=== PATIENT | female | born 1980 | race Caucasian/White ===

== ENCOUNTER 2017-06-28 20:44 | Emergency (ER) | payer OTHER ==
[~2017-06-28] VITALS: Ht 170.2 cm; Wt 66.0 kg
[~2017-06-28 20:44] MED LIST: ADVIN25/60 INH; ALBU1NEB10 INH; ALBUAER2 INH; CLC100 PO; FLUO20CA35 PO; OMEP20CA9 PO
[2017-06-28 20:51] VITALS: PULSE 99; TEMP 37.2; O2SAT 97; Ht 170.2 cm; Wt 66.0 kg
[2017-06-28] MEDS ORDERED: ALBINS/ INH (21:39)
[2017-06-28] MEDS ORDERED: VNTHFA/IN INH (21:39)
[2017-06-28] MEDS ORDERED: OMEP40CA41 PO (21:41)
[2017-06-28] MEDS ORDERED: ACET-1256 PO (21:41)
[2017-06-28] MEDS ORDERED: RANITIDINE HCL 50 MG/100 ML D5W IV STA (21:45)
[2017-06-28] MEDS ORDERED: PROMETHAZINE HCL INJ 6.25 MG in SODIUM CHLORIDE 0.9% 50ML 50 ML IV STA (21:45)
[2017-06-28] MEDS ORDERED: ONDANSETRON INJ 2 MG/ML 2 ML VIAL IV STA (21:45)
[2017-06-28] MEDS ORDERED: PANTOprazole SOD 40 MG TAB PO STA (21:45)
[2017-06-28] MEDS ORDERED: SODIUM CHLORIDE 0.9% 1000ML 2,000 ML IV STA (21:45)
--- NOTE | 2017-06-28 21:51 | EMERGENCY ROOM VISIT NOTE ---
History Report prepared by Lori: Patricia Quijano Under the Supervision of: Dr. Israel Morales M.D. First contact with patient: 21:42 Chief Complaint: VOMITING Stated Complaint: POSSIBLE ALCOHOL POISONING History of Present Illness The patient is a 36 year old female who presents to the Emergency Room with complaints of persistent vomiting for the past day. She reports yesterday evening, she had 10 shots of alcohol and 1 beer, and today she cannot stop vomiting. Her esophagus feels "raw", and she rates her discomfort as a 7/10. She has had that much alcohol before without experiencing the same symptoms. She reports she is a social drinker and does not drink every day. The patient is a current smoker and admits to a history of asthma. She states she felt totally normal yesterday. She denies any recent fevers, cough or cold symptoms or urinary symptoms. 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 A total of 10 systems reviewed and were otherwise negative. Past Medical & Surgical Medical Problems: (1) Asthma with status asthmaticus (2) Cellulitis (3) Depression (4) History of - miscarriage (5) Migraine (6) Tobacco user Family History Diabetes mellitus Hypertension Kidney disease Lung disease Social History Smoking Status: Current Every Day Smoker Alcohol Use: occasionally Marital Status: Housing Status: lives with significant other Occupation Status: unemployed Current/Historical Medications Scheduled Acetaminophen (Tylenol), 1,000 MG PO PRN UD Omeprazole (Prilosec), 40 MG PO BID Pantoprazole (Protonix), 20 MG PO DAILY Scheduled PRN Albuterol Hfa (Ventolin Hfa), 2 PUFFS INH Q4 PRN for ASTHMA Albuterol Sulf (Proventil 0.083% 2.5MG/3ML), 2.5 MG INH QID PRN for SOB/Wheezing Allergies Coded Allergies: Spinach (Verified Allergy, Severe, SHORTNESS OF BREATH, 01/25/16) Ibuprofen (Verified Adverse Reaction, Severe, VOMITING,BLURRED VISION, RINGING OF EARS, 01/25/16) Physical Exam Vital Signs Date Time Temp Pulse Resp B/P (MAP) Pulse Ox O2 Delivery O2 Flow Rate FiO2 8/17/17 23:49 143/93 06/28/17 20:51 37.2 99 18 159/126 97 Room Air Physical Exam GENERAL: Patient is in no acute distress. HEENT: No acute trauma, normocephalic atraumatic, mucous membranes dry, no nasal congestion, no scleral icterus. No throat erythema or exudate. NECK: No stridor, no adenopathy, no meningismus, trachea is midline. LUNGS: Scattered wheezing bilaterally, no rhonchi, breath sounds equal. HEART: Without murmurs gallops or rubs, regular rate and rhythm. ABDOMEN: Soft, nontender, bowel sounds positive, no hernias, no peritonitis. EXTREMITIES: No cyanosis or edema, full range of motion of all the joints without pain or difficulty, no signs for acute trauma. NEUROLOGIC: Oriented x 3, no acute motor or sensory deficits, no focal weakness. SKIN: No rash, no jaundice, no diaphoresis. Medical Decision & Procedures ER Provider Diagnostic Interpretation: Radiology results as stated below per my review and radiologist interpretation: ABDOMEN 2VIEW W/PA CHEST RTN CLINICAL HISTORY: 36 years-old Female presenting with vomiting. TECHNIQUE: PA view of the chest and supine and upright views of the abdomen were obtained. COMPARISON: 10/28/2014. FINDINGS: Cardiomediastinal silhouette normal. Lungs and pleural spaces clear. Normal bowel gas pattern. No evidence of free intraperitoneal gas, pneumatosis, or portal venous gas. Osseous structures normal. IMPRESSION: 1. No acute cardiopulmonary disease. No radiographic evidence of acute intra-abdominal pathology. Electronically signed by: Anil Francois M.D. 06/28/2017 11:21 PM Laboratory Results 06/28/17 22:18 Red Blood Count 4.85, Mean Corpuscular Volume 88.0, Mean Corpuscular Hemoglobin 32.0, Mean Corpuscular Hemoglobin Concent 36.3, Mean Platelet Volume 10.8, Neutrophils (%) (Auto) 57.7, Lymphocytes (%) (Auto) 29.5, Monocytes (%) (Auto) 9.2, Eosinophils (%) (Auto) 2.1, Basophils (%) (Auto) 1.3, Neutrophils # (Auto) 3.01, Lymphocytes # (Auto) 1.54, Monocytes # (Auto) 0.48, Eosinophils # (Auto) 0.11, Basophils # (Auto) 0.07 06/28/17 22:18 Test 06/28/17 22:18 White Blood Count 5.22 K/uL (4.8-10.8) Red Blood Count 4.85 M/uL (4.2-5.4) Hemoglobin 15.5 g/dL (12.0-16.0) Hematocrit 42.7 % (37-47) Mean Corpuscular Volume 88.0 fL (80-100) Mean Corpuscular Hemoglobin 32.0 pg (25-34) Mean Corpuscular Hemoglobin Concent 36.3 g/dl (32-36) Platelet Count 218 K/uL (130-400) Mean Platelet Volume 10.8 fL (7.4-10.4) Neutrophils (%) (Auto) 57.7 % Lymphocytes (%) (Auto) 29.5 % Monocytes (%) (Auto) 9.2 % Eosinophils (%) (Auto) 2.1 % Basophils (%) (Auto) 1.3 % Neutrophils # (Auto) 3.01 K/uL (1.4-6.5) Lymphocytes # (Auto) 1.54 K/uL (1.2-3.4) Monocytes # (Auto) 0.48 K/uL (0.11-0.59) Eosinophils # (Auto) 0.11 K/uL (0-0.5) Basophils # (Auto) 0.07 K/uL (0-0.2) RDW Standard Deviation 41.6 fL (36.4-46.3) RDW Coefficient of Variation 13.0 % (11.5-14.5) Immature Granulocyte % (Auto) 0.2 % Immature Granulocyte # (Auto) 0.01 K/uL (0.00-0.02) Anion Gap 8.0 mmol/L (3-11) Est Creatinine Clear Calc Drug Dose 97.9 ml/min Estimated GFR () 114.2 Estimated GFR (Non- 98.5 BUN/Creatinine Ratio 13.7 (10-20) Calcium Level 9.0 mg/dl (8.5-10.1) Total Bilirubin 1.1 mg/dl (0.2-1) Aspartate Amino Transf (AST/SGOT) 28 U/L (15-37) Alanine Aminotransferase (ALT/SGPT) 25 U/L (12-78) Alkaline Phosphatase 109 U/L (45-117) Total Creatine Kinase 259 U/L (26-192) Total Protein 7.7 gm/dl (6.4-8.2) Albumin 4.0 gm/dl (3.4-5.0) Globulin 3.7 gm/dl (2.5-4.0) Albumin/Globulin Ratio 1.1 (0.9-2) Human Chorionic Gonadotropin, Qual NEG (NEG) Laboratory results reviewed by me. Medications Administered Medications (Trade) Dose Ordered Sig/Kristofer Route Start Time Stop Time Status Last Admin Dose Admin Sodium Chloride 2,000 ml @ 999 mls/hr Q2H1M STAT IV 06/28/17 21:45 06/28/17 23:45 DC 06/28/17 22:37 999 MLS/HR Ondansetron HCl (Zofran Inj) 4 mg NOW STAT IV 06/28/17 21:45 06/28/17 21:48 DC 06/28/17 22:38 4 MG Ranitidine HCl (zANTac IV) 50 mg NOW STAT IV 06/28/17 21:45 06/28/17 21:49 DC 06/28/17 22:50 50 MG Pantoprazole Sodium (Protonix Tab) 40 mg NOW STAT PO 06/28/17 21:45 06/28/17 21:49 DC 06/28/17 22:38 40 MG Promethazine HCl 6.25 mg/Sodium Chloride 50.25 ml @ 204 mls/hr NOW STAT IV 06/28/17 21:45 06/28/17 21:59 DC 06/28/17 22:37 204 MLS/HR Ondansetron HCl (ZOFRAN ODT 4MG Home Pack) 1 homepack UD ONCE PO 06/28/17 23:45 06/28/17 23:46 DC 06/29/17 00:09 1 HOMEPACK ED Course 2143: The patient was evaluated in room C6. A complete history and physical exam was performed. 5: Promethazine HCl 6.25 mg/NSS 50.25 ml @ 204 mls/hr IV, Protonix 40 mg PO, Zantac 50 mg IV, Zofran 4 mg IV, NSS 2000 ml @ 999 mls/hr IV. 2335: I reevaluated the patient. She is feeling well and ready to go home. I discussed her results and discharge instructions and she verbalized complete understanding and agreement. 2345: Zofran 4 mg 1 homepack PO. Medical Decision The differential diagnoses considered include dehydration, alcohol induced vomiting, electrolyte imbalance, , UTI, bowel obstruction, food poisoning and viral illness. There is no leukocytosis or concerning anemia. No significant electrolyte abnormalities, kidney failure or hepatitis. testing is negative. Obstruction series shows no pneumonia, free air or bowel obstruction. On exam, there was no peritonitis. The patient was not toxic or febrile. She had no urinary complaints. The patient had a significant amount of alcohol last evening, she has been vomiting since. She received IV Zofran, IV Phenergan, IV saline, IV Zantac. She was given oral Protonix. The patient is feeling improved, no further vomiting. She is being discharged home with a bland diet, antacids, Maalox to soothe the esophagus. If worsening, she can return. Medication Reconcilliation Current Medication List: was personally reviewed by me Blood Pressure Screening Patient's blood pressure: Elevated blood pressure Blood pressure disposition: Elevated BP felt to be situational Impression Primary Impression: Dehydration Additional Impressions: Vomiting Alcohol use Scribe Attestation The scribe's documentation has been prepared under my direction and personally reviewed by me in its entirety. I confirm that the note above accurately reflects all work, treatment, procedures, and medical decision making performed by me. Departure Information Dispostion Home / Self-Care Prescriptions Pantoprazole (Protonix) 20 Mg Tab 20 MG PO DAILY for 21 Days, #21 TAB Prov: Israel Morales M.D. 06/28/17 Referrals No Doctor, Assigned (PCP) Patient Instructions My [facility] Additional Instructions protonix daily for 3 weeks zofran 1 tab as needed for vomiting bland diet---nothing acidic maalox otc to soothe the throat before meals return if worsening lab testing and imaging was all ok Problem Qualifiers
[2017-06-28 22:45] LABS: BASO % 1.3 %; BASO ABS # 0.07 K/uL (0-0.2); COMPLETE YES; EOS % 2.1 %; HEMATOCRIT 42.7 % (37-47); IG% 0.2 %; LYMPH % 29.5 %; LYMPH ABS # 1.54 K/uL (1.2-3.4); MEAN CORPUSCULAR HGB CONC 36.3 g/dl (32-36); MEAN PLATELET VOLUME 10.8 fL (7.4-10.4); MONO % 9.2 %; NEUT % 57.7 %; PLATELET COUNT 218 K/uL (130-400); RED BLOOD COUNT 4.85 M/uL (4.2-5.4); WHITE BLOOD COUNT 5.22 K/uL (4.8-10.8)
[2017-06-28 23:03] LABS: BUN/CREATININE RATIO 13.7 (10-20); CREATININE 0.78 mg/dl (0.60-1.20); POTASSIUM 3.3 mmol/L (3.5-5.1)
[2017-06-28 23:06] LABS: ALB/GLOB RATIO 1.1 (0.9-2)
[2017-06-28 23:08] LABS: PREG INTERNAL NEGATIVE QC NEG CLEAR BACKGROUND; PREG INTERNAL POSITIVE QC POS CONTROL LINE
--- NOTE | 2017-06-28 23:22 | DIAGNOSTIC IMAGING REPORT ---
ABDOMEN 2VIEW W/PA CHEST RTN CLINICAL HISTORY: 36 years-old Female presenting with vomiting. TECHNIQUE: PA view of the chest and supine and upright views of the abdomen were obtained. COMPARISON: 10/28/2014. FINDINGS: Cardiomediastinal silhouette normal. Lungs and pleural spaces clear. Normal bowel gas pattern. No evidence of free intraperitoneal gas, pneumatosis, or portal venous gas. Osseous structures normal. IMPRESSION: 1. No acute cardiopulmonary disease. No radiographic evidence of acute intra-abdominal pathology. Electronically signed by: Anil Francois M.D. 06/28/2017 11:21 PM Dictated Date/Time: 06/28/2017 11:20 PM
[2017-06-28] MEDS ORDERED: PRT/20 PO (23:42)
[2017-06-28] MEDS ORDERED: ONDANSETRON HOME PACK 4MG OD TAB PO ONE (23:45)
[2017-06-28 23:49] VITALS: BP 143/93
== END 2017-06-29 00:09 | disposition home or self-care (01) ==
LOC: C.EDB 20:45 → C.EDC 06-29 00:09
DX: E86.0 Dehydration (principal); R11.10 Vomiting, unspecified; F10.129 Alcohol abuse with intoxication, unspecified; F32.9 Major depressive disorder, single episode, unspecified; J45.909 Unspecified asthma, uncomplicated; Z86.19 Personal history of other infectious and parasitic diseases; F17.200 Nicotine dependence, unspecified, uncomplicated; Z79.899 Other long term (current) drug therapy; Z88.8 Allergy status to other drugs, medicaments and biological substances; Z91.018 Allergy to other foods; Z83.3 Family history of diabetes mellitus; Z82.49 Family history of ischemic heart disease and other diseases of the circulatory system; Z84.1 Family history of disorders of kidney and ureter

== ENCOUNTER 2018-02-21 13:26 | Emergency (ER) | payer OTHER ==
[~2018-02-21] VITALS: Ht 170.2 cm; Wt 67.6 kg
[~2018-02-21 13:26] MED LIST changes: +ACET-1256 PO; -ADVIN25/60 INH; +ALBINS/ INH; -ALBU1NEB10 INH; -ALBUAER2 INH; -CLC100 PO; -FLUO20CA35 PO; -OMEP20CA9 PO; +OMEP40CA41 PO; +VNTHFA/IN INH
[2018-02-21 13:27] VITALS: TEMP 36.9; Ht 170.2 cm; Wt 67.6 kg
[2018-02-21] MEDS ORDERED: MoRPHine SULFATE 4 MG/ML 1 ML CARP\\VIAL IV STA (13:39)
[2018-02-21] MEDS ORDERED: SODIUM CHLORIDE 0.9% 1000ML 1,000 ML IV STA (13:39)
[2018-02-21] MEDS ORDERED: ONDANSETRON INJ 2 MG/ML 2 ML VIAL IV STA (13:39)
[2018-02-21] MEDS ORDERED: ONDA4TAB65 PO (13:53)
[2018-02-21 14:10] LABS: BASO % 0.4 %; BASO ABS # 0.03 K/uL (0-0.2); EOS % 1.4 %; EOS ABS # 0.12 K/uL (0-0.5); HEMATOCRIT 36.8 % (37-47); HEMOGLOBIN 13.1 g/dL (12.0-16.0); IG# 0.01 K/uL (0.00-0.02); LYMPH % 17.9 %; LYMPH ABS # 1.52 K/uL (1.2-3.4); MEAN CORPUSCULAR HEMOGLOBIN 31.3 pg (25-34); MEAN CORPUSCULAR HGB CONC 35.6 g/dl (32-36); MEAN PLATELET VOLUME 10.3 fL (7.4-10.4); MONO % 4.8 %; MONO ABS # 0.41 K/uL (0.11-0.59); NEUT % 75.4 %; NEUT ABS # 6.38 K/uL (1.4-6.5); PLATELET COUNT 233 K/uL (130-400); RED CELL DISTRIBUTION WIDTH CV 13.5 % (11.5-14.5); RED CELL DISTRIBUTION WIDTH SD 43.5 fL (36.4-46.3); WHITE BLOOD COUNT 8.47 K/uL (4.8-10.8)
[2018-02-21 14:27] LABS: ALBUMIN 3.7 gm/dl (3.4-5.0); ALT/SGPT 15 U/L (12-78); AST/SGOT 16 U/L (15-37); BLOOD UREA NITROGEN 6 mg/dl (7-18); CALCIUM 8.7 mg/dl (8.5-10.1); CARBON DIOXIDE 22 mmol/L (21-32); CREATININE 0.62 mg/dl (0.60-1.20); GLUCOSE 97 mg/dl (70-99); LIPASE 84 U/L (73-393); POTASSIUM 3.5 mmol/L (3.5-5.1); SODIUM 137 mmol/L (136-145)
[2018-02-21 14:30] LABS: ALKALINE PHOSPHATASE 58 U/L (45-117); TOTAL PROTEIN 7.1 gm/dl (6.4-8.2)
--- NOTE | 2018-02-21 15:53 | DIAGNOSTIC IMAGING REPORT ---
ULTRASOUND OF THE GRAVID UTERUS AND PELVIS CLINICAL HISTORY: Generalized abdominal pain. .. COMPARISON STUDY: No priors. TECHNIQUE: Real-time, grayscale, and color flow sonography of the pelvis is performed transabdominally. Images are reviewed in the transverse and longitudinal planes. FINDINGS: Uterus: The gravid uterus is heterogeneous and measures 11.3 cm in length. Gestation: There is a single live uterine gestation with an estimated heart rate of 152 bpm. The mean gestational sac diameter measures 3.72 cm, corresponding to an estimated age of 9 weeks 4 days. This is concordant with the crown-rump length of 3.21 cm which corresponds to an estimated age of 10 weeks 1 day. A yolk sac is identified. Trace subchronic hemorrhage is noted and is likely chronic. Ovaries: The ovaries are normal in size and morphology. The right ovary measures 2.9 x 2.7 x 2.5 cm and the left ovary measures 3.0 x 1.2 x 2.4 cm. Small follicles are seen bilaterally. Normal Doppler waveforms are shown within both ovaries. Pelvis: There is no free fluid in the cul-de-sac. No concerning adnexal lesion is seen. IMPRESSION: 1. There is a single live uterine gestation with an estimated age of 10 weeks 1 day by crown-rump length measurement. 2. Note that this does not constitute a dedicated anatomic scan. 3. There is evidence of trace resolving subchorionic hemorrhage. Electronically signed by: Israel Crandall M.D. 02/21/2018 3:52 PM Dictated Date/Time: 02/21/2018 3:44 PM
[2018-02-21] MEDS ORDERED: ONDA4TAB10 SL (16:34)
[2018-02-21 17:04] VITALS: BP 118/74; PULSE 74; O2SAT 100
--- NOTE | 2018-02-22 11:18 | EMERGENCY ROOM VISIT NOTE ---
ED Visit Note First contact with patient: 13:30 Chief Complaint: Abdominal pain. History of Present Illness: Ms. Adames is a 37 year-old white female who ambulates into the ED complaining of bilateral lower quadrant pain in the suprapubic area. Historically patient reports patient denies any gastrointestinal disorders or abdominal surgeries. She does report she is currently and has not seen her [facility] for this . She is 6 and para 3 with no complications from her previous pregnancies. Her last menstrual cycle was December 06. Patient reports a gradual onset of suprapubic abdominal pain that started 5 days ago. Since that time the pain has been constant but has waxed and waned in intensity. She has not taken any medications for her pain prior to arrival at the hospital. Currently she describes her pain as a cramping sensation. She rates her current discomfort 6/10. Her pain is nonradiating. She has not identified any aggravating or alleviating factors related to the pain. Associated with her pain when it becomes severe she becomes nauseated and reported a few episodes of bilious vomiting; she denies any associated nausea prior to her vomiting. She denies any associated including fevers, chills, sweats, skin eruptions, skin color changes, upper respiratory tract symptoms, shortness of breath, chest pain, diarrhea, constipation, rectal bleeding, black/tarry stools, urinary symptoms, hematuria, vaginal bleeding, vaginal discharge, back/flank pain. Review of Systems: As noted above in history of present illness. All body systems were reviewed and found to be negative as noted above. Past Medical History: As previously noted, asthma. Current Medications: Albuterol, Prilosec, Tylenol and Zofran. Allergies to Medications: Ibuprofen. Social History: Patient is not employed; she feels safe in her home environment ; she admits to tobacco use and alcohol use. Physical Examination: Vital Signs: Date Time Temp Pulse Resp B/P (MAP) Pulse Ox O2 Delivery O2 Flow Rate FiO2 02/21/18 17:04 74 18 118/74 100 02/21/18 16:10 75 02/21/18 15:42 77 18 113/80 99 Room Air 02/21/18 13:27 36.9 101 20 126/74 100 Room Air GENERAL: 37-year-old female in mild to moderate distress due to pain, nontoxic- appearing, afebrile and hemodynamically stable. NEUROLOGICAL: Awake, alert and oriented to person, place and time. Answering questions appropriately and following commands. Normal gait. Good hand eye coordination. SKIN: Warm, dry and pink. No soft tissue eruptions or trauma noted. HEENT: Atraumatic and normocephalic. PERRLA. Sclera white and conjunctiva pink. Oral cavity moist and pink. Pharynx is nonerythematous or edematous. Speech normal. No lymphadenopathy. Trachea midline. No jugular venous distention. BACK: No tenderness over the bony spine. No CVA tenderness. THORAX: Lungs sounds are clear to auscultation and equal bilaterally with symmetrical chest wall. No wheezing, rales or rhonchi. No crepitus, tenderness , subcutaneous air or deformities noted. HEART: Regular rate and rhythm. No gallops, rubs or murmurs are appreciated. ABDOMEN: Flat and soft with minimal tenderness in the suprapubic area over the bladder. Positive bowel sounds in all quadrants. No guarding, rigidity or organomegaly. EXTREMITIES: Moves all extremities well on command and with purpose. All distal neurovascular statuses are intact and equal bilaterally. ED Course: Patient is assessed as noted above. Laboratory Testing: Test 02/21/18 13:48 02/21/18 15:45 Range/Units White Blood Count 8.47 4.8-10.8 K/uL Red Blood Count 4.18 4.2-5.4 M/uL Hemoglobin 13.1 12.0-16.0 g/dL Hematocrit 36.8 37-47 % Mean Corpuscular Volume 88.0 80-100 fL Mean Corpuscular Hemoglobin 31.3 25-34 pg Mean Corpuscular Hemoglobin Concent 35.6 32-36 g/dl Platelet Count 233 130-400 K/uL Mean Platelet Volume 10.3 7.4-10.4 fL Neutrophils (%) (Auto) 75.4 % Lymphocytes (%) (Auto) 17.9 % Monocytes (%) (Auto) 4.8 % Eosinophils (%) (Auto) 1.4 % Basophils (%) (Auto) 0.4 % Neutrophils # (Auto) 6.38 1.4-6.5 K/uL Lymphocytes # (Auto) 1.52 1.2-3.4 K/uL Monocytes # (Auto) 0.41 0.11-0.59 K/uL Eosinophils # (Auto) 0.12 0-0.5 K/uL Basophils # (Auto) 0.03 0-0.2 K/uL RDW Standard Deviation 43.5 36.4-46.3 fL RDW Coefficient of Variation 13.5 11.5-14.5 % Immature Granulocyte % (Auto) 0.1 % Immature Granulocyte # (Auto) 0.01 0.00-0.02 K/uL Sodium Level 137 136-145 mmol/L Potassium Level 3.5 3.5-5.1 mmol/L Chloride Level 108 98-107 mmol/L Carbon Dioxide Level 22 21-32 mmol/L Anion Gap 7.0 3-11 mmol/L Blood Urea Nitrogen 6 7-18 mg/dl Creatinine 0.62 0.60-1.20 mg/dl Est Creatinine Clear Calc Drug Dose 122.0 ml/min Estimated GFR () 134.5 Estimated GFR (Non- 116.0 BUN/Creatinine Ratio 9.3 10-20 Random Glucose 97 70-99 mg/dl Calcium Level 8.7 8.5-10.1 mg/dl Total Bilirubin 0.4 0.2-1 mg/dl Direct Bilirubin < 0.1 0-0.2 mg/dl Aspartate Amino Transf (AST/SGOT) 16 15-37 U/L Alanine Aminotransferase (ALT/SGPT) 15 12-78 U/L Alkaline Phosphatase 58 45-117 U/L Total Protein 7.1 6.4-8.2 gm/dl Albumin 3.7 3.4-5.0 gm/dl Lipase 84 73-393 U/L Human Chorionic Gonadotropin, Quant 61925 mIU/mL Urine Color YELLOW Urine Appearance CLOUDY CLEAR Urine pH 7.0 4.5-7.5 Urine Specific [place] 1.010 1.000-1.030 Urine Protein NEG NEG Urine Glucose (UA) NEG NEG Urine Ketones NEG NEG Urine Occult Blood NEG NEG Urine Nitrite NEG NEG Urine Bilirubin NEG NEG Urine Urobilinogen NEG NEG Urine Leukocyte Esterase NEG NEG Urine WBC (Auto) 5-10 0-5 /hpf Urine RBC (Auto) 0-4 0-4 /hpf Urine Hyaline Casts (Auto) 1-5 0-5 /lpf Urine Epithelial Cells (Auto) >30 0-5 /lpf Urine Bacteria (Auto) 1+ NEG Urine Culture: Pending Ultrasound: Was reviewed by myself and read by the radiologist showing a single live intrauterine gestation with an estimated age of 10 weeks and 1 day with evidence of trace resolving subchorionic hemorrhage. No free fluid or adnexal lesions were noted. Patient was hydrated with normal saline and she received 4 mg of morphine IV for pain and 4 mg of Zofran IV. Patient was reassessed multiple times during her stay in the emergency department. Patient's case was reviewed with Dr. Luna; we agreed on diagnostic approach , treatment, disposition and plan. [facility]; he encouraged that the patient use acetaminophen for pain, a prescription for Zofran for nausea/vomiting, increased clear fluids and office follow-up tomorrow. Patient was educated about today's findings and instructed on her treatment plan ; she verbalized understanding and agreement with this plan. Clinical Impression: Suprapubic abdominal pain. . Nausea/vomiting. Decision-Making: Initially my differential diagnosis I considered urinary tract infection, pyelonephritis, ectopic , ovarian torsion, and other causes. Disposition: Patient discharged to home in stable condition; prior to departure she was reassessed and subjectively reported she was feeling much better and rated her discomfort 4/10 and reported resolution of nausea. Plan: Patient was encouraged you 650 mg of acetaminophen every 6 hours for pain. Patient was encouraged to use 4 mg of Zofran every 6 hours for nausea/vomiting. Patient was encouraged to stay well-hydrated with increased clear fluids. Patient was encouraged to call [facility] gynecology for a follow-up appointment tomorrow. Patient was encouraged return to the ED for worsening/uncontrolled pain, worsening vomiting, fevers, vaginal bleeding or any new/concerning symptoms.
== END 2018-02-21 17:04 | disposition home or self-care (01) ==
LOC: C.EDB 13:27 → C.EDC 17:04
DX: O21.9 Vomiting of pregnancy, unspecified (principal); O99.511 Diseases of the respiratory system complicating pregnancy, first trimester; Z3A.10 10 weeks gestation of pregnancy; R10.30 Lower abdominal pain, unspecified; J45.909 Unspecified asthma, uncomplicated; Z72.0 Tobacco use

== ENCOUNTER 2020-08-27 10:01 | Inpatient (IN) ==
[2020-08-27] MEDS ORDERED: OXYTOCIN 30 UNITS/500 ML BAG IV PRN ×4 (10:07→21:01)
[2020-08-27 10:29] LABS: Hemoglobin 8.4 g/dL (12.0-16.0); Mean Corpuscular Hemoglobin 32.9 pg (25-34); Mean Corpuscular Volume 94.1 fL (80-100); Mean Platelet Volume 10.6 fL (7.4-10.4); Platelet Count 202 K/uL (130-400); RDW Coefficient of Variation 14.5 % (11.5-14.5); RDW Standard Deviation 48.7 fL (36.4-46.3); Red Blood Count 2.55 M/uL (4.2-5.4); White Blood Count 7.49 K/uL (4.8-10.8)
[2020-08-27] MEDS: LACTATED RINGER'S 1,000 ML IV PRN ×3 (10:30→18:09)
--- NOTE | 2020-08-27 10:39 | Obstetrical Progress Note ---
Date of Service August 27, 2020 Assessment & Plan Admission and Anticipated Discharge Date Admission Date: August 27, 2020 Subjective Admit Note 39 F [id number] at 38 weeks presents to L&D with SROM at 2 AM this morning and early labor. She is a prior C/S with her last delivery for non-reassuring FHT. She is planning on a today. GBS is negative. Covid status unknown. Cervix 3/50/-3/vertex. EFW 7 lbs. Will start Oxytocin to augment her contractions. Results & Data ([facility]) Vital Signs (Past 12 Hours) Vital Signs Pulse BP 08/27/20 10:30 83 137/83 08/27/20 10:06 86 152/93 H
--- NOTE | 2020-08-27 14:51 | Obstetrical Progress Note ---
Date of Service August 27, 2020 Assessment & Plan Admission and Anticipated Discharge Date Admission Date: August 27, 2020 Physical Exam Genitourinary: Manual OB Exam: + cervical dilation 4 cm, + cervical effacement 70%, + station -2 and + amniotic fluid bloody OB Exam Monitor Tracing: + external FHT monitor used, + external uterine monitor used and + category I small amniotic forebag ruptured with Amni-hook thin bloody fluid Results & Data ([facility]) Vital Signs (Past 12 Hours) Vital Signs Temp Pulse Resp BP 08/27/20 14:45 75 173/105 H 08/27/20 14:13 70 20 144/89 H 08/27/20 14:12 74 142/87 H 08/27/20 13:45 77 163/100 H 08/27/20 13:13 75 161/84 H 08/27/20 12:43 75 169/86 H 08/27/20 12:30 36.5 C 20 08/27/20 12:08 84 135/92 08/27/20 10:41 36.9 C 83 20 137/83 08/27/20 10:30 83 137/83 08/27/20 10:06 86 152/93 H
[2020-08-27] MEDS ORDERED: BUPIVACAINE 0.25% 30 ML VIAL ONE ×2 (14:52→17:53)
[2020-08-27] MEDS ORDERED: fentaNYL citrate 100 MCG/2 ML VIAL ONE (14:52)
[2020-08-27] MEDS ORDERED: ePHEDrine sulfate 50 MG/ML AMP ONE (14:52)
[2020-08-27] MEDS ORDERED: fentaNYL 2MCG/ML ROPIVACAINE 1.25MG/ML 100 ML BAG EPI ONE (14:53)
[2020-08-27] MEDS ORDERED: ONDANSETRON INJ 2 MG/ML 2 ML VIAL IV PRN (15:50)
[2020-08-27] MEDS ORDERED: fentaNYL 2MCG/ML ROPIVACAINE 1.25MG/ML 100 ML BAG EPI PRN (15:50)
[2020-08-27] MEDS ORDERED: NALOXONE HCL 0.4 MG/1 ML VIAL/CARP IV PRN (15:50)
[2020-08-27] MEDS ORDERED: diphenhydrAMINE 50 MG/ML VIAL IV PRN (15:50)
[2020-08-27] MEDS ORDERED: ePHEDrine sulfate 50 MG/ML AMP IV PRN (15:50)
[2020-08-27] MEDS ORDERED: NALOXONE HCL 1 MG in SODIUM CHLORIDE 0.9% 1000ML 1,000 ML IV PRN (15:50)
--- NOTE | 2020-08-27 15:50 | Anesthesiology Consultation ---
Date of Service August 27, 2020 Assessment & Plan (1) Encounter for pre-operative examination: Chart Review Chart Review: Patient NOT seen in Pre Admission Testing and Acceptable Risk for Labor Epidural Consults Requested none ASA ASA2 Proposed Anesthesia Anesthesia Type: Labor Epidural Risk / Benefits Reviewed With: PT / POA / Parent / Guardian, Accepts Plan and Informed Consent Obtained History Height/Weight Height: 5 ft 7 in Weight: 78.018 kg Allergies Allergy/AdvReac Type Severity Reaction Status Date / Time egg Allergy Severe THROAT Verified 05/13/19 15:25 SWELLS /HARD TO BREATHE spinach Allergy Severe SHORTNESS Verified 01/08/19 22:56 OF BREATH apple Allergy Swelling Verified 01/08/19 22:56 of Lip/Tongue/Throat potato Allergy Swelling Verified 01/08/19 22:56 of Lip/Tongue/Throat ibuprofen AdvReac Severe VOMITING,BLURRED Verified 01/08/19 22:56 VISION, RINGING OF EARS Medications Home Medications Medication Instructions Recorded Confirmed Last Taken albuterol sulfate [Ventolin HFA] 2 puff INHALATION Q6H PRN #1 06/28/17 08/27/20 08/26/20 09:00 inhaler hydrocortisone [Anusol-HC] 2.5 % TOPICAL BID PRN 08/27/18 08/27/20 08/25/18 [id number]-zkdrcmmnchnah-hafnohym 2 tab PO Q6H PRN 01/08/19 08/27/20 Unknown [Excedrin Migraine] ferrous sulfate 325 mg PO DAILY 01/08/19 08/27/20 08/27/20 09:00 lidocaine 1 applic TOPICAL TID PRN 01/08/19 08/27/20 Unknown omeprazole 40 mg PO DAILY 01/08/19 08/27/20 08/27/20 09:00 metoprolol tartrate 50 mg PO BID 08/27/20 08/27/20 08/27/20 09:00 Active Medications Generic Name Dose Route Start Last Admin Trade Name Freq PRN Reason Stop Dose Admin Lactated Ringer's 1,000 mls @ 125 mls/hr 08/27/20 10:07 08/27/20 15:31 Lr IV 08/29/20 10:06 125 mls/hr .Q8H PRN Infusion L&D Protocol Protocol Oxytocin 30 units in 500 mls @ 4 mls/hr 08/27/20 10:39 08/27/20 14:33 Pitocin IV 08/29/20 10:38 0.24 units/hr .Q24H PRN 4 mls/hr Labor Induction/Augmentation Titration Protocol 0.24 UNITS/HR NPO Date Last Intake of Fluids: 08/26/20 Time Last Intake of Fluids: 21:00 Date Last Intake of Solids: 08/26/20 Time Last Intake of Solids: 21:00 Past Medical History Medical History (Updated 08/27/20 @ 15:50 by Russell Ivy MD) Asthma Eustachian tube dysfunction 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 GERD (gastroesophageal reflux disease) Hemorrhoids during Hiatal hernia History of depression no current meds History of heart disorder patient says " my heart beats fast" Currently on Metoprolol Migraine Exercise / Class Metabolic Activity II 4-5 Yardwork/Stairs/Walk up hill Past Family History Family History Other Hiatal hernia Past Surgical History Surgical History (Updated 08/27/20 @ 11:54 by Corinna Vargas RN) H/O umbilical hernia repair History of 2018- intolerance to labor History of hemorrhoidectomy Past Anesthesia History No Hx of Anesthesia Complications and No Family Hx of Anesthesia Complications History of PONV No Hx of PONV and No Hx of Motion Sickness Social History Smoking Status: Light tobacco smoker tobacco type: cigarettes Smoking cigarettes per day: 2 Do You Dip or Chew Tobacco: No Hx Alcohol Use: No Alcohol type: wine alcohol intake frequency: a few times a month Hx Substance Use: No substance use type: does not use Physical Exam Vital Signs Last Vital Signs Temp 36.5 C 08/27/20 12:30 Pulse 76 08/27/20 15:47 Resp 20 08/27/20 14:13 BP 140/79 08/27/20 15:47 Pulse Ox 100 08/27/20 15:44 ENMT Mouth: no dentition abnormality Thyromental Distance: > or= 3.5 Finger Breadths Mallampati Class: II Neck normal visual inspection Respiratory normal respiratory effort Auscultation: lungs clear to auscultation bilaterally Cardiovascular Rate/Rhythm: regular rate and regular rhythm Psychiatric Orientation: alert Testing Laboratory Results 08/27/20 10:17 Blood Type O Positive 08/27/20 10:17 Antibody Screen NEGATIVE 08/27/20 10:17
[2020-08-27] MEDS ORDERED: SODIUM CHLORIDE 0.9% INJ 10 ML VIAL ONE (17:57)
[2020-08-27] MEDS ORDERED: IBUPROFEN 600 MG TAB PO PRN (21:01)
[2020-08-27] MEDS ORDERED: NON-FORMULARY MEDICATION (Lidocaine 1 APPLN) TOP PRN (21:01)
[2020-08-27] MEDS ORDERED: DIPHTHERIA/TETANUS/PERTUSSIS 0.5 ML SYR/VIAL IM ONE (21:01)
[2020-08-27] MEDS ORDERED: BENZOCAINE 20% AER SPR 82.5 GM CAN EXT PRN (21:01)
[2020-08-27] MEDS ORDERED: ACETAMINOPHEN 325 MG TAB PO PRN (21:01)
[2020-08-27] MEDS ORDERED: NON-FORMULARY MEDICATION (Aspirin-Acetaminophen-Caffeine [Excedrin Migraine] 2 TAB) PO PRN (21:01)
[2020-08-27] MEDS ORDERED: bisacodyL 10 MG SUPP PR PRN (21:01)
[2020-08-27] MEDS ORDERED: ALBUTEROL HFA 8 GM INHALER INH PRN (21:01)
[2020-08-27] MEDS ORDERED: HYDROCORTISONE ACETATE 25 MG SUPP PR PRN (21:01)
[2020-08-27] MEDS ORDERED: SUPERCREAM 0.870% 15 GM JAR EXT PRN (21:01)
[2020-08-27] MEDS ORDERED: LACTATED RINGER'S 1,000 ML IV SCH (21:01)
--- NOTE | 2020-08-27 21:05 | Delivery Summary ---
Vaginal Delivery Summary Date of Service August 27, 2020 Vaginal Delivery Summary Delivery Note live female over intact perineum YAMIL with nuchal cord x1 reduced at delivery. Delayed cord clamping followed by delivery of intact placenta. Small area of placenta appears to look like small abruption. Placenta submitted to pathology. No tears. EBL 200 ml. Final sponge and instrument count are correct. Mom and baby stable.
[2020-08-27] MEDS: METOPROLOL TARTRATE 50 MG TAB PO SCH (22:34)
--- NOTE | 2020-08-27 22:45 | Anesthesia Procedure Note ---
Date of Service August 27, 2020 Anesthesia Post Epidural Note Vital Signs Vital Signs: Temp Pulse Resp BP Pulse Ox 36.5 C 93 H 18 157/88 H 99 08/27/20 18:59 08/27/20 22:42 08/27/20 22:27 08/27/20 22:42 08/27/20 20:45 Pain Intensity Bilateral Abdomen: Pain Intensity: 0 Notes Mental Status: alert / awake / arousable Nausea / Vomiting: adequately controlled Pain: adequately controlled Airway Patency, RR, SpO2: stable & adequate BP & HR: stable & adequate Hydration State: stable & adequate Neuraxial Anesthesia: was administered and sensory block is resolving Anesthetic Complications: no major complications apparent and Pt Satisfied with anesthetic care Epidural: Removed without complications and With tip intact
[2020-08-28] MEDS: DOCUSATE SODIUM 100 MG CAP PO SCH ×3 (03:59→20:33)
[2020-08-28 05:58] LABS: Hematocrit (blood only) 21.9 % (37-47); Hemoglobin 7.5 g/dL (12.0-16.0); Mean Corpuscular Hemoglobin 32.6 pg (25-34); Mean Corpuscular Hgb Conc 34.2 g/dL (32-36); Mean Corpuscular Volume 95.2 fL (80-100); Mean Platelet Volume 10.6 fL (7.4-10.4); Platelet Count 211 K/uL (130-400); RDW Coefficient of Variation 14.5 % (11.5-14.5); RDW Standard Deviation 49.5 fL (36.4-46.3); White Blood Count 8.99 K/uL (4.8-10.8)
[2020-08-28] MEDS: PRENATAL VITAMIN 1 TAB PO SCH (08:15)
[2020-08-28] MEDS: FERROUS SULFATE 325 MG TAB PO SCH (08:15)
[2020-08-28] MEDS: PANTOprazole 40 MG TAB PO SCH (08:15)
[2020-08-28] MEDS: METOPROLOL TARTRATE 50 MG TAB PO SCH ×2 (08:15→21:07)
[2020-08-28] MEDS ORDERED: NON-FORMULARY MEDICATION (Ferrous Sulfate 325 MG) PO SCH (09:00)
[2020-08-28] MEDS ORDERED: hydrALAZINE HCL 20 MG/ML VIAL IV STA (09:39)
--- NOTE | 2020-08-28 10:17 | Obstetrical Progress Note ---
Date of Service August 28, 2020 Assessment & Plan (1) (vaginal after ): PPD #1 pt has elev BP. No SOB, RUQ pain or visual changes received hydralazine PIH labs ordered Subjective Ambulation: ambulating normally Voiding: no voiding problems Passing Gas:: Yes Diet Tolerance:: regular diet Lochia:: Small Feeding Type:: breast feeding Review of Systems All systems reviewed & are unremarkable except as noted in HPI & below Physical Exam Constitutional WD/WN, vitals as above well developed and well nourished Eyes PERRL, conjunctivae normal, anicteric sclerae Neck trachea midline, no thyromegaly Respiratory normal respiratory effort, lungs clear to auscultation Auscultation: no crackles, no rales and no wheezes Cardiovascular RRR, no murmur, no edema Gastrointestinal (Abdomen) normal bowel sounds, soft, nontender, no hepatosplenomegaly Uterus is below umbilicus Musculoskeletal no cyanosis or clubbing, extremities motor strength 5/5 Skin no rashes, warm and dry Neurologic patellar DTR's 2+ bilat, sensation intact Psychiatric A+Ox3, euthymic affect Genitourinary normal external appearance Results & Data ([facility]) Vital Signs (Past 12 Hours) Vital Signs Temp Pulse Pulse Resp BP BP 08/28/20 03:45 36.7 C 76 18 138/88 08/27/20 23:25 36.5 C 74 18 145/85 H 08/27/20 22:55 91 H 18 149/86 H 08/27/20 22:42 93 H 157/88 H 08/27/20 22:27 99 H 18 155/98 H
[2020-08-28] MEDS: oxyCODONE/ACETAMINOPHEN 5mg/325mg TAB PO PRN ×3 (10:35→20:37)
[2020-08-28 10:40] LABS: Hematocrit (blood only) 21.5 % (37-47); Hemoglobin 7.6 g/dL (12.0-16.0); Mean Corpuscular Hemoglobin 33.2 pg (25-34); Mean Corpuscular Volume 93.9 fL (80-100); Mean Platelet Volume 10.5 fL (7.4-10.4); Platelet Count 205 K/uL (130-400); RDW Coefficient of Variation 14.6 % (11.5-14.5); Red Blood Count 2.29 M/uL (4.2-5.4); White Blood Count 8.94 K/uL (4.8-10.8)
[2020-08-28 10:42] LABS: Mean Corpuscular Hgb Conc 35.3 g/dL (32-36)
[2020-08-28 10:56] LABS: Albumin Level 2.3 gm/dl (3.4-5.0); BUN Creatinine Ratio 9.2 (10-20); Calcium 8.4 mg/dl (8.5-10.1); Creatinine Clr Calc Pharmacy 134.6 ml/min; Est GFR (African American) 133.3
[2020-08-28 10:59] LABS: Albumin Globulin Ratio 0.7 (0.9-2); Bilirubin,Total 0.2 mg/dl (0.2-1); Globulin 3.5 gm/dl (2.5-4.0); Total Protein 5.8 gm/dl (6.4-8.2)
[2020-08-28 11:04] LABS: Creatinine Urine Random 29.6 mg/dl; Protein Creatinine Ratio Urine 0.6 (0-0.2); Total Protein Urine Random 17.2 mg/dl (0-11.9)
--- NOTE | 2020-08-28 11:10 | Progress Note ---
Date of Service August 28, 2020 Assessment & Plan Admission and Anticipated Discharge Date Admission Date: August 27, 2020 Subjective PIH labs reviewed Will start labetelol Results & Data ([facility]) Vital Signs (Past 12 Hours) Vital Signs Temp Pulse Resp BP 08/28/20 03:45 36.7 C 76 18 138/88 08/27/20 23:25 36.5 C 74 18 145/85 H
[2020-08-28] MEDS: LABETALOL HCL 200 MG TAB PO SCH ×2 (11:55→21:07)
[2020-08-28] MEDS ORDERED: bisacodyL 5 MG TABEC PO SCH (20:00)
[2020-08-29 06:45] LABS: Hematocrit (blood only) 18.8 % (37-47); Hemoglobin 6.2 g/dL (12.0-16.0)
--- NOTE | 2020-08-29 08:59 | Obstetrical Progress Note ---
Date of Service August 29, 2020 Assessment & Plan (1) Normal course: PPD #2 pt doing well HTN - On labetalol Anemia on Iron tabs HCTZ for pedal edema Pt given Im DMPA for contraception disch home with instructions Subjective Ambulation: ambulating normally Voiding: no voiding problems Passing Gas:: Yes Diet Tolerance:: regular diet Lochia:: Small Feeding Type:: breast feeding Review of Systems All systems reviewed & are unremarkable except as noted in HPI & below Physical Exam Constitutional WD/WN, vitals as above well developed and well nourished Eyes PERRL, conjunctivae normal, anicteric sclerae Neck trachea midline, no thyromegaly Respiratory normal respiratory effort, lungs clear to auscultation Auscultation: no crackles, no rales and no wheezes Cardiovascular RRR, no murmur, no edema Gastrointestinal (Abdomen) normal bowel sounds, soft, nontender, no hepatosplenomegaly Uterus is below umbilicus Musculoskeletal no cyanosis or clubbing, extremities motor strength 5/5 Skin no rashes, warm and dry Neurologic patellar DTR's 2+ bilat, sensation intact Psychiatric A+Ox3, euthymic affect Genitourinary normal external appearance Results & Data ([facility]) Vital Signs (Past 12 Hours) Vital Signs Temp Pulse Resp BP 08/29/20 00:05 36.5 C 86 16 131/83
[2020-08-29 09:10] LABS: Hematocrit (blood only) 20.6 % (37-47); Hemoglobin 6.9 g/dL (12.0-16.0)
[2020-08-29] MEDS: PRENATAL VITAMIN 1 TAB PO SCH (10:06)
[2020-08-29] MEDS: DOCUSATE SODIUM 100 MG CAP PO SCH (10:06)
[2020-08-29] MEDS: LABETALOL HCL 200 MG TAB PO SCH (10:07)
[2020-08-29] MEDS: METOPROLOL TARTRATE 50 MG TAB PO SCH (10:07)
[2020-08-29] MEDS: FERROUS SULFATE 325 MG TAB PO SCH (10:07)
[2020-08-29] MEDS: PANTOprazole 40 MG TAB PO SCH (10:09)
== END 2020-08-29 12:15 | disposition home or self-care (01) | DRG 807 ==
LOC: OPB 10:01 → 4S1 10:02 → 4S2 23:17

== ENCOUNTER 2021-09-09 04:05 | Inpatient (IN) ==
[2021-09-09] MEDS ORDERED: OXYTOCIN 30 UNITS/500 ML BAG IV PRN (04:25)
[2021-09-09] MEDS ORDERED: LACTATED RINGER'S 1,000 ML IV PRN (04:25)
[2021-09-09] MEDS ORDERED: ceFAZolin 2000MG 2,000 MG/15 ML SYR IV STA (04:32)
[2021-09-09] MEDS ORDERED: fentaNYL citrate 100 MCG/2 ML VIAL ONE ×2 (04:33→04:56)
--- NOTE | 2021-09-09 04:37 | History & Physical Report ---
Date of Service September 09, 2021 History of Present Illness Chief Complaint: vaginal bleeding Primary Care Provider: NO PCP 40 F presents to L&D with vaginal bleeding and no care. Her water broke and was bloody. She is approximately 28 weeks by best estimate by size and her estimate. Allergies Allergy/AdvReac Type Severity Reaction Status Date / Time egg Allergy Severe THROAT Verified 05/13/19 15:25 SWELLS /HARD TO BREATHE spinach Allergy Severe SHORTNESS Verified 01/08/19 22:56 OF BREATH apple Allergy Swelling Verified 01/08/19 22:56 of Lip/Tongue/Throat potato Allergy Swelling Verified 01/08/19 22:56 of Lip/Tongue/Throat ibuprofen AdvReac Severe VOMITING,BLURRED Verified 01/08/19 22:56 VISION, RINGING OF EARS Home Medications Medication Instructions Recorded Confirmed Type albuterol sulfate 90 mcg/actuation 2 puff INHALATION Q6H PRN #1 06/28/17 08/27/20 History aerosol inhaler (Ventolin HFA) inhaler hydrocortisone 2.5 % topical cream 2.5 % TOPICAL BID PRN 08/27/18 08/27/20 History with perineal applicator (Anusol-HC) [id number]-hdhybebeuasqv-cgzgvipc 250 2 tab PO Q6H PRN 01/08/19 08/27/20 History mg-250 mg-65 mg tablet (Excedrin Migraine) ferrous sulfate 325 mg (65 mg 325 mg PO DAILY 01/08/19 08/27/20 History iron) tablet lidocaine 5 % topical cream 1 applic TOPICAL TID PRN 01/08/19 08/27/20 History omeprazole 40 mg capsule,delayed 40 mg PO DAILY 01/08/19 08/27/20 History release metoprolol tartrate 50 mg tablet 50 mg PO BID 08/27/20 08/27/20 History acetaminophen 325 mg tablet 650 mg PO Q6H #60 tab 08/29/20 Rx hydrochlorothiazide 12.5 mg capsule 12.5 mg PO DAILY #1 cap 08/29/20 Rx labetalol 200 mg tablet 200 mg PO BID #90 tab 08/29/20 Rx Patient History Medical History Asthma Eustachian tube dysfunction 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 GERD (gastroesophageal reflux disease) Hemorrhoids during Hiatal hernia History of depression no current meds History of heart disorder patient says " my heart beats fast" Currently on Metoprolol Migraine Surgical History H/O umbilical hernia repair History of 2018- intolerance to labor History of hemorrhoidectomy Family History Other Hiatal hernia Social History Smoking Status: Light tobacco smoker Cigarettes Per Day: 2; Second Hand Exposure: No; Hx Alcohol Use: No Hx Substance Use: No Preferred Language: Spanish Communication Ability: Effective Pedicurist Required: No Beliefs That Will Affect Care: None marital status: Legally Current Living Situation: Family Current Living Situation Comment: lives with 6 children Feels Safe at Home: Yes Assistive Devices: None OB History 8th per patient 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
--- NOTE | 2021-09-09 05:21 | Anesthesiology Consultation ---
Date of Service September 09, 2021 Assessment & Plan Chart Review Chart Review: Acceptable Risk for Surgery Consults Requested none ASA [id number] Proposed Anesthesia Anesthesia Type: General Risk / Benefits Reviewed With: PT / POA / Parent / Guardian, Accepts Plan and Informed Consent Obtained Additional Notes emergent C section d/t placental abruption, plan for STAT general, no care, no labs available at time of procedure, document added late due to emergent situation. History Allergies Allergy/AdvReac Type Severity Reaction Status Date / Time egg Allergy Severe THROAT Verified 05/13/19 15:25 SWELLS /HARD TO BREATHE spinach Allergy Severe SHORTNESS Verified 01/08/19 22:56 OF BREATH apple Allergy Swelling Verified 01/08/19 22:56 of Lip/Tongue/Throat potato Allergy Swelling Verified 01/08/19 22:56 of Lip/Tongue/Throat ibuprofen AdvReac Severe VOMITING,BLURRED Verified 01/08/19 22:56 VISION, RINGING OF EARS Medications Home Medications Medication Instructions Recorded Confirmed Last Taken albuterol sulfate 90 mcg/actuation 2 puff INHALATION Q6H PRN #1 06/28/1708/26/20 09:00 aerosol inhaler (Ventolin HFA) inhaler hydrocortisone 2.5 % topical cream 2.5 % TOPICAL BID PRN 08/27/18 08/27/20 08/25/18 with perineal applicator (Anusol-HC) aexkjio-cmpyhdyvdhavk-jxypliyd 250 2 tab PO Q6H PRN 01/08/19 08/27/20 Unknown mg-250 mg-65 mg tablet (Excedrin Migraine) ferrous sulfate 325 mg (65 mg 325 mg PO DAILY 01/08/19 08/27/20 08/27/20 09:00 iron) tablet lidocaine 5 % topical cream 1 applic TOPICAL TID PRN 01/08/19 08/27/20 Unknown omeprazole 40 mg capsule,delayed 40 mg PO DAILY 01/08/19 08/27/20 08/27/20 09:00 release metoprolol tartrate 50 mg tablet 50 mg PO BID 08/27/20 08/27/20 08/27/20 09:00 acetaminophen 325 mg tablet 650 mg PO Q6H #60 tab 08/29/20 Unknown hydrochlorothiazide 12.5 mg capsule 12.5 mg PO DAILY #1 cap 10/18/20 Unknown labetalol 200 mg tablet 200 mg PO BID #90 tab 08/29/20 Unknown Past Medical History Medical History Asthma Eustachian tube dysfunction 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 GERD (gastroesophageal reflux disease) Hemorrhoids during Hiatal hernia History of depression no current meds History of heart disorder patient says " my heart beats fast" Currently on Metoprolol Migraine Exercise / Class Metabolic Activity II 4-5 Yardwork/Stairs/Walk up hill Past Family History Family History Other Hiatal hernia Past Surgical History Surgical History H/O umbilical hernia repair History of 2018- intolerance to labor History of hemorrhoidectomy Past Anesthesia History No Hx of Anesthesia Complications and No Family Hx of Anesthesia Complications History of PONV No Hx of PONV and No Hx of Motion Sickness Social History Smoking Status: Light tobacco smoker tobacco type: cigarettes Smoking cigarettes per day: 2 Hx Alcohol Use: No Alcohol type: wine alcohol intake frequency: a few times a month Hx Substance Use: No substance use type: does not use Physical Exam Vital Signs Last Vital Signs Pulse 84 09/09/21 04:34 BP 121/87 09/09/21 04:21 Pulse Ox 100 09/09/21 04:34 ENMT Mouth: no dentition abnormality Thyromental Distance: > or= 3.5 Finger Breadths Mallampati Class: II Neck normal visual inspection Respiratory normal respiratory effort Auscultation: lungs clear to auscultation bilaterally Cardiovascular Rate/Rhythm: regular rate and regular rhythm Psychiatric Orientation: alert and oriented x 3
[2021-09-09 05:25] LABS: Amphetamines+Metham, Urine Neg (Neg); Barbiturates, Urine Neg (Neg); Benzodiazepine, Urine Neg (Neg); Cocaine, Urine Neg (Neg); MDMA (Ecstacy), Urine Neg (Neg); Methadone, Urine Neg (Neg); Opiate, Urine Pos (Neg); Phencyclidine, Urine Neg (Neg)
[2021-09-09 05:37] LABS: Hematocrit (blood only) 19.4 % (37-47); Hemoglobin 6.9 g/dL (12.0-16.0); Mean Corpuscular Hemoglobin 32.4 pg (25-34); Mean Corpuscular Hgb Conc 35.6 g/dL (32-36); Mean Corpuscular Volume 91.1 fL (80-100); Mean Platelet Volume 10.1 fL (7.4-10.4); Platelet Count 121 K/uL (130-400); RDW Coefficient of Variation 12.4 % (11.5-14.5); RDW Standard Deviation 41.8 fL (36.4-46.3); Red Blood Count 2.13 M/uL (4.2-5.4); White Blood Count 14.26 K/uL (4.8-10.8)
--- NOTE | 2021-09-09 05:51 | XRay Report ---
KUB CLINICAL HISTORY: Intraoperative radiograph. No instrument count performed during section. FINDINGS: An AP, portable, supine view of the lower abdomen and pelvis is compared to study dated 06/12. There is a nonobstructed abdominal bowel gas pattern. No radiodense foreign body is identifie d. Soft tissue density projecting over the pelvis likely represents the post gravid uterus. The bony pelvis appears intact. Mild sclerotic change is noted in the sacroiliac joints and pubic symphysis. IMPRESSION: No radiodense foreign body is identified. Electronically signed by: Israel Crandall M.D. 09/09/2021 5:49 AM
[2021-09-09] MEDS ORDERED: DIPHTHERIA/TETANUS/PERTUSSIS 0.5 ML SYR/VIAL IM ONE (05:54)
[2021-09-09] MEDS ORDERED: MEPERIDINE HCL 50 MG/ML CARP IV PRN (05:54)
[2021-09-09] MEDS ORDERED: PROMETHAZINE HCL 25 MG in SODIUM CHLORIDE 0.9% 50 ML IV PRN (05:54)
[2021-09-09] MEDS ORDERED: KETOROLAC 30 MG/ML VIAL IV PRN (05:54)
[2021-09-09] MEDS ORDERED: ONDANSETRON INJ 2 MG/ML 2 ML VIAL IV PRN (05:54)
[2021-09-09] MEDS ORDERED: HYDROCORTISONE HC 2.5% CRM 30GM TUBE EXT PRN (05:54)
[2021-09-09] MEDS ORDERED: MAGNESIUM HYDROXIDE SUSP 30 ML UDC PO PRN (05:54)
[2021-09-09] MEDS ORDERED: diphenhydrAMINE Capsule 25 MG CAP PO PRN (05:54)
[2021-09-09] MEDS ORDERED: SENNA 8.6 MG TAB PO PRN (05:54)
[2021-09-09] MEDS ORDERED: SUPERCREAM 0.870% 15 GM JAR EXT PRN (05:54)
[2021-09-09] MEDS ORDERED: LACTATED RINGER'S 1,000 ML IV SCH (05:54)
[2021-09-09] MEDS ORDERED: BENZOCAINE 20% AER SPR 82.5 GM CAN EXT PRN (05:54)
[2021-09-09] MEDS ORDERED: diphenhydrAMINE 50 MG/ML VIAL IV PRN (05:54)
[2021-09-09] MEDS ORDERED: HYDROCORTISONE ACETATE 25 MG SUPP PR PRN (05:54)
--- NOTE | 2021-09-09 05:54 | Post Operative Brief Note ---
Immediate Post Op Note v1 Date of Surgery September 09, 2021 Pre & Post Diagnosis severe gestation with vaginal bleeding consistent with abruption no care I identified the patient and participated in the time-out.: Yes Procedure Emergency repeat section Surgeon Ryan Brown MD Apprentice Instrument Technician Vero Metz RN Estimated Blood Loss 500 Findings Consistent with Post-Op Diagnosis live female Apgars 1/4/5 placental abruption Fluids LR Specimens placenta Drains Barrientos Catheter Anesthesia Type General Complications none Disposition Accompanied Patient To Recovery: Yes Overlapping Procedure I was immediately available: during the entire case. Back up surgeon: was not required during procedure.
[2021-09-09] MEDS ORDERED: GLYCOPYRROLATE 0.2 MG/ML VIAL ONE (05:55)
[2021-09-09] MEDS ORDERED: PROPOFOL IV EMULSION 10 MG/ML 20 ML VIAL IV ONE (05:55)
[2021-09-09] MEDS ORDERED: DEXAMETHASONE SOD INJ 4 MG/ML VIAL ONE (05:55)
[2021-09-09] MEDS ORDERED: NOREPINEPHRINE BITARTRATE 1 MG/ML 4 ML VIAL IV ONE (05:55)
[2021-09-09] MEDS ORDERED: SUCCINYLCHOLINE 100MG/5ML SYR IV ONE (05:55)
[2021-09-09] MEDS ORDERED: ONDANSETRON INJ 2 MG/ML 2 ML VIAL ONE (05:55)
[2021-09-09] MEDS ORDERED: NALOXONE HCL 0.4 MG/1 ML VIAL/CARP IV PRN (05:58)
[2021-09-09] MEDS ORDERED: MoRPHine Bolus from PCA IV STA (05:58)
[2021-09-09] MEDS ORDERED: ACETAMINOPHEN 325 MG TAB PO SCH (06:00)
[2021-09-09] MEDS ORDERED: SODIUM CHLORIDE 0.9% 1000ML 1,000 ML IV SCH (06:00)
[2021-09-09] MEDS: MoRPHine SULFATE PCA 30 MG/30 ML IV PRN ×3 (06:33→19:18)
--- NOTE | 2021-09-09 07:21 | Operative Report (OR) ---
DATE OF SURGERY: 09/09/2021. PREOPERATIVE DIAGNOSIS: Severe suspected abruption, no care. POSTOPERATIVE DIAGNOSIS: Severe suspected abruption, no care. PROCEDURE: Repeat section. SURGEON: Ryan Brown MD CONFLICT RESOLUTION PROFESSIONAL: Vero ____, RN ANESTHESIA: General. COMPLICATIONS: None. FINDINGS: Live female, Apgars 1, 3, 4; 1004 grams, vertex presentation with bloody amniotic fluid. CLINICAL HISTORY AND HOSPITAL COURSE: The patient is a 40-year-old female, 11, para 7-0-3-7 w ith no care, comes in without notifying any one of vaginal bleeding. The patient on admissi on was bleeding, her water broke. Ultrasound at bedside confirms vertex presentation, it was a viable fetus. Cervix was checked and di lated only 2 cm. Decision was made to proceed with a stat section due to suspected abruptio n. The records were not available at the time of decision to do section due to josé miguel ng unable to connect with the gaming surveillance observer. DESCRIPTION OF PROCEDURE: Under satisfactory general anesthesia, the patient was prepped and draped in the usual sterile fashion. A low Pfannenstiel incision through a prior scar was then made enterin g into the peritoneal cavity with blunt dissection. The lower uterine segment was well developed. B ladder flap was made and a low segment incision was made. The incision was widened in the AP diamete r with blunt dissection. Amniotic sac was nicked. It was found to be bloody. The was then d elivered from the vertex presentation, female, Apgars 1, 3, and 4; 1004 grams. After the cord was do ubly clamped and cut, baby was handed to sales operations consultant for immediate resuscitation and warming. There was no blood available in the cord due to clotting. Placenta was detached almost immediately from t he abruption, submitted to pathology as a separate specimen. The uterus was then exteriorized. Ring forceps was then placed on both angles in the inferior margin. The uterus was cleaned of all clots and debris. The uterus was closed in a double layer closure with 0 Vicryl suture in a continuous int erlocking fashion followed by a second imbricating suture. Tubes, ovaries bilaterally were noted to be normal. There was a posterior fibroid approximately 2 cm that was noted. The contents of the pel lurdes and abdominal cavity were then cleared. The initial sponge, needle, and instrument counts were f ound to be correct. The fascia was then reapproximated from both ends using 0 Vicryl suture and subc uticular space was then irrigated. The subcuticular space was then closed with 3-0 plain suture, fol lowed by maryse for skin. The x-ray department was here for confirmation of sponge and needle count s. The sponge and needle count on my direct inspection was negative from the box office clerk film. Maryse wer e placed. Telfa and sponge dressing were placed. The patient was then placed supine on a stretcher and taken to recovery room in stable condition. Urine output was noted to be good, but low. The pat ient's blood loss was 500 mL. She was extubated and taken to the recovery room in stable condition. Job ID: [id number]
[2021-09-09 07:51] LABS: Basophils # (auto) 0.03 K/uL (0-0.2); Basophils % (auto) 0.2 %; Eosinophils # (auto) 0.04 K/uL (0-0.5); Eosinophils % (auto) 0.3 %; Hematocrit (blood only) 17.4 % (37-47); Hemoglobin 6.3 g/dL (12.0-16.0); Immature Granulocytes # (auto) 0.03 K/uL (0.00-0.02); Immature Granulocytes % (auto) 0.2 %; Lymphocytes # (auto) 0.98 K/uL (1.2-3.4); Lymphocytes % (auto) 6.8 %; Mean Corpuscular Hemoglobin 32.8 pg (25-34); Mean Corpuscular Hgb Conc 36.2 g/dL (32-36); Mean Corpuscular Volume 90.6 fL (80-100); Mean Platelet Volume 10.1 fL (7.4-10.4); Monocytes # (auto) 0.23 K/uL (0.11-0.59); Monocytes % (auto) 1.6 %; Neutrophils % (auto) 90.9 %; Platelet Count 94 K/uL (130-400); Platelet Estimate Decreased (Normal); RBC Morphology Unremarkable; RDW Coefficient of Variation 12.6 % (11.5-14.5); RDW Standard Deviation 41.7 fL (36.4-46.3); Red Blood Count 1.92 M/uL (4.2-5.4); White Blood Count 14.31 K/uL (4.8-10.8)
[2021-09-09] MEDS ORDERED: SODIUM CHLORIDE 0.9% 250 ML IV PRN (07:53)
--- NOTE | 2021-09-09 07:59 | Obstetrical Progress Note ---
Date of Service September 09, 2021 Assessment & Plan Admission and Anticipated Discharge Date Admission Date: September 09, 2021 Subjective Postop check Patient is seen and examined Feels sore and tired Has [employer] No CP/ SOB/ Dizziness/ N&V/ VB/ Leg pain She had PRROM at 3 am and bled through diapers. Her ears were ringing before she came to hospital Stat Csection for placental abruption Not OOB yet Tolerating clears Vital Signs Temp Pulse Pulse Resp BP Pulse Ox 09/09/21 07:53 65 100 09/09/21 07:52 82 119/76 91 09/09/21 07:48 72 100 09/09/21 07:47 64 114/57 L 09/09/21 07:43 60 131/58 L 100 09/09/21 07:38 62 100 09/09/21 07:37 73 130/67 94 09/09/21 07:35 65 124/65 09/09/21 07:33 78 100 09/09/21 07:28 66 100 09/09/21 07:23 83 100 09/09/21 07:18 78 100 09/09/21 07:17 65 131/64 09/09/21 07:13 80 123/60 100 09/09/21 07:08 75 100 09/09/21 07:07 86 127/60 09/09/21 07:03 81 100 09/09/21 07:02 75 128/63 09/09/21 07:00 80 92 09/09/21 06:58 81 100 09/09/21 06:57 86 114/82 09/09/21 06:53 65 100 09/09/21 06:52 65 130/66 09/09/21 06:50 75 18 94 09/09/21 06:48 77 100 09/09/21 06:47 73 125/72 09/09/21 06:43 69 99 09/09/21 06:42 60 118/66 09/09/21 06:40 18 09/09/21 06:38 69 100 09/09/21 06:37 66 118/67 09/09/21 06:33 66 100 09/09/21 06:32 70 129/69 09/09/21 06:30 16 09/09/21 06:28 70 100 09/09/21 06:27 65 132/66 09/09/21 06:23 68 99 09/09/21 06:22 78 126/72 09/09/21 06:20 16 09/09/21 06:18 68 100 09/09/21 06:17 69 127/67 09/09/21 06:13 82 100 09/09/21 06:12 71 135/72 91 09/09/21 06:10 16 09/09/21 06:08 64 99 09/09/21 06:07 67 143/69 H 09/09/21 06:04 36.5 C 18 09/09/21 06:03 71 140/66 99 09/09/21 06:00 36.5 C 93 H 65 18 100 09/09/21 05:57 83 124/62 100 09/09/21 05:52 75 124/67 100 09/09/21 05:47 73 139/78 100 09/09/21 05:42 72 100 09/09/21 05:41 68 141/76 H 09/09/21 04:34 84 100 09/09/21 04:29 88 100 09/09/21 04:24 93 H 100 09/09/21 04:21 36.5 C 96 H 18 121/87 09/09/21 04:19 95 H 100 09/09/21 04:14 87 100 Lab Results 09/09/21 09/09/21 09/09/21 Range/Units 04:28 04:28 04:43 WBC 14.26 H (4.8-10.8) K/uL RBC 2.13 L (4.2-5.4) M/uL Hgb 6.9 L* (12.0-16.0) g/dL Hct 19.4 L* (37-47) % MCV 91.1 (80-100) fL MCH 32.4 (25-34) pg MCHC 35.6 (32-36) g/dL RDW Std Deviation 41.8 (36.4-46.3) fL RDW Coeff of Jelena 12.4 (11.5-14.5) % Plt Count 121 L (130-400) K/uL MPV 10.1 (7.4-10.4) fL Immature Gran % (Auto) % Neut % (Auto) % Lymph % (Auto) % [place] % (Auto) % Eos % (Auto) % Baso % (Auto) % Neut # (Auto) (1.4-6.5) K/uL Lymph # (Auto) (1.2-3.4) K/uL [place] # (Auto) (0.11-0.59) K/uL Eos # (Auto) (0-0.5) K/uL Baso # (Auto) (0-0.2) K/uL Immature Gran # (Auto) (0.00-0.02) K/uL Platelet Estimate (Normal) RBC Morphology Urine Opiates Screen Pos H (Neg) Ur Methadone, Qual Neg (Neg) Urine Barbiturates Neg (Neg) Ur Phencyclidine (PCP) Neg (Neg) U Amphetamin/Meth Scrn Neg (Neg) MDMA (Ecstasy) Screen Neg (Neg) U Benzodiazepines Scrn Neg (Neg) Ur Cocaine Metabolite Neg (Neg) U Marijuana (THC) Screen Neg (Neg) COVID-19 Eval Order SARS-CoV-2, RNA, NAAT (NEGATIVE) Blood Type O Positive Antibody Screen NEGATIVE Crossmatch See Detail 09/09/21 09/09/21 09/09/21 Range/Units 05:14 05:14 07:21 WBC 14.31 H (4.8-10.8) K/uL RBC 1.92 L (4.2-5.4) M/uL Hgb 6.3 L* (12.0-16.0) g/dL Hct 17.4 L* (37-47) % MCV 90.6 (80-100) fL MCH 32.8 (25-34) pg MCHC 36.2 H (32-36) g/dL RDW Std Deviation 41.7 (36.4-46.3) fL RDW Coeff of Jelena 12.6 (11.5-14.5) % Plt Count 94 L (130-400) K/uL MPV 10.1 (7.4-10.4) fL Immature Gran % (Auto) 0.2 % Neut % (Auto) 90.9 % Lymph % (Auto) 6.8 % [place] % (Auto) 1.6 % Eos % (Auto) 0.3 % Baso % (Auto) 0.2 % Neut # (Auto) 13.00 H (1.4-6.5) K/uL Lymph # (Auto) 0.98 L (1.2-3.4) K/uL [place] # (Auto) 0.23 (0.11-0.59) K/uL Eos # (Auto) 0.04 (0-0.5) K/uL Baso # (Auto) 0.03 (0-0.2) K/uL Immature Gran # (Auto) 0.03 H (0.00-0.02) K/uL Platelet Estimate Decreased L (Normal) RBC Morphology Unremarkable Urine Opiates Screen (Neg) Ur Methadone, Qual (Neg) Urine Barbiturates (Neg) Ur Phencyclidine (PCP) (Neg) U Amphetamin/Meth Scrn (Neg) MDMA (Ecstasy) Screen (Neg) U Benzodiazepines Scrn (Neg) Ur Cocaine Metabolite (Neg) U Marijuana (THC) Screen (Neg) COVID-19 [facility] SARS-CoV-2, RNA, NAAT NEGATIVE (NEGATIVE) Blood Type Antibody Screen Crossmatch PE: General: Alert, orientedx3, PALE CVS: S1S2 RRR Lungs: CTAB Abd: soft, NT, ND, BS+, Incision/ Dressing C/D/I No VB Ext: NT, no edema, SCD's on AP: 39 yo female s/p Emergency Csection for placental abruption at 25 wks , pod#0 VSS Afebrile doing well Anemic: will transfuse 2 units of PRBCC Understands the risks and benefits and signed an informed consent Continue to monitor closely D/C birdie in am Results & Data ([facility]) Vital Signs (Past 12 Hours) Vital Signs Temp Pulse Pulse Resp BP Pulse Ox 09/09/21 07:53 65 100 09/09/21 07:52 82 119/76 91 09/09/21 07:48 72 100 09/09/21 07:47 64 114/57 L 09/09/21 07:43 60 131/58 L 100 09/09/21 07:38 62 100 09/09/21 07:37 73 130/67 94 09/09/21 07:35 65 124/65 09/09/21 07:33 78 100 09/09/21 07:28 66 100 09/09/21 07:23 83 100 09/09/21 07:18 78 100 09/09/21 07:17 65 131/64 09/09/21 07:13 80 123/60 100 09/09/21 07:08 75 100 09/09/21 07:07 86 127/60 09/09/21 07:03 81 100 09/09/21 07:02 75 128/63 09/09/21 07:00 80 92 09/09/21 06:58 81 100 09/09/21 06:57 86 114/82 09/09/21 06:53 65 100 09/09/21 06:52 65 130/66 09/09/21 06:50 75 18 94 09/09/21 06:48 77 100 09/09/21 06:47 73 125/72 09/09/21 06:43 69 99 09/09/21 06:42 60 118/66 09/09/21 06:40 18 09/09/21 06:38 69 100 09/09/21 06:37 66 118/67 09/09/21 06:33 66 100 09/09/21 06:32 70 129/69 09/09/21 06:30 16 09/09/21 06:28 70 100 09/09/21 06:27 65 132/66 09/09/21 06:23 68 99 09/09/21 06:22 78 126/72 09/09/21 06:20 16 09/09/21 06:18 68 100 09/09/21 06:17 69 127/67 09/09/21 06:13 82 100 09/09/21 06:12 71 135/72 91 09/09/21 06:10 16 09/09/21 06:08 64 99 09/09/21 06:07 67 143/69 H 09/09/21 06:04 36.5 C 18 09/09/21 06:03 71 140/66 99 09/09/21 06:00 36.5 C 93 H 65 18 100 09/09/21 05:57 83 124/62 100 09/09/21 05:52 75 124/67 100 09/09/21 05:47 73 139/78 100 09/09/21 05:42 72 100 09/09/21 05:41 68 141/76 H 09/09/21 04:34 84 100 09/09/21 04:29 88 100 10/29/21 04:24 93 H 100 09/09/21 04:21 36.5 C 96 H 18 121/87 09/09/21 04:19 95 H 100 09/09/21 04:14 87 100
[2021-09-09] MEDS ORDERED: FERROUS SULFATE 325 MG TAB PO SCH ×2 (08:00→09:00)
[2021-09-09 08:13] LABS: INR 1.2 (0.9-1.1); Partial Thromboplastin Ratio 0.9; Partial Thromboplastin Time 23.4 Seconds (21.0-31.0); Prothrombin Time 12.4 Seconds (9.0-12.0)
[2021-09-09 08:16] LABS: Fibrinogen 98 mg/dl (184-400)
[2021-09-09] MEDS: DOCUSATE SODIUM 100 MG CAP PO SCH ×2 (09:05→20:38)
[2021-09-09] MEDS: SIMETHICONE 80 MG CHEW PO SCH ×3 (09:06→17:13)
[2021-09-09] MEDS: PRENATAL VITAMIN 1 TAB PO SCH (09:06)
[2021-09-09] MEDS: hydroCHLOROthiazide 25 MG TAB PO SCH (09:07)
[2021-09-09] MEDS ORDERED: LABETALOL HCL 100 MG TAB PO SCH (10:00)
[2021-09-09] MEDS: METOPROLOL TARTRATE 50 MG TAB PO SCH ×2 (11:18→20:39)
--- NOTE | 2021-09-09 13:24 | Anesthesiology Progress Note ---
Date of Service September 09, 2021 Anesthesia Post Procedure Vital Signs Vital Signs: Temp Pulse Pulse Resp BP Pulse Ox 09/09/21 12:55 99.0 F 76 16 122/75 97 09/09/21 12:27 63 126/81 09/09/21 12:25 97.9 F 71 16 128/67 100 09/09/21 12:24 75 139/81 09/09/21 12:22 73 130/78 09/09/21 12:20 66 100 09/09/21 12:17 76 127/72 09/09/21 12:15 73 100 09/09/21 12:12 82 121/69 09/09/21 12:10 77 100 09/09/21 12:09 67 128/67 09/09/21 12:07 64 132/70 09/09/21 12:05 75 100 09/09/21 12:02 77 120/69 09/09/21 12:00 79 100 09/09/21 11:57 64 125/68 09/09/21 11:55 97.9 F 71 17 128/67 100 09/09/21 11:52 67 132/73 09/09/21 11:50 74 100 09/09/21 11:49 98.1 F 72 16 132/78 100 09/09/21 11:48 98.1 F 72 16 132/78 100 09/09/21 11:47 66 136/73 09/09/21 11:45 73 100 09/09/21 11:42 78 127/77 09/09/21 11:40 73 100 09/09/21 11:37 73 140/83 09/09/21 11:35 77 100 09/09/21 11:32 73 140/82 09/09/21 11:30 98.1 F 71 20 132/78 100 09/09/21 11:27 85 128/78 09/09/21 11:25 81 100 09/09/21 11:22 70 129/73 09/09/21 11:20 97.9 F 70 26 H 126/79 100 09/09/21 11:17 68 129/78 09/09/21 11:15 63 100 09/09/21 11:12 77 133/78 09/09/21 11:10 66 100 09/09/21 11:07 62 140/73 09/09/21 11:05 64 100 10/29/21 11:04 60 126/66 09/09/21 11:02 64 126/73 09/09/21 11:00 98.1 F 66 16 126/66 100 09/09/21 10:57 59 L 130/71 09/09/21 10:55 98.2 F 75 16 134/77 100 09/09/21 10:52 67 131/80 09/09/21 10:50 97.7 F 64 22 139/88 100 09/09/21 10:49 98.2 F 75 16 134/77 100 09/09/21 10:47 71 134/77 09/09/21 10:45 83 100 09/09/21 10:42 63 133/89 09/09/21 10:40 70 127/80 100 09/09/21 10:35 62 100 09/09/21 10:32 84 132/85 09/09/21 10:30 72 100 09/09/21 10:27 83 130/77 09/09/21 10:25 82 100 09/09/21 10:22 62 124/66 09/09/21 10:21 63 129/72 09/09/21 10:20 65 100 09/09/21 10:17 72 129/74 09/09/21 10:15 78 100 09/09/21 10:12 73 153/90 H 09/09/21 10:10 72 100 09/09/21 10:07 74 127/78 09/09/21 10:05 76 100 09/09/21 10:02 80 135/83 09/09/21 10:00 84 100 09/09/21 09:57 76 135/75 09/09/21 09:55 73 100 09/09/21 09:52 75 142/84 H 09/09/21 09:50 97.9 F 81 20 151/82 H 100 09/09/21 09:47 71 121/72 09/09/21 09:45 70 100 09/09/21 09:42 68 145/82 H 09/09/21 09:40 71 100 09/09/21 09:37 75 117/69 09/09/21 09:36 67 126/73 09/09/21 09:35 67 100 09/09/21 09:32 78 136/84 09/09/21 09:30 98.1 F 71 18 126/73 100 09/09/21 09:27 88 135/75 09/09/21 09:25 83 100 09/09/21 09:22 74 141/77 H 09/09/21 09:20 87 99 09/09/21 09:19 98.2 F 79 18 136/78 100 09/09/21 09:17 70 134/74 93 09/09/21 09:15 60 18 135/75 100 09/09/21 09:08 76 100 09/09/21 09:07 80 123/68 09/09/21 09:03 89 100 09/09/21 08:58 91 H 100 09/09/21 08:57 96 H 157/83 H 91 09/09/21 08:54 98.1 F 76 18 110/63 100 09/09/21 08:53 69 100 09/09/21 08:52 85 110/63 09/09/21 08:50 86 110/63 09/09/21 08:48 75 100 09/09/21 08:47 80 109/66 09/09/21 08:43 72 100 09/09/21 08:42 72 110/65 09/09/21 08:38 67 100 09/09/21 08:37 84 116/71 91 09/09/21 08:33 65 100 09/09/21 08:32 80 117/69 09/09/21 08:28 70 100 09/09/21 08:27 78 110/62 09/09/21 08:26 75 88 L 09/09/21 08:23 90 99 09/09/21 08:22 82 120/69 09/09/21 08:18 66 100 09/09/21 08:17 76 116/67 09/09/21 08:13 66 100 09/09/21 08:12 61 124/67 09/09/21 08:08 73 100 09/09/21 08:07 89 129/71 09/09/21 08:03 71 100 09/09/21 08:02 79 135/66 09/09/21 08:00 79 20 135/66 99 09/09/21 07:59 72 93 09/09/21 07:58 77 100 09/09/21 07:57 61 116/59 L 09/09/21 07:53 65 100 09/09/21 07:52 82 119/76 91 09/09/21 07:48 72 100 09/09/21 07:47 64 114/57 L 09/09/21 07:43 60 131/58 L 100 09/09/21 07:38 62 100 09/09/21 07:37 73 130/67 94 09/09/21 07:35 65 124/65 09/09/21 07:33 78 100 09/09/21 07:30 73 30 H 124/65 100 09/09/21 07:28 66 100 09/09/21 07:23 83 100 09/09/21 07:18 78 100 09/09/21 07:17 65 131/64 09/09/21 07:13 80 123/60 100 09/09/21 07:08 75 100 09/09/21 07:07 86 127/60 09/09/21 07:03 81 100 09/09/21 07:02 75 128/63 09/09/21 07:00 97.7 F 75 22 128/63 100 09/09/21 06:58 81 100 09/09/21 06:57 86 114/82 09/09/21 06:53 65 100 09/09/21 06:52 65 130/66 09/09/21 06:50 75 18 94 09/09/21 06:48 77 100 09/09/21 06:47 73 125/72 09/09/21 06:43 69 99 09/09/21 06:42 60 118/66 09/09/21 06:40 18 09/09/21 06:38 69 100 09/09/21 06:37 66 118/67 09/09/21 06:33 66 100 09/09/21 06:32 70 129/69 09/09/21 06:30 16 09/09/21 06:28 70 100 09/09/21 06:27 65 132/66 09/09/21 06:23 68 99 09/09/21 06:22 78 126/72 09/09/21 06:20 16 09/09/21 06:18 68 100 09/09/21 06:17 69 127/67 09/09/21 06:13 82 100 09/09/21 06:12 71 135/72 91 09/09/21 06:10 16 09/09/21 06:08 64 99 09/09/21 06:07 67 143/69 H 09/09/21 06:04 97.7 F 18 09/09/21 06:03 71 140/66 99 09/09/21 06:00 97.7 F 93 H 65 18 100 09/09/21 05:57 83 124/62 100 09/09/21 05:52 75 124/67 100 09/09/21 05:47 73 139/78 100 09/09/21 05:42 72 100 09/09/21 05:41 68 141/76 H 09/09/21 04:34 84 100 09/09/21 04:29 88 100 09/09/21 04:24 93 H 100 09/09/21 04:21 97.7 F 96 H 18 121/87 09/09/21 04:19 95 H 100 09/09/21 04:14 87 100 Pain Intensity Lower Abdomen: Pain Intensity: 6 Transfer of Care Handoff Completed per policy Notes Mental Status: alert / awake / arousable and participated in evaluation Patient Amnestic to Procedure: Yes Nausea / Vomiting: adequately controlled Pain: adequately controlled Airway Patency, RR, SpO2: stable & adequate BP & HR: stable & adequate Hydration State: stable & adequate Anesthetic Complications: no major complications apparent and Pt Satisfied with anesthetic care
[2021-09-09] MEDS: ALBUTEROL HFA 8 GM INHALER INH PRN ×2 (13:32→22:04)
[2021-09-09] MEDS: METHYLERGONOVINE MALEATE 0.2 MG TAB PO SCH ×3 (13:44→20:38)
[2021-09-09 16:01] LABS: Hemoglobin 9.2 g/dL (12.0-16.0); Mean Corpuscular Hemoglobin 32.2 pg (25-34); Mean Corpuscular Hgb Conc 35.4 g/dL (32-36); Mean Corpuscular Volume 90.9 fL (80-100); Mean Platelet Volume 10.5 fL (7.4-10.4); Platelet Count 88 K/uL (130-400); RDW Coefficient of Variation 13.1 % (11.5-14.5); RDW Standard Deviation 43.4 fL (36.4-46.3); Red Blood Count 2.86 M/uL (4.2-5.4); White Blood Count 14.82 K/uL (4.8-10.8)
[2021-09-09 16:12] LABS: Fibrinogen 250 mg/dl (184-400)
[2021-09-09 16:13] LABS: Basophils # (auto) 0.01 K/uL (0-0.2); Basophils % (auto) 0.1 %; Immature Granulocytes # (auto) 0.04 K/uL (0.00-0.02); Immature Granulocytes % (auto) 0.3 %; Lymphocytes # (auto) 0.82 K/uL (1.2-3.4); Lymphocytes % (auto) 5.5 %; Monocytes # (auto) 0.41 K/uL (0.11-0.59); Monocytes % (auto) 2.8 %; Neutrophils # (auto) 13.54 K/uL (1.4-6.5); Neutrophils % (auto) 91.3 %; Platelet Estimate Decreased (Normal)
[2021-09-09 16:30] LABS: Prothrombin Time 10.6 Seconds (9.0-12.0)
[2021-09-09 16:35] LABS: Partial Thromboplastin Ratio 0.9; Partial Thromboplastin Time 23.7 Seconds (21.0-31.0)
[2021-09-10] MEDS: ALBUTEROL HFA 8 GM INHALER INH PRN ×2 (05:31→07:54)
[2021-09-10 06:45] LABS: Hematocrit (blood only) 22.1 % (37-47); Hemoglobin 7.8 g/dL (12.0-16.0); Mean Corpuscular Hemoglobin 31.8 pg (25-34); Mean Corpuscular Hgb Conc 35.3 g/dL (32-36); Mean Corpuscular Volume 90.2 fL (80-100); RDW Coefficient of Variation 13.7 % (11.5-14.5); RDW Standard Deviation 45.3 fL (36.4-46.3); Red Blood Count 2.45 M/uL (4.2-5.4); White Blood Count 9.62 K/uL (4.8-10.8)
[2021-09-10 06:49] LABS: Platelet Count 79 K/uL (130-400)
[2021-09-10 07:01] LABS: Anisocytosis Present; Basophils # (auto) 0.01 K/uL (0-0.2); Basophils % (auto) 0.1 %; Eosinophils # (auto) 0.11 K/uL (0-0.5); Eosinophils % (auto) 1.1 %; Immature Granulocytes # (auto) 0.03 K/uL (0.00-0.02); Immature Granulocytes % (auto) 0.3 %; Lymphocytes # (auto) 1.61 K/uL (1.2-3.4); Lymphocytes % (auto) 16.7 %; Monocytes # (auto) 0.58 K/uL (0.11-0.59); Neutrophils # (auto) 7.28 K/uL (1.4-6.5); Neutrophils % (auto) 75.8 %; Polychromasia 1+
--- NOTE | 2021-09-10 07:59 | Obstetrical Progress Note ---
Date of Service September 10, 2021 Assessment & Plan Admission and Anticipated Discharge Date Admission Date: September 09, 2021 Subjective Patient is seen and examined. She feels better, no complaints. Pain is under control with [employer], desires IV, packer d/c'd so that she can shower. Tolerating regular diet with out N&V Flatus neg BM neg Bleeding is minimal No fever/ chills/ CP/ SOB/ N&V/ Leg pain Baby is in [place] [facility] Vital Signs Temp Pulse Resp BP Pulse Ox 09/10/21 05:34 69 16 97 09/10/21 04:40 36.8 C 72 18 131/78 98 09/10/21 00:30 36.8 C 74 18 126/72 97 09/09/21 22:04 72 16 97 09/09/21 20:25 36.8 C 80 18 132/79 98 Lab Results 09/09/21 09/09/21 09/09/21 Range/Units 04:28 04:28 04:28 WBC 14.26 H (4.8-10.8) K/uL RBC 2.13 L (4.2-5.4) M/uL Hgb 6.9 L* (12.0-16.0) g/dL Hct 19.4 L* (37-47) % MCV 91.1 (80-100) fL MCH 32.4 (25-34) pg MCHC 35.6 (32-36) g/dL RDW Std Deviation 41.8 (36.4-46.3) fL RDW Coeff of Jelena 12.4 (11.5-14.5) % Plt Count 121 L (130-400) K/uL MPV 10.1 (7.4-10.4) fL Immature Gran % (Auto) % Neut % (Auto) % Lymph % (Auto) % [place] % (Auto) % Eos % (Auto) % Baso % (Auto) % Neut # (Auto) (1.4-6.5) K/uL Lymph # (Auto) (1.2-3.4) K/uL [place] # (Auto) (0.11-0.59) K/uL Eos # (Auto) (0-0.5) K/uL Baso # (Auto) (0-0.2) K/uL Immature Gran # (Auto) (0.00-0.02) K/uL Platelet Estimate (Normal) RBC Morphology Polychromasia Anisocytosis PT (9.0-12.0) Seconds INR (0.9-1.1) APTT (21.0-31.0) Seconds PTT Ratio Fibrinogen (184-400) mg/dl Urine Opiates Screen (Neg) Ur Methadone, Qual (Neg) Urine Barbiturates (Neg) Ur Phencyclidine (PCP) (Neg) U Amphetamin/Meth Scrn (Neg) MDMA (Ecstasy) Screen (Neg) U Benzodiazepines Scrn (Neg) Ur Cocaine Metabolite (Neg) U Marijuana (THC) Screen (Neg) Ethyl Alcohol mg/dL < 3.0 (0-3) mg/dl RPR (Nonreactive) COVID-19 Eval Order Hep Bs Antigen (Neg) HIV 1&2 Ab/P24 Ag 4thGn (Neg) SARS-CoV-2, RNA, NAAT (NEGATIVE) Blood Type O Positive Antibody Screen NEGATIVE Crossmatch See Detail 09/09/21 09/09/21 09/09/21 Range/Units 04:43 05:14 05:14 WBC (4.8-10.8) K/uL RBC (4.2-5.4) M/uL Hgb (12.0-16.0) g/dL Hct (37-47) % MCV (80-100) fL MCH (25-34) pg MCHC (32-36) g/dL RDW Std Deviation (36.4-46.3) fL RDW Coeff of Jelena (11.5-14.5) % Plt Count (130-400) K/uL MPV (7.4-10.4) fL Immature Gran % (Auto) % Neut % (Auto) % Lymph % (Auto) % [place] % (Auto) % Eos % (Auto) % Baso % (Auto) % Neut # (Auto) (1.4-6.5) K/uL Lymph # (Auto) (1.2-3.4) K/uL [place] # (Auto) (0.11-0.59) K/uL Eos # (Auto) (0-0.5) K/uL Baso # (Auto) (0-0.2) K/uL Immature Gran # (Auto) (0.00-0.02) K/uL Platelet Estimate (Normal) RBC Morphology Polychromasia Anisocytosis PT (9.0-12.0) Seconds INR (0.9-1.1) APTT (21.0-31.0) Seconds PTT Ratio Fibrinogen (184-400) mg/dl Urine Opiates Screen Pos H (Neg) Ur Methadone, Qual Neg (Neg) Urine Barbiturates Neg (Neg) Ur Phencyclidine (PCP) Neg (Neg) U Amphetamin/Meth Scrn Neg (Neg) MDMA (Ecstasy) Screen Neg (Neg) U Benzodiazepines Scrn Neg (Neg) Ur Cocaine Metabolite Neg (Neg) U Marijuana (THC) Screen Neg (Neg) Ethyl Alcohol mg/dL (0-3) mg/dl RPR (Nonreactive) COVID-19 Eval [facility] Hep Bs Antigen (Neg) HIV 1&2 Ab/P24 Ag 4thGn (Neg) SARS-CoV-2, RNA, NAAT NEGATIVE (NEGATIVE) Blood Type Antibody Screen Crossmatch 09/09/21 09/09/21 09/09/21 Range/Units 07:21 07:21 10:25 WBC 14.31 H (4.8-10.8) K/uL RBC 1.92 L (4.2-5.4) M/uL Hgb 6.3 L* (12.0-16.0) g/dL Hct 17.4 L* (37-47) % MCV 90.6 (80-100) fL MCH 32.8 (25-34) pg MCHC 36.2 H (32-36) g/dL RDW Std Deviation 41.7 (36.4-46.3) fL RDW Coeff of Jelena 12.6 (11.5-14.5) % Plt Count 94 L (130-400) K/uL MPV 10.1 (7.4-10.4) fL Immature Gran % (Auto) 0.2 % Neut % (Auto) 90.9 % Lymph % (Auto) 6.8 % [place] % (Auto) 1.6 % Eos % (Auto) 0.3 % Baso % (Auto) 0.2 % Neut # (Auto) 13.00 H (1.4-6.5) K/uL Lymph # (Auto) 0.98 L (1.2-3.4) K/uL [place] # (Auto) 0.23 (0.11-0.59) K/uL Eos # (Auto) 0.04 (0-0.5) K/uL Baso # (Auto) 0.03 (0-0.2) K/uL Immature Gran # (Auto) 0.03 H (0.00-0.02) K/uL Platelet Estimate Decreased L (Normal) RBC Morphology Unremarkable Polychromasia Anisocytosis PT 12.4 H (9.0-12.0) Seconds INR 1.2 H (0.9-1.1) APTT 23.4 (21.0-31.0) Seconds PTT Ratio 0.9 Fibrinogen 98 L* (184-400) mg/dl Urine Opiates Screen (Neg) Ur Methadone, Qual (Neg) Urine Barbiturates (Neg) Ur Phencyclidine (PCP) (Neg) U Amphetamin/Meth Scrn (Neg) MDMA (Ecstasy) Screen (Neg) U Benzodiazepines Scrn (Neg) Ur Cocaine Metabolite (Neg) U Marijuana (THC) Screen (Neg) Ethyl Alcohol mg/dL (0-3) mg/dl RPR (Nonreactive) COVID-19 Eval Order Hep Bs Antigen Neg (Neg) HIV 1&2 Ab/P24 Ag 4thGn (Neg) SARS-CoV-2, RNA, NAAT (NEGATIVE) Blood Type Antibody Screen Crossmatch 09/09/21 09/09/21 09/09/21 Range/Units 10:25 10:25 15:43 WBC (4.8-10.8) K/uL RBC (4.2-5.4) M/uL Hgb (12.0-16.0) g/dL Hct (37-47) % MCV (80-100) fL MCH (25-34) pg MCHC (32-36) g/dL RDW Std Deviation (36.4-46.3) fL RDW Coeff of Jelena (11.5-14.5) % Plt Count (130-400) K/uL MPV (7.4-10.4) fL Immature Gran % (Auto) % Neut % (Auto) % Lymph % (Auto) % [place] % (Auto) % Eos % (Auto) % Baso % (Auto) % Neut # (Auto) (1.4-6.5) K/uL Lymph # (Auto) (1.2-3.4) K/uL [place] # (Auto) (0.11-0.59) K/uL Eos # (Auto) (0-0.5) K/uL Baso # (Auto) (0-0.2) K/uL Immature Gran # (Auto) (0.00-0.02) K/uL Platelet Estimate (Normal) RBC Morphology Polychromasia Anisocytosis PT (9.0-12.0) Seconds INR (0.9-1.1) APTT (21.0-31.0) Seconds PTT Ratio Fibrinogen 250 D (184-400) mg/dl Urine Opiates Screen (Neg) Ur Methadone, Qual (Neg) Urine Barbiturates (Neg) Ur Phencyclidine (PCP) (Neg) U Amphetamin/Meth Scrn (Neg) MDMA (Ecstasy) Screen (Neg) U Benzodiazepines Scrn (Neg) Ur Cocaine Metabolite (Neg) U Marijuana (THC) Screen (Neg) Ethyl Alcohol mg/dL (0-3) mg/dl RPR Nonreactive (Nonreactive) COVID-19 Eval Order Hep Bs Antigen (Neg) HIV 1&2 Ab/P24 Ag 4thGn Neg (Neg) SARS-CoV-2, RNA, NAAT (NEGATIVE) Blood Type Antibody Screen Crossmatch 09/09/21 09/09/21 09/09/21 Range/Units 15:43 15:43 15:43 WBC 14.82 H (4.8-10.8) K/uL RBC 2.86 L (4.2-5.4) M/uL Hgb 9.2 L (12.0-16.0) g/dL Hct 26.0 L (37-47) % MCV 90.9 (80-100) fL MCH 32.2 (25-34) pg MCHC 35.4 (32-36) g/dL RDW Std Deviation 43.4 (36.4-46.3) fL RDW Coeff of Jelena 13.1 (11.5-14.5) % Plt Count 88 L (130-400) K/uL MPV 10.5 H (7.4-10.4) fL Immature Gran % (Auto) 0.3 % Neut % (Auto) 91.3 % Lymph % (Auto) 5.5 % [place] % (Auto) 2.8 % Eos % (Auto) 0.0 % Baso % (Auto) 0.1 % Neut # (Auto) 13.54 H (1.4-6.5) K/uL Lymph # (Auto) 0.82 L (1.2-3.4) K/uL [place] # (Auto) 0.41 (0.11-0.59) K/uL Eos # (Auto) 0.00 (0-0.5) K/uL Baso # (Auto) 0.01 (0-0.2) K/uL Immature Gran # (Auto) 0.04 H (0.00-0.02) K/uL Platelet Estimate Decreased L (Normal) RBC Morphology Polychromasia Anisocytosis PT 10.6 (9.0-12.0) Seconds INR 1.0 (0.9-1.1) APTT 23.7 (21.0-31.0) Seconds PTT Ratio 0.9 Fibrinogen (184-400) mg/dl Urine Opiates Screen (Neg) Ur Methadone, Qual (Neg) Urine Barbiturates (Neg) Ur Phencyclidine (PCP) (Neg) U Amphetamin/Meth Scrn (Neg) MDMA (Ecstasy) Screen (Neg) U Benzodiazepines Scrn (Neg) Ur Cocaine Metabolite (Neg) U Marijuana (THC) Screen (Neg) Ethyl Alcohol mg/dL (0-3) mg/dl RPR (Nonreactive) COVID-19 Eval Order Hep Bs Antigen (Neg) HIV 1&2 Ab/P24 Ag 4thGn (Neg) SARS-CoV-2, RNA, NAAT (NEGATIVE) Blood Type Antibody Screen Crossmatch 09/10/21 Range/Units 06:07 WBC 9.62 (4.8-10.8) K/uL RBC 2.45 L (4.2-5.4) M/uL Hgb 7.8 L (12.0-16.0) g/dL Hct 22.1 L (37-47) % MCV 90.2 (80-100) fL MCH 31.8 (25-34) pg MCHC 35.3 (32-36) g/dL RDW Std Deviation 45.3 (36.4-46.3) fL RDW Coeff of Jelena 13.7 (11.5-14.5) % Plt Count 79 L (130-400) K/uL MPV 11.0 H (7.4-10.4) fL Immature Gran % (Auto) 0.3 % Neut % (Auto) 75.8 % Lymph % (Auto) 16.7 % [place] % (Auto) 6.0 % Eos % (Auto) 1.1 % Baso % (Auto) 0.1 % Neut # (Auto) 7.28 H (1.4-6.5) K/uL Lymph # (Auto) 1.61 (1.2-3.4) K/uL [place] # (Auto) 0.58 (0.11-0.59) K/uL Eos # (Auto) 0.11 (0-0.5) K/uL Baso # (Auto) 0.01 (0-0.2) K/uL Immature Gran # (Auto) 0.03 H (0.00-0.02) K/uL Platelet Estimate (Normal) RBC Morphology Polychromasia 1+ Anisocytosis Present PT (9.0-12.0) Seconds INR (0.9-1.1) APTT (21.0-31.0) Seconds PTT Ratio Fibrinogen (184-400) mg/dl Urine Opiates Screen (Neg) Ur Methadone, Qual (Neg) Urine Barbiturates (Neg) Ur Phencyclidine (PCP) (Neg) U Amphetamin/Meth Scrn (Neg) MDMA (Ecstasy) Screen (Neg) U Benzodiazepines Scrn (Neg) Ur Cocaine Metabolite (Neg) U Marijuana (THC) Screen (Neg) Ethyl Alcohol mg/dL (0-3) mg/dl RPR (Nonreactive) COVID-19 Eval Order Hep Bs Antigen (Neg) HIV 1&2 Ab/P24 Ag 4thGn (Neg) SARS-CoV-2, RNA, NAAT (NEGATIVE) Blood Type Antibody Screen Crossmatch PE: General: Alert, orientedx3, NAD CVS: S1S2 RRR Lungs; CTAB Abd: soft, NT, ND, BS+, fundus firm, below Umbilicus Incision/ Maryse: Clean, dry, intact Perineum intact, Lochia rubra minimal Ext; NT, no edema AP: 40 yo s/p emergency Repeat C Section for abruption, pod# 1, s/p 2 units of PRBCC and Cryoprecipitate VSS Afebrile doing well Coags normalized, except thrombocytopenia Continue routine postop care Encourage ambulation, PO intake All questions were answered D/C home tomorrow Results & Data ([facility]) Vital Signs (Past 12 Hours) Vital Signs Temp Pulse Resp BP Pulse Ox 09/10/21 05:34 69 16 97 09/10/21 04:40 36.8 C 72 18 131/78 98 09/10/21 00:30 36.8 C 74 18 126/72 97 09/09/21 22:04 72 16 97 09/09/21 20:25 36.8 C 80 18 132/79 98
[2021-09-10] MEDS ORDERED: FERROUS SULFATE 325 MG TAB PO SCH (08:00)
[2021-09-10] MEDS: SIMETHICONE 80 MG CHEW PO SCH (08:34)
[2021-09-10] MEDS: DOCUSATE SODIUM 100 MG CAP PO SCH (08:34)
[2021-09-10] MEDS: PRENATAL VITAMIN 1 TAB PO SCH (08:35)
[2021-09-10] MEDS: METOPROLOL TARTRATE 50 MG TAB PO SCH (08:35)
[2021-09-10] MEDS: oxyCODONE/ACETAMINOPHEN 5mg/325mg TAB PO PRN ×2 (08:35→12:30)
[2021-09-10] MEDS: hydroCHLOROthiazide 25 MG TAB PO SCH (08:35)
[2021-09-10] MEDS: METHYLERGONOVINE MALEATE 0.2 MG TAB PO SCH (08:35)
[2021-09-10] MEDS ORDERED: Nursing to Pharmacy Communication SCH (11:45)
--- NOTE | 2021-09-10 12:42 | Progress Note ---
Date of Service September 10, 2021 Assessment & Plan (1) Placenta abruption, delivered, current hospitalization: Plan: Pt received message from [facility] that her infant was not doing well and was receiving " comfort measures" Pt therefore wishes to be discharged so she can go se her Admission and Anticipated Discharge Date Admission Date: September 09, 2021 Results & Data ([facility]) Vital Signs (Past 12 Hours) Vital Signs Temp Pulse Resp BP Pulse Ox 09/10/21 08:10 36.8 C 72 20 123/80 99 09/10/21 05:34 69 16 97 09/10/21 04:40 36.8 C 72 18 131/78 98
[2021-09-10] MEDS ORDERED: bisacodyL 5 MG TABEC PO SCH (20:00)
[2021-09-11] MEDS ORDERED: bisacodyL 10 MG SUPP PR PRN (05:33)
[2021-09-11 08:30] LABS: Codeine Urine 9040 ng/mL (<50); Hydrocodone Urine NEGATIVE ng/mL (<50); Hydromor Urine NEGATIVE ng/mL (<50); Morphine Urine 6040 ng/mL (<50); Norhydrocodone Conf Ur NEGATIVE ng/mL (<50); Noroxycodone Urine NEGATIVE ng/mL (<50); Oxycodone Urine NEGATIVE ng/mL (<50); Oxymorph Urine NEGATIVE ng/mL (<50)
--- NOTE | 2021-09-17 13:15 | Discharge Summary (DS) ---
DATE OF ADMISSION: 09/09/2021 DATE OF DISCHARGE: 09/10/2021 HOSPITAL COURSE: A 40-year-old female, 11, para 7-0-3-7, no care, comes in without notifying anybody of severe vaginal bleeding. Abdomen was tender with spontaneous rupture of membran es. Cervix was checked, she was only 2 cm dilated. A suspected abruption was diagnosed and the shabana ent was taken to the OR for repeat section. She delivered a female, Apgars 1, 3 and 4 at on e, five and ten minutes, 1004 grams. Hospital course was unremarkable. The patient was discharged o n 09/10/2021, postoperative day #1, in stable condition despite only being postop day #1. Homegoing instructions were given. CONDITION ON DISCHARGE: Stable. MEDICATIONS: Include Percocet and Motrin. Follow up will be in the office for an incision check. Job ID: [id number]
== END 2021-09-10 13:25 | disposition home or self-care (01) | DRG 788 ==
LOC: OPB 04:05 → 4S1 04:08 → 4S2 13:13

== ENCOUNTER 2022-04-19 16:42 | Inpatient (IN) ==
[2022-04-19] MEDS ORDERED: MoRPHine SULFATE 4 MG/ML 1 ML CARP\\VIAL IV STA (16:59)
[2022-04-19] MEDS ORDERED: SODIUM CHLORIDE 0.9% 1000ML 1,000 ML IV STA (16:59)
[2022-04-19] MEDS ORDERED: ONDANSETRON INJ 2 MG/ML 2 ML VIAL IV STA (16:59)
--- NOTE | 2022-04-19 17:03 | Emergency Department Note ---
History of Present Illness General Chief complaint: Flank Pain Stated complaint: KIDNEY PAIN, BACK PAIN Time Seen by Provider: 04/19/22 16:54 Source: patient History of Present Illness Provider complaint: Flank pain Onset (ago): day(s) 4 Location: back Radiation: abdomen Pain Consistency: + intermittent Maximum Pain Intensity: 7 Quality: + sharp and + other (Pressure) Relieved By: + none Associated symptoms: no chest pain, no cough, no fever/chills, no nausea/vomiting or no shortness of breath This is a 41-year-old female who presents with right-sided flank pain starting 3 to 4 days ago. The patient states it started in her right mid back. It then radiated over to the left back and then into her abdomen bilaterally. She describes the pain is intermittent. No modifying factors. It feels like a pressure on her abdomen and sometimes sharp. No associated fever or vomiting. She denies any black or bloody stools or diarrhea. She has had some burning on urination intermittently without frequency or hematuria. She denies any abnormal vaginal discharge or bleeding. She is currently having her menses for the past 3 days. It is normal in timing and flow. She is not on hormonal contraceptives. She denies any leg swelling or pain. She has had no fever, cough or cold symptoms, chest pain, or shortness of breath. She states her mother has a history of kidney stones. Home Medications Medication Instructions Recorded Confirmed Type albuterol sulfate 90 mcg/actuation 2 puff INHALATION Q6H PRN #1 06/28/17 04/19/22 History aerosol inhaler (Ventolin HFA) inhaler oyazauo-tzhnliirqjmpz-sbwpecuo 250 2 tab PO Q6H PRN 01/08/19 04/19/22 History mg-250 mg-65 mg tablet (Excedrin Migraine) omeprazole 40 mg capsule,delayed 40 mg PO DAILY 01/08/19 04/19/22 History release metoprolol tartrate 50 mg tablet 50 mg PO BID 08/27/20 04/19/22 History acetaminophen 325 mg tablet 650 mg PO Q6H PRN 04/19/22 04/19/22 History ibuprofen 200 mg tablet 400 mg PO Q6H PRN 04/19/22 04/19/22 History Allergies Allergy/AdvReac Type Severity Reaction Status Date / Time apple Allergy Severe Swelling Verified 04/19/22 17:39 of Lip/Tongue/Throat egg Allergy Severe THROAT Verified 04/19/22 17:39 SWELLS /HARD TO BREATHE potato Allergy Severe Swelling Verified 04/19/22 17:39 of Lip/Tongue/Throat spinach Allergy Severe SHORTNESS Verified 04/19/22 17:39 OF BREATH ibuprofen AdvReac Severe VOMITING,BLURRED Verified 04/19/22 17:39 VISION, RINGING OF EARS 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 GERD (gastroesophageal reflux disease) Hemorrhoids during Hiatal hernia History of depression no current meds History of heart disorder patient says " my heart beats fast" Currently on Metoprolol Migraine Surgical History H/O umbilical hernia repair History of 2018- intolerance to labor History of hemorrhoidectomy Family History Other Hiatal hernia Social History Smoking Status: Current every day smoker Tobacco Type: Cigarettes Cigarettes Per Day: 10; Second Hand Exposure: Yes; Hx Alcohol Use: Yes Alcohol type: wine Hx Substance Use: Yes Last Used Substance: Hours (ago) Preferred Language: [place] Communication Ability: Effective Rn Med Surg Required: No Beliefs That Will Affect Care: None marital status: Legally Current Living Situation: Family Current Living Situation Comment: lives with 6 children Feels Safe at Home: Yes Assistive Devices: None Review of Systems See HPI for pertinent positives & negatives. and A total of 10 systems reviewed and were otherwise negative Physical Exam Vital Signs Vital Signs - 24 hr 04/19/22 16:45 04/19/22 17:00 Temperature 37.3 C Temperature Source Temporal Artery Scan Pulse Rate 97 H Respiratory Rate 18 Respiratory Effort / Characteristics Non-Labored Respiratory Depth Normal Respiratory Pattern Regular Blood Pressure 170/97 H Blood Pressure Mean 121 Pulse Oximetry 100 Oxygen Delivery Method Room Air Room Air Sepsis Recent Fever Within 48 Hours No Sepsis New/Unexplained Change in Mental Status No Sepsis Action Taken by Nursing No Action Required Constitutional: Vital signs reviewed. Eyes: Pupils are equal round reactive to light. Conjunctiva are noninjected. ENT: Pharynx is clear without erythema or exudate. Mucous membranes are moist. Neck supple without meningeal signs. Respiratory: Clear to auscultation bilaterally. Breath sounds are equal b ilaterally. Cardiovascular: Regular rate and rhythm. No rubs or gallops. GI: Soft, nondistended with bilateral upper abdominal tenderness. No guarding. Bowel sounds are present. Rectal: Guaiac negative brown stool. Musculoskeletal: No peripheral edema. No lower extremity tenderness. No CVA tenderness. Integumentary: No cyanosis. or jaundice. Neurological: The patient is awake and alert. No focal deficits. Psychiatric: Normal affect. Not anxious appearing. Course Administered Medications Discontinued Medications Sodium Chloride (Nss 1000ml) 1,000 mls @ 999 mls/hr IV .Q1H1M STA Stop: 04/19/22 17:59 Last Infusion: 04/19/22 18:57 Dose: 0 mls/hr Documented by: [id number] Admin: 04/19/22 17:44 Dose: 999 mls/hr Documented by: [id number] Ceftriaxone Sodium (Rocephin) 2,000 mg in 70 mls @ 140 mls/hr IV NOW STA Stop: 04/19/22 18:41 Last Infusion: 04/19/22 18:53 Dose: 0 mls/hr Documented by: [id number] Admin: 04/19/22 18:25 Dose: 140 mls/hr Documented by: [id number] Morphine Sulfate (Morphine Sulfate 4 Mg/Ml 1 Ml Carp\\Vial) 4 mg IV NOW STA Stop: 04/19/22 17:00 Last Admin: 04/19/22 17:44 Dose: 4 mg Documented by: [id number] Ondansetron HCl (Ondansetron Inj 2 Mg/Ml 2 Ml Vial) 4 mg IV NOW STA Stop: 04/19/22 17:00 Last Admin: 04/19/22 17:45 Dose: 4 mg Documented by: [id number] Potassium Chloride (Potassium Chloride 10 Meq Tabcr) 40 meq PO NOW STA Stop: 04/19/22 18:52 Last Admin: 04/19/22 18:55 Dose: 40 meq Documented by: [id number] Medical Decision Making Differential Diagnosis Obstructive uropathy, ureterolithiasis, gallstones, pyelonephritis, UTI, cardiac Medical Records Attestation: I reviewed the patient's medical records. I did perform a limited focused review of portions of the patient's old chart on the electronic medical record. The patient has had no recent pertinent visits to this hospital. Home Medications Current Medication List: was personally reviewed by me Laboratory Data Attestation: I reviewed the patient's lab results. Result diagrams: 04/19/22 17:17 04/19/22 17:17 Lab Results 04/19/22 04/19/22 04/19/22 Range/Units 17:17 17:17 17:17 WBC 7.33 (4.8-10.8) K/uL RBC 3.51 L (4.2-5.4) M/uL Hgb 7.9 L (12.0-16.0) g/dL Hct 26.0 L (37-47) % MCV 74.1 L (80-100) fL MCH 22.5 L (25-34) pg MCHC 30.4 L (32-36) g/dL RDW Std Deviation 46.8 H (36.4-46.3) fL RDW Coeff of Jelena 17.2 H (11.5-14.5) % Plt Count 436 H (130-400) K/uL MPV 9.6 (7.4-10.4) fL Immature Gran % (Auto) 0.1 % Neut % (Auto) 76.6 % Lymph % (Auto) 13.4 % Carroll % (Auto) 8.2 % Eos % (Auto) 1.2 % Baso % (Auto) 0.5 % Neut # (Auto) 5.61 (1.4-6.5) K/uL Lymph # (Auto) 0.98 L (1.2-3.4) K/uL Carroll # (Auto) 0.60 H (0.11-0.59) K/uL Eos # (Auto) 0.09 (0-0.5) K/uL Baso # (Auto) 0.04 (0-0.2) K/uL Immature Gran # (Auto) 0.01 (0.00-0.02) K/uL Polychromasia 1+ Ovalocytes 1+ Sodium 138 (136-145) mmol/L Potassium 3.1 L (3.5-5.1) mmol/L Chloride 106 (98-107) mmol/L Carbon Dioxide 24 (21-32) mmol/L Anion Gap 8 (3-11) BUN 9 (6-23) mg/dl Creatinine 0.75 (0.6-1.2) mg/dl Est Cr Clr Drug Dosing 97.0 ml/min Est GFR ( Amer) 115.6 ml/min Est GFR (Non-Af Amer) 99.7 ml/min BUN/Creatinine Ratio 12.0 (10-20) Glucose 99 (70-99(Fasting)) mg/dl Calcium 9.1 (8.5-10.1) mg/dl Total Bilirubin 0.3 (0.2-1.0) mg/dl AST 11 L (13-39) U/L ALT 6 L (7-52) U/L Alkaline Phosphatase 99 (34-104) U/L Troponin I High Sens 2.7 (0-14) pg/ml Total Protein 7.4 (6.0-8.3) gm/dl Albumin 4.0 (3.4-5.0) gm/dl Globulin 3.4 (2.5-4.0) gm/dl Albumin/Globulin Ratio 1.2 (0.9-2) Lipase 16 (11-82) U/L Urine Color Yellow Urine Appearance Cloudy A (Clear) Urine pH 6.0 (4.5-7.5) Ur Specific [employer] 1.023 (1.000-1.030) Urine Protein 1+ H (Negative) Urine Glucose (UA) Negative (Negative) Urine Ketones Negative (Negative) Urine Blood 2+ H (Negative) Urine Nitrite Positive A (Negative) Urine Bilirubin Negative (Negative) Urine Urobilinogen Negative (Negative) Ur Leukocyte Esterase 2+ H (Negative) Urine WBC (Auto) >30 H (0-5) /hpf Urine RBC (Auto) 0-4 (0-4) /hpf U Hyaline Cast (Auto) >30 H (0-5) /lpf U Epithel Cells (Auto) >30 H (0-5) /lpf Urine Bacteria (Auto) 4+ H (Negative) POC Ur Test (NEG) 04/19/22 Range/Units 17:17 WBC (4.8-10.8) K/uL RBC (4.2-5.4) M/uL Hgb (12.0-16.0) g/dL Hct (37-47) % MCV (80-100) fL MCH (25-34) pg MCHC (32-36) g/dL RDW Std Deviation (36.4-46.3) fL RDW Coeff of Jelena (11.5-14.5) % Plt Count (130-400) K/uL MPV (7.4-10.4) fL Immature Gran % (Auto) % Neut % (Auto) % Lymph % (Auto) % Carroll % (Auto) % Eos % (Auto) % Baso % (Auto) % Neut # (Auto) (1.4-6.5) K/uL Lymph # (Auto) (1.2-3.4) K/uL Carroll # (Auto) (0.11-0.59) K/uL Eos # (Auto) (0-0.5) K/uL Baso # (Auto) (0-0.2) K/uL Immature Gran # (Auto) (0.00-0.02) K/uL Polychromasia Ovalocytes Sodium (136-145) mmol/L Potassium (3.5-5.1) mmol/L Chloride (98-107) mmol/L Carbon Dioxide (21-32) mmol/L Anion Gap (3-11) BUN (6-23) mg/dl Creatinine (0.6-1.2) mg/dl Est Cr Clr Drug Dosing ml/min Est GFR ( Amer) ml/min Est GFR (Non-Af Amer) ml/min BUN/Creatinine Ratio (10-20) Glucose (70-99(Fasting)) mg/dl Calcium (8.5-10.1) mg/dl Total Bilirubin (0.2-1.0) mg/dl AST (13-39) U/L ALT (7-52) U/L Alkaline Phosphatase (34-104) U/L Troponin I High Sens (0-14) pg/ml Total Protein (6.0-8.3) gm/dl Albumin (3.4-5.0) gm/dl Globulin (2.5-4.0) gm/dl Albumin/Globulin Ratio (0.9-2) Lipase (11-82) U/L Urine Color Urine Appearance (Clear) Urine pH (4.5-7.5) Ur Specific [employer] (1.000-1.030) Urine Protein (Negative) Urine Glucose (UA) (Negative) Urine Ketones (Negative) Urine Blood (Negative) Urine Nitrite (Negative) Urine Bilirubin (Negative) Urine Urobilinogen (Negative) Ur Leukocyte Esterase (Negative) Urine WBC (Auto) (0-5) /hpf Urine RBC (Auto) (0-4) /hpf U Hyaline Cast (Auto) (0-5) /lpf U Epithel Cells (Auto) (0-5) /lpf Urine Bacteria (Auto) (Negative) POC Ur Test NEG (NEG) Imaging Data Radiologist's Impression: Abdomen/Pelvis CT 04/19/22 16:59 CT SCAN OF THE ABDOMEN AND PELVIS WITHOUT IV CONTRAST CLINICAL HISTORY: Right flank pain. COMPARISON STUDY: Abdominal radiograph dated 12/17/2021. TECHNIQUE: CT scan of the abdomen and pelvis is performed from the lung bases to the proximal femora. Images are reviewed in the axial, sagittal, and coronal planes. IV contrast was not administered for this examination. A dose lowering technique was utilized adhering to the principles of ALARA. CT DOSE: 276.99 mGy.cm FINDINGS: Lung bases: The heart is normal in size and without pericardial effusion. The lung bases are clear noting dependent atelectasis. Liver: The unenhanced liver is normal in size, contour, and attenuation. The liver is elongated suggesting Lewis's lobe variant anatomy. There is no intrahepatic biliary ductal dilatation. Gallbladder: Unremarkable. Spleen: Normal in size and attenuation. Pancreas: Unremarkable. Adrenal glands: Unremarkable. Kidneys: The unenhanced kidneys are normal in size and without hydronephrosis. There are no renal calculi identified. There is no evidence of contour deforming renal mass lesion. Abdominal vasculature: The abdominal aorta is normal in course and caliber. Bowel: There are scattered colonic diverticula without CT evidence of acute diverticulitis. No bowel obstruction is seen. The appendix is well-visualized and normal. Peritoneum: There is no intraperitoneal free air or abdominal ascites. There is a small fat-containing umbilical hernia. Lymphadenopathy: None. Pelvic viscera: The bladder, uterus, and adnexa are normal as visualized noting bilateral ovarian follicles. A tampon is in place. Skeletal structures: No lytic or blastic lesions are seen. There is a minimal chronic superior endplate compression deformity of L3. IMPRESSION: No acute infectious or inflammatory findings are identified in the abdomen or pelvis. ACT 112: Negative or not required by law. Electronically signed by: Israel Crandall M.D. 04/19/2022 6:28 PM ECG Data Attestation: I personally reviewed and interpreted this ECG as follows: Indication: + abdominal pain Rate (beats per minute): 89 Rhythm: + normal sinus ECG [place]: + Normal ECG ST segments: no ST elevation ECG Findings: no PVCs Comparison ECG Date: from (May 13, 2019) Change: no significant change (Other than resolution of tachycardia) MDM Narrative I did evaluate the patient as noted above. She is presenting with bilateral flank pain. She does have tenderness in the upper abdomen bilaterally. IV access was established. I did treat the patient with IV morphine and Zofran. She was given normal saline IV. I did place an order for continuous cardiac monitoring. The monitor showed normal sinus rhythm with a rate of 95 bpm. I did order and personally review the patient's 12-lead EKG as described above. There is no evidence of acute ischemia. I did order a urine analysis. She does have evidence of a UTI. A urine culture was sent. I did treat the patient with 2 g of ceftriaxone IV. I did order and review the patient's blood work as noted in the electronic medical record. CBC demonstrates and anemia with a hemoglobin of 7.9. Platelet count is 436. White count is 7.3. She did have a prior history of anemia in 2019 when she had a placental abruption. She states she has never had anemia outside of the setting of . She denies any rectal bleeding or black stools. She states her period is normal in flow and timing. I did perform a rectal examination with a aircraft instrument repairer. This showed guaiac negative brown stool. No gross blood is noted. I did order a type and screen. CMP is remarkable for a potassium of 3.1. She was given oral potassium supplementation. Lipase is normal. I did order a CT of the abdomen and pelvis. I did review the images myself as well as the radiology report as described above. There is no evidence of acute abnormality. I did discuss the test results with the patient. She will be hospitalized for further care and evaluation. I did discuss case with the hospitalist and case packer and sealer. Impression & Plan Pyelonephritis, Anemia, Hypokalemia Discharge Plan Visit Data Chief Complaint: Flank Pain Stated Complaint: KIDNEY PAIN, BACK PAIN ED Provider: Vimal Cross Discharge Problem: Pyelonephritis, Anemia, Hypokalemia Forms Stand Alone Forms: My [facility] Prescriptions Prescriptions: No Action albuterol sulfate [Ventolin HFA] 90 mcg/actuation Hfa Aerosol Inhaler 2 puff INHALATION Q6H PRN (Reason: Shortness Of Breath Or Wheezing) Qty: 1 RF: 0 metoprolol tartrate 50 mg Tablet 50 mg PO BID RF: 0 omeprazole 40 mg Capsule,Delayed Release(Dr/Ec) 40 mg PO DAILY RF: 0 Excedrin Migraine 250-250-65 mg Tablet 2 tab PO Q6H PRN (Reason: Migraine Headache) RF: 0 ibuprofen 200 mg Tablet 400 mg PO Q6H PRN (Reason: Pain) RF: 0 acetaminophen 325 mg tablet 650 mg PO Q6H PRN (Reason: Pain) RF: 0 Referrals Referrals: Matti Gamboa MD [Primary Care Provider] - Discharge Problem: Anemia Qualifiers: Anemia type: unspecified type Qualified Code(s): D64.9 - Anemia, unspecified
[2022-04-19 17:44] LABS: Basophils # (auto) 0.04 K/uL (0-0.2); Basophils % (auto) 0.5 %; Eosinophils # (auto) 0.09 K/uL (0-0.5); Eosinophils % (auto) 1.2 %; Hemoglobin 7.9 g/dL (12.0-16.0); Immature Granulocytes # (auto) 0.01 K/uL (0.00-0.02); Immature Granulocytes % (auto) 0.1 %; Lymphocytes # (auto) 0.98 K/uL (1.2-3.4); Lymphocytes % (auto) 13.4 %; Mean Corpuscular Hemoglobin 22.5 pg (25-34); Mean Corpuscular Hgb Conc 30.4 g/dL (32-36); Mean Corpuscular Volume 74.1 fL (80-100); Mean Platelet Volume 9.6 fL (7.4-10.4); Monocytes % (auto) 8.2 %; Neutrophils # (auto) 5.61 K/uL (1.4-6.5); Neutrophils % (auto) 76.6 %; Platelet Count 436 K/uL (130-400); RDW Coefficient of Variation 17.2 % (11.5-14.5); RDW Standard Deviation 46.8 fL (36.4-46.3); Red Blood Count 3.51 M/uL (4.2-5.4); White Blood Count 7.33 K/uL (4.8-10.8)
[2022-04-19 17:46] LABS: Appearance Urine Cloudy (Clear); Bacteria Urine Automated 4+ (Negative); Bilirubin Urine Negative (Negative); Blood Urine 2+ (Negative); Color Urine Yellow; Epithelial Cell Urine Auto >30 /lpf (0-5); Glucose Urine UA Negative (Negative); Ketones Urine Negative (Negative); Leukocyte Esterase Urine 2+ (Negative); Nitrite Urine Positive (Negative); Protein Urine 1+ (Negative); RBC Urine Automated 0-4 /hpf (0-4); Specific Gravity Urine 1.023 (1.000-1.030); Urobilinogen Urine Negative (Negative); WBC Urine Automated >30 /hpf (0-5)
[2022-04-19 17:49] LABS: Cast Urine Automated >30 /lpf (0-5)
[2022-04-19 18:04] LABS: Albumin Globulin Ratio 1.2 (0.9-2); Bilirubin,Total 0.3 mg/dl (0.2-1.0); Calcium 9.1 mg/dl (8.5-10.1); Est GFR (African American) 115.6 ml/min; Est GFR (Non-African American) 99.7 ml/min; Globulin 3.4 gm/dl (2.5-4.0); Potassium 3.1 mmol/L (3.5-5.1); Total Protein 7.4 gm/dl (6.0-8.3)
[2022-04-19] MEDS ORDERED: cefTRIAXone SODIUM 2,000 MG/70 ML BAG IV STA (18:12)
[2022-04-19 18:16] LABS: Troponin I High Sensitivity 2.7 pg/ml (0-14)
[2022-04-19 18:21] LABS: Ovalocytes 1+; Polychromasia 1+
--- NOTE | 2022-04-19 18:31 | CT Scan Report ---
CT SCAN OF THE ABDOMEN AND PELVIS WITHOUT IV CONTRAST CLINICAL HISTORY: Right flank pain. COMPARISON STUDY: Abdominal radiograph dated 12/17/2021. TECHNIQUE: CT scan of the abdomen and pelvis is performed from the lung bases to the proximal femora. Images are reviewed in the axial, sagittal, and coronal planes. IV contrast was not administered for this examination. A dose lowering technique was utilized adhering to the principles of ALARA. CT DOSE: 276.99 mGy.cm FINDINGS: Lung bases: The heart is normal in size and without pericardial effusion. The lung bases are clear no ting dependent atelectasis. Liver: The unenhanced liver is normal in size, contour, and attenuation. The liver is elongated sugge sting Lewis's lobe variant anatomy. There is no intrahepatic biliary ductal dilatation. Gallbladder: Unremarkable. Spleen: Normal in size and attenuation. Pancreas: Unremarkable. Adrenal glands: Unremarkable. Kidneys: The unenhanced kidneys are normal in size and without hydronephrosis. There are no renal anuj culi identified. There is no evidence of contour deforming renal mass lesion. Abdominal vasculature: The abdominal aorta is normal in course and caliber. Bowel: There are scattered colonic diverticula without CT evidence of acute diverticulitis. No bowel obstruction is seen. The appendix is well-visualized and normal. Peritoneum: There is no intraperitoneal free air or abdominal ascites. There is a small fat-containin g umbilical hernia. Lymphadenopathy: None. Pelvic viscera: The bladder, uterus, and adnexa are normal as visualized noting bilateral ovarian fol licles. A tampon is in place. Skeletal structures: No lytic or blastic lesions are seen. There is a minimal chronic superior endpla te compression deformity of L3. IMPRESSION: No acute infectious or inflammatory findings are identified in the abdomen or pelvis. ACT 112: Negative or not required by law. Electronically signed by: Israel Crandall M.D. 04/19/2022 6:28 PM
[2022-04-19] MEDS ORDERED: POTASSIUM CHLORIDE 10 MEQ TABCR PO STA (18:51)
[2022-04-19] MEDS ORDERED: ALBUTEROL HFA 8 GM INHALER INH PRN (22:52)
[2022-04-19] MEDS ORDERED: ACETAMINOPHEN 325 MG TAB PO PRN (22:52)
[2022-04-19] MEDS ORDERED: ONDANSETRON INJ 2 MG/ML 2 ML VIAL IV PRN (22:52)
[2022-04-19] MEDS ORDERED: METOPROLOL TARTRATE 50 MG TAB PO STA (22:52)
--- NOTE | 2022-04-19 23:22 | History and Physical Report ---
DATE OF ADMISSION: 04/19/2022. CHIEF COMPLAINT: Flank pain. HISTORY OF PRESENT ILLNESS: This is a 41-year-old female with past medical history significant for mild persistent asthma, mixed rhinitis, history of prolapsed internal hemorrhoids, GERD, antepartum anemia complicating , SVT with aberrancy, smoking complicating presents with flank pain and found to have possible pyelonephritis and also hemoglobin of 7.9. The patient is saying initial pain started in the right flank and radiated to the left flank and upper abdomen region, severe pain going for last 2-3 days, which prompted her to come to the ER. Denies any burning micturition. No hematuria. No nausea or vomiting. No dizziness. Appetite is okay. No difficulty swallowing. No diarrhea or constipation, no blood in stools or black stools. No chest pain . She could not take deep breaths because of pain in the flanks and upper abdomen. No cough, no headache, no dizziness, no blurred vision, no ear ache, no runny nose, no sore throat. Currently, resting comfortably and hemodynamically stable. Hemoccult was negative in the ER. ALLERGIES: APPLE, EGG, POTATO, SPINACH, IBUPROFEN AND CARDIZEM. PAST MEDICAL HISTORY: As mentioned above. Also significant for SVT with aberrancy. PAST SURGICAL HISTORY: , colonoscopy, EGDs, hemorrhoidectomy in December 2021, right knee arthroscopy, umbilical hernia repair. MEDICATIONS: The patient is on Tylenol 650 mg p.o. q. 6 hours p.r.n., albuterol 2 puffs inhalation q. 6 hours p.r.n., Excedrin Migraine 2 tablets p.o. q. 6 hours p.r.n., metoprolol tartrate 50 mg p.o. b.i.d., omeprazole 40 mg p.o. daily. FAMILY HISTORY: Significant for mother has chronic rhinitis, asthma, diabetes, hypertension, bipolar disorder; sister has bipolar; son has asthma. SOCIAL HISTORY: Smoked 0.2 packs a day for 21 years, quit smoking a few weeks back. Currently vaping. Denies alcohol use. No drug use. REVIEW OF SYSTEMS: As per HPI. Rest of the review of systems is negative. PHYSICAL EXAMINATION: GENERAL: The patient is of moderate build, not in acute distress. VITAL SIGNS: Temperature 37.3, pulse 97, respiratory rate 18, blood pressure 170/97, oxygen 100% on room air. HEENT: Pupils equal, round and reactive to light. Oral mucosa moist. LUNGS: No JVD, no neck masses. CARDIOVASCULAR: S1 and S2 heard. Regular rate and rhythm. No murmur, no gallop. RESPIRATORY SYSTEM: Normal AP diameter. No accessory muscle use. No wheezing, no crackles. ABDOMEN: Soft. Bowel sounds are present. mild upper abdominal discomfort. No guarding, no rigidity, no distention. CENTRAL NERVOUS SYSTEM: Cranial nerves II-XII grossly intact, nonfocal. EXTREMITIES: No edema, no erythema. LABORATORY DATA: WBC 7.3, hemoglobin 7.9, hematocrit 26, platelets 436. Sodium 138, potassium 3.1, chloride 106, CO2 of 24, BUN 9, creatinine 0.7, serum glucose 99, calcium 9.1, total bilirubin 0.3, AST 11, ALT 6, alkaline phosphatase 99. Troponin I high sensitivity 2.7, lipase 16. Urinalysis +2 blood , positive for nitrite, +2 leukocyte esterase , +4 bacteria. IMAGING DATA: CT of the abdomen and pelvis without IV contrast, no acute infectious or inflammatory findings are identified in the abdomen or pelvis. EKG: Normal sinus rhythm at a rate of 89, no significant change was found. ASSESSMENT AND PLAN: This is a 41-year-old female who presents with abdominal flank pain and found to have pyelonephritis and also anemia. 1. Flank pain and pyelonephritis: IV Rocephin. Follow the cultures. Gentle IV fluids. Closely monitor in the hospital. 2. Anemia: Hemoglobin 7.9. The patient seems to have had a prior history of anemia in 2019. She had a placental abruption, seems her menses are okay now. Hemoccult was negative in the ER. She recently in December and January had EGD and colonoscopy and EGD showed eosinophilic esophagitis, which was dilated. Supposed to see allergy/immunology, but she did not make the appointment. Currently, she is able to swallow okay. Will follow the repeat Hemoccult studies, will do iron studies and vitamin B12 and folate studies. Consult GI in the a.m. Will keep n.p.o. after midnight. Follow the labs. ordered iv Protonix 40 b.i.d. for now. 3. History of supraventricular tachycardia with aberrancy: Continue her home metoprolol tartrate. 4. History of asthma: Mild, persistent. On albuterol p.r.n. Currently stable. 5. Deep venous thrombosis prophylaxis: Sequential compression devices for now. DISPOSITION: Closely monitor in the medical floor. Expect to discharge home and follow with family doctor. Level 1 full code. Job ID: [id number] [id number]
[2022-04-19] MEDS ORDERED: PANTOprazole 40 MG in SYRINGE 0 ML IV ONE (23:30)
[2022-04-20] MEDS: MoRPHine SULFATE 2 MG/ML CARP IV PRN ×4 (00:21→19:46)
[2022-04-20] MEDS: D5W AND NSS 1,000 ML IV SCH ×3 (00:23→20:57)
[2022-04-20 05:57] LABS: Hematocrit (blood only) 22.6 % (37-47); Hemoglobin 6.8 g/dL (12.0-16.0); Mean Corpuscular Hemoglobin 22.8 pg (25-34); Mean Corpuscular Hgb Conc 30.1 g/dL (32-36); Mean Corpuscular Volume 75.8 fL (80-100); Mean Platelet Volume 8.9 fL (7.4-10.4); Platelet Count 343 K/uL (130-400); RDW Coefficient of Variation 17.2 % (11.5-14.5); RDW Standard Deviation 47.4 fL (36.4-46.3); Red Blood Count 2.98 M/uL (4.2-5.4); White Blood Count 6.28 K/uL (4.8-10.8)
[2022-04-20 06:06] LABS: BUN Creatinine Ratio 8.6 (10-20); Calcium 8.1 mg/dl (8.5-10.1); Creatinine Clr Calc Pharmacy 112.8 ml/min; Est GFR (African American) 125.6 ml/min; Est GFR (Non-African American) 108.4 ml/min; Iron 17 mcg/dl (35-150); Magnesium 1.7 mg/dl (1.7-2.4); Potassium 3.6 mmol/L (3.5-5.1); Total Iron Binding Cap Calc 366 mcg/dl (250-450); Transferrin (FE) Percent Satur 5 % (15-50); Unsaturated Iron Binding Cap 349 mcg/dl (155-355)
[2022-04-20 06:32] LABS: Folate (Folic Acid) 4.65 ng/ml (>5.38)
[2022-04-20 06:42] LABS: Anisocytosis Present; Basophils # (auto) 0.03 K/uL (0-0.2); Basophils % (auto) 0.5 %; Eosinophils # (auto) 0.16 K/uL (0-0.5); Eosinophils % (auto) 2.5 %; Hypochromasia Present; Immature Granulocytes # (auto) 0.01 K/uL (0.00-0.02); Immature Granulocytes % (auto) 0.2 %; Lymphocytes # (auto) 1.56 K/uL (1.2-3.4); Lymphocytes % (auto) 24.8 %; Monocytes # (auto) 0.65 K/uL (0.11-0.59); Monocytes % (auto) 10.4 %; Neutrophils # (auto) 3.87 K/uL (1.4-6.5); Neutrophils % (auto) 61.6 %; Ovalocytes 1+
[2022-04-20] MEDS: METOPROLOL TARTRATE 50 MG TAB PO SCH ×2 (07:56→19:56)
[2022-04-20] MEDS: PANTOprazole 40 MG in SYRINGE 0 ML IV SCH ×2 (07:57→19:49)
[2022-04-20 08:00] LABS: Hematocrit (blood only) 22.4 % (37-47); Hemoglobin 6.7 g/dL (12.0-16.0)
[2022-04-20] MEDS ORDERED: SODIUM CHLORIDE 0.9% 250 ML IV PRN (08:22)
[2022-04-20 08:32] LABS: Ferritin 6.5 ng/ml (8-388)
[2022-04-20] MEDS: oxyCODONE HCL IR 5 MG TAB (IMMEDIATE RELEASE) PO PRN ×3 (09:23→22:30)
[2022-04-20] MEDS: FOLIC ACID 1 MG TAB PO SCH (09:23)
--- NOTE | 2022-04-20 09:31 | Gastrointestinal Consultation ---
Date of Consultation April 20, 2022 Assessment & Plan (1) Anemia: 41 year old female admitted with pyelonephritis, GI asked to evaluate given her microcytic anemia w/ low iron. She had EGD/Colonoscopy in 2021 for evaluation of rectal bleeding and was found to have hemorrhoids, otherwise unremarkable examination. She denies any further episodes of rectal bleeding and denies melena. No GI contraindication to diet No acute indication for endoscopic evaluation given recent examination and no report of blood loss PO PPI BID Trend HGB Monitor output Transfuse RBC per primary team Start PO Iron OP EGD/Colonoscopy, if examinations are negative, VCE Thank you for allowing us to participate in the care of this patient. Please call with any acute changes, questions or concerns. Please see addendum below with additional recommendation from my supervising physician. Supervising Physician Co-Signing Physician Notes Attg add: I interviewed and examined pt, reviewed chart and labs. Pt with KELSEY. Sp recent EGD and cscopy. + heavy periods. + prior Anemia. ++ heavy NSAID use. NO GI symptoms. Given heavy NSAID use, will perform EGD r/o PUD. If negative, would not pursue further GI w/u, consider MEDICAL RECORDS CODER consult. History of Present Illness Reason for Consultation: anemia Requesting Physician: Quang Attending Physician: Axel Del Rio MD History of Present Illness 41 year old female with history of GERD, asthma, EOE, chronic anemia presented to the ED for evaluation of flank pain, admitted with anemia. GI asked to evaluate. She is known from OP clinic. She recently had EGD x 2 in Dec/January and colonoscopy in Dec. These examination were consistent with EOE and she was started on PPI BID. Colonoscopy w/ hemorrhoids, otherwise unremarkable. She notes about 4/5 days ago she developed right sided flank pain. This progressed to bilateral flank pain and eventual began to radiate through to her abdomen. She now reports generalized abdominal and flank pain. Denies any nausea /vomiting. Some GERD. Denies change in bowel habits, specifically denies any black or bloody stools. This AM her HGB in 6.7 w/ MCV of 75, iron 18, saturation 5 and ferritin of 6.5. Normal BUN. UA 2021: 2+ blood CTAP 2021: No acute infectious or inflammatory findings are identified in the abdomen or pelvis. EGD 2021: Esophageal mucosal changes consistent with eosinophilic esophagitis. Dilated. - Normal stomach. - Normal examined duodenum. - No specimens collected. Bx 202: Duodenal mucosa with no significant pathologic findings. B. Stomach, biopsy: Antral and oxyntic mucosa with no significant pathologic findings. C. GE junction, biopsy: Squamocolumnar junctional mucosa with focal intraepithelial eosinophils (up to 21 per HPF), chronic inflammation and reactive change. Negative for intestinal metaplasia and dysplasia. D. Esophagus, biopsy: Esophagitis with intraepithelial eosinophils (up to 43 per HPF) and reactive change EGD 2021: The esophagus was diffusely narrow and was mildly snug to intubation. There were furrows throughout the body of the esophagus. Appearance suggestive of eosinophilic esophagitis. Biopsies taken from the body of the esophagus. The esophagus and gastroesophageal junction were examined with white light from a forward view and retroflexed position. 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 These changes involved the mucosa at the upper extent of the gastric folds (37 cm from the incisors) extending to the Z-line (35 cm from the incisors). Monarch-colored mucosa was present. The maximum longitudinal extent of these esophageal mucosal changes was 2 cm in length. Mucosa was biopsied with a cold forceps for histology. One specimen bottle was sent to pathology. The entire examined stomach was normal. Biopsies were taken with a cold forceps for histology. The examined duodenum was normal. Biopsies were taken with a cold forceps for histology. Colonoscopy 2021:The perianal and digital rectal examinations were normal. Small hemorrhoids on retroflexion, otherwise the colon (entire examined portion) appeared normal. The terminal ileum appeared normal. Family history of GI malignancy:aunt with colon CA Family history of IBD: none Allergies Allergy/AdvReac Type Severity Reaction Status Date / Time apple Allergy Severe Swelling Verified 04/19/22 17:39 of Lip/Tongue/Throat egg Allergy Severe THROAT Verified 04/19/22 17:39 SWELLS /HARD TO BREATHE potato Allergy Severe Swelling Verified 04/19/22 17:39 of Lip/Tongue/Throat spinach Allergy Severe SHORTNESS Verified 04/19/22 17:39 OF BREATH ibuprofen AdvReac Severe VOMITING,BLURRED Verified 04/19/22 17:39 VISION, RINGING OF EARS Home Medications Medication Instructions Recorded Confirmed Type albuterol sulfate 90 mcg/actuation 2 puff INHALATION Q6H PRN #1 06/28/17 04/19/22 History aerosol inhaler (Ventolin HFA) inhaler zlnuhva-bxqwbesugvfee-fmsrgunl 250 2 tab PO Q6H PRN 01/08/19 04/19/22 History mg-250 mg-65 mg tablet (Excedrin Migraine) omeprazole 40 mg capsule,delayed 40 mg PO DAILY 01/08/19 04/19/22 History release metoprolol tartrate 50 mg tablet 50 mg PO BID 08/27/20 04/19/22 History acetaminophen 325 mg tablet 650 mg PO Q6H PRN 04/19/22 04/19/22 History ibuprofen 200 mg tablet 400 mg PO Q6H PRN 04/19/22 04/19/22 History Patient History Medical History Asthma Eustachian tube dysfunction 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 GERD (gastroesophageal reflux disease) Hemorrhoids during Hiatal hernia History of depression no current meds History of heart disorder patient says " my heart beats fast" Currently on Metoprolol Migraine Surgical History H/O umbilical hernia repair History of 2018- intolerance to labor History of hemorrhoidectomy Family History Other Hiatal hernia Social History Smoking Status: Current every day smoker Tobacco Type: Cigarettes Cigarettes Per Day: 5; Second Hand Exposure: Yes; Do You Dip or Chew Tobacco: No; Hx Alcohol Use: No Hx Substance Use: No Preferred Language: Slovak Communication Ability: Effective 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 Beliefs That Will Affect Care: None marital status: Legally Current Living Situation: Alone Current Living Situation Comment: lives with 6 children Other Information That Helps Us Care for You: No Feels Safe at Home: Yes Safety Concerns: Feels Safe At This Time Assistive Devices: Nebulizer Review of Systems Review of Systems: All systems reviewed & are unremarkable except as noted in HPI & below Results & Data ([facility]) Vital Signs (Past 12 Hours) Vital Signs Temp Pulse Pulse Resp BP BP Pulse Ox 04/20/22 07:53 37 C 77 16 149/94 H 100 04/20/22 03:22 37.2 C 92 H 18 154/92 H 98 04/19/22 22:00 95 H 19 159/106 H 100 Laboratory Results 04/20/22 04/20/22 04/20/22 Range/Units 07:34 07:34 05:32 WBC (4.8-10.8) K/uL RBC (4.2-5.4) M/uL Hgb 6.7 L* (12.0-16.0) g/dL Hct 22.4 L (37-47) % MCV (80-100) fL MCH (25-34) pg MCHC (32-36) g/dL RDW Std Deviation (36.4-46.3) fL RDW Coeff of Jelena (11.5-14.5) % Plt Count (130-400) K/uL MPV (7.4-10.4) fL Immature Gran % (Auto) % Neut % (Auto) % Lymph % (Auto) % [place] % (Auto) % Eos % (Auto) % Baso % (Auto) % Neut # (Auto) (1.4-6.5) K/uL Lymph # (Auto) (1.2-3.4) K/uL [place] # (Auto) (0.11-0.59) K/uL Eos # (Auto) (0-0.5) K/uL Baso # (Auto) (0-0.2) K/uL Immature Gran # (Auto) (0.00-0.02) K/uL Polychromasia Hypochromasia Anisocytosis Ovalocytes Sodium 136 (136-145) mmol/L Potassium 3.6 (3.5-5.1) mmol/L Chloride 107 (98-107) mmol/L Carbon Dioxide 23 (21-32) mmol/L Anion Gap 6 (3-11) BUN 6 (6-23) mg/dl Creatinine 0.70 (0.6-1.2) mg/dl Est Cr Clr Drug Dosing 112.8 ml/min Est GFR ( Amer) 125.6 ml/min Est GFR (Non-Af Amer) 108.4 ml/min BUN/Creatinine Ratio 8.6 L (10-20) Glucose 98 (70-99(Fasting)) mg/dl Calcium 8.1 L (8.5-10.1) mg/dl Magnesium 1.7 (1.7-2.4) mg/dl Iron 18 L (35-150) mcg/dl TIBC (250-450) mcg/dl Unsaturated IBC 346 (155-355) mcg/dl Transferrin % Sat (15-50) % Ferritin 6.5 L (8-388) ng/ml Total Bilirubin (0.2-1.0) mg/dl AST (13-39) U/L ALT (7-52) U/L Alkaline Phosphatase (34-104) U/L Troponin I High Sens (0-14) pg/ml Total Protein (6.0-8.3) gm/dl Albumin (3.4-5.0) gm/dl Globulin (2.5-4.0) gm/dl Albumin/Globulin Ratio (0.9-2) Lipase (11-82) U/L Vitamin B12 (180-914) pg/ml Folate (>5.38) ng/ml Urine Color Urine Appearance (Clear) Urine pH (4.5-7.5) Ur Specific [place] (1.000-1.030) Urine Protein (Negative) Urine Glucose (UA) (Negative) Urine Ketones (Negative) Urine Blood (Negative) Urine Nitrite (Negative) Urine Bilirubin (Negative) Urine Urobilinogen (Negative) Ur Leukocyte Esterase (Negative) Urine WBC (Auto) (0-5) /hpf Urine RBC (Auto) (0-4) /hpf U Hyaline Cast (Auto) (0-5) /lpf U Epithel Cells (Auto) (0-5) /lpf Urine Bacteria (Auto) (Negative) POC Ur Test (NEG) SARS-CoV-2, RNA, NAAT (NEGATIVE) Blood Type Antibody Screen Crossmatch 04/20/22 04/20/22 04/20/22 Range/Units 05:32 05:32 05:32 WBC 6.28 (4.8-10.8) K/uL RBC 2.98 L (4.2-5.4) M/uL Hgb 6.8 L* (12.0-16.0) g/dL Hct 22.6 L (37-47) % MCV 75.8 L (80-100) fL MCH 22.8 L (25-34) pg MCHC 30.1 L (32-36) g/dL RDW Std Deviation 47.4 H (36.4-46.3) fL RDW Coeff of Jelena 17.2 H (11.5-14.5) % Plt Count 343 (130-400) K/uL MPV 8.9 (7.4-10.4) fL Immature Gran % (Auto) 0.2 % Neut % (Auto) 61.6 % Lymph % (Auto) 24.8 % [place] % (Auto) 10.4 % Eos % (Auto) 2.5 % Baso % (Auto) 0.5 % Neut # (Auto) 3.87 (1.4-6.5) K/uL Lymph # (Auto) 1.56 (1.2-3.4) K/uL [place] # (Auto) 0.65 H (0.11-0.59) K/uL Eos # (Auto) 0.16 (0-0.5) K/uL Baso # (Auto) 0.03 (0-0.2) K/uL Immature Gran # (Auto) 0.01 (0.00-0.02) K/uL Polychromasia Hypochromasia Present Anisocytosis Present Ovalocytes 1+ Sodium (136-145) mmol/L Potassium (3.5-5.1) mmol/L Chloride (98-107) mmol/L Carbon Dioxide (21-32) mmol/L Anion Gap (3-11) BUN (6-23) mg/dl Creatinine (0.6-1.2) mg/dl Est Cr Clr Drug Dosing ml/min Est GFR ( Amer) ml/min Est GFR (Non-Af Amer) ml/min BUN/Creatinine Ratio (10-20) Glucose (70-99(Fasting)) mg/dl Calcium (8.5-10.1) mg/dl Magnesium (1.7-2.4) mg/dl Iron 17 L (35-150) mcg/dl TIBC 366 (250-450) mcg/dl Unsaturated IBC 349 (155-355) mcg/dl Transferrin % Sat 5 L (15-50) % Ferritin (8-388) ng/ml Total Bilirubin (0.2-1.0) mg/dl AST (13-39) U/L ALT (7-52) U/L Alkaline Phosphatase (34-104) U/L Troponin I High Sens (0-14) pg/ml Total Protein (6.0-8.3) gm/dl Albumin (3.4-5.0) gm/dl Globulin (2.5-4.0) gm/dl Albumin/Globulin Ratio (0.9-2) Lipase (11-82) U/L Vitamin B12 244 (180-914) pg/ml Folate 4.65 L (>5.38) ng/ml Urine Color Urine Appearance (Clear) Urine pH (4.5-7.5) Ur Specific [place] (1.000-1.030) Urine Protein (Negative) Urine Glucose (UA) (Negative) Urine Ketones (Negative) Urine Blood (Negative) Urine Nitrite (Negative) Urine Bilirubin (Negative) Urine Urobilinogen (Negative) Ur Leukocyte Esterase (Negative) Urine WBC (Auto) (0-5) /hpf Urine RBC (Auto) (0-4) /hpf U Hyaline Cast (Auto) (0-5) /lpf U Epithel Cells (Auto) (0-5) /lpf Urine Bacteria (Auto) (Negative) POC Ur Test (NEG) SARS-CoV-2, RNA, NAAT (NEGATIVE) Blood Type Antibody Screen Crossmatch 04/19/22 04/19/22 04/19/22 Range/Units 19:11 18:56 17:17 WBC (4.8-10.8) K/uL RBC (4.2-5.4) M/uL Hgb (12.0-16.0) g/dL Hct (37-47) % MCV (80-100) fL MCH (25-34) pg MCHC (32-36) g/dL RDW Std Deviation (36.4-46.3) fL RDW Coeff of Jelena (11.5-14.5) % Plt Count (130-400) K/uL MPV (7.4-10.4) fL Immature Gran % (Auto) % Neut % (Auto) % Lymph % (Auto) % [place] % (Auto) % Eos % (Auto) % Baso % (Auto) % Neut # (Auto) (1.4-6.5) K/uL Lymph # (Auto) (1.2-3.4) K/uL [place] # (Auto) (0.11-0.59) K/uL Eos # (Auto) (0-0.5) K/uL Baso # (Auto) (0-0.2) K/uL Immature Gran # (Auto) (0.00-0.02) K/uL Polychromasia Hypochromasia Anisocytosis Ovalocytes Sodium (136-145) mmol/L Potassium (3.5-5.1) mmol/L Chloride (98-107) mmol/L Carbon Dioxide (21-32) mmol/L Anion Gap (3-11) BUN (6-23) mg/dl Creatinine (0.6-1.2) mg/dl Est Cr Clr Drug Dosing ml/min Est GFR ( Amer) ml/min Est GFR (Non-Af Amer) ml/min BUN/Creatinine Ratio (10-20) Glucose (70-99(Fasting)) mg/dl Calcium (8.5-10.1) mg/dl Magnesium (1.7-2.4) mg/dl Iron (35-150) mcg/dl TIBC (250-450) mcg/dl Unsaturated IBC (155-355) mcg/dl Transferrin % Sat (15-50) % Ferritin (8-388) ng/ml Total Bilirubin (0.2-1.0) mg/dl AST (13-39) U/L ALT (7-52) U/L Alkaline Phosphatase (34-104) U/L Troponin I High Sens (0-14) pg/ml Total Protein (6.0-8.3) gm/dl Albumin (3.4-5.0) gm/dl Globulin (2.5-4.0) gm/dl Albumin/Globulin Ratio (0.9-2) Lipase (11-82) U/L Vitamin B12 (180-914) pg/ml Folate (>5.38) ng/ml Urine Color Urine Appearance (Clear) Urine pH (4.5-7.5) Ur Specific [place] (1.000-1.030) Urine Protein (Negative) Urine Glucose (UA) (Negative) Urine Ketones (Negative) Urine Blood (Negative) Urine Nitrite (Negative) Urine Bilirubin (Negative) Urine Urobilinogen (Negative) Ur Leukocyte Esterase (Negative) Urine WBC (Auto) (0-5) /hpf Urine RBC (Auto) (0-4) /hpf U Hyaline Cast (Auto) (0-5) /lpf U Epithel Cells (Auto) (0-5) /lpf Urine Bacteria (Auto) (Negative) POC Ur Test NEG (NEG) SARS-CoV-2, RNA, NAAT NEGATIVE (NEGATIVE) Blood Type O Positive Antibody Screen NEGATIVE Crossmatch See Detail 04/19/22 04/19/22 04/19/22 Range/Units 17:17 17:17 17:17 WBC 7.33 (4.8-10.8) K/uL RBC 3.51 L (4.2-5.4) M/uL Hgb 7.9 L (12.0-16.0) g/dL Hct 26.0 L (37-47) % MCV 74.1 L (80-100) fL MCH 22.5 L (25-34) pg MCHC 30.4 L (32-36) g/dL RDW Std Deviation 46.8 H (36.4-46.3) fL RDW Coeff of Jelena 17.2 H (11.5-14.5) % Plt Count 436 H (130-400) K/uL MPV 9.6 (7.4-10.4) fL Immature Gran % (Auto) 0.1 % Neut % (Auto) 76.6 % Lymph % (Auto) 13.4 % [place] % (Auto) 8.2 % Eos % (Auto) 1.2 % Baso % (Auto) 0.5 % Neut # (Auto) 5.61 (1.4-6.5) K/uL Lymph # (Auto) 0.98 L (1.2-3.4) K/uL [place] # (Auto) 0.60 H (0.11-0.59) K/uL Eos # (Auto) 0.09 (0-0.5) K/uL Baso # (Auto) 0.04 (0-0.2) K/uL Immature Gran # (Auto) 0.01 (0.00-0.02) K/uL Polychromasia 1+ Hypochromasia Anisocytosis Ovalocytes 1+ Sodium 138 (136-145) mmol/L Potassium 3.1 L (3.5-5.1) mmol/L Chloride 106 (98-107) mmol/L Carbon Dioxide 24 (21-32) mmol/L Anion Gap 8 (3-11) BUN 9 (6-23) mg/dl Creatinine 0.75 (0.6-1.2) mg/dl Est Cr Clr Drug Dosing 97.0 ml/min Est GFR ( Amer) 115.6 ml/min Est GFR (Non-Af Amer) 99.7 ml/min BUN/Creatinine Ratio 12.0 (10-20) Glucose 99 (70-99(Fasting)) mg/dl Calcium 9.1 (8.5-10.1) mg/dl Magnesium (1.7-2.4) mg/dl Iron (35-150) mcg/dl TIBC (250-450) mcg/dl Unsaturated IBC (155-355) mcg/dl Transferrin % Sat (15-50) % Ferritin (8-388) ng/ml Total Bilirubin 0.3 (0.2-1.0) mg/dl AST 11 L (13-39) U/L ALT 6 L (7-52) U/L Alkaline Phosphatase 99 (34-104) U/L Troponin I High Sens 2.7 (0-14) pg/ml Total Protein 7.4 (6.0-8.3) gm/dl Albumin 4.0 (3.4-5.0) gm/dl Globulin 3.4 (2.5-4.0) gm/dl Albumin/Globulin Ratio 1.2 (0.9-2) Lipase 16 (11-82) U/L Vitamin B12 (180-914) pg/ml Folate (>5.38) ng/ml Urine Color Yellow Urine Appearance Cloudy A (Clear) Urine pH 6.0 (4.5-7.5) Ur Specific [place] 1.023 (1.000-1.030) Urine Protein 1+ H (Negative) Urine Glucose (UA) Negative (Negative) Urine Ketones Negative (Negative) Urine Blood 2+ H (Negative) Urine Nitrite Positive A (Negative) Urine Bilirubin Negative (Negative) Urine Urobilinogen Negative (Negative) Ur Leukocyte Esterase 2+ H (Negative) Urine WBC (Auto) >30 H (0-5) /hpf Urine RBC (Auto) 0-4 (0-4) /hpf U Hyaline Cast (Auto) >30 H (0-5) /lpf U Epithel Cells (Auto) >30 H (0-5) /lpf Urine Bacteria (Auto) 4+ H (Negative) POC Ur Test (NEG) SARS-CoV-2, RNA, NAAT (NEGATIVE) Blood Type Antibody Screen Crossmatch (1) Anemia Anemia type: unspecified type Qualified Code(s): D64.9 - Anemia, unspecified
[2022-04-20] MEDS: CYANOCOBALAMIN (B-12) 500 MCG TABLET PO SCH (10:58)
--- NOTE | 2022-04-20 12:12 | Hospitalist Progress Note ---
Date of Service April 20, 2022 Assessment & Plan (1) Acute pyelonephritis: (2) Iron deficiency anemia: Plan: Acute pyelonephritis- Lt>Rt CVA tenderness, UA showing GNB, CT A/P unremarkable but suboptimal for pyelo as no contrast. - Continue rocephin D1 pending blood and urine clx results - Oxy prn for pain Acute on chronic anemia/Iron def anemia- hemoccult negative in ER. likely from deficiencies of iron, folate and B12 deficiency and menstrual blood loss althoug h she denies menorrhagia- States bleeds for about 5-7 days, sometimes with clots, currently menstruating D5. Recommended follow up with her Per Di[facility] Nurse onc. States she was also taking upto 6 pills of OTC motrin for the past few days for the pain. - Hb 6.7 today- will give 1 U of PRBC - Iron studies show iron deficiency- will start iron supplementation - Recheck Hb- transfuse as indicated - Continue PPI for now - Seen by GI- no plan for IP endoscopic eval- Plan for OP EGD/colonoscopy- if negative VCE Folate deficiency- will start on folate supplementation B12 deficiency- B12 on lower side. 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 Albuterol prn H/o eosinophilic esophagitis- She recently in December and January had EGD and colonoscopy and EGD showed eosinophilic esophagitis, which was dilated. Supposed to see allergy/immunology, but she did not make the appointment. Currently, she is able to swallow okay DVT ppx- SCD. Holding chemoprophylaxis due to anemia requiring transfusion Dispo- Pending final clx results and improvement in Hb Admission and Anticipated Discharge Date Admission Date: April 19, 2022 Subjective Still has significant flank and abdominal pain and asking for more pain medication. Hungry and asking for food. No fever, chills. Physical Exam Physical Exam: General: Lying in bed, not in acute distress but somewhat uncomfortable due to pain, on room air HEENT: EOMI, IWONA, MMM Chest: Clear breath sounds bilaterally, no wheezes or crackles CVS: Regular rate and rhythm, normal heart sounds, no murmur Abdomen: Soft, mildly tender in lower abdomen/suprapubic region, not distended, normal bowel sounds Lt>Rt CVA tenderness Neuro: Awake, alert, oriented, conversing well, non focal Extremities: No cyanosis, clubbing or edema Results & Data Results & Data ([facility]) Vital Signs (Past 12 Hours) Vital Signs Temp Pulse Pulse Resp BP BP Pulse Ox 04/20/22 11:20 36.7 C 69 16 155/95 H 93 04/20/22 10:50 37 C 75 16 161/93 H 100 04/20/22 10:20 37.2 C 68 16 158/93 H 100 04/20/22 10:03 37 C 75 16 143/89 H 99 04/20/22 09:44 37.1 C 73 16 142/90 H 100 04/20/22 07:53 37 C 77 16 149/94 H 100 04/20/22 03:22 37.2 C 92 H 18 154/92 H 98 Laboratory Results Short CBC 04/19/22 04/20/22 04/20/22 Range/Units 17:17 05:32 07:34 WBC 7.33 6.28 (4.8-10.8) K/uL Hgb 7.9 L 6.8 L* 6.7 L* (12.0-16.0) g/dL Hct 26.0 L 22.6 L 22.4 L (37-47) % Plt Count 436 H 343 (130-400) K/uL BMP 04/19/22 04/20/22 17:17 05:32 Sodium 138 136 Potassium 3.1 L 3.6 Chloride 106 107 Carbon Dioxide 24 23 BUN 9 6 Creatinine 0.75 0.70 Glucose 99 98 Calcium 9.1 8.1 L Liver Function 04/19/22 Range/Units 17:17 Total Bilirubin 0.3 (0.2-1.0) mg/dl AST 11 L (13-39) U/L ALT 6 L (7-52) U/L Alkaline Phosphatase 99 (34-104) U/L Albumin 4.0 (3.4-5.0) gm/dl Urine 04/19/22 Range/Units 17:17 Urine Color Yellow Urine Appearance Cloudy A (Clear) Urine pH 6.0 (4.5-7.5) Ur Specific [place] 1.023 (1.000-1.030) Urine Protein 1+ H (Negative) Urine Glucose (UA) Negative (Negative) Medications Administered Current Inpatient Medications Acetaminophen (Acetaminophen 325 Mg Tab) 650 mg PO Q4H PRN PRN Reason: pain/fever Stop: 05/19/22 22:51 Albuterol (Albuterol Hfa 8 Gm Inhaler) 2 puffs INH Q6H PRN PRN Reason: Shortness Of Breath Or Wheezin Stop: 05/19/22 22:51 Cyanocobalamin (Cyanocobalamin (B-12) 500 Mcg Tablet) 500 mcg PO QAM SOURAV Stop: 05/20/22 08:59 Last Admin: 04/20/22 10:58 Dose: 500 mcg Documented by: Folic Acid (Folic Acid 1 Mg Tab) 1 mg PO QAM SOURAV Stop: 05/20/22 08:59 Last Admin: 04/20/22 09:23 Dose: 1 mg Documented by: Dextrose/Sodium Chloride (D5w And Nss) 1,000 mls @ 75 mls/hr IV .[id number] SOURAV Stop: 05/19/22 22:51 Last Infusion: 04/20/22 10:00 Dose: 0 mls/hr Documented by: Pantoprazole Sodium 40 mg/ (Syringe) 10 mls @ 5 mls/min IV BID SOURAV Stop: 05/20/22 08:59 Last Admin: 04/20/22 07:57 Dose: 5 mls/min Documented by: Ceftriaxone Sodium 1,000 mg/ (Dextrose) 60 mls @ 100 mls/hr IV Q24H [facility]; Protocol Stop: 04/30/22 19:59 Sodium Chloride (Nss) 250 mls @ 15 mls/hr IV .[id number] PRN PRN Reason: For Transfusion Stop: 04/20/22 18:22 Metoprolol Tartrate (Metoprolol Tartrate 50 Mg Tab) 50 mg PO BID [facility] Stop: 05/20/22 08:59 Last Admin: 04/20/22 07:56 Dose: 50 mg Documented by: Morphine Sulfate (Morphine Sulfate 2 Mg/Ml Carp) 2 mg IV Q4H PRN PRN Reason: Pain Stop: 05/03/22 22:51 Last Admin: 04/20/22 11:30 Dose: 2 mg Documented by: Ondansetron HCl (Ondansetron Inj 2 Mg/Ml 2 Ml Vial) 4 mg IV Q6H PRN PRN Reason: Nausea Stop: 05/19/22 22:51 Oxycodone HCl (Oxycodone Hcl Ir 5 Mg Tab (Immediate Release)) 5 mg PO Q4 PRN PRN Reason: Pain Stop: 05/04/22 09:08 Last Admin: 04/20/22 09:23 Dose: 5 mg Documented by:
[2022-04-20] MEDS: FERROUS SULFATE 325 MG TAB PO SCH (13:48)
[2022-04-20 14:57] LABS: Hematocrit (blood only) 31.8 % (37-47); Hemoglobin 9.6 g/dL (12.0-16.0)
[2022-04-20] MEDS ORDERED: cefTRIAXone SODIUM 1,000 MG in DEXTROSE 5% 50 ML IV SCH (20:00)
[2022-04-21] MEDS: oxyCODONE HCL IR 5 MG TAB (IMMEDIATE RELEASE) PO PRN ×4 (04:13→22:38)
--- NOTE | 2022-04-21 05:48 | Electrocardiogram Report ---
Test Reason : Blood Pressure : / mmHG Vent. Rate : 089 BPM Atrial Rate : 089 BPM P-R Int : 130 ms QRS Dur : 092 ms QT Int : 374 ms P-R-T Axes : 033 011 031 degrees QTc Int : 455 ms Normal sinus rhythm When compared with ECG of 13-MAY-2019 15:13, No significant change was found Confirmed by Carlos Landrum ([id number]) on 04/21/2022 5:48:34 AM Referred By: REFERRED SELF Confirmed By:Carlos Landrum
[2022-04-21] MEDS: D5W AND NSS 1,000 ML IV SCH (06:23)
[2022-04-21] MEDS: MoRPHine SULFATE 2 MG/ML CARP IV PRN ×3 (06:23→19:12)
[2022-04-21 06:31] LABS: Hemoglobin 7.6 g/dL (12.0-16.0); Mean Corpuscular Hemoglobin 23.2 pg (25-34); Mean Corpuscular Hgb Conc 30.4 g/dL (32-36); Mean Corpuscular Volume 76.2 fL (80-100); Mean Platelet Volume 9.4 fL (7.4-10.4); Platelet Count 322 K/uL (130-400); RDW Coefficient of Variation 16.8 % (11.5-14.5); RDW Standard Deviation 46.4 fL (36.4-46.3); Red Blood Count 3.28 M/uL (4.2-5.4); White Blood Count 4.76 K/uL (4.8-10.8)
[2022-04-21 06:42] LABS: Calcium 8.4 mg/dl (8.5-10.1); Creatinine Clr Calc Pharmacy 111.2 ml/min; Est GFR (African American) 123.5 ml/min; Est GFR (Non-African American) 106.5 ml/min; Potassium 3.8 mmol/L (3.5-5.1)
--- NOTE | 2022-04-21 08:11 | Anesthesiology Consultation ---
Date of Service April 21, 2022 History Surgery Operation Date: 04/21/22 16:30 Proposed Procedures p Esophagogastroduodenoscopy Dr Barrera - Armond Barrera MD Height/Weight Height: 5 ft 7 in Weight: 74.8 kg Allergies Allergy/AdvReac Type Severity Reaction Status Date / Time apple Allergy Severe Swelling Verified 04/19/22 17:39 of Lip/Tongue/Throat egg Allergy Severe THROAT Verified 04/19/22 17:39 SWELLS /HARD TO BREATHE potato Allergy Severe Swelling Verified 04/19/22 17:39 of Lip/Tongue/Throat spinach Allergy Severe SHORTNESS Verified 04/19/22 17:39 OF BREATH ibuprofen AdvReac Severe VOMITING,BLURRED Verified 04/19/22 17:39 VISION, RINGING OF EARS Medications Home Medications Medication Instructions Recorded Confirmed Last Taken albuterol sulfate 90 mcg/actuation 2 puff INHALATION Q6H PRN #1 06/28/17 04/19/22 08/26/20 09:00 aerosol inhaler (Ventolin HFA) inhaler fykxtzg-gvfsivtfgvtsw-nbxvnpgj 250 2 tab PO Q6H PRN 01/08/19 04/19/22 Unknown mg-250 mg-65 mg tablet (Excedrin Migraine) omeprazole 40 mg capsule,delayed 40 mg PO DAILY 01/08/19 04/19/22 08/27/20 09:00 release metoprolol tartrate 50 mg tablet 50 mg PO BID 08/27/20 04/19/22 08/27/20 09:00 acetaminophen 325 mg tablet 650 mg PO Q6H PRN 04/19/22 04/19/22 Unknown ibuprofen 200 mg tablet 400 mg PO Q6H PRN 04/19/22 04/19/22 04/19/22 08:00 Active Medications Generic Name Dose Route Start Last Admin Trade Name Freq PRN Reason Stop Dose Admin Cyanocobalamin 500 mcg 04/20/22 09:00 04/20/22 10:58 Cyanocobalamin (B-12) 500 Mcg Tablet PO 05/20/22 08:59 500 mcg QAM SOURAV Administration Ferrous Sulfate 325 mg 04/20/22 12:15 04/20/22 13:48 Ferrous Sulfate 325 Mg Tab PO 05/20/22 12:14 325 mg DAILY SOURAV Administration Folic Acid 1 mg 04/20/22 09:00 04/20/22 09:23 Folic Acid 1 Mg Tab PO 05/20/22 08:59 1 mg QAM SOURAV Administration Pantoprazole Sodium 40 mg/ 10 mls @ 5 mls/min 04/20/22 09:00 04/20/22 19:49 Syringe IV 05/20/22 08:59 5 mls/min BID SOURAV Administration Metoprolol Tartrate 50 mg 04/20/22 09:00 04/20/22 19:56 Metoprolol Tartrate 50 Mg Tab PO 05/20/22 08:59 50 mg BID SOURAV Administration Morphine Sulfate 2 mg 04/19/22 22:52 04/21/22 06:23 Morphine Sulfate 2 Mg/Ml Carp IV 05/03/22 22:51 2 mg Q4H PRN Administration Pain Oxycodone HCl 5 mg 04/20/22 09:09 04/21/22 04:13 Oxycodone Hcl Ir 5 Mg Tab (Immediate Release) PO 05/04/22 09:08 5 mg Q4 PRN Administration Pain Past Medical History Medical History Asthma Eustachian tube dysfunction 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 GERD (gastroesophageal reflux disease) Hemorrhoids during Hiatal hernia History of depression no current meds History of heart disorder patient says " my heart beats fast" Currently on Metoprolol Migraine Past Family History Family History Other Hiatal hernia Past Surgical History Surgical History H/O umbilical hernia repair History of 2018- intolerance to labor History of hemorrhoidectomy Social History Smoking Status: Current every day smoker tobacco type: cigarettes Smoking cigarettes per day: 5 Do You Dip or Chew Tobacco: No Hx Alcohol Use: No Alcohol type: wine alcohol intake frequency: 0-2 drinks per day Hx Substance Use: No substance use type: opiates Last Used Substance: Hours (ago) Physical Exam Vital Signs Last Vital Signs Temp 37 C 04/21/22 07:59 Pulse 67 04/21/22 07:59 Resp 16 04/21/22 07:59 BP 154/98 H 04/21/22 07:59 Pulse Ox 95 04/21/22 07:59 Testing Laboratory Results 04/21/22 06:00 04/21/22 06:00 Urine Color Yellow 04/19/22 17:17 Urine Appearance Cloudy (Clear) A 04/19/22 17:17 Urine pH 6.0 (4.5-7.5) 04/19/22 17:17 Ur Specific [place] 1.023 (1.000-1.030) 04/19/22 17:17 Urine Protein 1+ (Negative) H 04/19/22 17:17 Urine Glucose (UA) Negative (Negative) 04/19/22 17:17 Urine Ketones Negative (Negative) 04/19/22 17:17 Urine Nitrite Positive (Negative) A 04/19/22 17:17 Ur Leukocyte Esterase 2+ (Negative) H 04/19/22 17:17 Urine WBC (Auto) >30 /hpf (0-5) H 04/19/22 17:17 Urine RBC (Auto) 0-4 /hpf (0-4) 04/19/22 17:17 U Hyaline Cast (Auto) >30 /lpf (0-5) H 04/19/22 17:17 U Epithel Cells (Auto) >30 /lpf (0-5) H 04/19/22 17:17 Urine Bacteria (Auto) 4+ (Negative) H 04/19/22 17:17 Blood Type O Positive 04/19/22 19:11 Antibody Screen NEGATIVE 04/19/22 19:11 04/19/22 17:17 Urine Culture - Preliminary Urine,Clean Catch Escherichia coli 04/19/22 17:17 POC Ur Test NEG Electrocardiogram Date: 04/19/22
[2022-04-21] MEDS: PANTOprazole 40 MG in SYRINGE 0 ML IV SCH (08:14)
[2022-04-21] MEDS: METOPROLOL TARTRATE 50 MG TAB PO SCH ×2 (08:14→20:04)
--- NOTE | 2022-04-21 08:26 | Anesthesiology Consultation ---
Date of Service April 21, 2022 Assessment & Plan Chart Review Chart Review: Acceptable Risk for Surgery, Patient NOT seen in Pre Admission Testing and entry level lab technician initiated Consults Requested none Proposed Anesthesia Anesthesia Type: MAC History Surgery Operation Date: 04/21/22 16:30 Proposed Procedures p Esophagogastroduodenoscopy Dr Bruce Barrera MD Height/Weight Height: 5 ft 7 in Weight: 74.8 kg Allergies Allergy/AdvReac Type Severity Reaction Status Date / Time apple Allergy Severe Swelling Verified 04/19/22 17:39 of Lip/Tongue/Throat egg Allergy Severe THROAT Verified 04/19/22 17:39 SWELLS /HARD TO BREATHE potato Allergy Severe Swelling Verified 04/19/22 17:39 of Lip/Tongue/Throat spinach Allergy Severe SHORTNESS Verified 04/19/22 17:39 OF BREATH ibuprofen AdvReac Severe VOMITING,BLURRED Verified 04/19/22 17:39 VISION, RINGING OF EARS Medications Home Medications Medication Instructions Recorded Confirmed Last Taken albuterol sulfate 90 mcg/actuation 2 puff INHALATION Q6H PRN #1 06/28/17 04/19/22 08/26/20 09:00 aerosol inhaler (Ventolin HFA) inhaler aaqsyzj-opzklwbbuoqig-tlxjsepg 250 2 tab PO Q6H PRN 01/08/19 04/19/22 Unknown mg-250 mg-65 mg tablet (Excedrin Migraine) omeprazole 40 mg capsule,delayed 40 mg PO DAILY 01/08/19 04/19/22 08/27/20 09:00 release metoprolol tartrate 50 mg tablet 50 mg PO BID 08/27/20 04/19/22 08/27/20 09:00 acetaminophen 325 mg tablet 650 mg PO Q6H PRN 04/19/22 04/19/22 Unknown ibuprofen 200 mg tablet 400 mg PO Q6H PRN 04/19/22 04/19/22 04/19/22 08:00 Active Medications Generic Name Dose Route Start Last Admin Trade Name Freq PRN Reason Stop Dose Admin Cyanocobalamin 500 mcg 04/20/22 09:00 04/20/22 10:58 Cyanocobalamin (B-12) 500 Mcg Tablet PO 05/20/22 08:59 500 mcg QAM SOURAV Administration Ferrous Sulfate 325 mg 04/20/22 12:15 04/20/22 13:48 Ferrous Sulfate 325 Mg Tab PO 05/20/22 12:14 325 mg DAILY SOURAV Administration Folic Acid 1 mg 04/20/22 09:00 04/20/22 09:23 Folic Acid 1 Mg Tab PO 05/20/22 08:59 1 mg QAM SOURAV Administration Pantoprazole Sodium 40 mg/ 10 mls @ 5 mls/min 04/20/22 09:00 04/21/22 08:14 Syringe IV 05/20/22 08:59 5 mls/min BID SOURAV Administration Metoprolol Tartrate 50 mg 04/20/22 09:00 04/21/22 08:14 Metoprolol Tartrate 50 Mg Tab PO 05/20/22 08:59 50 mg BID SOURAV Administration Morphine Sulfate 2 mg 04/19/22 22:52 04/21/22 06:23 Morphine Sulfate 2 Mg/Ml Carp IV 05/03/22 22:51 2 mg Q4H PRN Administration Pain Oxycodone HCl 5 mg 04/20/22 09:09 04/21/22 04:13 Oxycodone Hcl Ir 5 Mg Tab (Immediate Release) PO 05/04/22 09:08 5 mg Q4 PRN Administration Pain Past Medical History Medical History Asthma Eustachian tube dysfunction 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 GERD (gastroesophageal reflux disease) Hemorrhoids during Hiatal hernia History of depression no current meds History of heart disorder patient says " my heart beats fast" Currently on Metoprolol Migraine Past Family History Family History Other Hiatal hernia Past Surgical History Surgical History H/O umbilical hernia repair History of 2018- intolerance to labor History of hemorrhoidectomy Social History Smoking Status: Current every day smoker tobacco type: cigarettes Smoking cigarettes per day: 5 Do You Dip or Chew Tobacco: No Hx Alcohol Use: No Alcohol type: wine alcohol intake frequency: 0-2 drinks per day Hx Substance Use: No substance use type: opiates Last Used Substance: Hours (ago) Physical Exam Vital Signs Last Vital Signs Temp 37 C 04/21/22 07:59 Pulse 67 04/21/22 07:59 Resp 16 04/21/22 07:59 BP 154/98 H 04/21/22 07:59 Pulse Ox 95 04/21/22 07:59 Testing Laboratory Results 04/21/22 06:00 04/21/22 06:00 Urine Color Yellow 04/19/22 17:17 Urine Appearance Cloudy (Clear) A 04/19/22 17:17 Urine pH 6.0 (4.5-7.5) 04/19/22 17:17 Ur Specific [place] 1.023 (1.000-1.030) 04/19/22 17:17 Urine Protein 1+ (Negative) H 04/19/22 17:17 Urine Glucose (UA) Negative (Negative) 04/19/22 17:17 Urine Ketones Negative (Negative) 04/19/22 17:17 Urine Nitrite Positive (Negative) A 04/19/22 17:17 Ur Leukocyte Esterase 2+ (Negative) H 04/19/22 17:17 Urine WBC (Auto) >30 /hpf (0-5) H 04/19/22 17:17 Urine RBC (Auto) 0-4 /hpf (0-4) 04/19/22 17:17 U Hyaline Cast (Auto) >30 /lpf (0-5) H 04/19/22 17:17 U Epithel Cells (Auto) >30 /lpf (0-5) H 04/19/22 17:17 Urine Bacteria (Auto) 4+ (Negative) H 04/19/22 17:17 Blood Type O Positive 04/19/22 19:11 Antibody Screen NEGATIVE 04/19/22 19:11 04/19/22 17:17 Urine Culture - Preliminary Urine,Clean Catch Escherichia coli 04/19/22 17:17 POC Ur Test NEG Electrocardiogram Date: 04/19/22 Test Reason : Blood Pressure : / mmHG Vent. Rate : 089 BPM Atrial Rate : 089 BPM P-R Int : 130 ms QRS Dur : 092 ms QT Int : 374 ms P-R-T Axes : 033 011 031 degrees QTc Int : 455 ms Normal sinus rhythm When compared with ECG of 13-MAY-2019 15:13, No significant change was found Confirmed by Carlos Landrum ([id number]) on 04/21/2022 5:48:34 AM
--- NOTE | 2022-04-21 08:36 | History & Physical Report ---
Date of Service April 21, 2022 Assessment & Plan (1) Anemia: Plan: stable for anemia Plan: stable for EGD Admission and Anticipated Discharge Date Admission Date: April 19, 2022 History of Present Illness Chief Complaint: anemia Primary Care Provider: Matti Gamboa MD pt with anemia for EGD Allergies Allergy/AdvReac Type Severity Reaction Status Date / Time apple Allergy Severe Swelling Verified 04/21/22 08:33 of Lip/Tongue/Throat egg Allergy Severe THROAT Verified 04/21/22 08:33 SWELLS /HARD TO BREATHE potato Allergy Severe Swelling Verified 04/21/22 08:33 of Lip/Tongue/Throat spinach Allergy Severe SHORTNESS Verified 04/21/22 08:33 OF BREATH ibuprofen AdvReac Severe VOMITING,BLURRED Verified 04/21/22 08:33 VISION, RINGING OF EARS Home Medications Medication Instructions Recorded Confirmed Type albuterol sulfate 90 mcg/actuation 2 puff INHALATION Q6H PRN #1 06/28/17 04/19/22 History aerosol inhaler (Ventolin HFA) inhaler gteouru-kwhbwgxxoafkc-ynbxyqkv 250 2 tab PO Q6H PRN 01/08/19 04/19/22 History mg-250 mg-65 mg tablet (Excedrin Migraine) omeprazole 40 mg capsule,delayed 40 mg PO DAILY 01/08/19 04/19/22 History release metoprolol tartrate 50 mg tablet 50 mg PO BID 08/27/20 04/19/22 History acetaminophen 325 mg tablet 650 mg PO Q6H PRN 04/19/22 04/19/22 History ibuprofen 200 mg tablet 400 mg PO Q6H PRN 04/19/22 04/19/22 History Past Med/Surg History Medical History (Updated 04/21/22 @ 08:35 by Armond Barrera MD) Asthma Eustachian tube dysfunction 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 GERD (gastroesophageal reflux disease) Hemorrhoids during Hiatal hernia History of depression no current meds History of heart disorder patient says " my heart beats fast" Currently on Metoprolol Iron deficiency anemia Migraine Surgical History H/O umbilical hernia repair History of 2018- intolerance to labor History of hemorrhoidectomy Family History Other Hiatal hernia Social History Smoking Status: Current every day smoker Tobacco Type: Cigarettes Cigarettes Per Day: 5; Second Hand Exposure: Yes; Do You Dip or Chew Tobacco: No; Hx Alcohol Use: No Hx Substance Use: No Preferred Language: Slovenian Communication Ability: Effective Roll Picker Required: No Beliefs That Will Affect Care: None marital status: Legally Current Living Situation: Alone Current Living Situation Comment: lives with 6 children Other Information That Helps Us Care for You: No Feels Safe at Home: Yes Safety Concerns: Feels Safe At This Time Assistive Devices: Nebulizer Physical Exam Constitutional: WD/WN, vitals as above Respiratory: normal respiratory effort, lungs clear to auscultation Cardiovascular: RRR, no murmur, no edema Gastrointestinal (Abdomen): normal bowel sounds, soft, nontender, no hepatosp lenomegaly Results & Data ([facility]) Vital Signs (Past 12 Hours) Vital Signs Temp Pulse Resp BP Pulse Ox 04/21/22 07:59 37 C 67 16 154/98 H 95 04/20/22 22:23 37.0 C 70 18 152/104 H 100 Code Status & VTE Plan VTE Prophylaxis Plan VTE Prophylaxis will be ordered: Yes
[2022-04-21] MEDS ORDERED: fentaNYL citrate 100 MCG/2 ML VIAL ONE (08:58)
[2022-04-21] MEDS ORDERED: cefTRIAXone SODIUM 2,000 MG in DEXTROSE 5% 50 ML IV SCH (09:00)
[2022-04-21] MEDS ORDERED: PROPOFOL IV EMULSION 10 MG/ML 20 ML VIAL IV ONE (09:12)
[2022-04-21] MEDS ORDERED: LIDOCAINE 2% 2 ML VIAL/AMP(20MG/ML) INFIL ONE (09:12)
--- NOTE | 2022-04-21 09:15 | GI REPORT ---
Patient Name: Genie Adames Procedure Date: 04/21/2022 8:57 AM Date of : 1980 Admit Type: Inpatient Age: 41 Gender: Female Attending MD: Armond Barrera MD Procedure: Upper GI endoscopy Providers: Armond Barrera MD Referring MD: Axel Del Rio Md, iKanna Carroll MD Indications: Iron deficiency anemia Medicines: See the Anesthesia note for documentation of the administered medications Complications: No immediate complications. Estimated Blood Loss: Estimated blood loss: none. Procedure: Pre-Anesthesia Assessment: - Prior to the procedure, a History and Physical was performed, and patient medications, allergies and sensitivities were reviewed. The patient's tolerance of previous anesthesia was reviewed. - The risks and benefits of the procedure and the sedation options and risks were discussed with the patient. All questions were answered and informed consent was obtained. - Patient identification and proposed procedure were verified prior to the procedure by the physician and the nurse. The procedure was verified in the pre-procedure area. - Pre-procedure physical examination revealed no contraindications to sedation. - After reviewing the risks and benefits, the patient was deemed in satisfactory condition to undergo the procedure. After obtaining informed consent, the endoscope was passed under direct vision. Throughout the procedure, the patient's blood pressure, pulse, and oxygen saturations were monitored continuously. The Endoscope was introduced through the mouth, and advanced to the third part of duodenum. The upper GI endoscopy was accomplished without difficulty. The patient tolerated the procedure well. Findings: The esophagus was normal. A small amount of food (residue) was found in the gastric body. The examined duodenum was normal. The cardia and gastric fundus were normal on retroflexion. Impression: - Normal esophagus. - A small amount of food (residue) in the stomach. - Normal examined duodenum. - No specimens collected. Recommendation: - [facility]. Armond Barrera M.D. Armond Barrera MD 04/21/2022 9:15:26 AM This report has been signed electronically. Note Initiated On: 04/21/2022 8:57 AM Number of Addenda: 0 I attest to the content of the Intraoperative Record and orders documented therein, exceptions below {[id number]}
[2022-04-21] MEDS: FOLIC ACID 1 MG TAB PO SCH (10:24)
[2022-04-21] MEDS: CYANOCOBALAMIN (B-12) 500 MCG TABLET PO SCH (10:25)
[2022-04-21] MEDS: FERROUS SULFATE 325 MG TAB PO SCH (10:25)
[2022-04-21] MEDS: IRON SUCROSE 400 MG in SODIUM CHLORIDE 0.9% 250 ML IV SCH (10:54)
--- NOTE | 2022-04-21 13:03 | Anesthesiology Progress Note ---
Date of Service April 21, 2022 Anesthesia Post Procedure Vital Signs Vital Signs: Temp Pulse Pulse Resp BP BP Pulse Ox 04/21/22 11:17 36.4 C L 59 L 18 153/102 H 100 04/21/22 10:52 36.3 C L 63 18 152/100 H 100 04/21/22 10:09 36.4 C L 68 16 156/98 H 100 04/21/22 09:44 63 16 137/94 94 04/21/22 09:29 67 16 136/89 100 04/21/22 09:15 65 12 108/75 98 04/21/22 08:35 36.3 C L 74 16 160/96 H 98 04/21/22 07:59 37 C 67 16 154/98 H 95 04/20/22 22:23 37.0 C 70 18 152/104 H 100 04/20/22 19:54 85 145/92 H 04/20/22 15:47 37 C 86 16 151/93 H 99 04/20/22 13:17 36.8 C 82 18 151/90 H 100 Pain Intensity Right Flank: Pain Intensity: 4 Transfer of Care Handoff Completed per policy Notes Mental Status: alert / awake / arousable and participated in evaluation Patient Amnestic to Procedure: Yes Nausea / Vomiting: adequately controlled Pain: adequately controlled Airway Patency, RR, SpO2: stable & adequate BP & HR: stable & adequate Hydration State: stable & adequate Anesthetic Complications: no major complications apparent and Pt Satisfied with anesthetic care
--- NOTE | 2022-04-21 13:47 | Hospitalist Progress Note ---
Date of Service April 21, 2022 Assessment & Plan (1) Acute pyelonephritis: (2) Iron deficiency anemia: Plan: Acute pyelonephritis, E coli UTI- Lt>Rt CVA tenderness, UA showing E coli pansensitive, CT A/P unremarkable but suboptimal for pyelo as no contrast. - Continue rocephin D2 pending final blood culture results - Oxy prn for pain Acute on chronic anemia/Iron def anemia- hemoccult negative in ER. likely from deficiencies of iron, folate and B12 deficiency and menstrual blood loss although she denies menorrhagia- States bleeds for about 5-7 days, sometimes with clots, currently menstruating D5. Recommended follow up with her [employer] onc. States she was also taking upto 6 pills of OTC motrin for the past few days for the pain. - Iron studies show iron deficiency - S/p 1 U PRBC, Hb 6.7->7.6 - S/p IV venofer D1/3 - S/p EGD today 04/21 which was normal- will change iv ppi to oral - Recheck Hb in am - GI following Folate deficiency- continue folate supplementation B12 deficiency- B12 on lower side. 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 Albuterol prn H/o eosinophilic esophagitis- She recently in December and January had EGD and colonoscopy and EGD showed eosinophilic esophagitis, which was dilated. Supposed to see allergy/immunology, but she did not make the appointment. Currently, she is able to swallow okay DVT ppx- SCD. Holding chemoprophylaxis due to anemia requiring transfusion Dispo- Anticipate discharge in 1-2 days if continues to improve clinically and if no GI plans for colonoscopy inhouse Admission and Anticipated Discharge Date Admission Date: April 19, 2022 Subjective Continues with bilateral flank pain, only slightly better. No other issues. Had EGD today which was unremarkable. No N/V. Tolerating oral intake well. No fever or chills. Menstruation slowing down. Physical Exam Physical Exam: General: Sitting in bed, not in acute distress, on room air HEENT: EOMI, IWONA, MMM Chest: Clear breath sounds bilaterally, no wheezes or crackles CVS: Regular rate and rhythm, normal heart sounds, no murmur Abdomen: Soft, non tender, not distended, normal bowel sounds Lt>Rt CVA tenderness Neuro: Awake, alert, oriented, conversing well, non focal Extremities: No cyanosis, clubbing or edema Results & Data Results & Data ([facility]) Vital Signs (Past 12 Hours) Vital Signs Temp Pulse Resp BP Pulse Ox 04/21/22 13:32 36.4 C L 72 18 137/93 100 04/21/22 11:17 36.4 C L 59 L 18 153/102 H 100 04/21/22 10:52 36.3 C L 63 18 152/100 H 100 04/21/22 10:09 36.4 C L 68 16 156/98 H 100 04/21/22 09:44 63 16 137/94 94 04/21/22 09:29 67 16 136/89 100 04/21/22 09:15 65 12 108/75 98 04/21/22 08:35 36.3 C L 74 16 160/96 H 98 04/21/22 07:59 37 C 67 16 154/98 H 95 Laboratory Results Short CBC 04/20/22 04/21/22 Range/Units 14:39 06:00 WBC 4.76 L (4.8-10.8) K/uL Hgb 9.6 L 7.6 L (12.0-16.0) g/dL Hct 31.8 L 25.0 L (37-47) % Plt Count 322 (130-400) K/uL [facility] 04/21/22 06:00 Sodium 137 Potassium 3.8 Chloride 107 Carbon Dioxide 26 BUN 5 L Creatinine 0.71 Glucose 102 H Calcium 8.4 L Medications Administered Current Inpatient Medications Acetaminophen (Acetaminophen 325 Mg Tab) 650 mg PO Q4H PRN PRN Reason: pain/fever Stop: 05/19/22 22:51 Albuterol (Albuterol Hfa 8 Gm Inhaler) 2 puffs INH Q6H PRN PRN Reason: Shortness Of Breath Or Wheezin Stop: 05/19/22 22:51 Cyanocobalamin (Cyanocobalamin (B-12) 500 Mcg Tablet) 500 mcg PO QAM [facility] Stop: 05/20/22 08:59 Last Admin: 04/21/22 10:25 Dose: 500 mcg Documented by: Ferrous Sulfate (Ferrous Sulfate 325 Mg Tab) 325 mg PO DAILY [facility] Stop: 05/20/22 12:14 Last Admin: 04/21/22 10:25 Dose: 325 mg Documented by: Folic Acid (Folic Acid 1 Mg Tab) 1 mg PO QAM SOURAV Stop: 05/20/22 08:59 Last Admin: 04/21/22 10:24 Dose: 1 mg Documented by: Pantoprazole Sodium 40 mg/ (Syringe) 10 mls @ 5 mls/min IV BID SOURAV Stop: 05/20/22 08:59 Last Admin: 04/21/22 08:14 Dose: 5 mls/min Documented by: Iron Sucrose 400 mg/ Sodium (Chloride) 270 mls @ 108 mls/hr IV DAILY SOURAV Stop: 04/23/22 08:59 Last Infusion: 04/21/22 13:35 Dose: Infused Documented by: Ceftriaxone Sodium 2,000 mg/ (Dextrose) 70 mls @ 100 mls/hr IV Q24H SOURAV Stop: 04/30/22 08:59 Last Infusion: 04/21/22 10:52 Dose: Infused Documented by: Metoprolol Tartrate (Metoprolol Tartrate 50 Mg Tab) 50 mg PO BID SOURAV Stop: 05/20/22 08:59 Last Admin: 04/21/22 08:14 Dose: 50 mg Documented by: Morphine Sulfate (Morphine Sulfate 2 Mg/Ml Carp) 2 mg IV Q4H PRN PRN Reason: Pain Stop: 05/03/22 22:51 Last Admin: 04/21/22 13:39 Dose: 2 mg Documented by: Ondansetron HCl (Ondansetron Inj 2 Mg/Ml 2 Ml Vial) 4 mg IV Q6H PRN PRN Reason: Nausea Stop: 05/19/22 22:51 Oxycodone HCl (Oxycodone Hcl Ir 5 Mg Tab (Immediate Release)) 5 mg PO Q4 PRN PRN Reason: Pain Stop: 05/04/22 09:08 Last Admin: 04/21/22 10:24 Dose: 5 mg Documented by:
[2022-04-21] MEDS: PANTOprazole 40 MG TAB PO SCH (20:04)
[2022-04-22] MEDS: oxyCODONE HCL IR 5 MG TAB (IMMEDIATE RELEASE) PO PRN ×2 (06:08→11:16)
[2022-04-22 06:32] LABS: Hematocrit (blood only) 26.6 % (37-47); Hemoglobin 8.1 g/dL (12.0-16.0); Mean Corpuscular Hemoglobin 23.1 pg (25-34); Mean Corpuscular Hgb Conc 30.5 g/dL (32-36); Mean Platelet Volume 9.6 fL (7.4-10.4); Platelet Count 381 K/uL (130-400); RDW Coefficient of Variation 17.1 % (11.5-14.5); RDW Standard Deviation 47.3 fL (36.4-46.3); White Blood Count 4.26 K/uL (4.8-10.8)
[2022-04-22 06:48] LABS: BUN Creatinine Ratio 8.5 (10-20); Calcium 8.5 mg/dl (8.5-10.1); Creatinine Clr Calc Pharmacy 111.2 ml/min; Est GFR (African American) 123.5 ml/min; Est GFR (Non-African American) 106.5 ml/min; Potassium 4.2 mmol/L (3.5-5.1)
[2022-04-22] MEDS: PANTOprazole 40 MG TAB PO SCH (07:19)
[2022-04-22] MEDS ORDERED: CIPROFLOXACIN 500 MG TAB PO SCH (09:00)
[2022-04-22] MEDS ORDERED: PANTOprazole 40 MG TAB PO SCH (09:00)
[2022-04-22] MEDS: FERROUS SULFATE 325 MG TAB PO SCH (09:30)
[2022-04-22] MEDS: METOPROLOL TARTRATE 50 MG TAB PO SCH (09:30)
[2022-04-22] MEDS: FOLIC ACID 1 MG TAB PO SCH (09:30)
[2022-04-22] MEDS: CYANOCOBALAMIN (B-12) 500 MCG TABLET PO SCH (09:31)
[2022-04-22] MEDS: IRON SUCROSE 400 MG in SODIUM CHLORIDE 0.9% 250 ML IV SCH (09:32)
--- NOTE | 2022-04-22 10:40 | Discharge Summary ---
Date of Service April 22, 2022 Admission HPI Per Admitting Provider This is a 41-year-old female with past medical history significant for mild persistent asthma, mixed rhinitis, history of prolapsed internal hemorrhoids, GERD, antepartum anemia complicating , SVT with aberrancy, smoking complicating presents with flank pain and found to have possible pyelonephritis and also hemoglobin of 7.9. The patient is saying initial pain started in the right flank and radiated to the left flank and upper abdomen region, severe pain going for last 2-3 days, which prompted her to come to the ER. Denies any burning micturition. No hematuria. No nausea or vomiting. No dizziness. Appetite is okay. No difficulty swallowing. No diarrhea or constipation, no blood in stools or black stools. No chest pain . She could not take deep breaths because of pain in the flanks and upper abdomen. No cough, no headache, no dizziness, no blurred vision, no ear ache, no runny nose, no sore throat. Currently, resting comfortably and hemodynamically stable. Hemoccult was negative in the ER. Admission Exam Per Admitting Provider GENERAL: The patient is of moderate build, not in acute distress. VITAL SIGNS: Temperature 37.3, pulse 97, respiratory rate 18, blood pressure 170/97, oxygen 100% on room air. HEENT: Pupils equal, round and reactive to light. Oral mucosa moist. LUNGS: No JVD, no neck masses. CARDIOVASCULAR: S1 and S2 heard. Regular rate and rhythm. No murmur, no gallop. RESPIRATORY SYSTEM: Normal AP diameter. No accessory muscle use. No wheezing, no crackles. ABDOMEN: Soft. Bowel sounds are present. mild upper abdominal discomfort. No guarding, no rigidity, no distention. CENTRAL NERVOUS SYSTEM: Cranial nerves II-XII grossly intact, nonfocal. EXTREMITIES: No edema, no erythema. Principal Diagnosis Acute pyelonephritis, Iron deficiency anemia Discharge Exam General: Sitting in bed, not in acute distress, on room air HEENT: EOMI, IWONA, MMM Chest: Clear breath sounds bilaterally, no wheezes or crackles CVS: Regular rate and rhythm, normal heart sounds, no murmur Abdomen: Soft, non tender, not distended, normal bowel sounds Bilateral CVA tenderness improved- Rt>lt at this point Neuro: Awake, alert, oriented, conversing well, non focal Extremities: No cyanosis, clubbing or edema Discharge Data Allergies Allergy/AdvReac Type Severity Reaction Status Date / Time apple Allergy Severe Swelling Verified 04/21/22 08:33 of Lip/Tongue/Throat egg Allergy Severe THROAT Verified 04/21/22 08:33 SWELLS /HARD TO BREATHE potato Allergy Severe Swelling Verified 04/21/22 08:33 of Lip/Tongue/Throat spinach Allergy Severe SHORTNESS Verified 04/21/22 08:33 OF BREATH ibuprofen AdvReac Severe VOMITING,BLURRED Verified 04/21/22 08:33 VISION, RINGING OF EARS Consultations 04/19/22 18:51 ED Decision to Admit Stat 04/20/22 08:00 Consult Gastroenterology Routine Procedures Performed Operation Date: 04/21/22 16:30 Actual Procedures p Esophagogastroduodenoscopy - Armond Barrera MD Ordered Studies 04/19/22 16:59 CT abd pelvis wo con Stat Laboratory Results WBC 4.26 K/uL (4.8-10.8) L 04/22/22 05:48 RBC 3.50 M/uL (4.2-5.4) L 04/22/22 05:48 Hgb 8.1 g/dL (12.0-16.0) L 04/22/22 05:48 Hct 26.6 % (37-47) L 04/22/22 05:48 MCV 76.0 fL (80-100) L 04/22/22 05:48 MCH 23.1 pg (25-34) L 04/22/22 05:48 MCHC 30.5 g/dL (32-36) L 04/22/22 05:48 RDW Std Deviation 47.3 fL (36.4-46.3) H 04/22/22 05:48 RDW Coeff of Jelena 17.1 % (11.5-14.5) H 04/22/22 05:48 Plt Count 381 K/uL (130-400) 04/22/22 05:48 MPV 9.6 fL (7.4-10.4) 04/22/22 05:48 Immature Gran % (Auto) 0.2 % 04/20/22 05:32 Neut % (Auto) 61.6 % 04/20/22 05:32 Lymph % (Auto) 24.8 % 04/20/22 05:32 Karnes % (Auto) 10.4 % 04/20/22 05:32 Eos % (Auto) 2.5 % 04/20/22 05:32 Baso % (Auto) 0.5 % 04/20/22 05:32 Neut # (Auto) 3.87 K/uL (1.4-6.5) 04/20/22 05:32 Lymph # (Auto) 1.56 K/uL (1.2-3.4) 04/20/22 05:32 Karnes # (Auto) 0.65 K/uL (0.11-0.59) H 04/20/22 05:32 Eos # (Auto) 0.16 K/uL (0-0.5) 04/20/22 05:32 Baso # (Auto) 0.03 K/uL (0-0.2) 04/20/22 05:32 Immature Gran # (Auto) 0.01 K/uL (0.00-0.02) 04/20/22 05:32 Polychromasia 1+ 04/19/22 17:17 Hypochromasia Present 04/20/22 05:32 Anisocytosis Present 04/20/22 05:32 Ovalocytes 1+ 04/20/22 05:32 Sodium 137 mmol/L (136-145) 04/22/22 05:48 Potassium 4.2 mmol/L (3.5-5.1) 04/22/22 05:48 Chloride 107 mmol/L (98-107) 04/22/22 05:48 Carbon Dioxide 26 mmol/L (21-32) 04/22/22 05:48 Anion Gap 4 (3-11) 04/22/22 05:48 BUN 6 mg/dl (6-23) 04/22/22 05:48 Creatinine 0.71 mg/dl (0.6-1.2) 04/22/22 05:48 Est Cr Clr Drug Dosing 111.2 ml/min 04/22/22 05:48 Est GFR ( Amer) 123.5 ml/min 04/22/22 05:48 Est GFR (Non-Af Amer) 106.5 ml/min 04/22/22 05:48 BUN/Creatinine Ratio 8.5 (10-20) L 04/22/22 05:48 Glucose 84 mg/dl (70-99(Fasting)) 04/22/22 05:48 Calcium 8.5 mg/dl (8.5-10.1) 04/22/22 05:48 Magnesium 1.7 mg/dl (1.7-2.4) 04/20/22 05:32 Iron 18 mcg/dl (35-150) L 04/20/22 07:34 TIBC 366 mcg/dl (250-450) 04/20/22 05:32 Unsaturated IBC 346 mcg/dl (155-355) 04/20/22 07:34 Transferrin % Sat 5 % (15-50) L 04/20/22 05:32 Ferritin 6.5 ng/ml (8-388) L 04/20/22 07:34 Total Bilirubin 0.3 mg/dl (0.2-1.0) 04/19/22 17:17 AST 11 U/L (13-39) L 04/19/22 17:17 ALT 6 U/L (7-52) L 04/19/22 17:17 Alkaline Phosphatase 99 U/L (34-104) 04/19/22 17:17 Troponin I High Sens 2.7 pg/ml (0-14) 04/19/22 17:17 Total Protein 7.4 gm/dl (6.0-8.3) 04/19/22 17:17 Albumin 4.0 gm/dl (3.4-5.0) 04/19/22 17:17 Globulin 3.4 gm/dl (2.5-4.0) 04/19/22 17:17 Albumin/Globulin Ratio 1.2 (0.9-2) 04/19/22 17:17 Lipase 16 U/L (11-82) 04/19/22 17:17 Vitamin B12 244 pg/ml (180-914) 04/20/22 05:32 Folate 4.65 ng/ml (>5.38) L 04/20/22 05:32 Urine Color Yellow 04/19/22 17:17 Urine Appearance Cloudy (Clear) A 04/19/22 17:17 Urine pH 6.0 (4.5-7.5) 04/19/22 17:17 Ur Specific [place] 1.023 (1.000-1.030) 04/19/22 17:17 Urine Protein 1+ (Negative) H 04/19/22 17:17 Urine Glucose (UA) Negative (Negative) 04/19/22 17:17 Urine Ketones Negative (Negative) 04/19/22 17:17 Urine Blood 2+ (Negative) H 04/19/22 17:17 Urine Nitrite Positive (Negative) A 04/19/22 17:17 Urine Bilirubin Negative (Negative) 04/19/22 17:17 Urine Urobilinogen Negative (Negative) 04/19/22 17:17 Ur Leukocyte Esterase 2+ (Negative) H 04/19/22 17:17 Urine WBC (Auto) >30 /hpf (0-5) H 04/19/22 17:17 Urine RBC (Auto) 0-4 /hpf (0-4) 04/19/22 17:17 U Hyaline Cast (Auto) >30 /lpf (0-5) H 04/19/22 17:17 U Epithel Cells (Auto) >30 /lpf (0-5) H 04/19/22 17:17 Urine Bacteria (Auto) 4+ (Negative) H 04/19/22 17:17 POC Ur Test NEG (NEG) 04/19/22 17:17 SARS-CoV-2, RNA, NAAT NEGATIVE (NEGATIVE) 04/19/22 18:56 Blood Type O Positive 04/19/22 19:11 Antibody Screen NEGATIVE 04/19/22 19:11 Crossmatch See Detail 04/19/22 19:11 Impressions Abdomen/Pelvis CT 04/19/22 16:59 CT SCAN OF THE ABDOMEN AND PELVIS WITHOUT IV CONTRAST CLINICAL HISTORY: Right flank pain. COMPARISON STUDY: Abdominal radiograph dated 12/17/2021. TECHNIQUE: CT scan of the abdomen and pelvis is performed from the lung bases to the proximal femora. Images are reviewed in the axial, sagittal, and coronal planes. IV contrast was not administered for this examination. A dose lowering technique was utilized adhering to the principles of ALARA. CT DOSE: 276.99 mGy.cm FINDINGS: Lung bases: The heart is normal in size and without pericardial effusion. The ad ng bases are clear noting dependent atelectasis. Liver: The unenhanced liver is normal in size, contour, and attenuation. The liver is elongated suggesting Lewis's lobe variant anatomy. There is no intrahepatic biliary ductal dilatation. Gallbladder: Unremarkable. Spleen: Normal in size and attenuation. Pancreas: Unremarkable. Adrenal glands: Unremarkable. Kidneys: The unenhanced kidneys are normal in size and without hydronephrosis. There are no renal calculi identified. There is no evidence of contour deforming renal mass lesion. Abdominal vasculature: The abdominal aorta is normal in course and caliber. Bowel: There are scattered colonic diverticula without CT evidence of acute diverticulitis. No bowel obstruction is seen. The appendix is well-visualized and normal. Peritoneum: There is no intraperitoneal free air or abdominal ascites. There is a small fat-containing umbilical hernia. Lymphadenopathy: None. Pelvic viscera: The bladder, uterus, and adnexa are normal as visualized noting bilateral ovarian follicles. A tampon is in place. Skeletal structures: No lytic or blastic lesions are seen. There is a minimal chronic superior endplate compression deformity of L3. IMPRESSION: No acute infectious or inflammatory findings are identified in the abdomen or pelvis. ACT 112: Negative or not required by law. Electronically signed by: Israel Crandall M.D. 04/19/2022 6:28 PM Hospital Course (1) Acute pyelonephritis: (2) Iron deficiency anemia: Acute bilateral pyelonephritis, E coli UTI- Lt>Rt CVA tenderness, UA showing E coli pansensitive, CT A/P unremarkable but suboptimal for pyelo as no contrast. Blood culture negative. - S/p rocephin D3 and being discharged on cipro for 1 more week. QTc normal, renal function normal - No N/V, tolerating oral intake well without issues; No fever and no indication for additional imaging at this point. - Pain controlled with oxy and is being discharged on 20 pills for the same as per her requirement here and given her acute infection and pain. PDMP reviewed- no red flag signs identified Acute on chronic anemia/Iron def anemia- hemoccult negative in ER. likely from deficiencies of iron, folate and B12 deficiency and menstrual blood loss although she denies menorrhagia- States bleeds for about 5-7 days, sometimes with clots, currently menstruating D5. Recommended follow up with her [facility]. States she was also taking upto 6 pills of OTC motrin for the past few days for the pain. - Iron studies show iron deficiency - S/p 1 U PRBC, Hb 6.7->7.6->8.1 - S/p IV venofer D2/2. - S/p EGD 04/21 which was normal- will change iv ppi to oral - GI signed off- recommend OP follow up to see if she would need colonoscopy, e sp if Hb does not improve - Recommend against NSAIDs at this point. Continue protonix daily. Folate deficiency- continue folate supplementation B12 deficiency- B12 on lower side. 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 Albuterol prn H/o eosinophilic esophagitis- She recently in December and January had EGD and colonoscopy and EGD showed eosinophilic esophagitis, which was dilated. Supposed to see allergy/immunology, but she did not make the appointment. Currently, she is able to swallow okay She is comfortable and stable for discharge. Reviewed discharge instructions at bedside. Total Time Total Time Spent Total Time Spent (In Minutes): 40 Discharge Plan Discharge Items Patient Disposition: Home - Self-Care Reason For Visit: FLANK PAIN Discharge Diagnosis: Acute pyelonephritis Activity: Resume your previous activity Non-emergency contact: Primary Care Provider Call non-emergency contact if: you have any medication questions, your symptoms worsen, your pain is not controlled and you have a fever Follow-up/Referrals: Matti Gamboa MD [Primary Care Provider] - Diet: Regular Addtl Attending Provider Instructions: Continue cipro twice daily for 7 days for infection of the kidneys Continue iron tablet once daily take protonix once daily recommend weekly blood work (CBC) with family doctor to make sure hemoglobin is improving Follow up with the GI doctors for consideration of outpatient colonoscopy if hemoglobin does not improve Pending Studies at Discharge: No Stand-Alone Forms: My [facility] [employer], Smoking Cessation Medications and DC Order Prescriptions: New ciprofloxacin HCl 500 mg Tablet 500 mg PO BID Qty: 13 RF: 0 ferrous sulfate 325 mg (65 mg iron) Tablet,Delayed Release (Dr/Ec) 325 mg PO DAILY Qty: 30 RF: 0 pantoprazole 40 mg Tablet,Delayed Release (Dr/Ec) 40 mg PO QAM Qty: 30 RF: 0 cyanocobalamin (vitamin B-12) 500 mcg Tablet 500 mcg PO QAM Qty: 30 RF: 0 folic acid 1 mg Tablet 1 mg PO QAM Qty: 30 RF: 0 oxycodone 5 mg tablet 5 mg PO Q6H PRN (Reason: pain) 5 Days Qty: 20 RF: 0 Continued albuterol sulfate [Ventolin HFA] 90 mcg/actuation Hfa Aerosol Inhaler 2 puff INHALATION Q6H PRN (Reason: Shortness Of Breath Or Wheezing) Qty: 1 RF: 0 metoprolol tartrate 50 mg Tablet 50 mg PO BID RF: 0 omeprazole 40 mg Capsule,Delayed Release(Dr/Ec) 40 mg PO DAILY RF: 0 Excedrin Migraine 250-250-65 mg Tablet 2 tab PO Q6H PRN (Reason: Migraine Headache) RF: 0 acetaminophen 325 mg tablet 650 mg PO Q6H PRN (Reason: Pain) RF: 0 Discontinued ibuprofen 200 mg Tablet 400 mg PO Q6H PRN (Reason: Pain) RF: 0 Discharge Orders: Discharge Order (Routine); Ordered 04/22/22 Ordered By: Axel Manzanares/Other Patient Handouts: ED Anemia, Iron-Deficiency (Adult), ED Pyelonephritis, Female (Adult) Admission Data Admit Date/Time: 04/19/22 20:30 Attending Provider: Axel Del Rio Admit Provider: Jaden Valdez Primary Care Provider: Matti Gamboa Other Providers: Jaden Valdez ; Augustus Mcduffie Other Interventions: Discharge Summary Assessment (RN) Last Done: 04/21/22 09:26
== END 2022-04-22 13:35 | disposition home or self-care (01) | DRG 690 ==
LOC: ED 16:42 → 3E 20:30

== ENCOUNTER 2023-09-12 17:17 | Observation (INO) ==
[2023-09-12 18:07] LABS: Hematocrit (blood only) 36.2 % (37.0-47.0); Hemoglobin 12.5 g/dl (12.0-16.0); Mean Corpuscular Hemoglobin 30.3 pg (25.0-34.0); Mean Corpuscular Hgb Conc 34.5 g/dL (32.0-36.0); Mean Corpuscular Volume 87.7 fL (80.0-100.0); Mean Platelet Volume 11.1 fL (9.4-12.4); Platelet Count 201 K/uL (130-400); RDW Coefficient of Variation 12.4 % (11.5-14.5); RDW Standard Deviation 39.6 fL (36.4-46.3); Red Blood Count 4.13 M/uL (4.20-5.40)
[2023-09-12 18:15] LABS: Albumin Globulin Ratio 1.4 (0.9-2); Albumin Level 4.3 gm/dl (3.4-5.0); BUN Creatinine Ratio 17.6 (10-20); Bilirubin,Total 0.5 mg/dl (0.2-1.0); Calcium 9.5 mg/dl (8.6-10.3); Creatinine Clr Calc Pharmacy 81.2 ml/min; Est GFR (African American) 90.8 ml/min; Est GFR (Non-African American) 78.4 ml/min; Globulin 3.1 gm/dl (2.5-4.0); Potassium 3.8 mmol/L (3.5-5.1); Total Protein 7.4 gm/dl (6.0-8.3)
[2023-09-12 18:22] LABS: Troponin I High Sensitivity 12.3 pg/ml (0-14)
[2023-09-12] MEDS ORDERED: ONDANSETRON INJ 2 MG/ML 2 ML VIAL IV STA (18:26)
[2023-09-12] MEDS ORDERED: PANTOprazole 40 MG in SYRINGE 0 ML IV ONE (18:26)
[2023-09-12] MEDS ORDERED: FAMOTIDINE 20MG IV PUSH 20 MG/5 ML SYR IV STA (18:26)
--- NOTE | 2023-09-12 18:30 | Emergency Department Note ---
Impression & Plan Acute upper gastrointestinal bleeding, Postoperative hemorrhage involving digestive system ED Provider Note NAME: KAYLEE DONOVAN AGE: 42 SEX: F : 1980 ARRIVES VIA: Walk-In INFORMANT: Patient, ED PROVIDER(S): Jarret Fisher DO CHIEF COMPLAINT: Hematemesis HPI: The patient is a 42-year-old female who presented to the emergency department for hematemesis. The patient had a procedure yesterday with gastroenterology. She had a stretching of her esophagus. She states she was started on new medications. She is unsure if she was allergic to these medications because she had multiple episodes of emesis with blood clots noted. She also notices dark stool. She denies having any chest pain or difficulty breathing. She does complain of mild upper abdominal pain. The patient called her GI doctor and was referred to the emergency department for further evaluation. ROS: See above HPI for pertinent positives & negatives. A total of 10 systems reviewed and were otherwise negative. PAST MEDICAL HISTORY: See Below PAST SURGICAL HISTORY: See Below FAMILY HISTORY: See Below SOCIAL HISTORY: See Below HOME MEDICATIONS: See Below ALLERGIES: See Below VITALS: See Below PHYSICAL EXAMINATION: GENERAL: Patient is awake alert in no acute distress patient is resting comfortably and showing no signs of anxiety EYES: The conjunctivae are clear. The pupils are round and reactive. EARS, NOSE, MOUTH AND THROAT: The nose is without any evidence of any deformity. NECK: The neck is nontender and supple. RESPIRATORY: Normal respiratory effort is noted there is no evidence of wheezing rhonchi or rales CARDIOVASCULAR: Regular rate and rhythm noted there no murmurs rubs or gallops normal S1 normal S2. GASTROINTESTINAL: The abdomen is soft. Abdomen is nontender. Rectal exam revealed black stool which was strongly positive. MUSCULOSKELETAL/EXTREMITIES: There is no evidence of gross deformity full range of motion is noted in the hips and shoulders. SKIN: There is no obvious evidence of any rash. There are no petechiae, pallor or cyanosis noted. NEUROLOGIC: Patient is awake alert and oriented x3 MEDICAL DECISION MAKING: The patient is a 42-year-old female who presented to the emergency department for an evaluation of GI bleeding. The patient had a recent procedure on her upper esophagus. The patient started having bleeding earlier today. She also noticed black stool. I discussed the patient's laboratory and radiographic studies with her. Hemoglobin was stable. Vital signs are stable. She did have signs of upper GI bleeding on physical exam. I discussed her condition with the on-call lvn. I also discussed her condition with the on-call [facility] hospitalist group. They have agreed to evaluate the patient for further management and disposition. The patient was treated with proton pump inhibitor as well as H2 andres. Triage Nursing notes reviewed. Prior medical records reviewed Vital Signs: reviewed and remarkable for no significant abnormalities Differential diagnosis: Diverticulosis, AVM, coagulopathy, colitis, inflammatory bowel disease, malignancy, Tara-Lynch tear, esophagitis, peptic ulcer disease, variceal bleed, gastritis, epistaxis, fissure, hemorrhoids, as well as other pathologies. ER treatment provided: See below Diagnostics interpreted by me: ECG: EKG was obtained in the emergency department. My interpretation is normal sinus rhythm at 84 bpm. There is no ectopy. There is no acute ST segment abnormalities noted. This was compared to a tracing from April 19, 2022. No changes were noted Cardiac Monitoring: An order was placed for continuous cardiac monitoring. The monitor shows a rate of 72 bpm with sinus rhythm. Laboratory studies: As stated above and show below. Imaging studies: See below. Radiographic imaging was reviewed by myself Consultation(s): I discussed this case with Dr. Aragon who is on-call for gastroenterology. I discussed this case with Davina who was on-call for the [facility] hospitalist group. 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 GERD (gastroesophageal reflux disease) Hemorrhoids during Hiatal hernia History of depression no current meds History of heart disorder patient says " my heart beats fast" Currently on Metoprolol Iron deficiency anemia Migraine Surgical History H/O umbilical hernia repair History of 2018- intolerance to labor History of hemorrhoidectomy Family History Other Hiatal hernia Social History Smoking Status: Current every day smoker Tobacco Type: Cigarettes Cigarettes Per Day: 5; Second Hand Exposure: Yes; Do You Dip or Chew Tobacco: No; Hx Alcohol Use: No Hx Substance Use: No Preferred Language: Latvian Communication Ability: Effective Soils Analyst Required: No Beliefs That Will Affect Care: None marital status: Legally Current Living Situation: Alone Current Living Situation Comment: lives with 6 children Feels Safe at Home: Yes Assistive Devices: Nebulizer Allergies Allergies Allergy/AdvReac Type Severity Reaction Status Date / Time apple Allergy Severe Swelling Verified 09/12/23 19:32 of Lip/Tongue/Throat egg Allergy Severe THROAT Verified 09/12/23 19:32 SWELLS /HARD TO BREATHE potato Allergy Severe Swelling Verified 09/12/23 19:32 of Lip/Tongue/Throat spinach Allergy Severe SHORTNESS Verified 09/12/23 19:32 OF BREATH ibuprofen AdvReac Severe VOMITING,BLURRED Verified 09/12/23 19:32 VISION, RINGING OF EARS Home Meds Home Medications Medication Instructions Recorded Confirmed albuterol sulfate 90 mcg/actuation 2 puff inhalation Q6H PRN 06/28/17 09/12/23 aerosol inhaler (Ventolin HFA) Shortness Of Breath Or Wheezing #1 inhaler [id number]-[id number]-[id number] 250 2 tab PO Q6H PRN Migraine Headache 01/08/19 09/12/23 mg-250 mg-65 mg tablet (Excedrin Migraine) omeprazole 40 mg capsule,delayed 40 mg PO DAILY 01/08/19 09/12/23 release acetaminophen 325 mg tablet 650 mg PO Q6H PRN Pain 04/19/22 09/12/23 Maalox/Benadryl/Lidocaine See Rx Instructions .Route .COMPLEX 09/12/23 09/12/23 ferrous sulfate 325 mg (65 mg 325 mg PO .EVERY OTHER DAY 09/12/23 09/12/23 iron) tablet,delayed release metoprolol tartrate 100 mg tablet 100 mg PO BID 09/12/23 09/12/23 montelukast 10 mg tablet 10 mg PO QAM 09/12/23 09/12/23 sucralfate 100 mg/mL oral 10,000 mg PO TID 09/12/23 09/12/23 suspension Previous Rx's Medication Instructions Recorded cyanocobalamin (vitamin B-12) 500 500 mcg PO QAM #30 tabs 04/22/22 mcg tablet Results & Data (ED) Vital Signs Vital Signs - 24 hr 09/12/23 17:28 09/12/23 18:30 09/12/23 18:39 Temperature 36.9 C Temperature Source Temporal Artery Scan Pulse Rate 92 H 93 H 77 Respiratory Rate 16 21 Respiratory Effort / Characteristics Non-Labored Spontaneous Respiratory Depth Normal Blood Pressure 124/99 Blood Pressure Mean 107 Pulse Oximetry 99 99 Oxygen Delivery Method Room Air Room Air Sepsis Recent Fever Within 48 Hours No Sepsis New/Unexplained Change in Mental Status N/A Sepsis Action Taken by Nursing No Action Required 09/12/23 19:00 09/12/23 20:37 09/12/23 20:00 Temperature Temperature Source Pulse Rate 81 79 73 Respiratory Rate 15 16 Respiratory Effort / Characteristics Respiratory Depth Blood Pressure 138/95 140/96 140/96 Blood Pressure Mean 109 110 Pulse Oximetry 96 99 Oxygen Delivery Method Room Air Sepsis Recent Fever Within 48 Hours Sepsis New/Unexplained Change in Mental Status Sepsis Action Taken by Nursing 09/12/23 21:00 Temperature Temperature Source Pulse Rate 72 Respiratory Rate 13 Respiratory Effort / Characteristics Respiratory Depth Blood Pressure 136/91 Blood Pressure Mean 106 Pulse Oximetry 99 Oxygen Delivery Method Room Air Sepsis Recent Fever Within 48 Hours Sepsis New/Unexplained Change in Mental Status Sepsis Action Taken by [facility] Medications Current Medication List: was personally reviewed by me Laboratory Data Attestation: I reviewed the patient's lab results. 09/12/23 17:39 09/12/23 17:39 Lab Results 09/12/23 09/12/23 09/12/23 Range/Units 17:39 17:39 17:39 WBC 7.60 (4.8-10.8) K/ul RBC 4.13 L (4.20-5.40) M/uL Hgb 12.5 (12.0-16.0) g/dl Hct 36.2 L (37.0-47.0) % MCV 87.7 (80.0-100.0) fL MCH 30.3 (25.0-34.0) pg MCHC 34.5 (32.0-36.0) g/dL RDW Std Deviation 39.6 (36.4-46.3) fL RDW Coeff of Jelena 12.4 (11.5-14.5) % Plt Count 201 (130-400) K/uL MPV 11.1 (9.4-12.4) fL PT 10.8 (9.0-12.0) Seconds INR 1.0 (0.9-1.1) APTT 26.4 (21.0-31.0) Seconds PTT Ratio 0.9 Sodium (136-145) mmol/L Potassium (3.5-5.1) mmol/L Chloride (98-107) mmol/L Carbon Dioxide (21-32) mmol/L Anion Gap (3-11) BUN (6-23) mg/dl Creatinine (0.6-1.2) mg/dl Est Cr Clr Drug Dosing ml/min Est GFR ( Amer) ml/min Est GFR (Non-Af Amer) ml/min BUN/Creatinine Ratio (10-20) Glucose (70-99(Fasting)) mg/dl Calcium (8.6-10.3) mg/dl Total Bilirubin (0.2-1.0) mg/dl AST (13-39) U/L ALT (7-52) U/L Alkaline Phosphatase (34-104) U/L Troponin I High Sens (0-14) pg/ml Total Protein (6.0-8.3) gm/dl Albumin (3.4-5.0) gm/dl Globulin (2.5-4.0) gm/dl Albumin/Globulin Ratio (0.9-2) Blood Type O Positive Antibody Screen NEGATIVE 09/12/23 09/12/23 Range/Units 17:39 21:12 WBC (4.8-10.8) K/ul RBC (4.20-5.40) M/uL Hgb 12.0 (12.0-16.0) g/dl Hct 34.5 L (37.0-47.0) % MCV (80.0-100.0) fL MCH (25.0-34.0) pg MCHC (32.0-36.0) g/dL RDW Std Deviation (36.4-46.3) fL RDW Coeff of Jelena (11.5-14.5) % Plt Count (130-400) K/uL MPV (9.4-12.4) fL PT (9.0-12.0) Seconds INR (0.9-1.1) APTT (21.0-31.0) Seconds PTT Ratio Sodium 136 (136-145) mmol/L Potassium 3.8 (3.5-5.1) mmol/L Chloride 104 (98-107) mmol/L Carbon Dioxide 28 (21-32) mmol/L Anion Gap 4 (3-11) BUN 16 (6-23) mg/dl Creatinine 0.91 (0.6-1.2) mg/dl Est Cr Clr Drug Dosing 81.2 ml/min Est GFR ( Amer) 90.8 ml/min Est GFR (Non-Af Amer) 78.4 ml/min BUN/Creatinine Ratio 17.6 (10-20) Glucose 108 H (70-99(Fasting)) mg/dl Calcium 9.5 (8.6-10.3) mg/dl Total Bilirubin 0.5 (0.2-1.0) mg/dl AST 11 L (13-39) U/L ALT 6 L (7-52) U/L Alkaline Phosphatase 63 (34-104) U/L Troponin I High Sens 12.3 (0-14) pg/ml Total Protein 7.4 (6.0-8.3) gm/dl Albumin 4.3 (3.4-5.0) gm/dl Globulin 3.1 (2.5-4.0) gm/dl Albumin/Globulin Ratio 1.4 (0.9-2) Blood Type Antibody Screen Administered Medications Discontinued Medications Pantoprazole Sodium 40 mg/ (Syringe) 10 mls @ 5 mls/min IV NOW ONE Stop: 09/12/23 18:27 Last Admin: 09/12/23 19:51 Dose: 5 mls/min Documented By: ALFRED Famotidine (Pepcid 20mg Iv Push) 20 mg in 5 mls @ 2.5 mls/min IV NOW STA Stop: 09/12/23 18:27 Last Admin: 09/12/23 18:34 Dose: 2.5 mls/min Documented By: ALFRED Acetaminophen (Ofirmev) 1,000 mg in 100 mls @ 400 mls/hr IV NOW STA Stop: 09/12/23 20:35 Last Infusion: 09/12/23 21:21 Dose: 0 mls/hr Documented By: Admin: 09/12/23 20:37 Dose: 400 mls/hr Documented By: ALFRED Metoprolol Tartrate (Metoprolol Tartrate 1 Mg/Ml Vial) 2.5 mg IV NOW STA Stop: 09/12/23 20:21 Last Admin: 09/12/23 20:37 Dose: 2.5 mg Documented By: ALFRED Ondansetron HCl (Ondansetron Inj 2 Mg/Ml 2 Ml Vial) 4 mg IV NOW STA Stop: 09/12/23 18:27 Last Admin: 09/12/23 18:34 Dose: 4 mg Documented By: ALFRED Phenol (Chloraseptic 1.4% Soln 180 Ml Btl) 1 sprays MT NOW STA Stop: 09/12/23 20:21 Last Admin: 09/12/23 21:38 Dose: 1 sprays Documented By: JS Imaging Data Attestation: I personally reviewed and interpreted this imaging study as follows: My Impression: 1 view chest x-ray was obtained in the emergency department. My interpretation is no free air or definite infiltrate, final report pending. Discharge Plan Visit Data Chief Complaint: Illness Stated Complaint: VOMITING BLOOD, BLOODY STOOL ED Provider: Jarret Fisher Discharge Problem: Acute upper gastrointestinal bleeding, Postoperative hemorrhage involving digestive system Patient Disposition: Being Evaluated by Hospitalist Forms Stand Alone Forms: My [facility] Prescriptions Prescriptions: No Action albuterol sulfate [Ventolin HFA] 90 mcg/actuation Hfa Aerosol Inhaler 2 puff INHALATION Q6H PRN (Reason: Shortness Of Breath Or Wheezing) Qty: 1 omeprazole 40 mg Capsule,Delayed Release(Dr/Ec) 40 mg PO DAILY Excedrin Migraine 250-250-65 mg Tablet 2 tab PO Q6H PRN (Reason: Migraine Headache) acetaminophen 325 mg tablet 650 mg PO Q6H PRN (Reason: Pain) cyanocobalamin (vitamin B-12) 500 mcg Tablet 500 mcg PO QAM Qty: 30 0RF metoprolol tartrate 100 mg tablet 100 mg PO BID sucralfate 100 mg/mL suspension 10,000 mg PO TID montelukast 10 mg tablet 10 mg PO QAM Maalox/Benadryl/Lidocaine See Rx Instructions .ROUTE .COMPLEX Rx Instructions: SWISH AND SPIT 15ML 4 TIMES A DAY NEEDED FOR PAIN ferrous sulfate 325 mg (65 mg iron) tablet,delayed release (DR/EC) 325 mg PO .EVERY OTHER DAY Referrals Referrals: Matti Gamboa MD [Primary Care Provider] -
[2023-09-12 18:37] LABS: Partial Thromboplastin Ratio 0.9; Partial Thromboplastin Time 26.4 Seconds (21.0-31.0); Prothrombin Time 10.8 Seconds (9.0-12.0)
[2023-09-12] MEDS ORDERED: CHLORASEPTIC 1.4% SOLN 180 ML BTL MT STA (20:20)
[2023-09-12] MEDS ORDERED: METOPROLOL TARTRATE 1 MG/ML VIAL IV STA (20:20)
--- NOTE | 2023-09-12 20:20 | History & Physical Report ---
Date of Service September 12, 2023 Assessment & Plan (1) Acute upper gastrointestinal bleeding: Plan: Recent EGD, esophageal dilatation hx GERD, eosinophilic esophagitis as per records, Patient currently hemodynamically stable hx PSVT anxiety/mood disorder, patient admits to some stress with recent in the family ongoing tobacco abuse. OBS Medical telemetry IV PPI CT abdomen pelvis. Re: Abdominal pain post EGD GI consult re: UGIB N.p.o. until patient seen by GI in anticipation of repeat endoscopy Nicotine replacement therapy as needed DVT prophylaxis. SCDs RE UGIB Full code Text document was generated using [employer] voice recognition software. It may contain grammatical or spelling errors. Kindly contact undersigned for clarification of any documentation item in question. History of Present Illness Chief Complaint: Hematemesis Primary Care Provider: Matti aGmboa MD History obtained from patient and records. Medical history significant for PSVT, GERD, eosinophilic esophagitis as per records, anxiety/mood disorder, migraine, ongoing tobacco abuse. Last confinement April 2022 for acute pyelonephritis. Patient underwent outpatient EGD at [facility] yesterday for dysphagia. No endoscopic esophageal abnormality to explain patient's dysphagia as per report. Subsequent esophageal dilatation. Normal stomach and duodenum as per report. Sucralfate suspension course recommended for 10 days. Last night, patient noted hematemesis described as blood clots with achy epigastric pain symptoms with some lightheadedness. Patient also complaining of sore throat symptoms. Denies NSAID intake. This morning, patient took 1 Excedrin tablet for migraine headache. She later noted melanotic stool stools. Patient denies chest pain, SOB. Patient directed to ER by outpatient provider. IV Protonix administered at the ER. 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 Allergy/AdvReac Type Severity Reaction Status Date / Time apple Allergy Severe Swelling Verified 09/12/23 19:32 of Lip/Tongue/Throat egg Allergy Severe THROAT Verified 09/12/23 19:32 SWELLS /HARD TO BREATHE potato Allergy Severe Swelling Verified 09/12/23 19:32 of Lip/Tongue/Throat spinach Allergy Severe SHORTNESS Verified 09/12/23 19:32 OF BREATH ibuprofen AdvReac Severe VOMITING,BLURRED Verified 09/12/23 19:32 VISION, RINGING OF EARS Home Medications Medication Instructions Recorded Confirmed Type albuterol sulfate 90 mcg/actuation 2 puff inhalation Q6H PRN 06/28/17 09/12/23 History aerosol inhaler (Ventolin HFA) Shortness Of Breath Or Wheezing #1 inhaler vquluck-axibpziyytklk-trghawlk 250 2 tab PO Q6H PRN Migraine Headache 01/08/19 09/12/23 History mg-250 mg-65 mg tablet (Excedrin Migraine) omeprazole 40 mg capsule,delayed 40 mg PO DAILY 01/08/19 09/12/23 History release acetaminophen 325 mg tablet 650 mg PO Q6H PRN Pain 04/19/22 09/12/23 History cyanocobalamin (vitamin B-12) 500 500 mcg PO QAM #30 tabs 04/22/22 09/12/23 Rx mcg tablet Maalox/Benadryl/Lidocaine See Rx Instructions .Route .COMPLEX 09/12/23 09/12/23 History ferrous sulfate 325 mg (65 mg 325 mg PO .EVERY OTHER DAY 09/12/23 09/12/23 History iron) tablet,delayed release metoprolol tartrate 100 mg tablet 100 mg PO BID 09/12/23 09/12/23 History montelukast 10 mg tablet 10 mg PO QAM 09/12/23 09/12/23 History sucralfate 100 mg/mL oral 10,000 mg PO TID 09/12/23 09/12/23 History suspension 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 GERD (gastroesophageal reflux disease) Hemorrhoids during Hiatal hernia History of depression no current meds History of heart disorder patient says " my heart beats fast" Currently on Metoprolol Iron deficiency anemia Migraine Surgical History H/O umbilical hernia repair History of 2018- intolerance to labor History of hemorrhoidectomy Family History Other Hiatal hernia Social History Smoking Status: Current every day smoker Tobacco Type: Cigarettes Cigarettes Per Day: 2+; Second Hand Exposure: Yes; Do You Dip or Chew Tobacco: No; Hx Alcohol Use: Yes Alcohol type: wine Hx Substance Use: No Preferred Language: Romansh Communication Ability: Effective Director Of It Operations Required: No Beliefs That Will Affect Care: None marital status: Legally Current Living Situation: Alone Current Living Situation Comment: lives with 6 children Feels Safe at Home: Yes Safety Concerns: Feels Safe At This Time Assistive Devices: None Review of Systems Review of Systems: As per HPI, all other systems reviewed and negative Physical Exam Physical Exam: GENERAL: Comfortable, pleasant, looks older than stated age, no respiratory distress SKIN: Normal color, warm HEENT: [place] palpebral conjunctivae, no ptosis, dry buccal mucosa NECK : Supple, no tenderness CHEST : CTA, no tenderness HEART : RRR, no obvious murmurs ABDOMEN: Some distention, minimal epigastric tenderness EXTREMITIES : No LE swelling/tenderness, no other conspicuous deformities noted NEUROLOGIC : Coherent, no facial asymmetry, no other gross focality Results & Data Results & Data Vital Signs (Past 12 Hours) Vital Signs Temp Pulse Resp BP Pulse Ox O2 Del Method 09/12/23 19:00 81 15 138/95 96 09/12/23 18:39 77 21 124/99 99 Room Air 09/12/23 18:30 93 H 09/12/23 17:28 36.9 C 92 H 16 99 Room Air Laboratory Results Laboratory Results WBC 7.60 K/ul (4.8-10.8) 09/12/23 17:39 RBC 4.13 M/uL (4.20-5.40) L 09/12/23 17:39 Hgb 12.5 g/dl (12.0-16.0) 09/12/23 17:39 Hct 36.2 % (37.0-47.0) L 09/12/23 17:39 MCV 87.7 fL (80.0-100.0) 09/12/23 17:39 MCH 30.3 pg (25.0-34.0) 09/12/23 17:39 MCHC 34.5 g/dL (32.0-36.0) 09/12/23 17:39 RDW Std Deviation 39.6 fL (36.4-46.3) 09/12/23 17:39 RDW Coeff of Jelena 12.4 % (11.5-14.5) 09/12/23 17:39 Plt Count 201 K/uL (130-400) 09/12/23 17:39 MPV 11.1 fL (9.4-12.4) 09/12/23 17:39 PT 10.8 Seconds (9.0-12.0) 09/12/23 17:39 INR 1.0 (0.9-1.1) 09/12/23 17:39 APTT 26.4 Seconds (21.0-31.0) 09/12/23 17:39 PTT Ratio 0.9 09/12/23 17:39 Sodium 136 mmol/L (136-145) 09/12/23 17:39 Potassium 3.8 mmol/L (3.5-5.1) 09/12/23 17:39 Chloride 104 mmol/L (98-107) 09/12/23 17:39 Carbon Dioxide 28 mmol/L (21-32) 09/12/23 17:39 Anion Gap 4 (3-11) 09/12/23 17:39 BUN 16 mg/dl (6-23) 09/12/23 17:39 Creatinine 0.91 mg/dl (0.6-1.2) 09/12/23 17:39 Est Cr Clr Drug Dosing 81.2 ml/min 09/12/23 17:39 Est GFR ( Amer) 90.8 ml/min 09/12/23 17:39 Est GFR (Non-Af Amer) 78.4 ml/min 09/12/23 17:39 BUN/Creatinine Ratio 17.6 (10-20) 09/12/23 17:39 Glucose 108 mg/dl (70-99(Fasting)) H 09/12/23 17:39 Calcium 9.5 mg/dl (8.6-10.3) 09/12/23 17:39 Total Bilirubin 0.5 mg/dl (0.2-1.0) 09/12/23 17:39 AST 11 U/L (13-39) L 09/12/23 17:39 ALT 6 U/L (7-52) L 09/12/23 17:39 Alkaline Phosphatase 63 U/L (34-104) 09/12/23 17:39 Troponin I High Sens 12.3 pg/ml (0-14) 09/12/23 17:39 Total Protein 7.4 gm/dl (6.0-8.3) 09/12/23 17:39 Albumin 4.3 gm/dl (3.4-5.0) 09/12/23 17:39 Globulin 3.1 gm/dl (2.5-4.0) 09/12/23 17:39 Albumin/Globulin Ratio 1.4 (0.9-2) 09/12/23 17:39 Blood Type O Positive 09/12/23 17:39 Antibody Screen NEGATIVE 09/12/23 17:39 Diagnostic Findings EKG as per my interpretation : Rate 85, NSR, normal axis, LVH, no ischemia
[2023-09-12] MEDS ORDERED: ACETAMINOPHEN 1,000 MG/100 ML VIAL IV STA (20:21)
[2023-09-12] MEDS ORDERED: LORazepam 0.5 MG TAB PO PRN (20:26)
[2023-09-12] MEDS ORDERED: PROMETHAZINE HCL 6.25 MG in SODIUM CHLORIDE 0.9% 50 ML IV PRN (20:26)
[2023-09-12] MEDS ORDERED: ACETAMINOPHEN 325 MG TAB PO PRN ×2 (20:26→23:52)
[2023-09-12] MEDS ORDERED: traMADol HCL 50 MG TABLET PO PRN (20:26)
[2023-09-12] MEDS ORDERED: CHLORASEPTIC 1.4% SOLN 180 ML BTL MT PRN (20:28)
[2023-09-12 21:42] LABS: Hematocrit (blood only) 34.5 % (37.0-47.0)
[2023-09-12] MEDS ORDERED: OPTIRAY 320 100ml IV ONE (22:16)
--- NOTE | 2023-09-12 23:31 | CT Scan Report ---
Exam(s): CT ABDOMEN + PELVIS With Contrast IV Amt: 93 ml opti 320 EXAM: CT Abdomen and Pelvis With Intravenous Contrast CLINICAL HISTORY: Reason for exam: abd pain, gi bleed. TECHNIQUE: Axial computed tomography images of the abdomen and pelvis with intravenous contrast. CTDI is 16.56 mGy and DLP is 0 mGy-cm. Automated exposure control was utilized for the study. A dose lowering technique was utilized adhering to the principles of ALARA. CONTRAST: Patient received 93 ml opti 320 of IV contrast COMPARISON: 04/19/2022 FINDINGS: Lung bases: Unremarkable. No mass. No consolidation. ABDOMEN: Liver: Fatty infiltration of liver. Gallbladder and bile ducts: Unremarkable. No calcified stones. No ductal dilation. Pancreas: Unremarkable. No mass. No ductal dilation. Spleen: Unremarkable. No splenomegaly. Adrenals: Unremarkable. No mass. Kidneys and ureters: Unremarkable. No solid mass. No hydronephrosis. Stomach and bowel: Unremarkable. No obstruction. No mucosal thickening. PELVIS: Appendix: No findings to suggest acute appendicitis. Bladder: Unremarkable. No mass. Reproductive: 2.6 cm right ovarian cyst versus follicle. ABDOMEN and PELVIS: Intraperitoneal space: Unremarkable. No free air. No significant fluid collection. Bones/joints: Stable Schmorl's node superior endplate L3. No acute fracture. No dislocation. Soft tissues: Unremarkable. Vasculature: Unremarkable. No abdominal aortic aneurysm. Lymph nodes: Unremarkable. No enlarged lymph nodes. IMPRESSION: No acute findings in the abdomen or pelvis. 2.6 cm right ovarian cyst versus follicle. This may be further evaluated with nonemergent pelvic ultrasound Electronically signed by: Chris Rosenberg MD 09/12/23 23:30 PM
[2023-09-12] MEDS: MoRPHine SULFATE 2 MG/ML CARP IV PRN (23:57)
[2023-09-13] MEDS: SUCRALFATE 1 GM/10 ML UDC PO SCH ×3 (00:22→13:44)
[2023-09-13] MEDS ORDERED: NICOTINE 7 MG/24 HR TDSY TD SCH (00:40)
[2023-09-13 00:58] LABS: Appearance Urine Clear (Clear); Bacteria Urine Automated Negative (Negative); Bilirubin Urine Negative (Negative); Blood Urine Negative (Negative); Color Urine Yellow; Epithelial Cell Urine Auto >30 /lpf (0-5); Glucose Urine UA Negative (Negative); Ketones Urine Trace (Negative); Leukocyte Esterase Urine Negative (Negative); Nitrite Urine Negative (Negative); Protein Urine 1+ (Negative); Specific Gravity Urine > 1.045 (1.000-1.030); Urobilinogen Urine Negative (Negative)
[2023-09-13 01:00] LABS: Pregnancy Test, Urine Negative (Negative)
[2023-09-13 01:19] LABS: RBC Urine Automated 0-4 /hpf (0-4)
[2023-09-13] MEDS ORDERED: NSS + 20MEQ KCL 20 MEQ/1,000 ML BAG IV ONE (01:47)
--- NOTE | 2023-09-13 07:05 | XRay Report ---
KUB CLINICAL HISTORY: Vomiting. FINDINGS: 2 AP, portable, supine abdominal radiographs are compared to study dated 10/16/2022 and simin elated with abdominal CT dated 04/19/2022. There is a nonobstructed abdominal bowel gas pattern. No tiffani dence of intraperitoneal free air is seen on these supine images. There are no abnormal abdominal anuj cifications. The bony structures appear intact. The lung bases are clear as imaged. IMPRESSION: No acute abnormality is identified. Electronically signed by: Israel Crandall M.D. 09/13/2023 7:03 AM
--- NOTE | 2023-09-13 07:23 | XRay Report ---
SINGLE VIEW CHEST CLINICAL HISTORY: Vomiting. FINDINGS: An AP, portable, upright chest radiograph is compared to study dated 05/13/2019. The cardiome diastinal silhouette is unremarkable. The lungs and pleural spaces are clear. No pneumothorax is seen . The bony thorax is grossly intact. IMPRESSION: No active disease in the chest. ACT 112: Negative or not required by law. Electronically signed by: Israel Crandall M.D. 09/13/2023 7:22 AM
[2023-09-13 07:35] LABS: Basophils # (auto) 0.05 K/uL (0.00-0.20); Basophils % (auto) 1.2 %; Eosinophils # (auto) 0.25 K/uL (0.00-0.50); Eosinophils % (auto) 5.9 %; Hematocrit (blood only) 31.1 % (37.0-47.0); Hemoglobin 10.9 g/dl (12.0-16.0); Immature Granulocytes # (auto) 0.01 K/uL (0.01-0.20); Immature Granulocytes % (auto) 0.2 %; Lymphocytes # (auto) 1.89 K/uL (1.20-3.40); Lymphocytes % (auto) 44.9 %; Mean Corpuscular Hemoglobin 30.8 pg (25.0-34.0); Mean Corpuscular Volume 87.9 fL (80.0-100.0); Mean Platelet Volume 10.9 fL (9.4-12.4); Monocytes # (auto) 0.41 K/uL (0.11-0.59); Monocytes % (auto) 9.7 %; Neutrophils % (auto) 38.1 %; Platelet Count 171 K/uL (130-400); RDW Coefficient of Variation 12.4 % (11.5-14.5); RDW Standard Deviation 40.2 fL (36.4-46.3); Red Blood Count 3.54 M/uL (4.20-5.40); White Blood Count 4.21 K/ul (4.8-10.8)
[2023-09-13] MEDS: MoRPHine SULFATE 2 MG/ML CARP IV PRN ×2 (07:53→14:09)
[2023-09-13 07:58] LABS: Calcium 8.5 mg/dl (8.6-10.3); Creatinine Clr Calc Pharmacy 91.2 ml/min; Est GFR (African American) 104.6 ml/min; Est GFR (Non-African American) 90.2 ml/min; Potassium 4.1 mmol/L (3.5-5.1)
--- NOTE | 2023-09-13 08:37 | Gastrointestinal Consultation ---
Date of Consultation September 13, 2023 Assessment & Plan (1) Acute upper gastrointestinal bleeding: Plan 42 year old female s/p egd w/ dilation for treatment of EOE two days ago, presenting with hematemesis (resolved) and melena (resolved). Low suspicion for active bleeding given resoltuion of symptoms, stable H&H and normal BUN. We can further evaluation with upper endoscopy today. Please keep NPO. Agree w/ IV PPI as dosed. No NSAIDs. Monitor and document GI output. Transfusion if needed per primary team. We appreciate assistance in the management of any serological abnormality and corrections to include: hemoglobin >7, INR <2, platelets >50,000, potassium levels >3.5 but <5.3, and sodium levels within 5 points of the reference range prior to endoscopic evaluation. Thank you for allowing us to participate in the care of this patient. Please call with any acute changes, questions or concerns. Please see addendum below with additional recommendation from my supervising physician. Supervising Physician Co-Signing Physician Notes I personally saw and evaluated the patient on 09/13/2023 with HAYLEE Hanson and agree with her findings and plan of care. Abdomen soft and non-tender. 42 y/o F with history of EOE dilated 2 days ago (55 Citizen Of [place]) admitted with reports of hematemesis and melena. She states she vomited bright red clots two times, around 1 cup each, and the last time she had any hematemesis was yesterday morning. She also reports 1 episode of melena yesterday. No further bleeding in the past 24 hours or nausea/vomiting. Denies abdominal pain or hematochezia. She is otherwise feeling well resting in the bed. She states she picked up magic mouthwash and "another med i'm not sure what it was" but didn't take it very long as she was vomiting. Hgb is 10.9 and stable around her baseline. BUN normal. Suspect she likely had initial bleeding from a tear due to dilation. This has likely stopped as patient has not had any form of bleeding in over 24 hours. Will plan for EGD today to take a look and ensure no active bleeding. Remain NPO. Continue to trend H/H and transfuse for hgb <7. Continue IV PPI 40 mg BID. Evelyn Montero, DO Gastroenterology and Hepatology History of Present Illness Reason for Consultation: hematemesis, melena Requesting Physician: Freddy Attending Physician: Melina Hayes, History of Present Illness 42 year old female with history of GERD, asthma, EOE, chronic anemia admitted through the ED with hematemesis and melena - GI asked to evaluate. Pt was seen and evaluated, chart reviewed. She underwent EGD w/ dilation for treatment of EOE and dysphagia two days ago. Following the EGD was prescribed liquid Carafate. AFter taking this, developed nausea w/ vomiting. she notes this was bright red w/ clot. She had a few episodes. This was followed by episodes of dark, tarry stools. She notes today, she is feeling somewhat improved. Has a sore throat. No further black stool. No further emesis. Denies NSAIDs use No ETOH No AC H&H 10. BUN 13 CTAP 2022: No acute findings in the abdomen or pelvis. Allergies Allergy/AdvReac Type Severity Reaction Status Date / Time apple Allergy Severe Swelling Verified 09/12/23 19:32 of Lip/Tongue/Throat egg Allergy Severe THROAT Verified 09/12/23 19:32 SWELLS /HARD TO BREATHE potato Allergy Severe Swelling Verified 09/12/23 19:32 of Lip/Tongue/Throat spinach Allergy Severe SHORTNESS Verified 09/12/23 19:32 OF BREATH ibuprofen AdvReac Severe VOMITING,BLURRED Verified 09/12/23 19:32 VISION, RINGING OF EARS Home Medications Medication Instructions Recorded Confirmed Type albuterol sulfate 90 mcg/actuation 2 puff inhalation Q6H PRN 06/28/17 09/12/23 History aerosol inhaler (Ventolin HFA) Shortness Of Breath Or Wheezing #1 inhaler mabdgxd-[id number]-wuiberxl 250 2 tab PO Q6H PRN Migraine Headache 01/08/19 09/12/23 History mg-250 mg-65 mg tablet (Excedrin Migraine) omeprazole 40 mg capsule,delayed 40 mg PO DAILY 01/08/19 09/12/23 History release acetaminophen 325 mg tablet 650 mg PO Q6H PRN Pain 04/19/22 09/12/23 History cyanocobalamin (vitamin B-12) 500 500 mcg PO QAM #30 tabs 04/22/22 09/12/23 Rx mcg tablet Maalox/Benadryl/Lidocaine See Rx Instructions .Route .COMPLEX 09/12/23 09/12/23 History ferrous sulfate 325 mg (65 mg 325 mg PO .EVERY OTHER DAY 09/12/23 09/12/23 Histo ry iron) tablet,delayed release metoprolol tartrate 100 mg tablet 100 mg PO BID 09/12/23 09/12/23 History montelukast 10 mg tablet 10 mg PO QAM 09/12/23 09/12/23 History sucralfate 100 mg/mL oral 10,000 mg PO TID 09/12/23 09/12/23 History suspension Patient History Medical History Asthma Eustachian tube dysfunction 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 GERD (gastroesophageal reflux disease) Hemorrhoids during Hiatal hernia History of depression no current meds History of heart disorder patient says " my heart beats fast" Currently on Metoprolol Iron deficiency anemia Migraine Surgical History H/O umbilical hernia repair History of 2018- intolerance to labor History of hemorrhoidectomy Family History Other Hiatal hernia Social History Smoking Status: Current every day smoker Tobacco Type: Cigarettes Cigarettes Per Day: 2+; Second Hand Exposure: Yes; Do You Dip or Chew Tobacco: No; Hx Alcohol Use: Yes Alcohol type: wine Hx Substance Use: No Preferred Language: Qatari Communication Ability: Effective Senior Telecommunications Specialist Required: No Beliefs That Will Affect Care: None marital status: Legally Current Living Situation: Alone Current Living Situation Comment: lives with 6 children Feels Safe at Home: Yes Safety Concerns: Feels Safe At This Time Assistive Devices: None Review of Systems Review of Systems: All systems reviewed & are unremarkable except as noted in HPI & below Physical Exam Constitutional: WD/WN, vitals as above Respiratory: normal respiratory effort, lungs clear to auscultation Cardiovascular: RRR, no murmur, no edema Gastrointestinal (Abdomen): normal bowel sounds, soft, nontender, no hepatosplenomegaly Skin: no rashes, warm and dry Results & Data Vital Signs (Past 12 Hours) Vital Signs Temp Pulse Pulse Resp BP BP BP 09/13/23 07:44 36.5 C 81 16 128/85 09/13/23 07:23 76 09/13/23 04:32 36.7 C 80 18 136/87 09/13/23 01:12 79 09/12/23 23:52 36.8 C 85 18 139/90 09/12/23 23:38 85 139/90 09/12/23 23:01 09/12/23 23:00 76 12 130/96 09/12/23 22:00 78 13 121/86 09/12/23 21:00 72 13 136/91 09/12/23 20:37 79 140/96 Pulse Ox O2 Del Method 09/13/23 07:44 99 Room Air 09/13/23 07:23 09/13/23 04:32 97 Room Air 09/13/23 01:12 09/12/23 23:52 98 Room Air 09/12/23 23:38 09/12/23 23:01 Room Air 09/12/23 23:00 96 Room Air 09/12/23 22:00 99 Room Air 09/12/23 21:00 99 Room Air 09/12/23 20:37 Laboratory Results 09/13/23 09/13/23 09/12/23 Range/Units 07:12 00:20 21:12 WBC 4.21 L (4.8-10.8) K/ul RBC 3.54 L (4.20-5.40) M/uL Hgb 10.9 L 12.0 (12.0-16.0) g/dl Hct 31.1 L 34.5 L (37.0-47.0) % MCV 87.9 (80.0-100.0) fL MCH 30.8 (25.0-34.0) pg MCHC 35.0 (32.0-36.0) g/dL RDW Std Deviation 40.2 (36.4-46.3) fL RDW Coeff of Jelena 12.4 (11.5-14.5) % Plt Count 171 (130-400) K/uL MPV 10.9 (9.4-12.4) fL Immature Gran % (Auto) 0.2 % Neut % (Auto) 38.1 % Lymph % (Auto) 44.9 % [place] % (Auto) 9.7 % Eos % (Auto) 5.9 % Baso % (Auto) 1.2 % Neut # (Auto) 1.60 (1.40-6.50) K/uL Lymph # (Auto) 1.89 (1.20-3.40) K/uL [place] # (Auto) 0.41 (0.11-0.59) K/uL Eos # (Auto) 0.25 (0.00-0.50) K/uL Baso # (Auto) 0.05 (0.00-0.20) K/uL Immature Gran # (Auto) 0.01 (0.01-0.20) K/uL PT (9.0-12.0) Seconds INR (0.9-1.1) APTT (21.0-31.0) Seconds PTT Ratio Sodium 138 (136-145) mmol/L Potassium 4.1 (3.5-5.1) mmol/L Chloride 106 (98-107) mmol/L Carbon Dioxide 28 (21-32) mmol/L Anion Gap 4 (3-11) BUN 13 (6-23) mg/dl Creatinine 0.81 (0.6-1.2) mg/dl Est Cr Clr Drug Dosing 91.2 ml/min Est GFR ( Amer) 104.6 ml/min Est GFR (Non-Af Amer) 90.2 ml/min BUN/Creatinine Ratio 16.0 (10-20) Glucose 82 (70-99(Fasting)) mg/dl Calcium 8.5 L (8.6-10.3) mg/dl Total Bilirubin (0.2-1.0) mg/dl AST (13-39) U/L ALT (7-52) U/L Alkaline Phosphatase (34-104) U/L Troponin I High Sens (0-14) pg/ml Total Protein (6.0-8.3) gm/dl Albumin (3.4-5.0) gm/dl Globulin (2.5-4.0) gm/dl Albumin/Globulin Ratio (0.9-2) Lipase 10 L (11-82) U/L Urine Color Yellow Urine Appearance Clear (Clear) Urine pH 6.0 (4.5-7.5) Ur Specific [place] > 1.045 H (1.000-1.030) Urine Protein 1+ H (Negative) Urine Glucose (UA) Negative (Negative) Urine Ketones Trace H (Negative) Urine Blood Negative (Negative) Urine Nitrite Negative (Negative) Urine Bilirubin Negative (Negative) Urine Urobilinogen Negative (Negative) Ur Leukocyte Esterase Negative (Negative) Urine WBC (Auto) 5-10 H (0-5) /hpf Urine RBC (Auto) 0-4 (0-4) /hpf U Hyaline Cast (Auto) 1-5 (0-5) /lpf U Epithel Cells (Auto) >30 H (0-5) /lpf Urine Bacteria (Auto) Negative (Negative) Urine Test Negative (Negative) Blood Type Antibody Screen 09/12/23 Range/Units 17:39 WBC 7.60 (4.8-10.8) K/ul RBC 4.13 L (4.20-5.40) M/uL Hgb 12.5 (12.0-16.0) g/dl Hct 36.2 L (37.0-47.0) % MCV 87.7 (80.0-100.0) fL MCH 30.3 (25.0-34.0) pg MCHC 34.5 (32.0-36.0) g/dL RDW Std Deviation 39.6 (36.4-46.3) fL RDW Coeff of Jelena 12.4 (11.5-14.5) % Plt Count 201 (130-400) K/uL MPV 11.1 (9.4-12.4) fL Immature Gran % (Auto) % Neut % (Auto) % Lymph % (Auto) % [place] % (Auto) % Eos % (Auto) % Baso % (Auto) % Neut # (Auto) (1.40-6.50) K/uL Lymph # (Auto) (1.20-3.40) K/uL [place] # (Auto) (0.11-0.59) K/uL Eos # (Auto) (0.00-0.50) K/uL Baso # (Auto) (0.00-0.20) K/uL Immature Gran # (Auto) (0.01-0.20) K/uL PT 10.8 (9.0-12.0) Seconds INR 1.0 (0.9-1.1) APTT 26.4 (21.0-31.0) Seconds PTT Ratio 0.9 Sodium 136 (136-145) mmol/L Potassium 3.8 (3.5-5.1) mmol/L Chloride 104 (98-107) mmol/L Carbon Dioxide 28 (21-32) mmol/L Anion Gap 4 (3-11) BUN 16 (6-23) mg/dl Creatinine 0.91 (0.6-1.2) mg/dl Est Cr Clr Drug Dosing 81.2 ml/min Est GFR ( Amer) 90.8 ml/min Est GFR (Non-Af Amer) 78.4 ml/min BUN/Creatinine Ratio 17.6 (10-20) Glucose 108 H (70-99(Fasting)) mg/dl Calcium 9.5 (8.6-10.3) mg/dl Total Bilirubin 0.5 (0.2-1.0) mg/dl AST 11 L (13-39) U/L ALT 6 L (7-52) U/L Alkaline Phosphatase 63 (34-104) U/L Troponin I High Sens 12.3 (0-14) pg/ml Total Protein 7.4 (6.0-8.3) gm/dl Albumin 4.3 (3.4-5.0) gm/dl Globulin 3.1 (2.5-4.0) gm/dl Albumin/Globulin Ratio 1.4 (0.9-2) Lipase (11-82) U/L Urine Color Urine Appearance (Clear) Urine pH (4.5-7.5) Ur Specific [place] (1.000-1.030) Urine Protein (Negative) Urine Glucose (UA) (Negative) Urine Ketones (Negative) Urine Blood (Negative) Urine Nitrite (Negative) Urine Bilirubin (Negative) Urine Urobilinogen (Negative) Ur Leukocyte Esterase (Negative) Urine WBC (Auto) (0-5) /hpf Urine RBC (Auto) (0-4) /hpf U Hyaline Cast (Auto) (0-5) /lpf U Epithel Cells (Auto) (0-5) /lpf Urine Bacteria (Auto) (Negative) Urine Test (Negative) Blood Type O Positive Antibody Screen NEGATIVE
[2023-09-13] MEDS ORDERED: CYANOCOBALAMIN (B-12) 500 MCG TABLET PO SCH (09:00)
[2023-09-13] MEDS ORDERED: MONTELUKAST SODIUM 10 MG TABLET PO SCH (09:00)
[2023-09-13] MEDS ORDERED: METOPROLOL TARTRATE 100 MG TAB PO SCH (09:00)
[2023-09-13] MEDS ORDERED: PANTOprazole 40 MG in SYRINGE 0 ML IV SCH (09:00)
--- NOTE | 2023-09-13 09:45 | Hospitalist Progress Note ---
Date of Service September 13, 2023 Assessment & Plan (1) Acute upper gastrointestinal bleeding: Plan: Recent EGD, esophageal dilatation hx GERD, eosinophilic esophagitis as per records, Patient currently hemodynamically stable hx PSVT anxiety/mood disorder, patient admits to some stress with recent in the family ongoing tobacco abuse. OBS Medical telemetry IV PPI CT abdomen pelvis. Re: Abdominal pain post EGD GI consult re: UGIB N.p.o. until patient seen by GI in anticipation of repeat endoscopy Nicotine replacement therapy as needed DVT prophylaxis. SCDs RE UGIB Full code Text document was generated using [employer] recognition software. It may contain grammatical or spelling errors. Kindly contact undersigned for clarification of any documentation item in question. Admission and Anticipated Discharge Date Admission Date: September 12, 2023 Results & Data Results & Data Vital Signs (Past 12 Hours) Vital Signs Temp Pulse Pulse Resp BP BP BP 09/13/23 07:44 36.5 C 81 16 128/85 09/13/23 07:23 76 09/13/23 04:32 36.7 C 80 18 136/87 09/13/23 01:12 79 09/12/23 23:52 36.8 C 85 18 139/90 09/12/23 23:38 85 139/90 09/12/23 23:01 09/12/23 23:00 76 12 130/96 09/12/23 22:00 78 13 121/86 Pulse Ox O2 Del Method 09/13/23 07:44 99 Room Air 09/13/23 07:23 09/13/23 04:32 97 Room Air 09/13/23 01:12 09/12/23 23:52 98 Room Air 09/12/23 23:38 09/12/23 23:01 Room Air 09/12/23 23:00 96 Room Air 09/12/23 22:00 99 Room Air Laboratory Results Short CBC 09/12/23 09/12/23 09/13/23 Range/Units 17:39 21:12 07:12 WBC 7.60 4.21 L (4.8-10.8) K/ul Hgb 12.5 12.0 10.9 L (12.0-16.0) g/dl Hct 36.2 L 34.5 L 31.1 L (37.0-47.0) % Plt Count 201 171 (130-400) K/uL BMP 09/12/23 09/13/23 17:39 07:12 Sodium 136 138 Potassium 3.8 4.1 Chloride 104 106 Carbon Dioxide 28 28 BUN 16 13 Creatinine 0.91 0.81 Glucose 108 H 82 Calcium 9.5 8.5 L Liver Function 09/12/23 Range/Units 17:39 Total Bilirubin 0.5 (0.2-1.0) mg/dl AST 11 L (13-39) U/L ALT 6 L (7-52) U/L Alkaline Phosphatase 63 (34-104) U/L Albumin 4.3 (3.4-5.0) gm/dl Urine 09/13/23 Range/Units 00:20 Urine Color Yellow Urine Appearance Clear (Clear) Urine pH 6.0 (4.5-7.5) Ur Specific [place] > 1.045 H (1.000-1.030) Urine Protein 1+ H (Negative) Urine Glucose (UA) Negative (Negative) Diagnostic Findings Chest X-Ray 09/12/23 18:20 SINGLE VIEW CHEST CLINICAL HISTORY: Vomiting. FINDINGS: An AP, portable, upright chest radiograph is compared to study dated 05/13/2019. The cardiomediastinal silhouette is unremarkable. The lungs and pleural spaces are clear. No pneumothorax is seen. The bony thorax is grossly intact. IMPRESSION: No active disease in the chest. ACT 112: Negative or not required by law. Electronically signed by: Israel Crandall M.D. 09/13/2023 7:22 AM KUB X-Ray 09/12/23 18:20 KUB CLINICAL HISTORY: Vomiting. FINDINGS: 2 AP, portable, supine abdominal radiographs are compared to study dated 10/16/2022 and correlated with abdominal CT dated 04/19/2022. There is a nonobstructed abdominal bowel gas pattern. No evidence of intraperitoneal free air is seen on these supine images. There are no abnormal abdominal calcifications. The bony structures appear intact. The lung bases are clear as imaged. IMPRESSION: No acute abnormality is identified. Electronically signed by: Israel Crandall M.D. 09/13/2023 7:03 AM Abdomen/Pelvis CT 09/12/23 20:22 Exam(s): CT ABDOMEN + PELVIS With Contrast IV Amt: 93 ml opti 320 EXAM: CT Abdomen and Pelvis With Intravenous Contrast CLINICAL HISTORY: Reason for exam: abd pain, gi bleed. TECHNIQUE: Axial computed tomography images of the abdomen and pelvis with intravenous contrast. CTDI is 16.56 mGy and DLP is 0 mGy-cm. Automated exposure control was utilized for the study. A dose lowering technique was utilized adhering to the principles of ALARA. CONTRAST: Patient received 93 ml opti 320 of IV contrast COMPARISON: 04/19/2022 FINDINGS: Lung bases: Unremarkable. No mass. No consolidation. ABDOMEN: Liver: Fatty infiltration of liver. Gallbladder and bile ducts: Unremarkable. No calcified stones. No ductal dilation. Pancreas: Unremarkable. No mass. No ductal dilation. Spleen: Unremarkable. No splenomegaly. Adrenals: Unremarkable. No mass. Kidneys and ureters: Unremarkable. No solid mass. No hydronephrosis. Stomach and bowel: Unremarkable. No obstruction. No mucosal thickening. PELVIS: Appendix: No findings to suggest acute appendicitis. Bladder: Unremarkable. No mass. Reproductive: 2.6 cm right ovarian cyst versus follicle. ABDOMEN and PELVIS: Intraperitoneal space: Unremarkable. No free air. No significant fluid collection. Bones/joints: Stable Schmorl's node superior endplate L3. No acute fracture. No dislocation. Soft tissues: Unremarkable. Vasculature: Unremarkable. No abdominal aortic aneurysm. Lymph nodes: Unremarkable. No enlarged lymph nodes. IMPRESSION: No acute findings in the abdomen or pelvis. 2.6 cm right ovarian cyst versus follicle. This may be further evaluated with nonemergent pelvic ultrasound Electronically signed by: Chris Rosenberg MD 09/12/23 23:30 PM Medications Administered Current Inpatient Medications Acetaminophen (Acetaminophen 325 Mg Tab) 650 mg PO Q4H PRN PRN Reason: Pain or Fever Stop: 10/12/23 23:51 Cyanocobalamin (Cyanocobalamin (B-12) 500 Mcg Tablet) 500 mcg PO QAM [facility] Stop: 10/13/23 08:59 Last Admin: 09/13/23 07:55 Dose: 500 mcg Promethazine HCl 6.25 mg/ (Sodium Chloride) 50.25 mls @ 201 mls/hr IV Q6H PRN PRN Reason: Nausea And Vomiting Stop: 10/12/23 20:25 Pantoprazole Sodium 40 mg/ (Syringe) 10 mls @ 5 mls/min IV BID SOURAV Stop: 10/13/23 08:59 Last Admin: 09/13/23 07:54 Dose: 5 mls/min Potassium Chloride/Sodium Chloride (Normal Saline W/20 Meq Kcl) 20 meq in 1,000 mls @ 60 mls/hr IV .[id number] ONE; Protocol Stop: 09/13/23 18:26 Last Admin: 09/13/23 02:00 Dose: 60 mls/hr Lorazepam (Lorazepam 0.5 Mg Tab) 0.5 mg PO TID PRN PRN Reason: Anxiety Stop: 10/12/23 20:25 Metoprolol Tartrate (Metoprolol Tartrate 100 Mg Tab) 100 mg PO BID [facility] Stop: 10/13/23 08:59 Last Admin: 09/13/23 07:54 Dose: 100 mg Miscellaneous (Remove Nicoderm Patch) 1 each N/A DAILY@0859 [facility] Stop: 10/14/23 00:39 Montelukast Sodium (Montelukast Sodium 10 Mg Tablet) 10 mg PO QAM [facility] Stop: 10/13/23 08:59 Last Admin: 09/13/23 07:55 Dose: 10 mg Morphine Sulfate (Morphine Sulfate 2 Mg/Ml Carp) 2 mg IV Q3H PRN PRN Reason: Pain Stop: 09/26/23 20:25 Last Admin: 09/13/23 07:53 Dose: 2 mg Nicotine (Nicotine 7 Mg/24 Hr Tdsy) 7 mg TD QAM [facility] Stop: 10/13/23 00:39 Last Admin: 09/13/23 01:16 Dose: 7 mg Phenol (Chloraseptic 1.4% Soln 180 Ml Btl) 1 sprays MT Q2H PRN PRN Reason: Sore Throat Stop: 10/12/23 20:27 Sucralfate (Sucralfate 1 Gm/10 Ml Udc) 1 gm PO TID [facility] Stop: 10/12/23 23:51 Last Admin: 09/13/23 07:54 Dose: 1 gm Tramadol HCl (Tramadol Hcl 50 Mg Tablet) 25 - 50 mg PO Q4H PRN PRN Reason: Pain Stop: 10/12/23 20:25 Last Admin: 09/13/23 01:20 Dose: 50 mg
--- NOTE | 2023-09-13 10:31 | Anesthesiology Consultation ---
Date of Service September 13, 2023 Assessment & Plan Chart Review Chart Review: Acceptable Risk for Surgery Consults Requested none History Surgery Operation Date: 09/13/23 16:30 Proposed Procedures p Esophagogastroduodenoscopy Kylah Montero, Height/Weight Height: 5 ft 4 in Weight: 76 kg Allergies Allergy/AdvReac Type Severity Reaction Status Date / Time apple Allergy Severe Swelling Verified 09/13/23 10:25 of Lip/Tongue/Throat egg Allergy Severe THROAT Verified 09/13/23 10:25 SWELLS /HARD TO BREATHE potato Allergy Severe Swelling Verified 09/13/23 10:25 of Lip/Tongue/Throat spinach Allergy Severe SHORTNESS Verified 09/13/23 10:25 OF BREATH ibuprofen AdvReac Severe VOMITING,BLURRED Verified 09/13/23 10:25 VISION, RINGING OF EARS Medications Home Medications Medication Instructions Recorded Confirmed Last Taken albuterol sulfate 90 mcg/actuation 2 puff inhalation Q6H PRN 06/28/17 09/12/23 09/11/23 aerosol inhaler (Ventolin HFA) Shortness Of Breath Or Wheezing #1 inhaler hemtszs-ekbrflxenkqbt-uxdlovhx 250 2 tab PO Q6H PRN Migraine Headache 01/08/19 09/12/23 09/11/23 mg-250 mg-65 mg tablet (Excedrin Migraine) omeprazole 40 mg capsule,delayed 40 mg PO DAILY 01/08/19 09/12/23 09/12/23 release acetaminophen 325 mg tablet 650 mg PO Q6H PRN Pain 04/19/22 09/12/23 09/11/23 cyanocobalamin (vitamin B-12) 500 500 mcg PO QAM #30 tabs 04/22/22 09/12/23 09/11/23 mcg tablet Maalox/Benadryl/Lidocaine See Rx Instructions .Route .COMPLEX 09/12/23 09/12/23 09/11/23 ferrous sulfate 325 mg (65 mg 325 mg PO .EVERY OTHER DAY 09/12/23 09/12/23 09/11/23 iron) tablet,delayed release metoprolol tartrate 100 mg tablet 100 mg PO BID 09/12/23 09/12/23 09/12/23 montelukast 10 mg tablet 10 mg PO QAM 09/12/23 09/12/23 09/11/23 sucralfate 100 mg/mL oral 10,000 mg PO TID 09/12/23 09/12/23 09/11/23 suspension Active Medications Generic Name Dose Route Start Last Admin Trade Name Tyrese PRN Reason Stop Dose Admin Cyanocobalamin 500 mcg 09/13/23 09:00 09/13/23 07:55 Cyanocobalamin (B-12) 500 Mcg Tablet PO 10/13/23 08:59 500 mcg QAM SOURAV Administration Pantoprazole Sodium 40 mg/ 10 mls @ 5 mls/min 09/13/23 09:00 09/13/23 07:54 Syringe IV 10/13/23 08:59 5 mls/min BID SOURAV Administration Potassium Chloride/Sodium Chloride 20 meq in 1,000 mls @ 60 mls/hr 09/13/23 01:47 09/13/23 02:00 Normal Saline W/20 Meq Kcl IV 09/13/23 18:26 60 mls/hr .[id number] ONE Administration Protocol Metoprolol Tartrate 100 mg 09/13/23 09:00 09/13/23 07:54 Metoprolol Tartrate 100 Mg Tab PO 10/13/23 08:59 100 mg BID SOURAV Administration Montelukast Sodium 10 mg 09/13/23 09:00 09/13/23 07:55 Montelukast Sodium 10 Mg Tablet PO 10/13/23 08:59 10 mg QAM SOURAV Administration Morphine Sulfate 2 mg 09/12/23 20:26 09/13/23 07:53 Morphine Sulfate 2 Mg/Ml Carp IV 09/26/23 20:25 2 mg Q3H PRN Administration Pain Nicotine 7 mg 09/13/23 00:40 09/13/23 01:16 Nicotine 7 Mg/24 Hr Tdsy TD 10/13/23 00:39 7 mg QAM SOURAV Administration Sucralfate 1 gm 09/12/23 23:52 09/13/23 07:54 Sucralfate 1 Gm/10 Ml Udc PO 10/12/23 23:51 1 gm TID SOURAV Administration Tramadol HCl 25 - 50 mg 09/12/23 20:26 09/13/23 01:20 Tramadol Hcl 50 Mg Tablet PO 10/12/23 20:25 50 mg Q4H PRN Administration Pain Past Medical History Medical History Asthma Eustachian tube dysfunction 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 GERD (gastroesophageal reflux disease) Hemorrhoids during Hiatal hernia History of depression no current meds History of heart disorder patient says " my heart beats fast" Currently on Metoprolol Iron deficiency anemia Migraine Past Family History Family History Other Hiatal hernia Past Surgical History Surgical History H/O umbilical hernia repair History of 2018- intolerance to labor History of hemorrhoidectomy Social History Smoking Status: Current every day smoker tobacco type: cigarettes Smoking cigarettes per day: 2+ Do You Dip or Chew Tobacco: No Hx Alcohol Use: Yes Alcohol type: wine alcohol intake frequency: holidays/special occasions only Hx Substance Use: No substance use type: opiates Last Used Substance: Hours (ago) Physical Exam Vital Signs Last Vital Signs Temp 36.5 C 09/13/23 07:44 Pulse 81 09/13/23 07:44 Resp 16 09/13/23 07:44 BP 128/85 09/13/23 07:44 Pulse Ox 99 09/13/23 07:44 O2 Del Method Room Air 09/13/23 07:44 Testing Laboratory Results 09/13/23 07:12 09/13/23 07:12 PT 10.8 Seconds (9.0-12.0) 09/12/23 17:39 INR 1.0 (0.9-1.1) 09/12/23 17:39 APTT 26.4 Seconds (21.0-31.0) 09/12/23 17:39 Urine Color Yellow 09/13/23 00:20 Urine Appearance Clear (Clear) 09/13/23 00:20 Urine pH 6.0 (4.5-7.5) 09/13/23 00:20 Ur Specific [place] > 1.045 (1.000-1.030) H 09/13/23 00:20 Urine Protein 1+ (Negative) H 09/13/23 00:20 Urine Glucose (UA) Negative (Negative) 09/13/23 00:20 Urine Ketones Trace (Negative) H 09/13/23 00:20 Urine Nitrite Negative (Negative) 09/13/23 00:20 Ur Leukocyte Esterase Negative (Negative) 09/13/23 00:20 Urine WBC (Auto) 5-10 /hpf (0-5) H 09/13/23 00:20 Urine RBC (Auto) 0-4 /hpf (0-4) 09/13/23 00:20 U Hyaline Cast (Auto) 1-5 /lpf (0-5) 09/13/23 00:20 U Epithel Cells (Auto) >30 /lpf (0-5) H 09/13/23 00:20 Urine Bacteria (Auto) Negative (Negative) 09/13/23 00:20 Urine Test Negative (Negative) 09/13/23 00:20 Blood Type O Positive 09/12/23 17:39 Antibody Screen NEGATIVE 09/12/23 17:39 09/13/23 00:20 Urine Test Negative
[2023-09-13] MEDS ORDERED: PROPOFOL IV EMULSION 10 MG/ML 20 ML VIAL IV ONE (11:17)
[2023-09-13] MEDS ORDERED: LIDOCAINE 2% 2 ML VIAL/AMP(20MG/ML) INFIL ONE (11:17)
--- NOTE | 2023-09-13 11:19 | GI REPORT ---
Patient Name: Genie Adames Procedure Date: 09/13/2023 10:52 AM Date of : 1980 Admit Type: Inpatient Age: 42 Gender: Female Attending MD: Evelyn Montero DO, Procedure: Upper GI endoscopy Providers: Evelyn Montero DO Referring MD: Melina Hayes Do, Doc De La Cruz DO Indications: Hematemesis Patient Profile: This is a 42 year old female. Refer to note in patient chart for documentation of history and physical. Medicines: Monitored Anesthesia Care Complications: No immediate complications. Estimated Blood Loss: Estimated blood loss: none. Procedure: Pre-Anesthesia Assessment: - Prior to the procedure, a History and Physical was performed, and patient medications and allergies were reviewed. The risks and benefits of the procedure and the sedation options and risks were discussed with the patient. All questions were answered and informed consent was obtained. Patient identification and proposed procedure were verified by the physician, the nurse and the trailer steerer in the procedure room. Mental Status Examination: alert and oriented. Airway Examination: Mallampati Class II (the uvula but not tonsillar pillars visualized). Respiratory Examination: clear to auscultation. CV Examination: RRR, no murmurs, no S3 or S4. Prophylactic Antibiotics: The patient does not require prophylactic antibiotics. Prior Anticoagulants: The patient has taken no anticoagulant or antiplatelet agents. ASA Grade Assessment: II - A patient with mild systemic disease. After reviewing the risks and benefits, the patient was deemed in satisfactory condition to undergo the procedure. The anesthesia plan was to use monitored anesthesia care (MAC). Immediately prior to administration of medications, the patient was re-assessed for adequacy to receive sedatives. The physical status of the patient was re-assessed after the procedure. After obtaining informed consent, the endoscope was passed under direct vision. Throughout the procedure, the patient's blood pressure, pulse, and oxygen saturations were monitored continuously. The Scope was introduced through the mouth, and advanced to the second part of duodenum. The upper GI endoscopy was accomplished without difficulty. The patient tolerated the procedure well. Findings: The Z-line was regular and was found 35 cm from the incisors. A non-bleeding tear was found in the lower third of the esophagus. This measured 10 mm in length. The entire examined stomach was normal. The duodenal bulb and second portion of the duodenum were normal. Impression: - Z-line regular, 35 cm from the incisors. - Tear in the lower third of the esophagus from recent dilation. There was no evidence of fresh blood or fresh clot on the tear but this is the likely source of patient's recent hematemesis as the tear did have a few pigmented spots indicating recent bleeding. It appears to already be healing. - Normal stomach. - Normal duodenal bulb and second portion of the duodenum. - No specimens collected. Recommendation: - Patient has a contact number available for emergencies. The signs and symptoms of potential delayed complications were discussed with the patient. Return to normal activities tomorrow. Written discharge instructions were provided to the patient. - The patient will be observed post-procedure, until all discharge criteria are met. - Discharge patient to home (with escort). - Resume previous diet. - Continue present medications. - Use a PPI 40 mg BID for the next month and Carafate 1 gram QID for 14 days Evelyn Montero, 09/13/2023 11:19:07 AM Note Initiated On: 09/13/2023 10:52 AM Number of Addenda: 0 I attest to the content of the Intraoperative Record and orders documented therein, exceptions below {[id number]}
--- NOTE | 2023-09-13 12:01 | Electrocardiogram Report ---
Test Reason : Blood Pressure : / mmHG Vent. Rate : 084 BPM Atrial Rate : 084 BPM P-R Int : 132 ms QRS Dur : 086 ms QT Int : 360 ms P-R-T Axes : 034 003 011 degrees QTc Int : 425 ms Normal sinus rhythm Minimal voltage criteria for LVH, may be normal variant Borderline ECG When compared with ECG of 19-APR-2022 17:17, No significant change was found Confirmed by Mahendra Hsu ([id number]) on 09/13/2023 12:01:11 PM Referred By: REFERRED SELF Confirmed By:Ashutosh Hsu
--- NOTE | 2023-09-13 12:03 | Anesthesiology Progress Note ---
Date of Service September 13, 2023 Anesthesia Post Procedure Vital Signs Vital Signs: Temp Pulse Pulse Resp BP BP BP 09/13/23 11:49 69 16 125/85 09/13/23 11:34 68 16 112/73 09/13/23 11:19 69 16 98/54 L 09/13/23 10:26 35.9 C L 70 16 134/94 09/13/23 07:44 36.5 C 81 16 128/85 09/13/23 07:23 76 09/13/23 04:32 36.7 C 80 18 136/87 09/13/23 01:12 79 09/12/23 23:52 36.8 C 85 18 139/90 09/12/23 23:38 85 139/90 09/12/23 23:01 09/12/23 23:00 76 12 130/96 09/12/23 22:00 78 13 121/86 09/12/23 21:00 72 13 136/91 09/12/23 20:37 79 140/96 09/12/23 20:00 73 16 140/96 09/12/23 19:00 81 15 138/95 09/12/23 18:39 77 21 124/99 09/12/23 18:30 93 H 09/12/23 17:28 36.9 C 92 H 16 Pulse Ox O2 Del Method 09/13/23 11:49 99 Room Air 09/13/23 11:34 96 Room Air 09/13/23 11:19 96 Room Air 09/13/23 10:26 99 Room Air 09/13/23 07:44 99 Room Air 09/13/23 07:23 09/13/23 04:32 97 Room Air 09/13/23 01:12 09/12/23 23:52 98 Room Air 09/12/23 23:38 09/12/23 23:01 Room Air 09/12/23 23:00 96 Room Air 09/12/23 22:00 99 Room Air 09/12/23 21:00 99 Room Air 09/12/23 20:37 09/12/23 20:00 99 Room Air 09/12/23 19:00 96 09/12/23 18:39 99 Room Air 09/12/23 18:30 09/12/23 17:28 99 Room Air Pain Intensity Throat: Pain Intensity: 6 Transfer of Care Handoff Completed per policy Notes Mental Status: alert / awake / arousable and participated in evaluation Patient Amnestic to Procedure: Yes Nausea / Vomiting: adequately controlled Pain: adequately controlled Airway Patency, RR, SpO2: stable & adequate BP & HR: stable & adequate Hydration State: stable & adequate Anesthetic Complications: no major complications apparent
--- NOTE | 2023-09-13 14:06 | Discharge Summary ---
Discharge Summary Date of Service September 13, 2023 Admission HPI Per Admitting Provider History obtained from patient and records. Medical history significant for PSVT, GERD, eosinophilic esophagitis as per records, anxiety/mood disorder, migraine, ongoing tobacco abuse. Last confinement April 2022 for acute pyelonephritis. Patient underwent outpatient EGD at [facility] yesterday for dysphagia. No endoscopic esophageal abnormality to explain patient's dysphagia as per report. Subsequent esophageal dilatation. Normal stomach and duodenum as per report. Sucralfate suspension course recommended for 10 days. Last night, patient noted hematemesis described as blood clots with achy epigastric pain symptoms with some lightheadedness. Patient also complaining of sore throat symptoms. Denies NSAID intake. This morning, patient took 1 Excedrin tablet for migraine headache. She later noted melanotic stool stools. Patient denies chest pain, SOB. Patient directed to ER by outpatient provider. IV Protonix administered at the ER. 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 Dx & Hospital Course #1 = Principal Diagnosis Updated Medication List Medication Instructions Recorded Confirmed Type albuterol sulfate 90 mcg/actuation 2 puff inhalation Q6H PRN 06/28/17 09/12/23 History aerosol inhaler (Ventolin HFA) Shortness Of Breath Or Wheezing #1 inhaler [id number]-[id number]-rrryrqfb 250 2 tab PO Q6H PRN Migraine Headache 01/08/19 09/12/23 History mg-250 mg-65 mg tablet (Excedrin Migraine) omeprazole 40 mg capsule,delayed 40 mg PO DAILY 01/08/19 09/12/23 History release acetaminophen 325 mg tablet 650 mg PO Q6H PRN Pain 04/19/22 09/12/23 History cyanocobalamin (vitamin B-12) 500 500 mcg PO QAM #30 tabs 04/22/22 09/12/23 Rx mcg tablet Maalox/Benadryl/Lidocaine See Rx Instructions .Route .COMPLEX 09/12/23 09/12/23 History ferrous sulfate 325 mg (65 mg 325 mg PO .EVERY OTHER DAY 09/12/23 09/12/23 History iron) tablet,delayed release metoprolol tartrate 100 mg tablet 100 mg PO BID 09/12/23 09/12/23 History montelukast 10 mg tablet 10 mg PO QAM 09/12/23 09/12/23 History sucralfate 100 mg/mL oral 10,000 mg PO TID 09/12/23 09/12/23 History suspension pantoprazole 40 mg tablet,delayed 40 mg PO BID #60 tabs 09/13/23 Rx release (Protonix) Hospital Stay Data Consultations 09/12/23 18:42 ED Decision to Admit Stat 09/12/23 23:52 Consult Gastroenterology Routine Procedures Performed Operation Date: 09/13/23 16:30 Actual Procedures p Esophagogastroduodenoscopy - Evelyn Montero, Diagnostic Imagining Performed 09/12/23 20:22 CT Abd and Pelvis [CT abd pelvis IV con only] Stat Pending Results Patient Have Any Pending Studies at Discharge: No Discharge Instructions Given to Patient (Per Discharging Provider) Please take all medications as instructed on discharge as below. You were found to have an esophageal tear likely secondary to your recent esophageal dilation as a treatment for eosinophilic esophagitis. Please continue using Protonix 40 mg p.o. twice daily for the next month and Carafate 1 g 4 times daily for 14 days. This will help with any discomfort. It is recommended that you follow-up with your primary care doctor within a week of discharge to ensure you are still doing well after returning home. At this visit you may want to consider repeat CBC (complete blood count) as your hemoglobin was slightly low likely related to your upper GI bleeding. Defer to your primary care provider to order this. It was a pleasure taking care of you! Please call if you have any questions or problems. You can reach a [facility] hospitalist on duty at [facility] 24 hours a day by calling [phone]. Take care of yourself. Melina Hayes, [facility] Hospitalist
== END 2023-09-13 15:00 | disposition home or self-care (01) ==
LOC: ED 17:17 → 2N 17:17

== ENCOUNTER 2024-03-14 17:29 | Inpatient (IN) ==
--- NOTE | 2024-03-14 17:54 | ED Triage Note ---
Date of Service March 14, 2024 Provider in Triage Author: Gaby Gustafson History of Present Illness This patient was briefly evaluated while in triage. An abbreviated physical exam was performed. This patient is a 43-year-old Female who presents to the ED for evaluation of flu-like symptoms. She states that yesterday afternoon she developed a fever and upper abdominal pain. She is now having pain in the right side of the back which radiates into her pelvis. She has had vomiting. States her temperature was 103.2 at home. Physical Exam GENERAL: Non-toxic and in no acute distress. HEENT: Pupils equal. No obvious scleral icterus. HEART: Regular rate and rhythm. LUNGS: Clear to auscultation. No accessory muscle use. ABDOMEN: Tenderness in the right lower quadrant and right mid abdomen. NEURO: Alert and oriented. No obvious neurological deficits on quick neuro exam. Initial orders for labs and / or imaging were placed and patient was placed in the waiting area until a bed is available. Please see further documentation for the full ED course.
[2024-03-14] MEDS: SODIUM CHLORIDE 0.9% 1,000 ML IV ONE (19:20)
[2024-03-14 19:40] LABS: Basophils # (auto) 0.04 K/uL (0.00-0.20); Basophils % (auto) 0.3 %; Eosinophils # (auto) 0.04 K/uL (0.00-0.50); Eosinophils % (auto) 0.3 %; Hematocrit (blood only) 37.8 % (37.0-47.0); Hemoglobin 12.9 g/dl (12.0-16.0); Immature Granulocytes # (auto) 0.05 K/uL (0.01-0.20); Immature Granulocytes % (auto) 0.4 %; Lymphocytes # (auto) 1.07 K/uL (1.20-3.40); Mean Corpuscular Hemoglobin 29.5 pg (25.0-34.0); Mean Corpuscular Hgb Conc 34.1 g/dL (32.0-36.0); Mean Corpuscular Volume 86.3 fL (80.0-100.0); Mean Platelet Volume 10.7 fL (9.4-12.4); Monocytes # (auto) 1.05 K/uL (0.11-0.59); Monocytes % (auto) 7.9 %; Neutrophils # (auto) 11.06 K/uL (1.40-6.50); Neutrophils % (auto) 83.1 %; Platelet Count 209 K/uL (130-400); RDW Coefficient of Variation 13.3 % (11.5-14.5); RDW Standard Deviation 42.4 fL (36.4-46.3); Red Blood Count 4.38 M/uL (4.20-5.40); White Blood Count 13.31 K/ul (4.8-10.8)
[2024-03-14 19:40] LABS: Appearance Urine Cloudy (Clear); Bacteria Urine Automated 4+ (None Seen); Bilirubin Urine Negative (Negative); Blood Urine Negative (Negative); Color Urine Dark Yellow; Glucose Urine UA Negative (Negative); Ketones Urine Trace (Negative); Leukocyte Esterase Urine 2+ (Negative); Nitrite Urine Positive (Negative); Protein Urine 1+ (Negative); RBC Urine Automated 0-2 /hpf (0-2); Specific Gravity Urine 1.023 (1.000-1.030); Urobilinogen Urine Negative (Negative); WBC Urine Automated >50 /hpf (0-5)
[2024-03-14 19:53] LABS: Pregnancy Test, Serum Negative (Negative)
[2024-03-14 20:01] LABS: Albumin Globulin Ratio 1.1 (0.9-2); Albumin Level 4.1 gm/dl (3.4-5.0); BUN Creatinine Ratio 12.9 (10-20); Bilirubin,Total 0.6 mg/dl (0.2-1.0); Calcium 9.3 mg/dl (8.6-10.3); Creatinine Clr Calc Pharmacy 90.6 ml/min; Est GFR (Non-African American) 84.5 ml/min; Globulin 3.7 gm/dl (2.5-4.0); Potassium 3.7 mmol/L (3.5-5.1); Total Protein 7.8 gm/dl (6.0-8.3)
[2024-03-14] MEDS: cefTRIAXone SODIUM 2,000 MG/50 ML BAG IV STA (20:53)
--- NOTE | 2024-03-14 21:18 | Emergency Department Note ---
Impression & Plan Pyelonephritis ED Provider Note NAME: KAYLEE DONOVAN AGE: 43 SEX: F : 1980 ARRIVES VIA: Walk-In INFORMANT: Patient, ED PROVIDER(S): Js Mckenna MD CHIEF COMPLAINT: Fever, epigastric, right flank pain HPI: This is a 43-year-old female presenting for fever, epigastric/right flank pain. Patient notes that for the past 1 day she has noticed new pain in her epigastrium. She also notes a fever that started 1 day ago as well. Today she has right flank pain that goes into her groin. She notes nausea with vomiting once this morning. She notes dizziness upon standing. She otherwise states she feels generally unwell with fevers up to 103 at home. No diarrhea. ROS: See above HPI for pertinent positives & negatives. A total of 10 systems reviewed and were otherwise negative. PHYSICAL EXAMINATION: General: resting comfortably in no acute distress Head: Normocephalic and atraumatic Eyes: Normal inspection, extraocular muscles intact Ear, nose, throat: Normal external exam Neck: Normal range of motion Respiratory: lungs clear to auscultation bilaterally Cardiovascular: Regular rate/rhythm, no murmur GI: soft, nontender, no guarding or rebound Extremities: nontender, moves all extremities Neuro: The patient awake and alert, appropriately conversive, no focal deficits, symmetric faces Skin: Warm, dry, and intact MEDICAL DECISION MAKING: This is a 41-year-old female sent for fever, epigastric and right flank pain. Patient is tachycardic, febrile here. Given empiric Ceftriaxone at this time. Patient already given 1 L of normal saline, will continue with another liter. At this time with flank pain, center kidney stone. She is not septic shock as of yet. Will do viral panel as well to help elucidate etiology of fever and tachycardia. -Clinically reveals a leukocytosis to 13.31. Otherwise normal electrolytes, no transaminitis, negative lipase, non. Urinalysis is concerning for infection. -Negative viral panel -Will give Toradol for patient's current pain in her right flank as well as headache -The patient's CT imaging raise concern for pyelonephritis. Will admit her at this time for her current symptoms, slight concern for sepsis. Patient with fluids as well as ceftriaxone. Blood pressure is mildly downtrending as well 100/76. Differential diagnosis: Pyelonephritis, infected kidney stone, renal colic, SBO, cystitis, diverticulitis, mesenteric ischemia ER treatment provided: See below Diagnostics interpreted by me: ECG: None Cardiac Monitoring: An order was placed for continuous cardiac monitoring. The monitor shows a rate of 105 with sinus rhythm. Laboratory studies: As stated above and show below. Imaging studies: See below. 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 GERD (gastroesophageal reflux disease) Hemorrhoids during Hiatal hernia History of depression no current meds History of heart disorder patient says " my heart beats fast" Currently on Metoprolol Iron deficiency anemia Migraine Surgical History H/O umbilical hernia repair History of 2018- intolerance to labor History of hemorrhoidectomy Family History Other Hiatal hernia Social History Smoking Status: Current every day smoker Tobacco Type: Cigarettes Cigarettes Per Day: 2+; Second Hand Exposure: Yes; Do You Dip or Chew Tobacco: No; Hx Alcohol Use: Yes Alcohol type: wine Hx Substance Use: No Preferred Language: Italian Communication Ability: Effective 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 Beliefs That Will Affect Care: None marital status: Legally Current Living Situation: Alone Current Living Situation Comment: lives with 6 children Feels Safe at Home: Yes Assistive Devices: Nebulizer Allergies Allergies Allergy/AdvReac Type Severity Reaction Status Date / Time apple Allergy Severe Swelling Verified 03/15/24 00:36 of Lip/Tongue/Throat egg Allergy Severe THROAT Verified 03/15/24 00:36 SWELLS /HARD TO BREATHE potato Allergy Severe Swelling Verified 03/15/24 00:36 of Lip/Tongue/Throat spinach Allergy Severe SHORTNESS Verified 03/15/24 00:36 OF BREATH ibuprofen AdvReac Severe VOMITING,BLURRED Verified 03/15/24 00:36 VISION, RINGING OF EARS Home Meds Home Medications Medication Instructions Recorded Confirmed albuterol sulfate 90 mcg/actuation 2 puff inhalation Q6H PRN 06/28/17 03/15/24 aerosol inhaler (Ventolin HFA) Shortness Of Breath Or Wheezing #1 inhaler otvmadk-ghlfrbhcrwjjf-uommjdzq 250 2 tab PO Q6H PRN Migraine Headache 01/08/19 03/15/24 mg-250 mg-65 mg tablet (Excedrin Migraine) ferrous sulfate 325 mg (65 mg 325 mg PO Q OTHER DAY 09/12/23 03/15/24 iron) tablet,delayed release metoprolol tartrate 100 mg tablet 100 mg PO BID 09/12/23 03/15/24 montelukast 10 mg tablet 10 mg PO QAM 09/12/23 03/15/24 acetaminophen 80 mg chewable 320 mg PO Q6 PRN Fever Or Pain 03/15/24 03/15/24 tablet (Children's Acetaminophen) baclofen 10 mg tablet 10 mg PO AMHS 03/15/24 03/15/24 epinephrine 0.3 mg/0.3 mL 0.3 mg IM DIRECTED PRN Allergic 03/15/24 03/15/24 injection, auto-injector (EpiPen) Reaction lidocaine 5 % topical ointment 1 applic topical TID PRN Pain 03/15/24 03/15/24 loratadine 10 mg tablet 10 mg PO QPM 03/15/24 03/15/24 sucralfate 100 mg/mL oral 10 ml PO ACHS 03/15/24 03/15/24 suspension Previous Rx's Medication Instructions Recorded pantoprazole 40 mg tablet,delayed 40 mg PO BID #60 tabs 09/13/23 release (Protonix) Results & Data (ED) Vital Signs Vital Signs - 24 hr 03/14/24 17:51 03/14/24 20:48 03/14/24 21:00 Temperature 38.5 C H 37.5 C 38.3 C H Temperature Source Oral Oral Oral Pulse Rate 118 H Pulse Rate [Finger] 102 H Pulse Rhythm [Finger] Regular Pulse Strength [Finger] Normal Respiratory Rate 18 18 20 Respiratory Effort / Characteristics Non-Labored Non-Labored Non-Labored Respiratory Depth Normal Normal Normal Respiratory Pattern Regular Regular Regular Blood Pressure 124/83 Blood Pressure [Right Arm] 116/97 130/94 Blood Pressure Mean 96 Blood Pressure Mean [Right Arm] 103 106 Blood Pressure Position [Right Arm] Sitting Lying Pulse Oximetry 97 99 Oxygen Delivery Method Room Air Room Air Room Air Sepsis Recent Fever Within 48 Hours Yes Sepsis New/Unexplained Change in Mental Status No Sepsis Action Taken by Nursing Physician Notified 03/14/24 21:27 03/14/24 23:05 Temperature Temperature Source Pulse Rate 110 H Pulse Rate [Finger] 105 H Pulse Rhythm [Finger] Pulse Strength [Finger] Respiratory Rate 18 Respiratory Effort / Characteristics Respiratory Depth Respiratory Pattern Blood Pressure Blood Pressure [Right Arm] 100/76 Blood Pressure Mean Blood Pressure Mean [Right Arm] 84 Blood Pressure Position [Right Arm] Lying Pulse Oximetry 99 Oxygen Delivery Method Room Air Sepsis Recent Fever Within 48 Hours Sepsis New/Unexplained Change in Mental Status Sepsis Action Taken by Nursing Laboratory Data 03/14/24 19:20 03/14/24 19:20 Lab Results 03/14/24 03/14/24 Range/Units 19:20 19:22 WBC 13.31 H (4.8-10.8) K/ul RBC 4.38 (4.20-5.40) M/uL Hgb 12.9 (12.0-16.0) g/dl Hct 37.8 (37.0-47.0) % MCV 86.3 (80.0-100.0) fL MCH 29.5 (25.0-34.0) pg MCHC 34.1 (32.0-36.0) g/dL RDW Std Deviation 42.4 (36.4-46.3) fL RDW Coeff of Jelena 13.3 (11.5-14.5) % Plt Count 209 (130-400) K/uL MPV 10.7 (9.4-12.4) fL Immature Gran % (Auto) 0.4 % Neut % (Auto) 83.1 % Lymph % (Auto) 8.0 % [place] % (Auto) 7.9 % Eos % (Auto) 0.3 % Baso % (Auto) 0.3 % Neut # (Auto) 11.06 H (1.40-6.50) K/uL Lymph # (Auto) 1.07 L (1.20-3.40) K/uL [place] # (Auto) 1.05 H (0.11-0.59) K/uL Eos # (Auto) 0.04 (0.00-0.50) K/uL Baso # (Auto) 0.04 (0.00-0.20) K/uL Immature Gran # (Auto) 0.05 (0.01-0.20) K/uL Sodium 135 L (136-145) mmol/L Potassium 3.7 (3.5-5.1) mmol/L Chloride 102 (98-107) mmol/L Carbon Dioxide 23 (21-32) mmol/L Anion Gap 10 (3-11) BUN 11 (6-23) mg/dl Creatinine 0.85 (0.6-1.2) mg/dl Est Cr Clr Drug Dosing 90.6 ml/min Est GFR ( Amer) 98.0 ml/min Est GFR (Non-Af Amer) 84.5 ml/min BUN/Creatinine Ratio 12.9 (10-20) Glucose 114 H (70-99(Fasting)) mg/dl Lactate 1.3 (0.4-2.0) mmol/L Calcium 9.3 (8.6-10.3) mg/dl Magnesium 2.0 (1.7-2.4) mg/dl Total Bilirubin 0.6 (0.2-1.0) mg/dl AST 10 L (13-39) U/L ALT 6 L (7-52) U/L Alkaline Phosphatase 77 (34-104) U/L Total Protein 7.8 (6.0-8.3) gm/dl Albumin 4.1 (3.4-5.0) gm/dl Globulin 3.7 (2.5-4.0) gm/dl Albumin/Globulin Ratio 1.1 (0.9-2) Lipase 9 L (11-82) U/L HCG, Qual Negative (Negative) Urine Color Dark Yellow Urine Appearance Cloudy A (Clear) Urine pH 6.0 (4.5-7.5) Ur Specific [place] 1.023 (1.000-1.030) Urine Protein 1+ H (Negative) Urine Glucose (UA) Negative (Negative) Urine Ketones Trace H (Negative) Urine Blood Negative (Negative) Urine Nitrite Positive A (Negative) Urine Bilirubin Negative (Negative) Urine Urobilinogen Negative (Negative) Ur Leukocyte Esterase 2+ H (Negative) Urine WBC (Auto) >50 H (0-5) /hpf Urine RBC (Auto) 0-2 (0-2) /hpf U Hyaline Cast (Auto) 3-5 H (0-2) /lpf U Epithel Cells (Auto) 3-5 H (0-2) /hpf Urine Bacteria (Auto) 4+ H (None Seen) Administered Medications Discontinued Medications Sodium Chloride (Nss) 1,000 mls @ 999 mls/hr IV .Q1H1M ONE Stop: 03/14/24 18:55 Last Infusion: 03/14/24 22:36 Dose: Infused Documented By: Admin: 03/14/24 19:20 Dose: 999 mls/hr Documented By: JAYY Ceftriaxone Sodium (Rocephin) 2,000 mg in 50 mls @ 100 mls/hr IV NOW STA Stop: 03/14/24 21:10 Last Infusion: 03/14/24 21:44 Dose: Infused Documented By: Admin: 03/14/24 20:53 Dose: 100 mls/hr Documented By: JONN Sodium Chloride (Nss) 1,000 mls @ 999 mls/hr IV .Q1H1M SOURAV Stop: 03/14/24 23:15 Last Admin: 03/14/24 23:02 Dose: 999 mls/hr Documented By: Infusion: 03/14/24 23:02 Dose: Infused Documented By: Infusion: 03/14/24 22:35 Dose: 999 mls/hr Documented By: Admin: 03/14/24 21:41 Dose: 999 mls/hr Documented By: JONN Acetaminophen (Ofirmev) 1,000 mg in 100 mls @ 400 mls/hr IV NOW STA Stop: 03/14/24 23:13 Last Infusion: 03/14/24 23:23 Dose: Infused Documented By: Admin: 03/14/24 23:02 Dose: 400 mls/hr Documented By: Cefepime HCl (Maxipime) 2,000 mg in 20 mls @ 5 mls/min IV NOW STA; Protocol Stop: 03/14/24 23:34 Last Admin: 03/15/24 00:36 Dose: 5 mls/min Documented By: DARREN Ioversol (Optiray 320 100ml) 94 ml IV ONCE ONE Stop: 03/14/24 21:20 Last Admin: 03/14/24 21:19 Dose: 94 ml Documented By: SORAIDA Oxycodone HCl (Oxycodone Hcl Ir 5 Mg Tab (Immediate Release)) 5 mg PO NOW STA Stop: 03/15/24 00:05 Last Admin: 03/15/24 00:36 Dose: 5 mg Documented By: [facility] Imaging Data Radiologist's Impression: Abdomen/Pelvis CT 03/14/24 17:55 CT SCAN OF THE ABDOMEN AND PELVIS WITH IV CONTRAST CLINICAL HISTORY: Right flank pain. Vomiting. COMPARISON STUDY: Abdominal CT dated 09/12/2023. TECHNIQUE: Following the IV administration of 94 cc of Optiray 320, CT scan of the abdomen and pelvis is performed from the lung bases to the proximal femora. Images are reviewed in the axial, sagittal, and coronal planes. IV contrast was administered without complication. A dose lowering technique was utilized adhering to the principles of ALARA. CT DOSE: 870.88 mGy.cm FINDINGS: Lung bases: The heart is normal in size and without pericardial effusion. The lung bases are clear. Liver: The contrast-enhanced liver is enlarged measuring 21.5 cm in length. The liver is otherwise normal in contour and attenuation. There is no intrahepatic biliary ductal dilatation. The hepatic veins and portal veins are patent. A 1.8 cm left lobe liver lesion is unchanged in appearance. This may represent a hemangioma but is incompletely characterized. Gallbladder: Unremarkable. Spleen: The spleen is mildly enlarged measuring 13.7 cm in length. Pancreas: Unremarkable. Adrenal glands: Unremarkable. Kidneys: The contrast enhanced kidneys are normal in size and without hydronephrosis. Urothelial thickening is seen within the right renal pelvis and the right ureter with perinephric and periureteric infiltration an trace fluid. There is heterogeneous enhancement of the right kidney. The left kidney enhances homogeneously. Abdominal vasculature: The abdominal aorta is normal in course and caliber. Bowel: There is mild colonic fecal retention. No bowel obstruction is seen. The appendix is well-visualized and normal. Peritoneum: There is no intraperitoneal free air or abdominal ascites. A naval piercing is noted. Lymphadenopathy: None. Pelvic viscera: The bladder, uterus, and adnexa are normal as visualized noting bilateral ovarian follicles. There is trace free fluid in the cul-de-sac. Skeletal structures: No lytic or blastic lesions are seen. IMPRESSION: 1. Findings suggest right-sided pyelonephritis. Correlate with clinical findings and urinalysis. 2. Mild hepatosplenomegaly. 3. Normal appendix. 4. Trace free fluid in the cul-de-sac is nonspecific and likely physiologic. 5. Additional findings as above. ACT 112: Negative or not required by law. Electronically signed by: Israel Crandall M.D. 03/14/2024 10:13 PM Discharge Plan Visit Data Chief Complaint: Flu Like Symptoms Stated Complaint: FEVER, ABD PAIN, RT FLANK PAIN, NAUSEA/VOMITING ED Provider: Js Mckenna Discharge Problem: Pyelonephritis Discharge Instructions Interventions: ED Discharge Assessment Last Done: 03/15/24 01:38
[2024-03-14] MEDS: OPTIRAY 320 100ml IV ONE (21:19)
[2024-03-14] MEDS: SODIUM CHLORIDE 0.9% 1,000 ML IV SCH (21:41)
--- NOTE | 2024-03-14 22:16 | CT Scan Report ---
CT SCAN OF THE ABDOMEN AND PELVIS WITH IV CONTRAST CLINICAL HISTORY: Right flank pain. Vomiting. COMPARISON STUDY: Abdominal CT dated 09/12/2023. TECHNIQUE: Following the IV administration of 94 cc of Optiray 320, CT scan of the abdomen and pelvi s is performed from the lung bases to the proximal femora. Images are reviewed in the axial, sagittal , and coronal planes. IV contrast was administered without complication. A dose lowering technique wa s utilized adhering to the principles of ALARA. CT DOSE: 870.88 mGy.cm FINDINGS: Lung bases: The heart is normal in size and without pericardial effusion. The lung bases are clear. Liver: The contrast-enhanced liver is enlarged measuring 21.5 cm in length. The liver is otherwise no rmal in contour and attenuation. There is no intrahepatic biliary ductal dilatation. The hepatic vein s and portal veins are patent. A 1.8 cm left lobe liver lesion is unchanged in appearance. This may r epresent a hemangioma but is incompletely characterized. Gallbladder: Unremarkable. Spleen: The spleen is mildly enlarged measuring 13.7 cm in length. Pancreas: Unremarkable. Adrenal glands: Unremarkable. Kidneys: The contrast enhanced kidneys are normal in size and without hydronephrosis. Urothelial thic kening is seen within the right renal pelvis and the right ureter with perinephric and periureteric i nfiltration an trace fluid. There is heterogeneous enhancement of the right kidney. The left kidney e nhances homogeneously. Abdominal vasculature: The abdominal aorta is normal in course and caliber. Bowel: There is mild colonic fecal retention. No bowel obstruction is seen. The appendix is well-vis ualized and normal. Peritoneum: There is no intraperitoneal free air or abdominal ascites. A naval piercing is noted. Lymphadenopathy: None. Pelvic viscera: The bladder, uterus, and adnexa are normal as visualized noting bilateral ovarian fol licles. There is trace free fluid in the cul-de-sac. Skeletal structures: No lytic or blastic lesions are seen. IMPRESSION: 1. Findings suggest right-sided pyelonephritis. Correlate with clinical findings and urinalysis. 2. Mild hepatosplenomegaly. 3. Normal appendix. 4. Trace free fluid in the cul-de-sac is nonspecific and likely physiologic. 5. Additional findings as above. ACT 112: Negative or not required by law. Electronically signed by: Israel Crandall M.D. 03/14/2024 10:13 PM
[2024-03-14 22:32] LABS: Adenovirus PCR Not Detected (NotDetected); Bordetella parapertussis PCR Not Detected (NotDetected); Bordetella pertussis PCR Not Detected (NotDetected); Chlamydia pneumoniae PCR Not Detected (NotDetected); Coronavirus 229E PCR Not Detected (NotDetected); Coronavirus CoV-2 (COVID19)PCR Not Detected (NotDetected); Coronavirus HKU1 PCR Not Detected (NotDetected); Coronavirus NL63 PCR Not Detected (NotDetected); Coronavirus OC43PCR Not Detected (NotDetected); Human Metapneumovirus PCR Not Detected (NotDetected); Influenza A PCR Not Detected (NotDetected); Influenza B PCR Not Detected (NotDetected); Mycoplasma pneumoniae PCR Not Detected (NotDetected); Parainfluenza Virus 1 PCR Not Detected (NotDetected); Parainfluenza Virus 2 PCR Not Detected (NotDetected); Parainfluenza Virus 3 PCR Not Detected (NotDetected); Parainfluenza Virus 4 PCR Not Detected (NotDetected); Respiratory Syncytial VirusPCR Not Detected (NotDetected); Rhinovirus/Enterovirus PCR Not Detected (NotDetected)
[2024-03-14] MEDS: ACETAMINOPHEN 1,000 MG/100 ML VIAL IV STA (23:02)
--- NOTE | 2024-03-14 23:37 | History & Physical Report ---
Date of Service March 14, 2024 Assessment & Plan (1) Sepsis: Plan: Secondary to complicated UTI hx PSVT GERD, eosinophilic esophagitis, patient with daily heartburn symptoms, outpatient follow-up EGD to be scheduled as per GI note bronchial asthma, not in acute exacerbation anxiety/mood disorder, stable ongoing tobacco abuse. Medical telemetry CS, Cefepime IVF Nicotine replacement therapy as needed DVT prophylaxis. Lovenox subcu Full code Text document was generated using [employer] voice recognition software. It may contain grammatical or spelling errors. Kindly contact undersigned for clarification of any documentation item in question. History of Present Illness Chief Complaint: Abdominal, right flank pain Primary Care Provider: Anil Sandhu MD History obtained from patient and records. Medical history significant for PSVT, GERD, eosinophilic esophagitis as per records, bronchial asthma, anxiety/mood disorder, migraine, ongoing tobacco abuse. Last confinement September 2023 for post procedure UGIB following outpatient EGD dilatation. EGD during confinement showed nonbleeding tear lower third of esophagus. Patient discharged on PPI and Carafate course. Yesterday, patient noted achy right flank pain going to her abdomen. Some nausea with bilious emesis. Denies black/bloody stools. Chronic epigastric burning discomfort attributed to possible eosinophilic esophagitis as per GI specialist as per patient. Denies hematuria symptoms. No chest pain, no SOB. IV ceftriaxone administered at the ER. 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 Allergies Allergy/AdvReac Type Severity Reaction Status Date / Time apple Allergy Severe Swelling Verified 03/15/24 00:36 of Lip/Tongue/Throat egg Allergy Severe THROAT Verified 03/15/24 00:36 SWELLS /HARD TO BREATHE potato Allergy Severe Swelling Verified 03/15/24 00:36 of Lip/Tongue/Throat spinach Allergy Severe SHORTNESS Verified 03/15/24 00:36 OF BREATH ibuprofen AdvReac Severe VOMITING,BLURRED Verified 03/15/24 00:36 VISION, RINGING OF EARS Home Medications Medication Instructions Recorded Confirmed Type albuterol sulfate 90 mcg/actuation 2 puff inhalation Q6H PRN 06/28/17 03/15/24 History aerosol inhaler (Ventolin HFA) Shortness Of Breath Or Wheezing #1 inhaler pbbvukp-vzkhkzjxzuxwf-vcnrgmgy 250 2 tab PO Q6H PRN Migraine Headache 01/08/19 03/15/24 History mg-250 mg-65 mg tablet (Excedrin Migraine) ferrous sulfate 325 mg (65 mg 325 mg PO Q OTHER DAY 09/12/23 03/15/24 History iron) tablet,delayed release metoprolol tartrate 100 mg tablet 100 mg PO BID 09/12/23 03/15/24 History montelukast 10 mg tablet 10 mg PO QAM 09/12/23 03/15/24 History pantoprazole 40 mg tablet,delayed 40 mg PO BID #60 tabs 09/13/23 03/15/24 Rx release (Protonix) acetaminophen 80 mg chewable 320 mg PO Q6 PRN Fever Or Pain 03/15/24 03/15/24 History tablet (Children's Acetaminophen) baclofen 10 mg tablet 10 mg PO AMHS 03/15/24 03/15/24 History epinephrine 0.3 mg/0.3 mL 0.3 mg IM DIRECTED PRN Allergic 03/15/24 03/15/24 History injection, auto-injector (EpiPen) Reaction lidocaine 5 % topical ointment 1 applic topical TID PRN Pain 03/15/24 03/15/24 History loratadine 10 mg tablet 10 mg PO QPM 03/15/24 03/15/24 History sucralfate 100 mg/mL oral 10 ml PO ACHS 03/15/24 03/15/24 History suspension 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 GERD (gastroesophageal reflux disease) Hemorrhoids during Hiatal hernia History of depression no current meds History of heart disorder patient says " my heart beats fast" Currently on Metoprolol Iron deficiency anemia Migraine Surgical History H/O umbilical hernia repair History of 2018- intolerance to labor History of hemorrhoidectomy Family History Other Hiatal hernia Social History Smoking Status: Current every day smoker Tobacco Type: Cigarettes and E-cigarettes / Vaping Cigarettes Per Day: 2+; Second Hand Exposure: Yes; Do You Dip or Chew Tobacco: No; Hx Alcohol Use: Yes Alcohol type: wine Hx Substance Use: No Preferred Language: Peruvian Communication Ability: Effective Cellular Biologist Required: No Beliefs That Will Affect Care: None marital status: Legally Current Living Situation: Alone Current Living Situation Comment: lives with 6 children Other Information That Helps Us Care for You: No Feels Safe at Home: Yes Safety Concerns: Feels Safe At This Time Assistive Devices: None Review of Systems Review of Systems: As per HPI, all other systems reviewed and negative Physical Exam Physical Exam: GENERAL: uncomfortable, looks older than stated age, no respiratory distress SKIN: Normal color, warm HEENT: [place] palpebral conjunctivae, no ptosis, dry buccal mucosa NECK : Supple, no tenderness CHEST : CTA, no tenderness HEART : Tachycardic, no obvious murmurs ABDOMEN: Some distention, minimal epigastric tenderness, right flank tenderness EXTREMITIES : No LE swelling/tenderness, no other conspicuous deformities noted NEUROLOGIC : Coherent, no facial asymmetry, no other gross focality Results & Data Results & Data Vital Signs (Past 12 Hours) Vital Signs Temp Pulse Pulse Resp BP BP Pulse Ox 03/14/24 23:05 105 H 99 H 100/76 18 L 03/14/24 21:27 110 H 03/14/24 21:00 38.3 C H 102 H 20 130/94 99 03/14/24 20:48 37.5 C 18 116/97 03/14/24 17:51 38.5 C H 118 H 18 124/83 97 O2 Del Method 03/14/24 23:05 03/14/24 21:27 03/14/24 21:00 Room Air 03/14/24 20:48 Room Air 03/14/24 17:51 Room Air Laboratory Results Laboratory Results WBC 13.31 K/ul (4.8-10.8) H 03/14/24 19:20 RBC 4.38 M/uL (4.20-5.40) 03/14/24 19:20 Hgb 12.9 g/dl (12.0-16.0) 03/14/24 19:20 Hct 37.8 % (37.0-47.0) 03/14/24 19:20 MCV 86.3 fL (80.0-100.0) 03/14/24 19:20 MCH 29.5 pg (25.0-34.0) 03/14/24 19:20 MCHC 34.1 g/dL (32.0-36.0) 03/14/24 19:20 RDW Std Deviation 42.4 fL (36.4-46.3) 03/14/24 19:20 RDW Coeff of Jelena 13.3 % (11.5-14.5) 03/14/24 19:20 Plt Count 209 K/uL (130-400) 03/14/24 19:20 MPV 10.7 fL (9.4-12.4) 03/14/24 19:20 Immature Gran % (Auto) 0.4 % 03/14/24 19:20 Neut % (Auto) 83.1 % 03/14/24 19:20 Lymph % (Auto) 8.0 % 03/14/24 19:20 [place] % (Auto) 7.9 % 03/14/24 19:20 Eos % (Auto) 0.3 % 03/14/24 19:20 Baso % (Auto) 0.3 % 03/14/24 19:20 Neut # (Auto) 11.06 K/uL (1.40-6.50) H 03/14/24 19:20 Lymph # (Auto) 1.07 K/uL (1.20-3.40) L 03/14/24 19:20 [place] # (Auto) 1.05 K/uL (0.11-0.59) H 03/14/24 19:20 Eos # (Auto) 0.04 K/uL (0.00-0.50) 03/14/24 19:20 Baso # (Auto) 0.04 K/uL (0.00-0.20) 03/14/24 19:20 Immature Gran # (Auto) 0.05 K/uL (0.01-0.20) 03/14/24 19:20 Sodium 135 mmol/L (136-145) L 03/14/24 19:20 Potassium 3.7 mmol/L (3.5-5.1) 03/14/24 19:20 Chloride 102 mmol/L (98-107) 03/14/24 19:20 Carbon Dioxide 23 mmol/L (21-32) 03/14/24 19:20 Anion Gap 10 (3-11) 03/14/24 19:20 BUN 11 mg/dl (6-23) 03/14/24 19:20 Creatinine 0.85 mg/dl (0.6-1.2) 03/14/24 19:20 Est Cr Clr Drug Dosing 90.6 ml/min 03/14/24 19:20 Est GFR ( Amer) 98.0 ml/min 03/14/24 19:20 Est GFR (Non-Af Amer) 84.5 ml/min 03/14/24 19:20 BUN/Creatinine Ratio 12.9 (10-20) 03/14/24 19:20 Glucose 114 mg/dl (70-99(Fasting)) H 03/14/24 19:20 Lactate 1.3 mmol/L (0.4-2.0) 03/14/24 19:20 Calcium 9.3 mg/dl (8.6-10.3) 03/14/24 19:20 Total Bilirubin 0.6 mg/dl (0.2-1.0) 03/14/24 19:20 AST 10 U/L (13-39) L 03/14/24 19:20 ALT 6 U/L (7-52) L 03/14/24 19:20 Alkaline Phosphatase 77 U/L (34-104) 03/14/24 19:20 Total Protein 7.8 gm/dl (6.0-8.3) 03/14/24 19:20 Albumin 4.1 gm/dl (3.4-5.0) 03/14/24 19:20 Globulin 3.7 gm/dl (2.5-4.0) 03/14/24 19:20 Albumin/Globulin Ratio 1.1 (0.9-2) 03/14/24 19:20 Lipase 9 U/L (11-82) L 03/14/24 19:20 HCG, Qual Negative (Negative) 03/14/24 19:20 Urine Color Dark Yellow 03/14/24 19:22 Urine Appearance Cloudy (Clear) A 03/14/24 19:22 Urine pH 6.0 (4.5-7.5) 03/14/24 19:22 Ur Specific [place] 1.023 (1.000-1.030) 03/14/24 19:22 Urine Protein 1+ (Negative) H 03/14/24 19:22 Urine Glucose (UA) Negative (Negative) 03/14/24 19:22 Urine Ketones Trace (Negative) H 03/14/24 19:22 Urine Blood Negative (Negative) 03/14/24 19:22 Urine Nitrite Positive (Negative) A 03/14/24 19: Urine Bilirubin Negative (Negative) 03/14/24 19:22 Urine Urobilinogen Negative (Negative) 03/14/24 19:22 Ur Leukocyte Esterase 2+ (Negative) H 03/14/24 19:22 Urine WBC (Auto) >50 /hpf (0-5) H 03/14/24 19:22 Urine RBC (Auto) 0-2 /hpf (0-2) 03/14/24 19:22 U Hyaline Cast (Auto) 3-5 /lpf (0-2) H 03/14/24 19:22 U Epithel Cells (Auto) 3-5 /hpf (0-2) H 03/14/24 19:22 Urine Bacteria (Auto) 4+ (None Seen) H 03/14/24 19:22 Adenovirus (PCR) Not Detected (NotDetected) 03/14/24 Unknown B. pertussis DNA (PCR) Not Detected (NotDetected) 03/14/24 Unknown B.parapertussis DNA PCR Not Detected (NotDetected) 03/14/24 Unknown C. pneumoniae DNA (PCR) Not Detected (NotDetected) 03/14/24 Unknown Coronavirus OC43 (PCR) Not Detected (NotDetected) 03/14/24 Unknown Coronavirus HKU1 (PCR) Not Detected (NotDetected) 03/14/24 Unknown Coronavirus 229E (PCR) Not Detected (NotDetected) 03/14/24 Unknown SARS-CoV-2 (PCR) Not Detected (NotDetected) 03/14/24 Unknown Coronavirus NL63 (PCR) Not Detected (NotDetected) 03/14/24 Unknown Human Metapneumovir PCR Not Detected (NotDetected) 03/14/24 Unknown Influenza Type A (PCR) Not Detected (NotDetected) 03/14/24 Unknown Influenza Type B (PCR) Not Detected (NotDetected) 03/14/24 Unknown M. pneumoniae (PCR) Not Detected (NotDetected) 03/14/24 Unknown Parainfluenza 1 (PCR) Not Detected (NotDetected) 03/14/24 Unknown Parainfluenza 2 (PCR) Not Detected (NotDetected) 03/14/24 Unknown Parainfluenza 3 (PCR) Not Detected (NotDetected) 03/14/24 Unknown Parainfluenza 4 (PCR) Not Detected (NotDetected) 03/14/24 Unknown RSV (PCR) Not Detected (NotDetected) 03/14/24 Unknown Entero/Rhino (PCR) Not Detected (NotDetected) 03/14/24 Unknown Impressions Abdomen/Pelvis CT 03/14/24 17:55 CT SCAN OF THE ABDOMEN AND PELVIS WITH IV CONTRAST CLINICAL HISTORY: Right flank pain. Vomiting. COMPARISON STUDY: Abdominal CT dated 09/12/2023. TECHNIQUE: Following the IV administration of 94 cc of Optiray 320, CT scan of the abdomen and pelvis is performed from the lung bases to the proximal femora. Images are reviewed in the axial, sagittal, and coronal planes. IV contrast was administered without complication. A dose lowering technique was utilized adhering to the principles of ALARA. CT DOSE: 870.88 mGy.cm FINDINGS: Lung bases: The heart is normal in size and without pericardial effusion. The lung bases are clear. Liver: The contrast-enhanced liver is enlarged measuring 21.5 cm in length. The liver is otherwise normal in contour and attenuation. There is no intrahepatic biliary ductal dilatation. The hepatic veins and portal veins are patent. A 1.8 cm left lobe liver lesion is unchanged in appearance. This may represent a hemangioma but is incompletely characterized. Gallbladder: Unremarkable. Spleen: The spleen is mildly enlarged measuring 13.7 cm in length. Pancreas: Unremarkable. Adrenal glands: Unremarkable. Kidneys: The contrast enhanced kidneys are normal in size and without hydro nephrosis. Urothelial thickening is seen within the right renal pelvis and the right ureter with perinephric and periureteric infiltration an trace fluid. There is heterogeneous enhancement of the right kidney. The left kidney enhances homogeneously. Abdominal vasculature: The abdominal aorta is normal in course and caliber. Bowel: There is mild colonic fecal retention. No bowel obstruction is seen. The appendix is well-visualized and normal. Peritoneum: There is no intraperitoneal free air or abdominal ascites. A naval piercing is noted. Lymphadenopathy: None. Pelvic viscera: The bladder, uterus, and adnexa are normal as visualized noting bilateral ovarian follicles. There is trace free fluid in the cul-de-sac. Skeletal structures: No lytic or blastic lesions are seen. IMPRESSION: 1. Findings suggest right-sided pyelonephritis. Correlate with clinical findings and urinalysis. 2. Mild hepatosplenomegaly. 3. Normal appendix. 4. Trace free fluid in the cul-de-sac is nonspecific and likely physiologic. 5. Additional findings as above. ACT 112: Negative or not required by law. Electronically signed by: Israel Crandall M.D. 03/14/2024 10:13 PM
[2024-03-15] MEDS ORDERED: PROMETHAZINE HCL 6.25 MG in SODIUM CHLORIDE 0.9% 50 ML IV PRN (00:04)
[2024-03-15] MEDS ORDERED: LORazepam 0.5 MG TAB PO PRN (00:04)
[2024-03-15] MEDS: CEFEPIME 2,000 MG/20 ML VIAL IV STA (00:36)
[2024-03-15] MEDS: oxyCODONE HCL IR 5 MG TAB (IMMEDIATE RELEASE) PO STA (00:36)
[2024-03-15] MEDS: POTASSIUM CHLORIDE PWD 20 MEQ PACK PO STA (01:48)
[2024-03-15] MEDS: NSS + 20MEQ KCL 20 MEQ/1,000 ML BAG IV ONE (01:48)
[2024-03-15 02:52] LABS: Basophils # (auto) 0.04 K/uL (0.00-0.20); Basophils % (auto) 0.4 %; Eosinophils # (auto) 0.04 K/uL (0.00-0.50); Eosinophils % (auto) 0.4 %; Hematocrit (blood only) 33.7 % (37.0-47.0); Hemoglobin 11.4 g/dl (12.0-16.0); Immature Granulocytes # (auto) 0.05 K/uL (0.01-0.20); Immature Granulocytes % (auto) 0.5 %; Lymphocytes # (auto) 1.26 K/uL (1.20-3.40); Lymphocytes % (auto) 12.7 %; Mean Corpuscular Hemoglobin 29.8 pg (25.0-34.0); Mean Corpuscular Hgb Conc 33.8 g/dL (32.0-36.0); Mean Corpuscular Volume 88.2 fL (80.0-100.0); Mean Platelet Volume 10.9 fL (9.4-12.4); Monocytes # (auto) 0.81 K/uL (0.11-0.59); Monocytes % (auto) 8.1 %; Neutrophils # (auto) 7.75 K/uL (1.40-6.50); Neutrophils % (auto) 77.9 %; Platelet Count 171 K/uL (130-400); RDW Coefficient of Variation 13.4 % (11.5-14.5); RDW Standard Deviation 43.5 fL (36.4-46.3); Red Blood Count 3.82 M/uL (4.20-5.40); White Blood Count 9.95 K/ul (4.8-10.8)
[2024-03-15 03:05] LABS: Calcium 7.6 mg/dl (8.6-10.3); Potassium 3.5 mmol/L (3.5-5.1)
[2024-03-15 03:11] LABS: BUN Creatinine Ratio 11.3 (10-20); Creatinine Clr Calc Pharmacy 108.5 ml/min; Est GFR (African American) 121.8 ml/min; Est GFR (Non-African American) 105.1 ml/min
[2024-03-15] MEDS: oxyCODONE HCL IR 5 MG TAB (IMMEDIATE RELEASE) PO PRN (06:55)
--- NOTE | 2024-03-15 07:20 | XRay Report ---
SINGLE VIEW CHEST CLINICAL HISTORY: Tachypnea FINDINGS: An AP, portable, upright chest radiograph is compared to study dated 09/12/2023. The cardiom ediastinal silhouette is unremarkable. The lungs and pleural spaces are clear. No pneumothorax is see n. The bony thorax is grossly intact. IMPRESSION: No active disease in the chest. ACT 112: Negative or not required by law. Electronically signed by: Israel Crandall M.D. 03/15/2024 7:18 AM
[2024-03-15] MEDS: ENOXAPARIN INJ 40 MG/0.4 ML SYR SQ SCH (08:29)
[2024-03-15] MEDS: CEFEPIME 2,000 MG in SYRINGE 0 ML IV SCH (08:45)
--- NOTE | 2024-03-15 08:45 | Hospitalist Progress Note ---
Date of Service March 15, 2024 Assessment & Plan (1) Sepsis: (2) Pyelonephritis: (3) Iron deficiency anemia: (4) Acute pyelonephritis: Plan Pt is a 43yoF with PMhx significant for PSVT, GERD, eosinophilic esophagitis, bronchial asthma, anxiety/mood disorder, migraine, ongoing tobacco abuse who presented with right flank pain. Sepsis Pyelonephritis R flank pain Pt presented with R flank pain Tachycardic, febrile, leukocytosis with urinary infectious source UA suggestive of infection Urine Cx growing gram negative bacilli Blood Cx x2 pending CT abd/pelvis concerning for pyelonephritis lactate normal Continue Cefepime, narrow based on cultures Continue to monitor Hx of PSVT Continue home metoprolol GERD Continue home pantoprazole, sucralfate Bronchial asthma Continue home montelukast, loratidine Tobacco Use Pt declining nicotine patch Diet: Regular DVT prophylaxis. Lovenox subcu Full code Admission and Anticipated Discharge Date Admission Date: March 14, 2024 Subjective Pt was seen while still down in the ED. Denied acute concerns at that time except for a headache. States that the flank pain had improved. Review of Systems Review of Systems: All systems reviewed & are unremarkable except as noted in Subjective Physical Exam Physical Exam: General: Alert, oriented. No acute distress Skin: No noted rashes or bruises Psych: Appropriate mood and affect Neuro: No gross deficits HEENT: NC/AT Chest: Nontender to palpation. CV: RRR Resp: Breath sounds clear bilaterally, no increased effort of breathing. Abdomen: Soft, nontender, nondistended. Extremities: No edema in lower extremities bilaterally. Results & Data Results & Data Vital Signs (Past 12 Hours) Vital Signs Temp Pulse Pulse Resp BP BP Pulse Ox 03/15/24 08:02 104 H 03/15/24 02:51 37.2 C 03/15/24 02:11 92 H 114/78 95 03/15/24 02:01 105 H 16 114/78 98 03/15/24 01:52 37.9 C H 94 H 16 105/78 97 03/15/24 01:49 93 H 15 105/78 97 03/15/24 00:01 113/57 L 96 03/14/24 23:05 105 H 18 100/76 99 03/14/24 23:00 100/76 98 03/14/24 22:30 107 H 23 116/80 97 03/14/24 22:00 108 H 24 98/74 L 87 L 03/14/24 21:30 109 H 17 130/94 100 03/14/24 21:27 110 H 03/14/24 21:00 38.3 C H 102 H 20 130/94 99 03/14/24 20:48 37.5 C 18 116/97 O2 Del Method 03/15/24 08:02 03/15/24 02:51 03/15/24 02:11 Room Air 03/15/24 02:01 03/15/24 01:52 Room Air 03/15/24 01:49 03/15/24 00:01 03/14/24 23:05 Room Air 03/14/24 23:00 03/14/24 22:30 03/14/24 22:00 03/14/24 21:30 03/14/24 21:27 03/14/24 21:00 Room Air 03/14/24 20:48 Room Air Diagnostic Findings Abdomen/Pelvis CT 03/14/24 17:55 CT SCAN OF THE ABDOMEN AND PELVIS WITH IV CONTRAST CLINICAL HISTORY: Right flank pain. Vomiting. COMPARISON STUDY: Abdominal CT dated 09/12/2023. TECHNIQUE: Following the IV administration of 94 cc of Optiray 320, CT scan of the abdomen and pelvis is performed from the lung bases to the proximal femora. Images are reviewed in the axial, sagittal, and coronal planes. IV contrast was administered without complication. A dose lowering technique was utilized adhering to the principles of ALARA. CT DOSE: 870.88 mGy.cm FINDINGS: Lung bases: The heart is normal in size and without pericardial effusion. The lung bases are clear. Liver: The contrast-enhanced liver is enlarged measuring 21.5 cm in length. The liver is otherwise normal in contour and attenuation. There is no intrahepatic biliary ductal dilatation. The hepatic veins and portal veins are patent. A 1.8 cm left lobe liver lesion is unchanged in appearance. This may represent a hemangioma but is incompletely characterized. Gallbladder: Unremarkable. Spleen: The spleen is mildly enlarged measuring 13.7 cm in length. Pancreas: Unremarkable. Adrenal glands: Unremarkable. Kidneys: The contrast enhanced kidneys are normal in size and without hydronephrosis. Urothelial thickening is seen within the right renal pelvis and the right ureter with perinephric and periureteric infiltration an trace fluid. There is heterogeneous enhancement of the right kidney. The left kidney enhances homogeneously. Abdominal vasculature: The abdominal aorta is normal in course and caliber. Bowel: There is mild colonic fecal retention. No bowel obstruction is seen. The appendix is well-visualized and normal. Peritoneum: There is no intraperitoneal free air or abdominal ascites. A naval piercing is noted. Lymphadenopathy: None. Pelvic viscera: The bladder, uterus, and adnexa are normal as visualized noting bilateral ovarian follicles. There is trace free fluid in the cul-de-sac. Skeletal structures: No lytic or blastic lesions are seen. IMPRESSION: 1. Findings suggest right-sided pyelonephritis. Correlate with clinical findings and urinalysis. 2. Mild hepatosplenomegaly. 3. Normal appendix. 4. Trace free fluid in the cul-de-sac is nonspecific and likely physiologic. 5. Additional findings as above. ACT 112: Negative or not required by law. Electronically signed by: Israel Crandall M.D. 03/14/2024 10:13 PM Chest X-Ray 03/14/24 23:33 SINGLE VIEW CHEST CLINICAL HISTORY: Tachypnea FINDINGS: An AP, portable, upright chest radiograph is compared to study dated 09/12/2023. The cardiomediastinal silhouette is unremarkable. The lungs and pleural spaces are clear. No pneumothorax is seen. The bony thorax is grossly intact. IMPRESSION: No active disease in the chest. ACT 112: Negative or not required by law. Electronically signed by: Israel Crandall M.D. 03/15/2024 7:18 AM
[2024-03-15] MEDS: MoRPHine SULFATE 4 MG/ML 1 ML CARP\\VIAL IV PRN (08:49)
[2024-03-15] MEDS: ACETAMINOPHEN 500 MG TAB PO PRN (08:49)
[2024-03-15] MEDS: METOPROLOL TARTRATE 100 MG TAB PO SCH (18:41)
[2024-03-15] MEDS: BACLOFEN 10 MG TAB PO SCH (18:41)
[2024-03-15] MEDS: PANTOprazole 40 MG TAB PO SCH (18:42)
[2024-03-15] MEDS: SUCRALFATE 1 GM/10 ML UDC PO SCH (18:42)
[2024-03-15] MEDS: LORATADINE 10 MG TAB PO SCH (18:42)
[2024-03-15] MEDS: ALBUTEROL HFA 8 GM INHALER INH PRN (19:41)
[2024-03-16 07:06] LABS: Basophils # (auto) 0.04 K/uL (0.00-0.20); Basophils % (auto) 0.6 %; Eosinophils # (auto) 0.21 K/uL (0.00-0.50); Hematocrit (blood only) 31.5 % (37.0-47.0); Hemoglobin 10.6 g/dl (12.0-16.0); Immature Granulocytes # (auto) 0.04 K/uL (0.01-0.20); Immature Granulocytes % (auto) 0.6 %; Lymphocytes # (auto) 1.27 K/uL (1.20-3.40); Lymphocytes % (auto) 18.2 %; Mean Corpuscular Hemoglobin 29.1 pg (25.0-34.0); Mean Corpuscular Hgb Conc 33.7 g/dL (32.0-36.0); Mean Corpuscular Volume 86.5 fL (80.0-100.0); Mean Platelet Volume 10.9 fL (9.4-12.4); Monocytes % (auto) 12.9 %; Neutrophils % (auto) 64.7 %; Platelet Count 162 K/uL (130-400); RDW Coefficient of Variation 13.4 % (11.5-14.5); RDW Standard Deviation 42.4 fL (36.4-46.3); Red Blood Count 3.64 M/uL (4.20-5.40); White Blood Count 6.96 K/ul (4.8-10.8)
[2024-03-16 07:28] LABS: Calcium 8.3 mg/dl (8.6-10.3); Est GFR (African American) 113.9 ml/min; Est GFR (Non-African American) 98.3 ml/min; Magnesium 1.8 mg/dl (1.7-2.4); Phosphorus 2.9 mg/dl (2.5-4.9); Potassium 4.1 mmol/L (3.5-5.1)
[2024-03-16] MEDS: FERROUS SULFATE 325 MG TAB PO SCH (07:48)
[2024-03-16] MEDS: MONTELUKAST SODIUM 10 MG TABLET PO SCH (07:48)
--- NOTE | 2024-03-16 17:58 | Hospitalist Progress Note ---
Date of Service March 16, 2024 Assessment & Plan (1) Sepsis: (2) Pyelonephritis: (3) Iron deficiency anemia: (4) Acute pyelonephritis: Plan Pt is a 43yoF with PMhx significant for PSVT, GERD, eosinophilic esophagitis, bronchial asthma, anxiety/mood disorder, migraine, ongoing tobacco abuse who presented with right flank pain. Sepsis Pyelonephritis R flank pain Pt presented with R flank pain Tachycardic, febrile, leukocytosis with urinary infectious source UA suggestive of infection Urine Cx growing E coli lloyd sensitive Blood Cx x2 NGTD CT abd/pelvis concerning for pyelonephritis lactate normal Continue Cefepime while hospitalized, transition to po for discharge With worsening right flank pain, consult placed to Urology for further recs in this setting. Appreciated Continue to monitor Hx of PSVT Continue home metoprolol GERD Continue home pantoprazole, sucralfate Bronchial asthma Continue home montelukast, loratidine Tobacco Use Pt declining nicotine patch Diet: Regular DVT prophylaxis. Lovenox subcu Full code Admission and Anticipated Discharge Date Admission Date: March 14, 2024 Subjective States feels like right sided flank pain is worsening, no improvement since she's been here. Asking about going home. But denies acute concerns. Review of Systems Review of Systems: All systems reviewed & are unremarkable except as noted in Subjective Physical Exam Physical Exam: General: Alert, oriented. No acute distress Skin: No noted rashes or bruises Psych: Appropriate mood and affect Neuro: No gross deficits HEENT: NC/AT Chest: Nontender to palpation. CV: RRR Resp: Breath sounds clear bilaterally, no increased effort of breathing. Abdomen: Soft, nontender, nondistended. Extremities: No edema in lower extremities bilaterally. Results & Data Results & Data Vital Signs (Past 12 Hours) Vital Signs Temp Pulse Pulse Resp BP Pulse Ox O2 Del Method 03/16/24 11:42 36.9 C 82 18 119/71 96 Room Air 03/16/24 07:37 36.7 C 88 18 125/83 97 Room Air 03/16/24 06:53 79 03/16/24 02:44 37.2 C 93 H 18 108/70 97 Room Air
--- NOTE | 2024-03-16 19:59 | Urology Consultation ---
<Statement entered by Benjy Alex MD - 03/16/24 20:15> I have discussed Ms. Adames case with Uzair Jimenes PA-C and agree with the above documentation. She has been treated for pyelonephritis with appropriate antibiotics. Labs have largely normalized and she remains afebrile and hemodynamically stable. There was no evidence of obstruction on her prior CT scan, so I would expect there is adequate source control. If she continues to have flank pain or if she clinically worsens, would recommend repeating imaging to evaluate for possible abscess formation. No plan for urologic intervention at this time. -Benjy Alex MD. Date of Consultation March 16, 2024 Assessment & Plan (1) Pyelonephritis: The patient has been admitted on the hospitalist service. From a urologic perspective we recommend the following: Patient's urine culture has been noted to have pansensitive E. coli and she has been treating with cefepime. Antibiotic should continue while she is hospitalized and will likely continue in the oral form at time of discharge. Her antibiotic regimen will be deferred to the primary service I reviewed the patient's CT scan and the patient does not have any hydronephrosis or any other obstructive urologic findings, therefore not feel any procedural intervention is required Review of patient's chart shows that she is normotensive without tachycardia. She has not had a febrile episode since approximate 9:00 AM on 03/15/2024. If patient continues to have significant flank pain or if she spikes further fevers consideration be given to repeat imaging her abdomen with either a renal ultrasound or repeat CAT scan to see if there is any evidence of renal abscess developing Additional recommendations be forthcoming based on her clinical course as it unfolds History of Present Illness Reason for Consultation: Pyelonephritis Attending Physician: Ana Wynne MD History of Present Illness This is a 43-year-old female who was admitted to the hospital on 03/14/2024. For approximate 24 hours prior to admission the patient said she was noticing some epigastric and right-sided flank pain. She also said that she was febrile with a temperature as high as 103. She does note that in addition to the right flank pain she has radiation of this pain to the front side of her abdomen. I asked the patient about urinary symptoms and she specifically denies any dysuria or hematuria but she does note urinary frequency. She did have some intermittent nausea and vomiting. Since admission to the hospital the patient has had labs and imaging which I independent reviewed. She did have a chest x-ray that showed no evidence of pneumonia. A CT scan of the abdomen pelvis was performed. On this study the kidneys appeared normal in size without any evidence of hydronephrosis. There was some urothelial thickening in the right renal pelvis and right ureter with some perinephric and periureteral inflammation felt to represent a likely pyelonephritis. No kidney stones were noted on this study. Labs from today included CBC were white blood cell count is normal. (Of note the white blood cell count was 13.3 at time of admission) hemoglobin and hematocrit are 10.6 and 31.5 platelet count is noted to be normal. Chemistry profile showed sodium is 135 with a normal potassium. Her BUN and creatinine are both normal. On 03/14/2024 she did have a urinalysis that showed cloudy urine which was positive for nitrites and 2+ leukocyte Estrace. She had pyuria with greater than 50 white blood cells per high-power field and 4+ bacteria on the study. The patient has had blood cultures sent on 03/14/2024 which are negative to date for growth. She also had a urine culture from 03/14/2024 that grew pansensitive E. coli. Urology was consulted as patient has ongoing flank pain despite management of the patient's underlying pyelonephritis. The patient notes that since hospitalization overall she has noted some clinical improvement but continues to have some right flank pain. She has not had any further nausea and vomiting and she presently does not report any fevers, shakes, or chills or urinary symptoms at this time. At the time of my interview the patient was resting comfortably in bed and she was no distress. Allergies Allergy/AdvReac Type Severity Reaction Status Date / Time apple Allergy Severe Swelling Verified 03/15/24 00:36 of Lip/Tongue/Throat egg Allergy Severe THROAT Verified 03/15/24 00:36 SWELLS /HARD TO BREATHE potato Allergy Severe Swelling Verified 03/15/24 00:36 of Lip/Tongue/Throat spinach Allergy Severe SHORTNESS Verified 03/15/24 00:36 OF BREATH ibuprofen AdvReac Severe VOMITING,BLURRED Verified 03/15/24 00:36 VISION, RINGING OF EARS Home Medications Medication Instructions Recorded Confirmed Type albuterol sulfate 90 mcg/actuation 2 puff inhalation Q6H PRN 08/17/17 05/04/24 History aerosol inhaler (Ventolin HFA) Shortness Of Breath Or Wheezing #1 inhaler [id number]-[id number] 250 2 tab PO Q6H PRN Migraine Headache 01/08/19 03/15/24 History mg-250 mg-65 mg tablet (Excedrin Migraine) ferrous sulfate 325 mg (65 mg 325 mg PO Q OTHER DAY 09/12/23 03/15/24 History iron) tablet,delayed release metoprolol tartrate 100 mg tablet 100 mg PO BID 09/12/23 03/15/24 History montelukast 10 mg tablet 10 mg PO QAM 09/12/23 03/15/24 History pantoprazole 40 mg tablet,delayed 40 mg PO BID #60 tabs 09/13/23 03/15/24 Rx release (Protonix) acetaminophen 80 mg chewable 320 mg PO Q6 PRN Fever Or Pain 03/15/24 03/15/24 History tablet (Children's Acetaminophen) baclofen 10 mg tablet 10 mg PO AMHS 03/15/24 03/15/24 History epinephrine 0.3 mg/0.3 mL 0.3 mg IM DIRECTED PRN Allergic 03/15/24 03/15/24 History injection, auto-injector (EpiPen) Reaction lidocaine 5 % topical ointment 1 applic topical TID PRN Pain 03/15/24 03/15/24 History loratadine 10 mg tablet 10 mg PO QPM 03/15/24 03/15/24 History sucralfate 100 mg/mL oral 10 ml PO ACHS 03/15/24 03/15/24 History suspension Patient History Medical History Postoperative hemorrhage involving digestive system Iron deficiency anemia History of heart disorder patient says " my heart beats fast" Currently on Metoprolol History of depression no current meds Eustachian tube dysfunction 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 GERD (gastroesophageal reflux disease) Asthma Hiatal hernia Hemorrhoids during Migraine Surgical History H/O umbilical hernia repair History of 2018- intolerance to labor History of hemorrhoidectomy Family History Other Hiatal hernia Social History Smoking Status: Current every day smoker Tobacco Type: Cigarettes and E-cigarettes / Vaping Cigarettes Per Day: 2+; Second Hand Exposure: Yes; Do You Dip or Chew Tobacco: No; Hx Alcohol Use: Yes Alcohol type: wine Hx Substance Use: No Preferred Language: Slovak Communication Ability: Effective [employer] Required: No Beliefs That Will Affect Care: None marital status: Legally Current Living Situation: Alone Current Living Situation Comment: lives with 6 children Other Information That Helps Us Care for You: No Feels Safe at Home: Yes Safety Concerns: Feels Safe At This Time Assistive Devices: None Review of Systems Constitutional: + fever (Resolved) Respiratory: no cough and no dyspnea Cardiovascular: no chest pain Gastrointestinal: + abdominal pain (Radiating from right f lank) Genitourinary: as per Subjective / HPI Musculoskeletal: + back pain (Right flank) Integumentary: no rash Neurologic: no localized weakness Physical Exam Constitutional: WD/WN, vitals as above Eyes: no conjunctival abnormality ENMT: Ears: no hearing impairment and no external ear abnormality Mouth: no oropharynx abnormality Neck: trachea midline Respiratory: normal respiratory effort; no respiratory distress and no labored breathing Cardiovascular: Rate/Rhythm: regular rate and regular rhythm Gastrointestinal (Abdomen): Soft and nondistended. No pain with palpation Skin: no rashes Neurologic: moves all extremities Psychiatric: A+Ox3, euthymic affect Genitourinary: Slight CVA tenderness noted with percussion on the right, no CVA tenderness with percussion on the left Results & Data Vital Signs (Past 12 Hours) Vital Signs Temp Pulse Resp BP Pulse Ox O2 Del Method 03/16/24 19:01 36.7 C 82 18 130/78 100 Room Air 03/16/24 16:36 36.7 C 82 20 114/68 100 Room Air 03/16/24 11:42 36.9 C 82 18 119/71 96 Room Air PG Care Time/CCT Total # of Minutes Spent Total Time Spent with Patient: Total time spent is greater than 50% in coordination of care (as documented) at patient's floor/unit and/or counseling patient: Coding Level of Care Code 54102 OFFICE CONSULT LVL 4/40M Diagnoses Pyelonephritis N12
--- OUTSIDE RECORDS SUMMARY | 2024-03-16 21:30 | External Medical Summary | Summary of Care ---
Author Name Unknown Organization [facility] Address [address] [place] [address] Phone [phone] Care Team Providers Care Insulation Power Unit Tender Name Role Phone Anil Sandhu MD Primary Care Provider + Reason for Visit * Reason Onset Date Comments Order Request 10/01/2023 Encounter Details Date Type Department Care Team (Late st Contact Info) Description 10/01/2023 Telephone Family Practice [facility] [address] [facility] [place] [address] Anil Sandhu MD [address] [facility] [place] [address] Order Request Allergies Active Allergy Reactions Criticality Noted Date Comments Apple Juice High 12/17/2021 Other reaction(s): Swelling of Lip/Tongue/Throat Diltiazem 03/04/2021 Hoarsness Eggs Or Egg-Derived Products High 12/17/2021 Other reaction(s): THROAT SWELLS /HARD TO BREATHE Ibuprofen Nausea/vomiting High 06/01/2010 Ibuprofen High 12/17/2021 Other reaction(s): VOMITING,BLURRED VISION, RINGING OF EARS Spinach High 12/17/2021 Other reaction(s): SHORTNESS OF BREATH documented as of this encounter (statuses as of 01/29/2024) Medications Medication Sig Dispensed Refills Start Date End Date Status Excedrin Tension Headache 500-65 MG Oral Tablet (Acetaminophen-Ca ffeine) Take by mouth as needed . 0 Active Lidocaine Viscous HCl 2 % Mouth/Throat SolutionIndicatio ns:Acute pharyngitis, unspecified etiology Swish and spit as needed for Pain, Moderate. 5ml every 4 hours as needed for pain 100 mL 0 06/14/2022 Active Lidocaine 5 % External Ointment Apply topically to affected area 1 Tube as needed in the morning AND 1 Tube as needed at noon AND 1 Tube as needed in the evening for Pain, Moderate. Apply to anus. 35.44 g 2 06/14/2022 Active EPINEPHrine 0.3 MG/0.3ML Injection Solution Auto-injector (Autoinjector) For a severe reaction: Inject in outer thigh following instructions on package and go to the Emergency room. 2 Each 3 09/05/2022 Active Montelukast Sodium 10 MG Oral Tablet (Singulair) Take 1 Tablet by mouth in the morning. 90 Tablet 3 03/23/2023 Active Loratadine 10 MG Oral Tablet (Claritin) Take 1 Tablet by mouth in the morning. 90 Tablet 3 03/23/2023 Active Metoprolol Tartrate 100 MG Oral Tablet (Lopressor)Indica tions:NSVT (nonsustained ventricular tachycardia) (HCC),Palpitation s Take 1 Tablet by mouth in the morning and 1 Tablet before bedtime. 180 Tablet 3 05/04/2023 Active Ferrous Sulfate 325 (65 Fe) MG Oral Tablet (Feosol)Indicatio ns:Iron deficiency anemia due to chronic blood loss 1 tab every other day 45 Tablet 1 06/25/2023 Active Magic Swizzle (Lidocaine-Benadr yl-Maalox) oral solution Swish and spit 15 mL 4 times a day as needed for Pain. 600 mL 0 09/11/2023 Active Baclofen 10 MG Oral Tablet (Lioresal) Take 1 Tablet by mouth in the morning and 1 Tablet before bedtime. 60 Tablet 5 09/20/2023 Active Albuterol Sulfate HFA 108 (90 Base) MCG/ACT Inhalation Aerosol SolutionIndicatio ns:Asthma, mild persistent INHALE 2 PUFFS BY MOUTH EVERY 6 HOURS NEEDED FOR SHORTNESS OF BREATH 54 g 1 09/21/2023 Active oxyCODONE-Acetami nophen 5-325 MG Oral Tablet (Percocet)Indicat ions:Dental caries,Periapical abscess Take by mouth 1 Tablet every 6 hours as needed for Pain, Severe. 12 Tablet 0 03/08/2022 4 Discontinue d(Medicatio n List Clean Up) Sucralfate 1 GM/10ML Oral Suspension (Carafate) Take 10 mL by mouth in the morning and 10 mL at noon and 10 mL in the evening and 10 mL before bedtime. 400 mL 0 09/11/2023 4 Discontinue d(Medicatio n List Clean Up) Pantoprazole Sodium 40 MG Oral Tablet Delayed Release (Protonix)Indicat ions:Ulcer of esophagus with bleeding 1 tab twice daily before meals.. Do not crush, split or chew the tablet 30 Tablet 5 09/20/2023 4 Discontinue d(Medicatio n List Clean Up) documented as of this encounter (statuses as of 01/29/2024) Active Problems Problem Noted Date Diagnosed Date Well adult exam 09/21/2022 Overview: 09/13/23 EGD s/p bleed [facility], 10mm distal tear. Nonbleeding. EGD WNL dilated the esoph 10/03 COlon--WNl, some eos on biopsy. 10/03 CT--Areas of wall thickening involving the ascending and proximal transverse colon, suggesting a nonspecific colitis. 2019 pap-ASCUS NEG HPV Supraventricular tachycardia 09/01/2022 Eosinophilic esophagitis 05/01/2022 Iron deficiency anemia due to chronic blood loss 04/29/2022 Asthma, mild persistent 04/22/2014 Tobacco use disorder 04/22/2014 documented as of this encounter (statuses as of 01/29/2024) Resolved Problems Problem Noted Date Diagnosed Date Resolved Date Prolapsed internal hemorrhoids, grade 4 12/13/2021 04/29/2022 History of 06/07/2021 022 test positive 04/25/202104/12 related nausea and vomiting, antepartum 04/25/2021 04/29/2022 Antepartum anemia complicating 08/12/2020 04/29/2022 Overview: Hct 8.7 at 36 wks - hematology referral sent Tobacco smoking complicating 08/12/2020 04/29/2022 AMA (advanced maternal age) multigravida 35+ 0 04/29/2022 Supervision of other normal 02/27/2020 04/29/2022 Overview: Problem Action Taken Date entered Entered by Date resolved Smoking/tobacco abuse Smoking Education 02/27/2020 Niecy Rutherford RN 02/27/2020 Nutrition Pt declines attending WIC 02/27/2020 Niecy Rutherford RN 02/27/2020 Home Nurse visit Pt declines 02/27/2020 Niecy Rutherford RN 02/27/2020 Classed Pt declines attending 02/27/2020 Niecy Rutherford RN 02/27/2020 Problem Action Taken Date entered Entered by Date resolved 2nd trimester education Reviewed w/pt 04/27/2020 Niecy Rutherford RN 04/27/2020 Problem Action Taken Date entered Entered by Date resolved Current needs or questions Patient denies having any current needs or questions 08/12/2020 Niecy Rutherford RN 08/12/2020 Problem Action Taken Date entered Entered by Date resolved Current needs or questions Patient denies having any current needs or questions 08/24/2020 Niecy Rutherford RN 08/24/2020 S/P primary low transverse 09/25/2018 04/29/2022 Overview: Pt wishes to do Advance directive declined by patient 09/10/2018 04/29/2022 Overview: Does the patient have an advance directive? No, Advance Directive brochure offered, patient declined. Antepartum anemia complicating 07/04/2018 09/12/2018 Supervision of wit h grand multiparity, antepartum 04/18/2018 09/25/2018 Elderly multigravida in first trimester 03/15/2018 04/18/2018 History of migraine 03/15/2018 04/29/20 22 Asthma affecting , antepartum 03/15/2018 03/07/2022 History of depression 03/15/20182021 Need for rubella vaccination 03/11/2018 09/12/2018 Overview: Rubella equivocal at NOB. Will need vaccinated PP Tinnitus of both ears 03/07/20182021 INFORMATION 02/07/2018 09/12/2018 Overview: As of 02/13/2018, pt has not had NOB labs drawn AMA (advanced maternal age) multigravida 35+ 8 09/12/2018 Overview: Problem Action Taken Date entered Entered by Date resolved Advance maternal age Maternal Medicine Consult -Declined 02/05/2018 Daniel Dean, RN 02/05/18 Problem Action Taken Date entered Entered by Date resolved Fatigue Take vitamins Good nutrition and hydration will help 02/05/2018 Daniel Dean, FABRIZIO 02/05/18 Inadequate diet for Discussed decreasing caffeine intake 02/05/2018 Daniel Dean, FABRIZIO 02/05/18 Smoking/tobacco abuse Smoking Education 02/05/2018 Daniel Dean, FABRIZIO 02/05/18 Nutrition WIC referral will need EDC letter 02/05/2018 Daniel Dean RN 02/05/18 Problem Action Taken Date entered Entered by Date resolved Current needs or questions Patient denies having any current needs or questions 03/11/2018 Balbina Desai RN 03/11/2018 Problem Action Taken Date entered Entered by Date resolved Current needs or questions Patient denies having any current needs or questions 04/18/2018 Balbina Desai RN 04/18/2018 Problem Action Taken Date entered Entered by Date resolved Hemorrhoids Discussed treatment options-provider will evaluate 06/04/2018 Ivy Ramirez RN 06/04/18 Problem Action Taken Date entered Entered by Date resolved Control Patient wants Tubal Ligation post . Will sign MA consent today 07/03/2018 Slime Gunderson RN 07/03/18 Problem Action Taken Date entered Entered by Date resolved Smoking/tobacco abuse Smoking Education-pt states she has cut down to 3 cigarettes a day. 07/22/2018 Ivy Ramirez, FABRIZIO 07/22/18 Problem Action Taken Date entered Entered by Date resolved irreg tightenings Provider eval. Hydration encouraged. 08/20/2018 Balbina Desai RN 08/20/2018 Problem Action Taken Date entered Entered by Date resolved Current needs or questions Patient denies having any current needs or questions 09/06/2018 Balbina Desai RN 09/06/2018 Chronic Eustachian tube dysf unction, bilateral 08/28/2017 04/29/2022 Conductive hearing loss of both ears 08/28/2017 04/29/2022 Tympanic membrane retraction, bilateral 08/28/2017 04/29/2022 Gastroesophageal reflux dise ase without esophagitis 05/20/2015 05/01/2022 Encounter for supervision of other normal 08/07/2014 04/18/2018 Mixed rhinitis 04/22/2014 04/29/2022 Encounter for supervision of other normal 05/23/2013 01/08/2014 Overview: Patient received flu vaccine. 08/22/2013 Val Snider RN ICD-10 update of inactive term Encounter for supervision of other normal 08/13/2012 02/03/2013 Overview: Patient received flu vaccine. 08/13/2012 Victorina Schulte LPN ICD-10 update of inactive term Bacterial infection due to S treptococcus, group B 05/28/2012 01/23/2013 Overview: Urine cx NOB visit <10,000 colonies GBS- Rx for Penicillin-FLACO nv obtained 06/19/2012 Kenia DINH Acute tonsillitis 05/02/2012 01/23/2013 Acute bronchitis, complicated 01/25/2012 01/23/2013 screening for handbag framer mosomal anomalies by amniocentesis 07/26/2011 07/26/2011 Supervision of high-risk pre gnancy of elderly multigravida 07/19/2011 05/21/2012 Supervision of high-risk pre gnancy of elderly multigravida 05/11/2011 07/26/2011 Tobacco use in 05/11/201105/2018 Overview: Intractable migraine 05/11/2011 018 Overview: Rx for vicodin given ICD-10 update of inactive term Family history of diabetes mellitus 05/11/2011 04/29/2022 Overview: Early glucola-wnl Cervicalgia 10/21/2010 07/26/2011 Lumbago 10/21/2010 07/26/2011 Postconcussion syndrome 10/21/201007/13 Asthma in remission 06/01/2010 07/26/20 11 HBPPF [id number] HIGH-RISK PREG NOS 10/17/2007 05/11/2011 PF 09/17/2007 10/17/2007 SUPERVISION OF HIGH-RISK PRE GNANCY WITH HISTORY OF 09/17/2007 01/23/2013 Overview: Declines FTS documented as of this encounter (statuses as of 01/29/2024) Immunizations Name Administration Dates Next Due MMR - Measles/Mumps/Rubella Vaccine 09/15/2018 Pneumococcal Polysaccharide PPV23 (Pneumovax) 10/24/2017 Seasonal Influenza, Split, I IV3, With Preserve, Inj 07/28/2013,08/13/2012,09/24/2007 TDAP (age 10 and older)(Boostrix) 08/12/2020,,11/20/2015 documented as of this encounter Social History Tobacco Use Types Packs/Day Years Used Date Smoking Tobacco: Some Days Cigarettes 0.2 21 Passive Smoke Exposure: Past Smokeless Tobacco: Never Comments:Smoking cessation e fforts encouraged in to include avoidance of excessive secondhand smoke exposure- 2017 Alcohol Use Standard Drinks/Week Comments No 0 (1 standard drink = 0.6 oz pure alcohol) Denies ETOH use since LMP- 2018 PHQ-2 Answer Date Recorded PHQ Adult Total Score 0 09/20/2023 Hunger Vital Sign Answer Date Recorded Within the past 12 months, y ou worried that your food would run out before you got the money to buy more. Never true 09/20/20 23 Within the past 12 months, t he food you bought just didn't last and you didn't have money to get more. Never true 09/20/2023 [place] Depression Scale Answer Date Recorded [place] Depression Scale Total 8 08/24/2022 The thought of harming myself has occurred to me . Never 08/24/2022 Sex and Gender Information Value Date Recorded Sex Assigned at Female 08/24/2022 9:43 AM EDT Gender Identity Female 08/24/2022 9:43 AM EDT Sexual Orientation Straight 08/24/2022 9: 43 AM EDT Job Start Date Occupation Industry Not on file Not on file Not on file documented as of this encounter Miscellaneous Notes * Telephone Encounter - Parviz Huizar OSA - 10/02/2023 2:10 PM EST Pt called and scheduled NV * Telephone Encounter - Parviz Hiuzar OSA - 10/02/2023 10:06 AM EST LMOM for pt to schedule Hep B vax * Telephone Encounter - Zohra Glynn LPN - 10/02/2023 8:46 AM EST Please schedule nurse visit for Hep B vaccine. * Telephone Encounter - Ml Gregoyr OSA - 10/01/2023 8:11 AM EST An order was requested for this patient. Name of Requesting Provider: self Order Requested: Hep B vaccine series Diagnosis/Reason for Request: routine care If order request is for Mammogram: Is the patient having any breast symptoms? N/A Is there a chance of ? N/A Has the patient had any breast problems in the past? NA What location AND department does the patient wish to have their order completed at? [facility] Fax Number, if applicable: N/A Call Back Number: [phone] If the caller is not a current patient, please advise the patient to call their current PCP to havethe order's prior to being seen in our office. The patient was informed that our providers would not order anything (medication, labs, etc.) prior to being seen. documented in this encounter Plan of Treatment Upcoming Encounters Date Type Department Care Team (Latest Contact Info) Description 4 1:00 PM EDT Hospital Encounter ENDO [facility], Endoscopy Room [facility] [address] [place] [phone] Akanksha Chairez MD [address] [place] [id number] 4 1:00 PM EDT - 4 1:30 PM EDT Surgery ENDO [facility], Endoscopy Room [facility] [address] [place] [phone] Akanksha Chairez MD [address] [place] [id number] ESOPHAGOGASTRODUODENOSCOPY (EGD), FLEXIBLE, TRANSORAL, DIAGNOSTIC 4 3:30 PM EDT [facility] [address] [place] [address] Armen Jacob MD [address] [place] [address] 4 3:00 PM EDT Telemedicine [facility]enterolog y, [facility] [place] [address] Zohra Isaacs CRNP [address] [place] [address] 4 10:00 AM EST Office Visit [facility] [place] [address] Anil Sandhu MD [address] [place] [id number] 4 2:00 PM EST Office Visit Gynecology/Obst etrics [facility] [place] [id number] Indira Denson CRNP [address] [place] [address] 5 11:00 AM EST Imaging Radiology [address] [place] [address] Scheduled Procedures Name Priority Associated Diagnoses Date/Ti me ESOPHAGOGASTRODUODENOSCOPY ( EGD), FLEXIBLE, TRANSORAL, DIAGNOSTIC Eosinophilic esophagitis 02/20/2024 1:00 PM EDT COLONOSCOPY FLEXIBLE PROXIMA L DIAGNOSTIC Recall Screen for colon cancer Health Maintenance Due Date Last Done Comments DISCUSS TOBACCO CESSATION (REFER TO SMARTSET #3291) 1981 HPV/Co-Test 2011 Pneumococcal Vaccine: Pediatrics (0 to 5 Years) and At-Risk Patients (6 to 64 Years) (2 of 2 - PCV) 10/24/2018 10/24/2017 Cervical Cancer Screening 02/26/2023 Pap Smear 02/26/2023 02/27/2020, 11/13, 05/23/2013, Additional history exists Influenza Vaccine (FLU shot) (#1) 2023 07/28/2013, 08/13/2012, 09/24/2007 Depression Screening 09/20/2024 09/20/2023 Mammogram 12/19/2024 12/19/2023 Diabetes Screening 03/27/2026 03/27/2023, 1 11/13/2021, 09/13/2022, Additional history exists Lipid Panel 08/24/2027 08/24/2022 DTaP,Tdap,and Td Vaccines (4 - Td or Tdap) 08/12/2030 08/12/2020, 07/03/2018, 11/20/2015 Hepatitis B Completed 01/25/2024, 12/19/2023 COVID-19 Vaccine Discontinued GARDASIL-HPV IMMUNIZATION SERIES Aged Out No longer eligible based on patient's age to complete this topic MENINGOCOCCAL (MENACTRA/MENVEO) Aged Out No longer eligible based on patient's age to complete this topic documented as of this encounter Medical Devices Not on filedocumented as of this encounter Visit Diagnoses Diagnosis Need for hepatitis B vaccination- Primary Need for prophylactic vaccination and inoculation against viral hepatitis Eosinophilic esophagitis documented in this encounter Advance Directives Latest Code Status on File Code Status Date Activated Date Inactivated Comments Full Code 12/13/2021 11:56 AM 12/13/2021 7:28 PM This o rder reflects the patients wishes and were consensually agreed upon. Care Teams Insulation Power Unit Tender Relationship Specialty Start Date End Date Anil Sandhu MD [address] [place] [id number] PCP - General Family Medicine 08/14/22 documented as of this encounter
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
--- OUTSIDE RECORDS SUMMARY | 2024-03-16 21:30 | External Medical Summary | Summary of Care ---
Author Name Unknown Organization [facility] Address [address] [place] [address] Phone [phone] Care Team Providers Care Anchor Tacker Name Role Phone Anil Sandhu MD Primary Care Provider + Reason for Visit * Reason Comments Re-Check Encounter Details Date Type Department Care Team (Late st Contact Info) Description 01/25/2024 12:30 PM EDT Office Visit Gastroenterology, [facility] [address] [facility] [place] [address] Ac Celis CRNP [address] [facility] [facility] [address] Esophageal dysphagia*; Ulcer of esophagus with bleeding; Eosinophilic esophagitis Allergies Active Allergy Reactions Criticality Noted Date Comments Apple Juice High 12/17/2021 Other reaction(s): Swelling of Lip/Tongue/Throat Diltiazem 03/04/2021 Hoarsness Eggs Or Egg-Derived Products High 12/17/2021 Other reaction(s): THROAT SWELLS /HARD TO BREATHE Ibuprofen Nausea/vomiting High 06/01/2010 Ibuprofen High 12/17/2021 Other reaction(s): VOMITING,BLURRED VISION, RINGING OF EARS Spinach High 12/17/2021 Other reaction(s): SHORTNESS OF BREATH documented as of this encounter (statuses as of 01/25/2024) Medications Medication Sig Dispensed Refills Start Date End Date Status Excedrin Tension Headache 500-65 MG Oral Tablet (Acetaminophen-C affeine) Take by mouth as needed . 0 Active Lidocaine Viscous HCl 2 % Mouth/Throat SolutionIndicati ons:Acute pharyngitis, unspecified etiology Swish and spit as [...] Active Metoprolol Tartrate 100 MG Oral Tablet (Lopressor)Indic ations:NSVT (nonsustained ventricular tachycardia) (HCC),Palpitatio ns Take 1 Tablet by mouth in the morning and 1 Tablet before bedtime. 180 Tablet 3 05/04/2023 Active Ferrous Sulfate 325 (65 Fe) MG Oral Tablet (Feosol)Indicati ons:Iron deficiency anemia due to chronic blood loss 1 tab every other day 45 Tablet 1 06/25/2023 Active Magic Swizzle (Lidocaine-Benad ryl-Maalox) oral solution Swish and spit 15 mL 4 times a day as needed for Pain. 600 mL 0 09/11/2023 Active Baclofen 10 MG Oral Tablet (Lioresal) Take 1 Tablet by mouth in the morning and 1 Tablet before bedtime. 60 Tablet 5 09/20/2023 Active Albuterol Sulfate HFA 108 (90 Base) MCG/ACT Inhalation Aerosol SolutionIndicati ons:Asthma, mild persistent INHALE 2 PUFFS BY MOUTH EVERY 6 HOURS NEEDED FOR SHORTNESS OF BREATH 54 g 1 09/21/2023 Active Omeprazole 40 MG Oral Capsule Delayed Release (PriLOSEC) Take 1 Capsule by mouth in the morning. 180 Capsule 3 01/25/2024 Active Fluticasone Propionate HFA 220 MCG/ACT Inhalation Aerosol Two swallows twice daily 12 g 12 01/25/2024 Active oxyCODONE-Acetam inophen 5-325 MG Oral Tablet (Percocet)Indica tions:Dental caries,Periapica l abscess Take by mouth 1 Tablet every [...] Sodium 40 MG Oral Tablet Delayed Release (Protonix)Indica tions:Ulcer of esophagus with bleeding 1 tab twice daily before meals.. Do not crush, split or chew the tablet 30 Tablet 5 09/20/2023 4 Discontinue d(Medicatio n List Clean Up) documented as of this encounter (statuses as of 01/25/2024) Active Problems Problem Noted Date Diagnosed Date Well adult exam 09/21/2022 Overview: 09/13/23 EGD s/p bleed [facility], 10mm distal tear. Nonbleeding. EGD WNL dilated [...] as of this encounter (statuses as of 01/25/2024) Resolved Problems Problem Noted Date Diagnosed Date [...] age Maternal Medicine Consult -Declined 02/05/2018 Daniel Dean RN 02/05/18 Problem Action Taken Date entered Entered by Date resolved Fatigue Take vitamins Good nutrition and hydration will help 02/05/2018 Daniel Dean RN 02/05/18 Inadequate diet for Discussed decreasing caffeine intake 02/05/2018 Daniel Dean RN 02/05/18 Smoking/tobacco abuse Smoking Education 02/05/2018 Daniel Dean RN 02/05/18 Nutrition WIC referral will need EDC [...] to 3 cigarettes a day. 07/22/2018 Ivy Ramirez RN 07/22/18 Problem Action Taken Date entered Entered [...] Acute bronchitis, complicated 01/25/2012 01/23/2013 screening for market research specialist mosomal anomalies by amniocentesis 07/26/2011 07/26/2011 Supervision [...] Asthma in remission 06/01/2010 07/26/20 11 HBPPF [id number] HIGH-RISK PREG NOS 10/17/2007 05/11/2011 PF 09/17/2007 10/17/2007 SUPERVISION OF HIGH-RISK PRE GNANCY WITH HISTORY OF 09/17/2007 01/23/2013 Overview: Declines FTS documented as of this encounter (statuses as of 01/25/2024) Immunizations Name Administration Dates Next Due Hepatitis [...] Passive Smoke Exposure: Past Smokeless Tobacco: Never Tobacco Cessation:Ready to Q uit: Not Asked; Counseling Given: Not Answered Comments:Smoking cessation efforts encouraged in to include avoidance [...] money to get more. Never true 09/20/2023 [place] Depression Scale Answer Date Recorded [place] Depression Scale Total 8 08/24/2022 The thought [...] on file documented as of this encounter Last Filed Vital Signs Vital Sign Reading Time Taken Comments Blood Pressure 128/98 01/25/2024 12:12 PM EDT re-check Pulse 77 01/25/2024 12:05 PM EDT Temperature 36.7 C (98.1 F) 01/25/2024 1 2:05 PM EDT Respiratory Rate 16 01/25/2024 12:0 5 PM EDT Oxygen Saturation - - Inhaled Oxygen Concentration - - Weight 74.3 kg (163 lb 14.4 oz) 024 12:05 PM EDT Height - - Body Mass Index 25.67 09/06/2023 5:03 PM EDT documented in this encounter Progress Notes * Ac Celis CRNP - 01/25/2024 12:17 PM EDT CC: Dysphagia HPI: Ms. Genie Adames is a 43 yr old female pt of Dr. Sandhu who presents today for dysphagia. Shecarries a history of EOE. he was followed in GI clinic most recently in 2021 by Zohra. At the timeof her last EGD in August 2023, there were no esophageal biopsies taken. She was empirically dilated as the esophagus appeared normal, then unfortunately experienced hematemesis presented to the emergency department where he she was admitted and EGD showed a healing tear without any fresh blood. She presented to the waiting area today without an appointment asking to be seen urgently because of difficulty swallowing. Current GI Meds: Pantoprazole 40mg BID (pt feels omeprazole is more effective) On Baclofen for back pain/muscle spasms, takes BID, regularly. Does not recall treating the EOE with an inhaled/swallowed steroid or budesonide in the past. Current GI Symptoms: Had relief from the dysphagia for a few months after the last EGD w dilation. They feeling of food and water getting stuck after immediately after swallowing started again a week ago. Repeats swallow, then the foods/liquids very slowly move down. Gets lower neck pressure/upper chest which, "never resolves, always feels like something is stuck in there, it feels like I'm being smothered, it soundslike I'm sick - in my own ears when I talk - but I'm not sick." No recent abdominal pain. Good sleeper at night. EGD Sep 11, 2023: - No endoscopic esophageal abnormality to explain patient's dysphagia. Esophagus dilated to 54 Fr. - Z-line regular, 37 cm from the incisors. - Normal stomach. - Normal examined duodenum. - No specimens collected. EGD Sep 13, 2023: Z-line regular, 35 cm from the incisors. - Tear in the lower third of the esophagus from recent dilation. There was no evidence of fresh blood or fresh clot on the tear but this is the likely source of patient's recent hematemesis as the tear did have a few pigmented spots indicating recent bleeding. It appears to already be healing. - Normal stomach. - Normal duodenal bulb and second portion of the duodenum. - No specimens collected EGD 2021: Normal esophagus. - A small [...] intraepithelial eosinophils (up to 21 per HPF), chronicinflammation and reactive change. Negative for intestinal metaplasia [...] esophagus, classified as Regalado's stage C2-M2 per Laquey criteria. These changes involved the mucosa at the upper extent of the gastric folds (37 cm from the incisors) extending to the Z-line (35 cm from the incisors). [place]-colored mucosa was present. The maximum longitudinal extent [...] colon CA Family history of IBD: none EXAM: BP 128/98 Comment: re-check | Pulse 77 | Temp 36.7 C (98.1 F) (Tympanic) | Resp 16 | Wt 74.3 kg(163 lb 14.4 oz) | BMI 25.67 kg/m | BSA 1.87 m GENERAL: 43 year old female well developed and well nourished in no acute distress SKIN: no rashes, ulcers, or spider angiomata HEENT: normocephalic, sclera clear, pharynx normal NECK: supple, no lymphadenopathy, no masses or thyroid enlargement LUNGS: clear to auscultation anterior and posterior HEART: regular rate & rhythm, no murmurs and no gallops ABDOMEN: normo-active bowel sounds, soft, non-tender, non-distended no masses, no hepatosplenomegaly, no rebound or guarding, no bruits EXTREMITIES: no palmar erythema, no edema, no skin discoloration, no clubbing, no cyanosis NEURO: no lateralizing findings, Sensory/Motor grossly normal IMPRESSION/RECOMMENDATIONS: 43 year old female with Ulcer of esophagus with bleeding (now resolved) Esophageal dysphagia (Primary)/Eosinophilic esophagitis - Omeprazole 40 MG Oral Capsule Delayed Release (PriLOSEC); Take 1 Capsule by mouth in the morning. - Fluticasone Propionate HFA 220 MCG/ACT Inhalation Aerosol; Two swallows twice daily Recheck after EGD w Zohra or myself. I spent a total of 30 minutes on the date of service in review of patient's record, and previously obtained information in person and appropriate medical visit, discussion and education of plan, withpatient and/or caregiver, placing orders for tests/referral/procedures as medically necessary and documentation of pertinent clinical information in patient's medical records for their visit today. Thank you for the opportunity to be involved in the care of this patient. HAYLEE Solano documented in this encounter Nursing Notes * Daphney Carson RN - 01/25/2024 12:07 PM EDT Patient identified by full name and date of Chief Complaint Patient presents with Re-Check Pt presents as a walk in with complaints of esophageal pain and dysphagia with talking, eating etc.Eats mostly a soft diet, has pain even with drinking water. C/o of a globus sensation. Denies vomiting. Is unable to eat much due to her dietary restrictions. "It just feels like someone is choking me all the time." Had back to back EGD's in the fall due to an esophageal tear with dilation. Is not currently on a PPI as Pantoprazole is not as effective as Omeprazole. Never started Carafate. documented in this encounter Plan of Treatment Upcoming Encounters Date Type Department Care Team (Latest Contact Info) Description 4 1:00 PM EDT [facility] [address] [place] [phone] Akanksha Chairez MD [address] [place] [address] 4 1:00 PM EDT - 4 1:30 PM EDT Surgery ENDO [facility], Endoscopy Room [facility] [address] [place] [phone] Akanksha Chairez MD [address] [place] [address] ESOPHAGOGASTRODUODENOSCOPY (EGD), FLEXIBLE, TRANSORAL, DIAGNOSTIC 4 3:30 PM EDT [facility] [address] [facility] [place] [address] Armen Jacob MD [address] [facility] [place] [address] 4 3:00 PM EDT Telemedicine Gastroenterolog y, [facility] [address] [facility] [place] [address] Zohra Isaacs CRNP [address] [place] [address] 4 10:00 AM EST Office Visit [facility] [place] [address] Anil Sandhu MD [address] [place] [address] 4 2:00 PM EST Office Visit Gynecology/Obst etrics [facility] [address] [facility] [place] [address] Indira Denson CRNP [address] [place] [address] 5 11:00 AM EST Imaging Radiology [facility] 1st [facility] [address] [facility] [place] [address] Scheduled Orders Name Type Priority Associated Diagnoses Orde r Schedule EGD, FLEXIBLE, DIAGNOSTIC Procedures Routine Esophageal dysphagia Ordered: 01/25/2024 Scheduled Procedures Name Priority Associated Diagnoses Date/Ti me ESOPHAGOGASTRODUODENOSCOPY ( EGD), FLEXIBLE, TRANSORAL, DIAGNOSTIC Eosinophilic esophagitis 02/20/2024 1:00 PM EDT COLONOSCOPY FLEXIBLE PROXIMA L DIAGNOSTIC Recall Screen for colon cancer Health Maintenance Due Date Last Done Comments DISCUSS TOBACCO CESSATION (REFER TO SMARTSET #3389) 1981 HPV/Co-Test 2011 Pneumococcal Vaccine: Pediatrics (0 [...] as of this encounter Visit Diagnoses Diagnosis Esophageal dysphagia- Primary Dysphagia, pharyngoesophageal phase Ulcer of esophagus with bleeding Eosinophilic esophagitis Eosinophilic esophagitis documented in this encounter Advance Directives Latest Code Status on File Code Status Date Activated Date Inactivated Comments Full Code 12/13/2021 11:56 AM 12/13/2021 7:28 PM This o rder reflects the patients wishes and were consensually agreed upon. Care Teams Anchor Tacker Relationship Specialty Start Date End Date Anil Sandhu MD [address] [place] [address] PCP - General Family Medicine 08/14/22 documented as of this encounter
--- OUTSIDE RECORDS SUMMARY | 2024-03-16 21:30 | External Medical Summary | Summary of Care ---
Author Name Unknown Organization [facility] Address [address] [place] [address] Phone [phone] Care Team Providers Care Integrated Circuit Design Engineer Name Role Phone Anil Sandhu MD Primary Care Provider + Reason for Visit * Reason Onset Date Comments Advice 03/12/2024 Encounter Details Date Type Department Care Team (Late st Contact Info) Description 03/12/2024 Telephone Family Practice [facility] [address] [facility] [place] [address] Anil Sandhu MD [address] [facility] [place] [address] Advice Allergies Active Allergy Reactions Criticality Noted Date [...] as of this encounter (statuses as of 03/13/2024) Medications Medication Sig Dispensed Refills Start Date [...] the morning. 90 Tablet 3 03/23/2023 Active Additional Information Patient taking differently:10 mg Oral Daily(AM), Takes at night, Reported on 02/18/2024 Metoprolol Tartrate 100 MG Oral Tablet (Lopressor)Indica [...] OF BREATH 54 g 1 09/21/2023 Active Sucralfate 1 GM/10ML Oral Suspension (Carafate) Take 10 mL by mouth in the morning and 10 mL at noon and 10 mL in the evening. Do all this for 14 days. 420 mL 0 03/12/2024 03/26/2024 Active Omeprazole 40 MG Oral Capsule Delayed Release (PriLOSEC) Take 1 Capsule by mouth in the morning and 1 Capsule before bedtime. 120 Capsule 0 03/12/2024 05/11/2024 Active documented as of this encounter (statuses as of 03/13/2024) Active Problems Problem Noted Date Diagnosed Date Well adult exam 09/21/2022 Overview: 09/13/23 EGD s/p bleed [facility], 10mm distal tear. Nonbleeding. EGD WNL dilated [...] as of this encounter (statuses as of 03/13/2024) Resolved Problems Problem Noted Date Diagnosed Date [...] Acute bronchitis, complicated 01/25/2012 01/23/2013 screening for firer portable boiler mosomal anomalies by amniocentesis 07/26/2011 07/26/2011 Supervision [...] Asthma in remission 06/01/2010 07/26/20 11 HBPPF [id number] HIGH-RISK PREG NOS 10/17/2007 05/11/2011 PF 09/17/2007 10/17/2007 SUPERVISION OF HIGH-RISK PRE GNANCY WITH HISTORY OF 09/17/2007 01/23/2013 Overview: Declines FTS documented as of this encounter (statuses as of 03/13/2024) Immunizations Name Administration Dates Next Due Hepatitis [...] money to get more. Never true 09/20/2023 [place] Depression Scale Answer Date Recorded [place] Depression Scale Total 8 08/24/2022 The thought [...] encounter Miscellaneous Notes * Telephone Encounter - Margarita Camarena LPN - 03/13/2024 11:46 AM EDT Called pt, aware what flucitasone is used for and how to use it. Has one and does not need refill at this time. * Telephone Encounter - Anil Sandhu MD - 03/12/2024 10:07 PM EDT Let pt know fluticisone for asthma is a daily prevention inhaler, not for treatment of asthma flareups. If she's needing albuterol 2 days a week or more, we can consider starting fluticisone for asthma. For flare -ups, needs to use her albuterol inhaler. Recommend appt w/ INSTRUCTIONAL DESIGN SPECIALIST to discuss further * Telephone Encounter - Anil Sandhu MD - 03/12/2024 4:05 PM EDT * * Telephone Encounter - Noa Smith LPN - 03/12/2024 3:22 PM EDT Pt calling due to seeing gastro today. During appt her fluticasone inhaler was d/c, she was using this for inflammation and swallowing issue. Instructions were to swallow the medication instead of inhaling it. Pt inquires if she could use the fluticasone for her asthma, she would inhale it instead of swallowing. She doesn't want to waste the inhaler she has at home, she would like to use it up as as needed. Please advise if ok to use as needed for asthma relief. * Telephone Encounter - Vero Carr OSA - 03/12/2024 3:18 PM EDT Reason for patient's call: asking to speak to nurse about inhaler Caller was transferred to Noa at the nurse line. documented in this encounter Plan of Treatment Upcoming Encounters Date Type Department Care Team (Latest Contact Info) Description 03/17/2024 11:40 AM EDT Office Visit [facility] [address] [place] [address] Minh Ward CRNP [address] [place] [address] 05/16/2024 1:00 PM EDT Hospital Encounter ENDO [facility], Endoscopy Room [facility] [address] [place] [phone] Augustus Mcduffie MD [address] [place] [address] 05/16/2024 1:00 PM EDT - 05/16/2024 1:30 PM EDT Surgery [facility]O [facility], Endoscopy Room [facility] [address] [place] [phone] Augustus Mcduffie MD [address] [place] [address] ESOPHAGOGASTRODUODENOSCOPY (EGD), FLEXIBLE, TRANSORAL, DIAGNOSTIC 09/24/2024 10:00 AM EST Office Visit [facility] [address] [place] [address] Anil Sandhu MD [address] [place] [address] 12/24/2024 11:00 AM EST Imaging Radiology [facility] 1st [facility] [address] [address] Scheduled Procedures Name Priority Associated Diagnoses Date/Ti me ESOPHAGOGASTRODUODENOSCOPY ( EGD), FLEXIBLE, TRANSORAL, DIAGNOSTIC Eosinophilic esophagitis 05/16/2024 1:00 PM EDT COLONOSCOPY FLEXIBLE PROXIMA L DIAGNOSTIC Recall Screen for colon cancer Health Maintenance Due Date Last Done Comments DISCUSS TOBACCO CESSATION (REFER TO SMARTSET #6373) 1981 HPV/Co-Test 2011 Pneumococcal Vaccine: Pediatrics (0 [...] Not on filedocumented as of this encounter Advance Directives Latest Code Status on File Code Status Date Activated Date Inactivated Comments Full Code 12/13/2021 11:56 AM 12/13/2021 7:28 PM This o rder reflects the patients wishes and were consensually agreed upon. Care Teams Integrated Circuit Design Engineer Relationship Specialty Start Date End Date Anil Sandhu MD [address] [place] [address] PCP - General Family Medicine 08/14/22 documented as of this encounter
--- OUTSIDE RECORDS SUMMARY | 2024-03-16 21:30 | External Medical Summary | Summary of Care ---
Author Name Unknown Organization [facility] Address [address] [place] [address] Phone [phone] Care Team Providers Care Lift Builder Whole Name Role Phone Anil Sandhu MD Primary Care Provider + Encounter Details Date Type Department Care Team (Late st Contact Info) Description 02/09/2024 Patient Reported Data Patient Survey [facility]CE Allergies Active Allergy Reactions Criticality Noted Date Comments Apple Juice High 12/17/2021 Other reaction(s): Swelling of Lip/Tongue/Throat Diltiazem 03/04/2021 Hoarsness Egg-Derived Products High 12/17/2021 Other reaction(s): THROAT SWELLS /HARD TO BREATHE Ibuprofen Nausea/vomiting High 06/01/2010 Ibuprofen High 12/17/2021 Other reaction(s): VOMITING,BLURRED VISION, RINGING OF EARS Spinach High 12/17/2021 Other reaction(s): SHORTNESS OF BREATH documented as of this encounter (statuses as of 02/09/2024) Medications Medication Sig Dispensed Refills Start Date End Date Status Excedrin Tension Headache 500-65 MG Oral Tablet (Acetaminophen-Caf feine) Take by mouth as needed . 0 Active Lidocaine Viscous HCl 2 % Mouth/Throat SolutionIndication s:Acute pharyngitis, unspecified etiology Swish and spit as [...] Active Metoprolol Tartrate 100 MG Oral Tablet (Lopressor)Indicat ions:NSVT (nonsustained ventricular tachycardia) (HCC),Palpitations Take 1 Tablet by mouth in the morning and 1 Tablet before bedtime. 180 Tablet 3 05/04/2023 Active Ferrous Sulfate 325 (65 Fe) MG Oral Tablet (Feosol)Indication s:Iron deficiency anemia due to chronic blood loss 1 tab every other day 45 Tablet 1 06/25/2023 Active Magic Swizzle (Lidocaine-Benadry l-Maalox) oral solution Swish and spit 15 mL 4 times a day as needed for Pain. 600 mL 0 09/11/2023 Active Baclofen 10 MG Oral Tablet (Lioresal) Take 1 Tablet by mouth in the morning and 1 Tablet before bedtime. 60 Tablet 5 09/20/2023 Active Albuterol Sulfate HFA 108 (90 Base) MCG/ACT Inhalation Aerosol SolutionIndication s:Asthma, mild persistent INHALE 2 PUFFS BY MOUTH EVERY 6 HOURS NEEDED FOR SHORTNESS OF BREATH 54 g 1 09/21/2023 Active Omeprazole 40 MG Oral Capsule Delayed Release (PriLOSEC) Take 1 Capsule by mouth in the morning. 180 Capsule 3 01/25/2024 Active Fluticasone Propionate HFA 220 MCG/ACT Inhalation Aerosol Two swallows twice daily 12 g 12 01/25/2024 Active documented as of this encounter (statuses as of 02/09/2024) Active Problems Problem Noted Date Diagnosed Date Well adult exam 09/21/2022 Overview: 09/13/23 EGD s/p bleed [facility], 10mm distal tear. Nonbleeding. EGD WNL dilated [...] as of this encounter (statuses as of 02/09/2024) Resolved Problems Problem Noted Date Diagnosed Date [...] Rutherford RN 02/27/2020 Nutrition Pt declines attending [place] 02/27/2020 Niecy Rutherford RN 02/27/2020 Home Nurse [...] Maternal Medicine Consult -Declined 02/05/2018 Daniel Dean, FABRIZIO 02/05/18 Problem Action Taken Date entered Entered by Date resolved Fatigue Take vitamins Good nutrition and hydration will help 02/05/2018 Daniel Dean RN 02/05/18 Inadequate diet for Discussed decreasing caffeine intake 02/05/2018 Daniel Dean, FABRIZIO 02/05/18 Smoking/tobacco abuse Smoking Education 02/05/2018 Daniel Dean, FABRIZIO 02/05/18 Nutrition WIC referral will need EDC letter 02/05/2018 Daniel Dean, RN 02/05/18 Problem Action [...] Overview: Patient received flu vaccine. 08/22/2013 Val Snider, FABRIZIO ICD-10 update of inactive term Encounter for [...] Acute bronchitis, complicated 01/25/2012 01/23/2013 screening for job training specialist mosomal anomalies by amniocentesis 07/26/2011 07/26/2011 [...] Asthma in remission 06/01/2010 07/26/20 11 HBPPF [id number] HIGH-RISK PREG NOS 10/17/2007 05/11/2011 PF 09/17/2007 10/17/2007 SUPERVISION OF HIGH-RISK PRE GNANCY WITH HISTORY OF 09/17/2007 01/23/2013 Overview: Declines FTS documented as of this encounter (statuses as of 02/09/2024) Immunizations Name Administration Dates Next Due Hepatitis [...] money to get more. Never true 09/20/2023 [place] Depression Scale Answer Date Recorded [place] Depression Scale Total 8 08/24/2022 The thought [...] on file documented as of this encounter Plan of Treatment Upcoming Encounters Date Type Department Care Team (Latest Contact Info) Description 4 8:20 AM EDT Office Visit Family Practice [facility] [address] [address] [address] Anil Sandhu MD [address] [place] [address] 4 1:00 PM EDT Hospital Encounter ENDO [facility], Endoscopy Room [facility] [address] [phone] Akanksha Chairez MD [address] [address] 4 1:00 PM EDT - 4 1:30 PM EDT Surgery ENDO [facility], Endoscopy Room [facility] [address] [place] [address] Akanksha Chairez MD [address] [place] [address] ESOPHAGOGASTRODUODENOSCOPY (EGD), FLEXIBLE, TRANSORAL, DIAGNOSTIC 4 3:30 PM EDT [facility] [address] [place] [address] Armen Jacob MD [address] [place] [address] 4 3:00 PM EDT Telemedicine Gastroenterolog y, [facility] [address] [place] [address] Zohra Isaacs CRNP [address] [place] [address] 4 10:00 AM EST Office Visit Family Practice [facility] [address] [place] [address] Anil Sandhu MD [address] [place] [address] 4 2:00 PM EST Office Visit Gynecology/Obst etrics [facility] [address] [facility] [place] [address] BackerIndira CRNP [address] [place] [address] 5 11:00 AM EST Imaging Radiology [address] [place] [address] Scheduled Procedures Name Priority Associated Diagnoses Date/Ti [...] and were consensually agreed upon. Care Teams Lift Builder Whole Relationship Specialty Start Date End Date Anil Sandhu MD [address] [place] [address] PCP - General Family Medicine 08/14/22 documented as of this encounter
--- OUTSIDE RECORDS SUMMARY | 2024-03-16 21:30 | External Medical Summary | Summary of Care ---
Author Name Unknown Organization [facility] Address [address] [place] [address] Phone [phone] Care Team Providers Care Electronic Pagination System Operator Name Role Phone Anil Sandhu MD Primary Care Provider + Reason for Visit * Reason Onset Date Comments Precert Approved 01/28/2024 Fluticasone Encounter Details Date Type Department Care Team (Late st Contact Info) Description 01/28/2024 Telephone Gastroenterology, [facility] [address] [facility] [place] [address] Ac Celis CRNP [address] [facility] [place] [address] Precert Approved (Fluticasone) Allergies Active Allergy Reactions Criticality Noted Date Comments Apple Juice High 12/17/2021 Other reaction(s): Swelling of Lip/Tongue/Throat Diltiazem 03/04/2021 Hoarsness Eggs Or Egg-Derived Products High 12/17/2021 Other reaction(s): THROAT SWELLS /HARD TO BREATHE Ibuprofen Nausea/vomiting High 06/01/2010 Ibuprofen High 12/17/2021 Other reaction(s): VOMITING,BLURRED VISION, RINGING OF EARS Spinach High 12/17/2021 Other reaction(s): SHORTNESS OF BREATH documented as of this encounter (statuses as of 02/06/2024) Medications Medication Sig Dispensed Refills Start Date [...] as of this encounter (statuses as of 02/06/2024) Active Problems Problem Noted Date Diagnosed Date Well adult exam 09/21/2022 Overview: 09/13/23 EGD s/p bleed [facility], 10mm distal tear. Nonbleeding. EGD WNL dilated [...] as of this encounter (statuses as of 02/06/2024) Resolved Problems Problem Noted Date Diagnosed Date [...] resolved Smoking/tobacco abuse Smoking Education 02/27/2020 Niecy Rutherford, FABRIZIO 02/27/2020 Nutrition Pt declines attending WIC 02/27/2020 [...] Acute bronchitis, complicated 01/25/2012 01/23/2013 screening for observation assistant mosomal anomalies by amniocentesis 07/26/2011 07/26/2011 Supervision [...] Asthma in remission 06/01/2010 07/26/20 11 HBPPF [id number] HIGH-RISK PREG NOS 10/17/2007 05/11/2011 PF 09/17/2007 10/17/2007 SUPERVISION OF HIGH-RISK PRE GNANCY WITH HISTORY OF 09/17/2007 01/23/2013 Overview: Declines FTS documented as of this encounter (statuses as of 02/06/2024) Immunizations Name Administration Dates Next Due Hepatitis [...] include avoidance of excessive secondhand smoke exposure- 2018 Alcohol Use Standard Drinks/Week Comments No 0 [...] money to get more. Never true 09/20/2023 [place] Depression Scale Answer Date Recorded [place] Depression Scale Total 8 08/24/2022 The thought [...] encounter Miscellaneous Notes * Telephone Encounter - Emilia Baeza RN - 01/31/2024 10:10 AM EDT Attempted to reach patient to notify her of approval, no answer. Left generic message that patient's med was approved. Encouraged to call back with questions. * Telephone Encounter - Emilia Baeza RN - 01/31/2024 10:09 AM EDT Type Date User Summary Attachment Precert 01/30/2024 7:48 AM Gely Dorsey OSA - - Note: New or re-auth: New authorization Approved/Denied: Approved Drug Name and Formulation: Fluticasone Propionate HFA 220 MCG/ACT Inhalation Aerosol How Prescribed(directions/sig): DAILY Day Supply: 30 Did you receive insurance information from outside the chart? No, received insurance information within the chart Valid auth start date: N/A Valid auth end date: 11/11/2099 Rx Insurance Info: [facility] [place] Reference #: Rx Benefits Verified through/on date: EPIC 01/29/2024 Referral (TE) received from: Prescribing Clinic Gely Dorsey Medication Composite Mechanic III P: [phone] F: [phone] 01/30/24,7:48 AM . * Telephone Encounter - Daphney Carson RN - 01/28/2024 4:34 PM EDT Gastro Pre-Cert Request Specialty Medication: No. Medication/Disease State Information: Medication: Fluticasone Propionate HFA 220 MCG/ACT Inhalation Aerosol Diagnosis (including ICD-10): Eosinophilic esophagitis [K20.0] Site of care: Self-administered - route pre-cert request to [id number] Office Information: Prescriber: HAYLEE Frank documented in this encounter Plan of Treatment Upcoming Encounters Date Type Department Care Team (Latest Contact Info) Description 4 8:20 AM EDT Office Visit Family [facility] [address] [address] [address] Anil Sandhu MD [address] [place] [address] 4 1:00 PM EDT Hospital Encounter ENDO O[facility], Endoscopy Room [facility] [address] [address] [phone] Akanksha Chairez MD [address] [place] [address] 4 1:00 PM EDT - 4 1:30 PM EDT Surgery ENDO O[facility], Endoscopy Room [facility] [address] [place] [phone] Akanksha Chairez MD [address] [place] [address] ESOPHAGOGASTRODUODENOSCOPY (EGD), FLEXIBLE, TRANSORAL, DIAGNOSTIC 4 3:30 PM EDT Office Visit Allergy/Immunol cornell Desai [place] [address] [place] [address] Armen Jacob MD [address] [place] [address] 4 3:00 PM EDT Telemedicine Gastroenterolog y, [facility] [address] [place] [address] Zohra Isaacs CRNP [address] [place] [address] 4 10:00 AM EST Office Visit Family Practice [facility] [address] [place] [address] Anil Sandhu MD [address] [place] [address] 4 2:00 PM EST Office Visit Gynecology/Obst etrics [facility] [address] [place] [address] Indira Denson CRNP [address] [place] [address] 11:00 AM EST Imaging Radiology [facility] 1st [facility] [place] [address] [facility] [place] [address] Scheduled Procedures Name Priority Associated Diagnoses Date/Ti me ESOPHAGOGASTRODUODENOSCOPY ( EGD), FLEXIBLE, TRANSORAL, DIAGNOSTIC Eosinophilic esophagitis 02/20/2024 1:00 PM EDT COLONOSCOPY FLEXIBLE PROXIMA L DIAGNOSTIC Recall Screen for colon cancer Health Maintenance Due Date Last Done Comments DISCUSS TOBACCO CESSATION (REFER TO SMARTSET #7732) 1981 HPV/Co-Test 2011 Pneumococcal Vaccine: Pediatrics (0 [...] and were consensually agreed upon. Care Teams Electronic Pagination System Operator Relationship Specialty Start Date End Date Anil Sandhu MD [address] [place] [address] PCP - General Family Medicine 08/14/22 documented as of this encounter
--- OUTSIDE RECORDS SUMMARY | 2024-03-16 21:30 | External Medical Summary | Summary of Care ---
Author Name Unknown Organization [facility] Address [address] [place] [address] Phone [phone] Care Team Providers Care Microbiological Laboratory Technician Name Role Phone Anil Sandhu MD Primary Care Provider + Reason for Visit * Reason Comments Nurse Documentation Encounter Details Date Type Department Care Team (Late st Contact Info) Description 01/25/2024 12:00 PM EDT Immunization/I njection [facility] [address] [place] [address] [facility] [address] [place] [address] Need for hepatitis B vaccination* Allergies Active Allergy Reactions Criticality Noted Date [...] by mouth as needed . 0 Active oxyCODONE-Acetamin ophen 5-325 MG Oral Tablet (Percocet)Indicati ons:Dental caries,Periapical abscess Take by mouth 1 Tablet every 6 hours as needed for Pain, Severe. 12 Tablet 0 03/08/2022 Active Lidocaine Viscous HCl 2 % Mouth/Throat [...] other day 45 Tablet 1 06/25/2023 Active Sucralfate 1 GM/10ML Oral Suspension (Carafate) Take 10 mL by mouth in the morning and 10 mL at noon and 10 mL in the evening and 10 mL before bedtime. 400 mL 0 09/11/2023 Active Magic Swizzle (Lidocaine-Benadry l-Maalox) oral solution Swish and spit 15 mL 4 times a day as needed for Pain. 600 mL 0 09/11/2023 Active Pantoprazole Sodium 40 MG Oral Tablet Delayed Release (Protonix)Indicati ons:Ulcer of esophagus with bleeding 1 tab twice daily before meals.. Do not crush, split or chew the tablet 30 Tablet 5 09/20/2023 Active Baclofen 10 MG Oral Tablet (Lioresal) Take 1 Tablet by mouth in the morning and 1 Tablet before bedtime. 60 Tablet 5 09/20/2023 Active Albuterol Sulfate HFA 108 (90 Base) MCG/ACT Inhalation Aerosol SolutionIndication s:Asthma, mild persistent INHALE 2 PUFFS BY MOUTH EVERY 6 HOURS NEEDED FOR SHORTNESS OF BREATH 54 g 1 09/21/2023 Active documented as of this encounter (statuses as of 01/25/2024) Active Problems Problem Noted Date Diagnosed Date Well adult exam 09/21/2022 Overview: 09/13/23 EGD s/p bleed [facility], 10mm distal tear. Nonbleeding. EGD WNL dilated [...] Rutherford, FABRIZIO 02/27/2020 Nutrition Pt declines attending [facility] 02/27/2020 Niecy Rutherford RN 02/27/2020 Home Nurse [...] Acute bronchitis, complicated 01/25/2012 01/23/2013 screening for technical supervisor mosomal anomalies by amniocentesis 07/26/2011 07/26/2011 Supervision [...] Asthma in remission 06/01/2010 07/26/20 11 HBPPF [id number] HIGH-RISK PREG NOS 10/17/2007 05/11/2011 PF 09/17/2007 [...] money to get more. Never true 09/20/2023 [place] Depression Scale Answer Date Recorded [place] Depression Scale Total 8 08/24/2022 The thought [...] Upcoming Encounters Date Type Department Care Team (Late st Contact Info) Description 02/27/2024 3:30 PM EDT Office Visit Allergy/Immunology [facility] [address] [place] [address] Armen Jacob MD [address] [facility] [place] [address] 03/12/2024 3:00 PM EDT Telemedicine Gastroenterology, [facility] [address] [place] [address] Zohra Isaacs CRNP [address] [place] [address] 09/24/2024 10:00 AM EST Office Visit Family Practice [facility] [place] [address] Anil Sandhu MD [address] [facility] [place] [address] 11/11/2024 2:00 PM EST Office Visit Gynecology/Obstetrics [facility] [address] [facility] [place] [address] Indira Denson CRNP [address] [place] [address] 12/24/2024 11:00 AM EST Imaging Radiology [facility] 1st [facility] [address] [facility] [place] [address] Scheduled Procedures Name Priority Associated Diagnoses Date/Ti me COLONOSCOPY FLEXIBLE PROXIMAL DIAGNOSTIC Recall Screen for colon cancer Health Maintenance Due Date Last Done Comments DISCUSS TOBACCO CESSATION (REFER TO SMARTSET #3131) 1981 HPV/Co-Test 2011 Pneumococcal Vaccine: Pediatrics (0 [...] prophylactic vaccination and inoculation against viral hepatitis documented in this encounter Advance Directives Latest Code Status on File Code Status Date Activated Date Inactivated Comments Full Code 12/13/2021 11:56 AM 12/13/2021 7:28 PM This o rder reflects the patients wishes and were consensually agreed upon. Care Teams Microbiological Laboratory Technician Relationship Specialty Start Date End Date Anil Sandhu MD [address] [place] [address] PCP - General Family Medicine 08/14/22 documented as of this encounter
--- OUTSIDE RECORDS SUMMARY | 2024-03-16 21:31 | External Medical Summary | Summary of Care ---
Author Name Unknown Organization [facility] Address [address] [facility] [place] [address] Phone [phone] Care Team Providers Care Internet Marketing Analyst Name Role Phone Anil Zamora MD Primary Care Provider + Reason for Visit * Reason Onset Date Comments FYI 11/26/2023 Encounter Details Date Type Department Care Team (Late st Contact Info) Description 11/26/2023 Telephone Family Practice [facility] [address] [place] [address] Anil Zamora MD [address] [employer] [employer] [facility] [place] [address] FYI Allergies Active Allergy Reactions Criticality Noted Date Comments Apple Juice High 12/17/2021 Other reaction(s): Swelling of Lip/Tongue/Throat Diltiazem 03/04/2021 Hoarsness Eggs Or Egg-Derived Products High 12/17/2021 Other reaction(s): THROAT SWELLS /HARD TO BREATHE Ibuprofen Nausea/vomiting High 06/01/2010 Ibuprofen High 12/17/2021 Other reaction(s): VOMITING,BLURRED VISION, RINGING OF EARS Spinach High 12/17/2021 Other reaction(s): SHORTNESS OF BREATH documented as of this encounter (statuses as of 11/28/2023) Medications Medication Sig Dispensed Refills Start Date [...] as of this encounter (statuses as of 11/28/2023) Active Problems Problem Noted Date Diagnosed Date Well adult exam 09/21/2022 Overview: 09/13/23 EGD s/p bleed [facility], 10mm distal tear. Nonbleeding. EGD WNL dilated [...] as of this encounter (statuses as of 11/28/2023) Resolved Problems Problem Noted Date Diagnosed Date [...] and hydration will help 02/05/2018 Daniel Dean, RN 02/05/18 Inadequate diet for Discussed decreasing [...] Acute bronchitis, complicated 01/25/2012 01/23/2013 screening for it infrastructure architect mosomal anomalies by amniocentesis 07/26/2011 07/26/2011 Supervision [...] Asthma in remission 06/01/2010 07/26/20 11 HBPPF [id number] HIGH-RISK PREG NOS 10/17/2007 05/11/2011 PF 09/17/2007 10/17/2007 SUPERVISION OF HIGH-RISK PRE GNANCY WITH HISTORY OF 09/17/2007 01/23/2013 Overview: Declines FTS documented as of this encounter (statuses as of 11/28/2023) Immunizations Name Administration Dates Next Due MMR [...] money to get more. Never true 09/20/2023 [place] Depression Scale Answer Date Recorded [place] Depression Scale Total 8 08/24/2022 The thought [...] Telephone Encounter - Margarita Camarena LPN - 11/27/2023 8:20 AM EST Called pt, left detailed message to return call. What medication is she talking about, mammo is ordered and some will call to get that set up, and [facility] PT was faxed a ref back in Nov-did she go to any PT appts yet? Does PT need a new script for dry needling eval? * Addendum Note - Anil Zamora MD - 11/26/2023 1:37 PM ESTAddended by: ANIL ZAMORA on: 11/26/2023 01:37 PM Modules accepted: Orders * Telephone Encounter - Anil Zamora MD - 11/26/2023 1:35 PM EST What prescription is she talking about? Please update med list. Mammo ordered. PT referral was faxed in Sep. She can call [facility] to schedule * Telephone Encounter - Javi Monroy OSA - 11/26/2023 12:16 PM EST PT is calling to notify that she is going back to her old prescription because she feels that it works better. PT IS aslo trying to schedule a Mammogram if she could have an order please. Pt is also questioning whether she is getting a Dry Needling order put through for her. documented in this encounter Plan of Treatment Upcoming Encounters Date Type Department Care Team (Late st Contact Info) Description 12/19/2023 12:30 PM EST [facility] [address] [place] [address] 12/19/2023 2:00 PM EST Office Visit Gastroenterology, [facility] [address] [place] [address] Zohra Isaacs CRNP [address] [place] [address] Scheduled Orders Name Type Priority Associated Diagnoses Orde r Schedule MAMMOGRAM SCREENING NIKI BILATERAL Medical Imaging Routine Encounter for screening mammogram for breast cancer Expected: 12/27/2023, Expires: 12/27/2024 Scheduled Procedures Name Priority Associated Diagnoses Date/Ti me COLONOSCOPY FLEXIBLE PROXIMAL DIAGNOSTIC Recall Screen for colon cancer Health Maintenance Due Date Last Done Comments DISCUSS TOBACCO CESSATION (REFER TO SMARTSET #9868) 1981 Hepatitis B (1 of 3 - 3-dose series) 1981 HPV/Co-Test 2011 Pneumococcal Vaccine: Pediatrics (0 to 5 Years) and At-Risk Patients (6 to 64 Years) (2 - PCV) 10/24/2018 10/24/2017 Mammogram 2021 Cervical Cancer Screening 02/26/2023 Pap Smear 02/26/2023 02/27/2020, 11/13, 05/23/2013, Additional history exists Influenza Vaccine (FLU shot) (#1) 2023 07/28/2013, 08/13/2012, 09/24/2007 Depression Screening 09/20/2024 09/20/2023 Diabetes Screening 03/27/2026 03/27/2023, 1 11/13/2021, 09/13/2022, Additional history exists Lipid Panel 08/24/2027 08/24/2022 DTaP,Tdap,and Td Vaccines (4 - Td or Tdap) 08/12/2030 08/12/2020, 07/03/2018, 11/20/2015 COVID-19 Vaccine Discontinued GARDASIL-HPV IMMUNIZATION SERIES Aged Out No longer eligible based on patient's age to complete this topic MENINGOCOCCAL (MENACTRA/MENVEO) Aged Out No longer eligible based on patient's age to complete this topic documented as of this encounter Medical Devices Not on filedocumented as of this encounter Visit Diagnoses Diagnosis Encounter for screening mammogram for breast cancer- Primary documented in this encounter Advance Directives Latest Code Status on File Code Status Date Activated Date Inactivated Comments Full Code 12/13/2021 11:56 AM 12/13/2021 7:28 PM This o rder reflects the patients wishes and were consensually agreed upon. Care Teams Internet Marketing Analyst Relationship Specialty Start Date End Date Anil Zamora MD [address] [place] [address] PCP - General Family Medicine 08/14/22 documented as of this encounter
--- OUTSIDE RECORDS SUMMARY | 2024-03-16 21:31 | External Medical Summary | Summary of Care ---
Author Name Unknown Organization [facility] Address [address] [facility] [place] [address] Phone [phone] Care Team Providers Care Scanner Operator Name Role Phone Anil Sandhu MD Primary Care Provider + Reason for Visit * Reason Onset Date Comments Fax 10/01/2023 Encounter Details Date Type Department Care Team (Late st Contact Info) Description 10/01/2023 Telephone Family Practice [facility] [address] [place] [address] Anil Sandhu MD [address] [facility] [address] Fax Allergies Active Allergy Reactions Criticality Noted Date Comments Apple Juice High 12/17/2021 Other reaction(s): Swelling of Lip/Tongue/Throat Diltiazem 03/04/2021 Hoarsness Eggs Or Egg-Derived Products High 12/17/2021 Other reaction(s): THROAT SWELLS /HARD TO BREATHE Ibuprofen Nausea/vomiting High 06/01/2010 Ibuprofen High 12/17/2021 Other reaction(s): VOMITING,BLURRED VISION, RINGING OF EARS Spinach High 12/17/2021 Other reaction(s): SHORTNESS OF BREATH documented as of this encounter (statuses as of 10/02/2023) Medications Medication Sig Dispensed Refills Start Date [...] as of this encounter (statuses as of 10/02/2023) Active Problems Problem Noted Date Diagnosed Date Well adult exam 09/21/2022 Overview: 09/13/23 EGD s/p bleed [facility], 10mm distal tear. Nonbleeding. EGD WNL [...] as of this encounter (statuses as of 10/02/2023) Resolved Problems Problem Noted Date Diagnosed Date [...] Rutherford RN 02/27/2020 Nutrition Pt declines attending [facility] 02/27/2020 Niecy Rutherford RN 02/27/2020 Home Nurse [...] Smoking/tobacco abuse Smoking Education 02/05/2018 Daniel Dean, RN 02/05/18 Nutrition WIC referral will need [...] Acute bronchitis, complicated 01/25/2012 01/23/2013 screening for nitroglycerin separator operator mosomal anomalies by amniocentesis 07/26/2011 07/26/2011 Supervision [...] Asthma in remission 06/01/2010 07/26/20 11 HBPPF [id number] HIGH-RISK PREG NOS 10/17/2007 05/11/2011 PF 09/17/2007 10/17/2007 SUPERVISION OF HIGH-RISK PRE GNANCY WITH HISTORY OF 09/17/2007 01/23/2013 Overview: Declines FTS documented as of this encounter (statuses as of 10/02/2023) Immunizations Name Administration Dates Next Due MMR [...] money to get more. Never true 09/20/2023 [place] Depression Scale Answer Date Recorded [place] Depression Scale Total 8 08/24/2022 The thought [...] encounter Miscellaneous Notes * Telephone Encounter - Zohra Glynn LPN - 10/02/2023 8:45 AM EST For completed again and refaxed. * Telephone Encounter - Ml Gregory OSA - 10/01/2023 8:05 AM EST Received a call asking if fax was received by office. Name/Company sending fax: [employer] What fax is pertaining to: Medical form to keep power on Date(s) they sent request: 09/28/23 Verified fax number they are sending to is correct (Y or N): yes Callback Number for the clinic to call to verified if fax was received: Please call pt at [phone] Pt states her power is to be shut off today, pt states she's been using her nebulizer more frequently due to the weather change, and pollen in the air from leaves and trees being cut down around her.Pt asking for a call back regarding this. documented in this encounter Plan of Treatment Upcoming Encounters Date Type Department Care Team (Late st Contact Info) Description 10/23/2023 11:45 AM EST Imaging Radiology [facility] [address] [facility] [address] [facility] [place] [address] 12/19/2023 2:00 PM EST Office Visit Gastroenterology, [facility] [address] [facility] [place] [address] Zohra Isaacs CRNP 132 [facility] [place] [address] Scheduled Procedures Name Priority Associated Diagnoses Date/Ti me COLONOSCOPY FLEXIBLE PROXIMAL DIAGNOSTIC Recall Screen for colon cancer Health Maintenance Due Date Last Done Comments DISCUSS TOBACCO CESSATION (REFER TO SMARTSET #[id number]) 1981 Hepatitis B (1 of 3 - [...] and were consensually agreed upon. Care Teams Scanner Operator Relationship Specialty Start Date End Date Anil Sandhu MD [address] [place] [address] PCP - General Family Medicine 08/14/22 documented as of this encounter
--- OUTSIDE RECORDS SUMMARY | 2024-03-16 21:31 | External Medical Summary | Summary of Care ---
Author Name Unknown Organization [facility] Address [address] [facility] [place] [address] Phone [phone] Care Team Providers Care Rice Dryer Mechanic Name Role Phone Anil Zamora MD Primary Care Provider + Reason for Visit * Reason Onset Date Comments FYI 11/26/2023 Encounter Details Date Type Department Care Team (Late st Contact Info) Description 11/26/2023 Telephone Family Practice [facility] [address] [place] [address] Anil Zamora MD [address] [facility] [place] [address] FYI Allergies Active Allergy Reactions Criticality Noted [...] as of this encounter (statuses as of 11/27/2023) Medications Medication Sig Dispensed Refills Start Date [...] as of this encounter (statuses as of 11/27/2023) Active Problems Problem Noted Date Diagnosed Date Well adult exam 09/21/2022 Overview: 09/13/23 EGD s/p bleed [facility], 10mm distal tear. Nonbleeding. EGD WNL [...] as of this encounter (statuses as of 11/27/2023) Resolved Problems Problem Noted Date Diagnosed Date [...] Acute bronchitis, complicated 01/25/2012 01/23/2013 screening for president sales and marketing mosomal anomalies by amniocentesis 07/26/2011 07/26/2011 Supervision [...] Asthma in remission 06/01/2010 07/26/20 11 HBPPF [id number] HIGH-RISK PREG NOS 10/17/2007 05/11/2011 PF 09/17/2007 10/17/2007 SUPERVISION OF HIGH-RISK PRE GNANCY WITH HISTORY OF 09/17/2007 01/23/2013 Overview: Declines FTS documented as of this encounter (statuses as of 11/27/2023) Immunizations Name Administration Dates Next Due MMR [...] money to get more. Never true 09/20/2023 [place] Depression Scale Answer Date Recorded [place] Depression Scale Total 8 08/24/2022 The thought [...] as of this encounter Miscellaneous Notes * Addendum Note - Anil Zamora MD [...] Team (Late st Contact Info) Description 12/19/2023 2:00 PM EST Office Visit Gastroenterology, [facility] [address] [place] [address] Zohra Isaacs CRNP [address] [place] [address] Scheduled Orders Name Type Priority Associated Diagnoses Orde r Schedule MAMMOGRAM SCREENING NIKI BILATERAL Medical Imaging Routine Encounter for screening mammogram for breast cancer Expected: 12/27/2023, Expires: 12/27/2024 Scheduled Procedures Name Priority Associated Diagnoses Date/Ti me COLONOSCOPY FLEXIBLE PROXIMAL DIAGNOSTIC Recall Screen for colon cancer Health Maintenance Due Date Last Done Comments DISCUSS TOBACCO CESSATION (REFER TO SMARTSET #0107) 1981 Hepatitis B (1 of 3 - [...] and were consensually agreed upon. Care Teams Rice Dryer Mechanic Relationship Specialty Start Date End Date Anil Zamora MD [address] [place] [address] PCP - General Family Medicine 08/14/22 documented as of this encounter
--- OUTSIDE RECORDS SUMMARY | 2024-03-16 21:31 | External Medical Summary | Summary of Care ---
Author Name Unknown Organization [facility] Address [address] [facility] [place] [address] Phone [phone] Care Team Providers Care Shipfitter Name Role Phone Anil Zamora MD Primary Care Provider + Reason for Visit * Reason Onset Date Comments FYI 11/26/2023 Encounter Details Date Type Department Care Team (Late st Contact Info) Description 11/26/2023 Telephone Family Practice [facility] [address] [place] [address] Anil Zamora MD [address] [facility] [place] [address] FYI Allergies Active Allergy Reactions Criticality Noted [...] exam 09/21/2022 Overview: 09/13/23 EGD s/p bleed [facility], 10mm distal tear. Nonbleeding. EGD WNL [...] Acute bronchitis, complicated 01/25/2012 01/23/2013 screening for insert cutter mosomal anomalies by amniocentesis 07/26/2011 07/26/2011 Supervision [...] Asthma in remission 06/01/2010 07/26/20 11 HBPPF [id number] HIGH-RISK PREG NOS 10/17/2007 05/11/2011 PF 09/17/2007 [...] money to get more. Never true 09/20/2023 [place] Depression Scale Answer Date Recorded [place] Depression Scale Total 8 08/24/2022 The thought [...] 12/19/2023 2:00 PM EST Office Visit Gastroenterology, [facility] [address] [facility] [place] [address] Zohra Isaacs CRNP [address] [place] [address] Scheduled Orders Name Type Priority Associated Diagnoses Orde r Schedule MAMMOGRAM SCREENING NIKI BILATERAL Medical Imaging Routine Encounter for screening mammogram for breast cancer Expected: 12/27/2023, Expires: 12/27/2024 Scheduled Procedures Name Priority Associated Diagnoses Date/Ti me COLONOSCOPY FLEXIBLE PROXIMAL DIAGNOSTIC Recall Screen for colon cancer Health Maintenance Due Date Last Done Comments DISCUSS TOBACCO CESSATION (REFER TO SMARTSET #[id number]) 1980 Hepatitis B (1 of 3 - [...] and were consensually agreed upon. Care Teams Shipfitter Relationship Specialty Start Date End Date Anil Zamora MD 132 [facility] [place] [address] PCP - General Family Medicine 08/14/22 documented as of this encounter
--- OUTSIDE RECORDS SUMMARY | 2024-03-16 21:31 | External Medical Summary | Summary of Care ---
Author Name Unknown Organization [facility] Address [address] [facility] [place] [address] Phone [phone] Care Team Providers Care Knife Cutter Name Role Phone Anil Sandhu MD Primary Care Provider + Encounter Details Date Type Department Care Team (Late st Contact Info) Description 12/19/2023 3:30 PM EST Nurse Only Ancillary [facility] [address] [place] [address] [place], Nurse Paras [facility] [address] [place] [address] Arrived Allergies Active Allergy Reactions Criticality Noted Date Comments Apple Juice High 12/17/2021 Other reaction(s): Swelling of Lip/Tongue/Throat Diltiazem 03/04/2021 Hoarsness Eggs Or Egg-Derived Products High 12/17/2021 Other reaction(s): THROAT SWELLS /HARD TO BREATHE Ibuprofen Nausea/vomiting High 06/01/2010 Ibuprofen High 12/17/2021 Other reaction(s): VOMITING,BLURRED VISION, RINGING OF EARS Spinach High 12/17/2021 Other reaction(s): SHORTNESS OF BREATH documented as of this encounter (statuses as of 12/19/2023) Medications Medication Sig Dispensed Refills Start Date [...] as of this encounter (statuses as of 12/19/2023) Active Problems Problem Noted Date Diagnosed Date Well adult exam 09/21/2022 Overview: 09/13/23 EGD s/p bleed [facility], 10mm distal tear. Nonbleeding. EGD WNL dilated [...] as of this encounter (statuses as of 12/19/2023) Resolved Problems Problem Noted Date Diagnosed Date [...] having any current needs or questions 04/18/2018 Balbian Desai RN 04/18/2018 Problem Action Taken Date [...] Acute bronchitis, complicated 01/25/2012 01/23/2013 screening for cone trucker mosomal anomalies by amniocentesis 07/26/2011 07/26/2011 Supervision [...] Asthma in remission 06/01/2010 07/26/20 11 HBPPF [id number] HIGH-RISK PREG NOS 10/17/2007 05/11/2011 PF 09/17/2007 10/17/2007 SUPERVISION OF HIGH-RISK PRE GNANCY WITH HISTORY OF 09/17/2007 01/23/2013 Overview: Declines FTS documented as of this encounter (statuses as of 12/19/2023) Immunizations Name Administration Dates Next Due Hepatitis B Vaccine, Recombi nant, Adjuvanted, 20 mcg/mL (Heplisav-B) 12/19/2023 MMR - Measles/Mumps/Rubella Vaccine 09/15/2018 Pneumococcal Polysaccharide [...] money to get more. Never true 09/20/2023 [place] Depression Scale Answer Date Recorded [place] Depression Scale Total 8 08/24/2022 The thought [...] Team (Late st Contact Info) Description 03/12/2024 12:00 PM EDT Office Visit Gastroenterology, [address] [place] [address] Zohar Isaacs CRNP [address] [place] [address] 11/11/2024 2:00 PM EST Office Visit Gynecology/Obstetrics Moises Gardiner [address] [place] [address] Indira Denson CRNP [address] [place] [address] Scheduled Procedures Name Priority Associated Diagnoses Date/Ti me COLONOSCOPY FLEXIBLE PROXIMAL DIAGNOSTIC Recall Screen for colon cancer Health Maintenance Due Date Last Done Comments DISCUSS TOBACCO CESSATION (REFER TO SMARTSET #8215) 1980 HPV/Co-Test 2011 Pneumococcal Vaccine: Pediatrics (0 to 5 Years) and At-Risk Patients (6 to 64 Years) (2 - PCV) 10/24/2018 10/24/2017 Mammogram 2021 Cervical Cancer Screening 02/26/2023 Pap Smear 02/26/2023 02/27/2020, 11/13, 05/23/2013, Additional history exists Influenza Vaccine (FLU shot) (#1) 2023 07/28/2013, 08/13/2012, 09/24/2007 Hepatitis B (2 of 2 - CpG 2-dose series) 01/16/2024 12/19/2023 Depression Screening 09/20/2024 09/20/2023 Diabetes Screening 03/27/2026 [...] and were consensually agreed upon. Care Teams Knife Cutter Relationship Specialty Start Date End Date Anil Sandhu MD [address] [place] [address] PCP - General Family Medicine 08/14/22 documented as of this encounter
--- OUTSIDE RECORDS SUMMARY | 2024-03-16 21:31 | External Medical Summary | Summary of Care ---
Author Name Unknown Organization [facility] Address [address] [facility] [place] [address] Phone [phone] Care Team Providers Care Assemblies And Installations Inspector Name Role Phone Anil Sandhu MD Primary Care Provider + Encounter Details Date Type Department Care Team (Late st Contact Info) Description 10/01/2023 Telephone Gynecology/Obstetrics [facility] [address] [place] [address] Edgar Hobbs MD [address] [place] [address] Allergies Active Allergy Reactions Criticality Noted Date Comments Apple Juice High 12/17/2021 Other reaction(s): Swelling of Lip/Tongue/Throat Diltiazem 03/04/2021 Hoarsness Eggs Or Egg-Derived Products High 12/17/2021 Other reaction(s): THROAT SWELLS /HARD TO BREATHE Ibuprofen Nausea/vomiting High 06/01/2010 Ibuprofen High 12/17/2021 Other reaction(s): VOMITING,BLURRED VISION, RINGING OF EARS Spinach High 12/17/2021 Other reaction(s): SHORTNESS OF BREATH documented as of this encounter (statuses as of 10/01/2023) Medications Medication Sig Dispensed Refills Start Date [...] as of this encounter (statuses as of 10/01/2023) Active Problems Problem Noted Date Diagnosed Date Well adult exam 09/21/2022 Overview: 09/13/23 EGD s/p bleed [facility], 10mm distal tear. Nonbleeding. EGD WNL [...] as of this encounter (statuses as of 10/01/2023) Resolved Problems Problem Noted Date Diagnosed Date [...] Acute bronchitis, complicated 01/25/2012 01/23/2013 screening for pull socket assembler mosomal anomalies by amniocentesis 07/26/2011 07/26/2011 Supervision [...] Asthma in remission 06/01/2010 07/26/20 11 HBPPF [id number] HIGH-RISK PREG NOS 10/17/2007 05/11/2011 PF 09/17/2007 10/17/2007 SUPERVISION OF HIGH-RISK PRE GNANCY WITH HISTORY OF 09/17/2007 01/23/2013 Overview: Declines FTS documented as of this encounter (statuses as of 10/01/2023) Immunizations Name Administration Dates Next Due MMR [...] money to get more. Never true 09/20/2023 [place] Depression Scale Answer Date Recorded [place] Depression Scale Total 8 08/24/2022 The thought [...] encounter Miscellaneous Notes * Telephone Encounter - Mary Norton OSA - 10/01/2023 9:31 AM EST No available apts at this time; pt aware and will call periodically to check for cancellations. * Telephone Encounter - Val Miller LPN - 10/01/2023 8:22 AM EST Pt calling in asking for an annual appointment, states she is due for a PAP and would like to be scheduled soumya. Nothing is coming up for annual appointments at this time. Please call and assist pt in scheduling appointment. Pt states she prefers [facility] location. Val Miller LPN documented in this encounter Plan of Treatment Upcoming Encounters Date Type Department Care Team (Late st Contact Info) Description 10/23/2023 11:45 AM EST Imaging Radiology [facility] 1st Floor, [place] [address] [place] [address] 12/19/2023 2:00 PM EST Office Visit Gastroenterology, [facility] [address] [place] [address] Zohra Isaacs CRNP [address] [place] [address] Scheduled Procedures Name Priority Associated Diagnoses Date/Ti me COLONOSCOPY FLEXIBLE PROXIMAL DIAGNOSTIC Recall Screen for colon cancer Health Maintenance Due Date Last Done Comments DISCUSS TOBACCO CESSATION (REFER TO SMARTSET #[id number]) 1980 HPV/Co-Test 2011 Pneumococcal Vaccine: Pediatrics (0 [...] and were consensually agreed upon. Care Teams Assemblies And Installations Inspector Relationship Specialty Start Date End Date Anil Sandhu MD [address] [place] [address] PCP - General Family Medicine 08/14/22 documented as of this encounter
--- OUTSIDE RECORDS SUMMARY | 2024-03-16 21:31 | External Medical Summary | Summary of Care ---
Author Name Unknown Organization [facility] Address [address] [facility] [place] [address] Phone [phone] Care Team Providers Care Credit Collections Clerk Name Role Phone Anil Sandhu MD Primary Care Provider + Reason for Visit * Reason Onset Date Comments FYI 11/26/2023 Encounter Details Date Type Department Care Team (Late st Contact Info) Description 11/26/2023 Telephone Family Practice [facility] [address] [facility] [place] [address] Anil Sandhu MD [address] [facility] [place] [address] FYI Allergies Active Allergy Reactions Criticality Noted [...] as of this encounter (statuses as of 11/26/2023) Medications Medication Sig Dispensed Refills Start Date [...] as of this encounter (statuses as of 11/26/2023) Active Problems Problem Noted Date Diagnosed Date Well adult exam 09/21/2022 Overview: 09/13/23 EGD s/p bleed [facility], 10mm distal tear. Nonbleeding. EGD WNL dilated [...] as of this encounter (statuses as of 11/26/2023) Resolved Problems Problem Noted Date Diagnosed Date [...] Acute bronchitis, complicated 01/25/2012 01/23/2013 screening for signal manager mosomal anomalies by amniocentesis 07/26/2011 07/26/2011 Supervision [...] Asthma in remission 06/01/2010 07/26/20 11 HBPPF [id number] HIGH-RISK PREG NOS 10/17/2007 05/11/2011 PF 09/17/2007 10/17/2007 SUPERVISION OF HIGH-RISK PRE GNANCY WITH HISTORY OF 09/17/2007 01/23/2013 Overview: Declines FTS documented as of this encounter (statuses as of 11/26/2023) Immunizations Name Administration Dates Next Due MMR [...] money to get more. Never true 09/20/2023 [place] Depression Scale Answer Date Recorded [place] Depression Scale Total 8 08/24/2022 The thought [...] encounter Miscellaneous Notes * Telephone Encounter - Javi Monroy, INOCENCIO - 11/26/2023 12:16 PM EST PT is [...] 12/19/2023 2:00 PM EST Office Visit Gastroenterology, [facility] [address] [place] [address] Zohra Isaacs CRNP [address] [place] [address] Scheduled Procedures Name Priority Associated Diagnoses Date/Ti me COLONOSCOPY FLEXIBLE PROXIMAL DIAGNOSTIC Recall Screen for colon cancer Health Maintenance Due Date Last Done Comments DISCUSS TOBACCO CESSATION (REFER TO SMARTSET #[id number]) 1980 Hepatitis B (1 of 3 - [...] and were consensually agreed upon. Care Teams Credit Collections Clerk Relationship Specialty Start Date End Date Anil Sandhu MD [address] [place] [address] PCP - General Family Medicine 08/14/22 documented as of this encounter
--- OUTSIDE RECORDS SUMMARY | 2024-03-16 21:31 | External Medical Summary | Summary of Care ---
Author Name Unknown Organization [facility] Address [address] [facility] [place] [address] Phone [phone] Care Team Providers Care Atomic Spectroscopist Name Role Phone Anil Sandhu MD Primary Care Provider + Reason for Visit * Reason Onset Date Comments FYI 11/26/2023 Encounter Details Date Type Department Care Team (Late st Contact Info) Description 11/26/[address] [facility] [address] [facility] [place] [address] Anil Sandhu MD [address] [facility] [place] [address] FYI Allergies Active Allergy Reactions Criticality Noted [...] 09/21/2022 Overview: 09/13/23 EGD s/p bleed [facility], 10mm distal tear. Nonbleeding. EGD WNL dilated [...] Acute bronchitis, complicated 01/25/2012 01/23/2013 screening for chromosomal disorders counselor mosomal anomalies by amniocentesis 07/26/2011 07/26/2011 Supervision [...] Asthma in remission 06/01/2010 07/26/20 11 HBPPF [id number] HIGH-RISK PREG NOS 10/17/2007 05/11/2011 PF 09/17/2007 [...] money to get more. Never true 09/20/2023 [place] Depression Scale Answer Date Recorded [place] Depression Scale Total 8 08/24/2022 The thought [...] 12/19/2023 2:00 PM EST Office Visit Gastroenterology, [facility] [address] [place] [address] Zohra Isaacs CRNP [address] [place] [address] Scheduled Procedures Name Priority Associated Diagnoses Date/Ti me COLONOSCOPY FLEXIBLE PROXIMAL DIAGNOSTIC Recall Screen for colon cancer Health Maintenance Due Date Last Done Comments DISCUSS TOBACCO CESSATION (REFER TO SMARTSET #4615) 1980 Hepatitis B (1 of 3 - [...] and were consensually agreed upon. Care Teams Atomic Spectroscopist Relationship Specialty Start Date End Date Anil Sandhu MD [address] [place] [address] PCP - General Family Medicine 08/14/22 documented as of this encounter
--- OUTSIDE RECORDS SUMMARY | 2024-03-16 21:31 | External Medical Summary | Summary of Care ---
Author Name Unknown Organization [facility] Address [address] [place] [address] Phone [phone] Care Team Providers Care Scrum Product Owner Name Role Phone Anil Sandhu MD Primary Care Provider + Encounter Details Date Type Department Care Team (Late st Contact Info) Description 12/02/2023 Telephone Access Center, [place] [address] [facility] *DO NOT REMOVE THIS DEPARTMENT* [place] [address] Services, Scheduling [address] [place] [address] Allergies Active Allergy Reactions Criticality Noted Date Comments Apple Juice High 12/17/2021 Other reaction(s): Swelling of Lip/Tongue/Throat Diltiazem 03/04/2021 Hoars[place] Eggs Or Egg-Derived Products High 12/17/2021 Other reaction(s): THROAT SWELLS /HARD TO BREATHE Ibuprofen Nausea/vomiting High 06/01/2010 Ibuprofen High 12/17/2021 Other reaction(s): VOMITING,BLURRED VISION, RINGING OF EARS Spinach High 12/17/2021 Other reaction(s): SHORTNESS OF BREATH documented as of this encounter (statuses as of 12/04/2023) Medications Medication Sig Dispensed Refills Start Date [...] as of this encounter (statuses as of 12/04/2023) Active Problems Problem Noted Date Diagnosed Date Well adult exam 09/21/2022 Overview: 09/13/23 EGD s/p bleed [facility], 10mm distal tear. Nonbleeding. EGD WNL dilated [...] as of this encounter (statuses as of 12/04/2023) Resolved Problems Problem Noted Date Diagnosed Date [...] Smoking/tobacco abuse Smoking Education 02/27/2020 Niecy Rutherford, RN 02/27/2020 Nutrition Pt declines attending WIC [...] Rx for Penicillin-FLACO nv obtained 06/19/2012 [facility] Acute tonsillitis 05/02/2012 01/23/2013 Acute bronchitis, complicated 01/25/2012 01/23/2013 screening for scout leaser mosomal anomalies by amniocentesis 07/26/2011 07/26/2011 Supervision [...] Asthma in remission 06/01/2010 07/26/20 11 HBPPF [id number] HIGH-RISK PREG NOS 10/17/2007 05/11/2011 PF 09/17/2007 10/17/2007 SUPERVISION OF HIGH-RISK PRE GNANCY WITH HISTORY OF 09/17/2007 01/23/2013 Overview: Declines FTS documented as of this encounter (statuses as of 12/04/2023) Immunizations Name Administration Dates Next Due MMR [...] money to get more. Never true 09/20/2023 [place] Depression Scale Answer Date Recorded [place] Depression Scale Total 8 08/24/2022 The thought [...] encounter Miscellaneous Notes * Telephone Encounter - Tasha Lomeli OSA - 12/02/2023 10:25 AM EST Called patient to make aware appt cancelled on 12/19 and with Zohra Isaacs patient will need to be rescheduled. Thank you documented in this encounter Plan of Treatment Upcoming Encounters Date Type Department Care Team (Late st Contact Info) Description 12/19/2023 12:30 PM EST Imaging Radiology [address] [place] [address] Scheduled Procedures Name Priority Associated Diagnoses Date/Ti me COLONOSCOPY FLEXIBLE PROXIMAL DIAGNOSTIC Recall Screen for colon cancer Health Maintenance Due Date Last Done Comments DISCUSS TOBACCO CESSATION (REFER TO SMARTSET #0330) 1981 Hepatitis B (1 of 3 - [...] and were consensually agreed upon. Care Teams Scrum Product Owner Relationship Specialty Start Date End Date Anil Sandhu MD [address] [place] [address] PCP - General Family Medicine 08/14/22 documented as of this encounter
--- OUTSIDE RECORDS SUMMARY | 2024-03-16 21:31 | External Medical Summary | Summary of Care ---
Author Name Unknown Organization [facility] Address [address] [facility] [address] Phone [phone] Care Team Providers Care World Geography Teacher Name Role Phone Anil Sandhu MD Primary Care Provider + Encounter Details Date Type Department Care Team (Late st Contact Info) Description 12/21/[address] [facility] [address] [facility] [place] [address] [facility]il [facility]hu MD [facility] [place] [address] Encounter for screening mammogram for breast cancer* Allergies Active Allergy Reactions Criticality Noted Date Comments Apple Juice High 12/17/2021 Other reaction(s): Swelling of Lip/Tongue/Throat Diltiazem 03/04/2021 Hoarsness Eggs Or Egg-Derived Products High 12/17/2021 Other reaction(s): THROAT SWELLS /HARD TO BREATHE Ibuprofen Nausea/vomiting High 06/01/2010 Ibuprofen High 12/17/2021 Other reaction(s): VOMITING,BLURRED VISION, RINGING OF EARS Spinach High 12/17/2021 Other reaction(s): SHORTNESS OF BREATH documented as of this encounter (statuses as of 12/21/2023) Medications Medication Sig Dispensed Refills Start Date [...] as of this encounter (statuses as of 12/21/2023) Active Problems Problem Noted Date Diagnosed Date Well adult exam 09/21/2022 Overview: 09/13/23 EGD s/p bleed [facility], 10mm distal tear. Nonbleeding. EGD [...] as of this encounter (statuses as of 12/21/2023) Resolved Problems Problem Noted Date Diagnosed Date [...] Rutherford RN 02/27/2020 Nutrition Pt declines attending [facility] 02/27/2020 Niecy Rutherford RN 02/27/2020 Home [...] Discussed decreasing caffeine intake 02/05/2018 Daniel Dean, RN 02/05/18 Smoking/tobacco abuse Smoking Education 02/05/2018 [...] Acute bronchitis, complicated 01/25/2012 01/23/2013 screening for tower erector mosomal anomalies by amniocentesis 07/26/2011 07/26/2011 Supervision [...] Asthma in remission 06/01/2010 07/26/20 11 HBPPF [id number] HIGH-RISK PREG NOS 10/17/2007 05/11/2011 PF 09/17/2007 10/17/2007 SUPERVISION OF HIGH-RISK PRE GNANCY WITH HISTORY OF 09/17/2007 01/23/2013 Overview: Declines FTS documented as of this encounter (statuses as of 12/21/2023) Immunizations Name Administration Dates Next Due Hepatitis [...] money to get more. Never true 09/20/2023 [place] Depression Scale Answer Date Recorded [place] Depression Scale Total 8 08/24/2022 The thought [...] as of this encounter Progress Notes * Maggi John RN - 12/21/2023 9:54 AM EST Provider to address: NA Reason for Call: No chief complaint on file. Contact: Telephone Call Contact Type: Orders Outcome: Normal Mammo result letter sent by radiology. Order placed for next year Face to face time spent with Patient (minutes): 0 Total Time including non face to face (minutes): 10 documented in this encounter Plan of Treatment Upcoming Encounters Date Type Department Care Team (Late st Contact Info) Description 01/18/2024 12:00 PM EST Immunization/Inje ction Ancillary [facility] [address] [facility] [place] [address] [facility], Nurse [facility] [address] [facility] [place] [address] 03/12/2024 12:00 PM EDT Office Visit Gastroenterology, [facility] [address] [place] [address] Zohra Isaacs CRNP [address] [place] [address] 11/11/2024 2:00 PM EST Office Visit Gynecology/Obstetrics [facility] [address] [place] [address] Indira Denson CRNP [address] [place] [address] Scheduled Orders Name Type Priority Associated Diagnoses Orde r Schedule MAMMOGRAM SCREENING NIKI BILATERAL Medical Imaging Routine Encounter for screening mammogram for breast cancer Expected: 12/21/2024, Expires: 01/18/2025 Scheduled Procedures Name Priority Associated Diagnoses Date/Ti me COLONOSCOPY FLEXIBLE PROXIMAL DIAGNOSTIC Recall Screen for colon cancer Health Maintenance Due Date Last Done Comments DISCUSS TOBACCO CESSATION (REFER TO SMARTSET #6860) 1980 HPV/Co-Test 2011 Pneumococcal Vaccine: Pediatrics (0 to 5 Years) and At-Risk Patients (6 to 64 Years) (2 - PCV) 10/24/2018 10/24/2017 Cervical Cancer Screening 02/26/2023 Pap Smear 02/26/2023 02/27/2020, 11/13, 05/23/2013, Additional history exists Influenza Vaccine (FLU shot) (#1) 2023 07/28/2013, 08/13/2012, 09/24/2007 Hepatitis B (2 of 2 - CpG 2-dose series) 01/16/2024 12/19/2023 Depression Screening 09/20/2024 09/20/2023 Mammogram 12/19/2024 12/19/2023 [...] and were consensually agreed upon. Care Teams World Geography Teacher Relationship Specialty Start Date End Date Anil Sandhu MD [address] [facility] [place] [address] PCP - General Family Medicine 08/14/22 documented as of this encounter
--- OUTSIDE RECORDS SUMMARY | 2024-03-16 21:31 | External Medical Summary | Summary of Care ---
Author Name Unknown Organization [facility] Address [address] [facility] [place] [address] Phone [phone] Care Team Providers Care Roller Skate Assembler Name Role Phone Anil Sandhu MD Primary Care Provider + Reason for Visit * Reason Onset Date Comments Advice 12/26/2023 Encounter Details Date Type Department Care Team (Late st Contact Info) Description 12/26/2023 Telephone Family Practice [facility] [address] [place] [address] Anil Sandhu MD [address] [facility] [place] [address] Advice Allergies Active Allergy Reactions Criticality [...] as of this encounter (statuses as of 12/28/2023) Medications Medication Sig Dispensed Refills Start Date [...] as of this encounter (statuses as of 12/28/2023) Active Problems Problem Noted Date Diagnosed Date Well adult exam 09/21/2022 Overview: 09/13/23 EGD s/p bleed [facility], 10mm distal tear. Nonbleeding. 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 Never true 09/20/2023 [place] Depression Scale Answer Date Recorded [place] Depression Scale Total 8 08/24/2022 The thought [...] encounter Miscellaneous Notes * Telephone Encounter - Marilee Lizarraga, INOCENCIO - 12/28/2023 10:55 AM EST Relayed message to patient is going to try and get to the ER * Telephone Encounter - Anil Sandhu MD - 12/27/2023 1:11 PM EST With pain 10/10 needs to go to ER to make sure bowel isn't incarcerated , etc. They can do imaging there , exam etc today * Telephone Encounter - Margarita Camarena LPN - 12/27/2023 1:07 PM EST Please advise, as I was going to suggest ER. * Telephone Encounter - Stephany Chaparro OSA - 12/26/2023 12:46 PM EST No Appointments Available Patient declined appointments?: Yes What Visit Type is needed? Acute If Acute Visit Type is needed, were surrounding clinics offered to patient (Yes/No)? Yes Was patient offered appointments with other available providers (Yes/No)? Yes See Call Details? (Yes or No): Yes documented in this encounter Plan of Treatment Upcoming Encounters Date Type Department Care Team (Late st Contact Info) Description 01/18/2024 12:00 PM EST Immunization/Injec tion Ancillary [facility] [address] [place] [address] [place] Nurse [facility] Siomara Barragan [address] [place] [address] 03/12/2024 12:00 PM EDT Office Visit Gastroenterology, [facility] [address] [place] [address] Zohra Isaacs CRNP [address] [place] [address] 09/24/2024 10:00 AM EST Office Visit Family Practice [facility] [address] [place] [address] Anil Sandhu MD [address] [place] [address] 11/11/2024 2:00 PM EST Office Visit Gynecology/Obstetrics [facility] [address] [place] [address] Indira Denson CRNP [address] [place] [address] 12/24/2024 11:30 AM EST Imaging Radiology [address] [place] [address] Scheduled Procedures Name Priority Associated Diagnoses Date/Ti me COLONOSCOPY FLEXIBLE PROXIMAL DIAGNOSTIC Recall Screen for colon cancer Health Maintenance Due Date Last Done Comments DISCUSS TOBACCO CESSATION (REFER TO SMARTSET #0015) 1980 HPV/Co-Test 2011 Pneumococcal Vaccine: Pediatrics (0 [...] and were consensually agreed upon. Care Teams Roller Skate Assembler Relationship Specialty Start Date End Date Anil Sandhu MD [address] [place] [address] PCP - General Family Medicine 08/14/22 documented as of this encounter
--- OUTSIDE RECORDS SUMMARY | 2024-03-16 21:31 | External Medical Summary | Summary of Care ---
Author Name Unknown Organization [facility] Address [address] [facility] [place] [address] Phone [phone] Care Team Providers Care Equipment Tester Name Role Phone Anil Zamora MD Primary Care Provider + Reason for Visit * Reason Onset Date Comments FYI 11/26/2023 Encounter Details Date Type Department Care Team (Late st Contact Info) Description 11/26/2023 Telephone Family Practice [facility] [address] [facility] [place] [address] Anil Zamora MD [address] [facility] [place] [address] FYI Allergies Active Allergy Reactions Criticality Noted [...] exam 09/21/2022 Overview: 09/13/23 EGD s/p bleed [facility], 10mm distal tear. Nonbleeding. EGD WNL [...] Acute bronchitis, complicated 01/25/2012 01/23/2013 screening for goodyear stitcher mosomal anomalies by amniocentesis 07/26/2011 07/26/2011 Supervision [...] Asthma in remission 06/01/2010 07/26/20 11 HBPPF [id number] HIGH-RISK PREG NOS 10/17/2007 05/11/2011 PF 09/17/2007 [...] money to get more. Never true 09/20/2023 [place] Depression Scale Answer Date Recorded [place] Depression Scale Total 8 08/24/2022 The thought [...] 12/19/2023 2:00 PM EST Office Visit Gastroenterology, [facility] [address] [place] [address] Zohra Isaacs CRNP [address] [place] [address] Scheduled Orders Name Type Priority Associated Diagnoses Orde r Schedule MAMMOGRAM SCREENING NIKI BILATERAL Medical Imaging Routine Encounter for screening mammogram for breast cancer Expected: 12/27/2023, Expires: 12/27/2024 Scheduled Procedures Name Priority Associated Diagnoses Date/Ti me COLONOSCOPY FLEXIBLE PROXIMAL DIAGNOSTIC Recall Screen for colon cancer Health Maintenance Due Date Last Done Comments DISCUSS TOBACCO CESSATION (REFER TO SMARTSET #3510) 1980 Hepatitis B (1 of 3 - [...] and were consensually agreed upon. Care Teams Equipment Tester Relationship Specialty Start Date End Date Anil Zamora MD [address] [place] [address] PCP - General Family Medicine 08/14/22 documented as of this encounter
--- OUTSIDE RECORDS SUMMARY | 2024-03-16 21:32 | External Medical Summary | Summary of Care ---
Author Name Unknown Organization [facility] Address [address] [facility] [place] [address] Phone [phone] Care Team Providers Care Chemical Processing Equipment Repairer Name Role Phone Anil Sandhu MD Primary Care Provider + Encounter Details Date Type Department Care Team (Late st Contact Info) Description 10/01/2023 Telephone Gynecology/Obstetrics [facility] [address] [place] [address] Edgar Hobbs MD [address] [place] [address] Allergies Active Allergy Reactions Criticality Noted Date [...] exam 09/21/2022 Overview: 09/13/23 EGD s/p bleed [facility], 10mm distal tear. Nonbleeding. 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 Never true 09/20/2023 [place] Depression Scale Answer Date Recorded [place] Depression Scale Total 8 08/24/2022 The thought [...] encounter Miscellaneous Notes * Telephone Encounter - Val Miller LPN - 10/01/2023 8:22 AM EST Pt calling in asking for an annual appointment, states she is due for a PAP and would like to be scheduled soumya. Nothing is coming up for annual appointments at this time. Please call and assist pt in scheduling appointment. Pt states she prefers [facility] location. Val Miller LPN documented in this encounter Plan of Treatment Upcoming Encounters Date Type Department Care Team (Late st Contact Info) Description 10/23/2023 11:45 AM EST Imaging Radiology [facility] [place] [address] [place] [address] 12/19/2023 2:00 PM EST Office Visit Gastroenterology, [facility] [address] [place] [address] Zohra Isaacs CRNP [address] [place] [address] Scheduled Procedures Name Priority Associated Diagnoses Date/Ti me COLONOSCOPY FLEXIBLE PROXIMAL DIAGNOSTIC Recall Screen for colon cancer Health Maintenance Due Date Last Done Comments DISCUSS TOBACCO CESSATION (REFER TO SMARTSET #5601) 1980 HPV/Co-Test 2011 Pneumococcal Vaccine: Pediatrics (0 [...] and were consensually agreed upon. Care Teams Chemical Processing Equipment Repairer Relationship Specialty Start Date End Date Anil Sandhu MD [address] [place] [address] PCP - General Family Medicine 08/14/22 documented as of this encounter
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
--- OUTSIDE RECORDS SUMMARY | 2024-03-16 21:32 | External Medical Summary | Summary of Care ---
Author Name Unknown Organization [facility] Address [address] [facility] [place] [address] Phone [phone] Care Team Providers Care Janitor Cleaner Name Role Phone Anil Sandhu MD Primary Care Provider + Reason for Visit * Reason Onset Date Comments Advice 09/17/2023 Encounter Details Date Type Department Care Team (Late st Contact Info) Description 09/17/2023 Telephone Family Practice [facility] [address] [place] [address] Anil Sandhu MD [address] [facility] [place] [address] Advice Allergies Active Allergy [...] as of this encounter (statuses as of 09/29/2023) Medications Medication Sig Dispensed Refills Start Date End Date Status Excedrin Tension Headache 500-65 MG Oral Tablet (Acetaminophen- Caffeine) Take by mouth as needed . 0 Active oxyCODONE-Aceta minophen 5-325 MG Oral Tablet (Percocet)Indic ations:Dental caries,Periapic al abscess Take by mouth 1 Tablet every 6 hours as needed for Pain, Severe. 12 Tablet 0 2 Active Additional Information Patient not taking.Reported on 09/06/2023 Lidocaine Viscous HCl 2 % Mouth/Throat SolutionIndicat [...] Emergency room. 2 Each 3 2 Active Additional Information Patient not taking.Reported on 09/06/2023 Montelukast Sodium 10 MG Oral Tablet (Singulair) Take 1 Tablet by mouth in the morning. 90 Tablet 3 3 Active Loratadine 10 MG Oral Tablet (Claritin) Take 1 Tablet by mouth in the morning. 90 Tablet 3 3 Active Metoprolol Tartrate 100 MG Oral Tablet (Lopressor)Andree cations:NSVT (nonsustained ventricular tachycardia) (HCC),Palpitati ons Take 1 Tablet by mouth in the morning and 1 Tablet before bedtime. 180 Tablet 3 3 Active Ferrous Sulfate 325 (65 Fe) MG Oral Tablet (Feosol)Indicat ions:Iron deficiency anemia due to chronic blood loss 1 tab every other day 45 Tablet 1 3 Active Sucralfate 1 GM/10ML Oral Suspension (Carafate) Take 10 mL by mouth in the morning and 10 mL at noon and 10 mL in the evening and 10 mL before bedtime. 400 mL 0 3 Active Magic Swizzle (Lidocaine-[place] dryl-Maalox) oral solution Swish and spit 15 mL 4 times a day as needed for Pain. 600 mL 0 3 Active Cyclobenzaprine HCl 10 MG Oral Tablet (Flexeril)Indic ations:RLQ abdominal pain,Back muscle spasm Take 1 Tablet by mouth in the morning and 1 Tablet at noon and 1 Tablet before bedtime. 90 Tablet 1 3 09/20/20 23 Discontinued(Med ication List Clean Up) Albuterol Sulfate HFA 108 (90 Base) MCG/ACT Inhalation Aerosol SolutionIndicat ions:Asthma, mild persistent INHALE 2 PUFFS BY MOUTH EVERY 6 HOURS NEEDED FOR SHORTNESS OF BREATH 18 g 2 3 09/21/20 23 Discontinued Omeprazole 40 MG Oral Capsule Delayed Release (PriLOSEC) Take 1 capsule by mouth twice daily 180 Capsule 1 3 09/20/20 23 Discontinued(Med ication List Clean Up) documented as of this encounter (statuses as of 09/29/2023) Active Problems Problem Noted Date Diagnosed Date Well adult exam 09/21/2022 Overview: 09/13/23 EGD s/p bleed [facility], 10mm distal tear. Nonbleeding. EGD WNL dilated [...] as of this encounter (statuses as of 09/29/2023) Resolved Problems Problem Noted Date Diagnosed Date [...] tightenings Provider eval. Hydration encouraged. 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 Never true 09/20/2023 [place] Depression Scale Answer Date Recorded [place] Depression Scale Total 8 08/24/2022 The thought [...] encounter Miscellaneous Notes * Telephone Encounter - Marjorie Pritchard MED ASSIST - 09/20/2023 8:26 AM EST message left for patient to call back. Patient has appt today. * Telephone Encounter - Anil Sandhu MD - 09/18/2023 5:47 PM EST Carafate is helpful to coat esophagus / stomach. If not helpful can also add TUMS or Maalox. If that doesn't control pain well, ok to return to ER * Telephone Encounter - Zohra Glynn LPN - 09/18/2023 4:25 PM EST Called and spoke with patient. Patient notified of below. States she has had a rough week. Her sister and she had an endoscopy. States after the scope she was throwing up blood and went to the ER. They told her she has a torn esophagus. Per [facility] ER report they recommended Protonix 40mg BID and Carafate 1G QID X14 days. Patient has an OV on 09/20. Any suggestions on pain until then??? Please advise. * Telephone Encounter - Mary Ann Arredondo LPN - 09/18/2023 1:42 PM EST Left message for pt to call back. * Telephone Encounter - Anil Sandhu MD - 09/18/2023 12:57 PM EST I faxed it myself last week, notify pt * Telephone Encounter - Margarita Camarena LPN - 09/18/2023 7:58 AM EST Did you get this? * Telephone Encounter - Tl Caraballo OSA - 09/17/2023 8:14 AM EST Received a call asking if fax was received by office. Name/Company sending fax: [facility] What fax is pertaining to: Medical certificate Date(s) they sent request: Last week Verified fax number they are sending to is correct (Y or N): yes Callback Number for the clinic to call to verified if fax was received: [phone]. documented in this encounter Plan of Treatment Upcoming Encounters Date Type Department Care Team (Late st Contact Info) Description 10/23/2023 11:45 AM EST Imaging Radiology [facility] 1st [facility] [address] [facility] [place] [address] 12/19/2023 2:00 PM EST Office Visit Gastroenterology, [facility] [place] [address] Zohra Isaacs CRNP [address] [place] [address] Scheduled Procedures Name Priority Associated Diagnoses Date/Ti me COLONOSCOPY FLEXIBLE PROXIMAL DIAGNOSTIC Recall Screen for colon cancer Health Maintenance Due Date Last Done Comments DISCUSS TOBACCO CESSATION (REFER TO SMARTSET #5610) 1981 HPV/Co-Test 2011 Pneumococcal Vaccine: Pediatrics (0 [...] and were consensually agreed upon. Care Teams Janitor Cleaner Relationship Specialty Start Date End Date Anil Sandhu MD [address] [facility] [place] [address] PCP - General Family Medicine 08/14/22 documented as of this encounter
--- OUTSIDE RECORDS SUMMARY | 2024-03-16 21:32 | External Medical Summary | Summary of Care ---
Author Name Unknown Organization [facility] Address [address] [facility] [place] [address] Phone [phone] Care Team Providers Care Pecan Cleaner Name Role Phone Anil Sandhu MD Primary Care Provider + Reason for Visit * Reason Onset Date Comments Advice 09/17/2023 Encounter Details Date Type Department Care Team (Late st Contact Info) Description 09/17/2023 Telephone Family Practice [facility] [address] [place] [address] Anil Sandhu MD [address] [facility] [place] [address] Advice Allergies Active Allergy [...] Pain, Severe. 12 Tablet 0 03/08/2022 Active Additional Information Patient not taking.Reported on 09/06/2023 Lidocaine Viscous HCl 2 % Mouth/Throat SolutionIndication [...] Emergency room. 2 Each 3 09/05/2022 Active Additional Information Patient not taking.Reported on 09/06/2023 Cyclobenzaprine HCl 10 MG Oral Tablet (Flexeril)Indicati ons:RLQ abdominal pain,Back muscle spasm Take 1 Tablet by mouth in the morning and 1 Tablet at noon and 1 Tablet before bedtime. 90 Tablet 1 11/22/2022 Active Additional Information Patient not taking.Reported on [...] other day 45 Tablet 1 06/25/2023 Active Omeprazole 40 MG Oral Capsule Delayed Release (PriLOSEC) Take 1 capsule by mouth twice daily 180 Capsule 1 09/06/2023 Active Sucralfate 1 GM/10ML Oral Suspension (Carafate) Take 10 mL by mouth in the morning and 10 mL at noon and 10 mL in the evening and 10 mL before bedtime. 400 mL 0 09/11/2023 Active Magic Swizzle (Lidocaine-[place] l-Maalox) oral solution Swish and spit 15 mL 4 times a day as needed for Pain. 600 mL 0 09/11/2023 Active documented as of this encounter (statuses as of 09/20/2023) Active Problems Problem Noted Date Diagnosed Date Well adult exam 09/21/2022 Overview: 10/03 [facility]--WNl, some eos on biopsy. 10/03 CT--Areas of wall thickening involving the ascending and proximal transverse colon, suggesting a nonspecific colitis. Supraventricular tachycardia 09/01/2022 Eosinophilic esophagitis 05/01/2022 Iron [...] Rutherford RN 02/27/2020 Nutrition Pt declines attending [facility] 02/27/2020 Nicey Rutherford RN 02/27/2020 Home Nurse visit Pt [...] Acute bronchitis, complicated 01/25/2012 01/23/2013 screening for ventilation mechanic mosomal anomalies by amniocentesis 07/26/2011 07/26/2011 [...] Asthma in remission 06/01/2010 07/26/20 11 HBPPF [id number] HIGH-RISK PREG NOS 10/17/2007 05/11/2011 PF 09/17/2007 [...] money to get more. Never true 08/24/2022 [place] Depression Scale Answer Date Recorded [place] Depression Scale Total 8 08/24/2022 The thought [...] encounter Miscellaneous Notes * Telephone Encounter - Marjroie Pritchard MED ASSIST - 09/20/2023 8:26 AM [...] her she has a torn esophagus. Per [facility] ER report they recommended Protonix 40mg BID [...] received by office. Name/Company sending fax: [employer] What fax is pertaining to: Medical certificate Date(s) they sent request: Last week Verified fax number they are sending to is correct (Y or N): yes Callback Number for the clinic to call to verified if fax was received: [phone]. documented in this encounter Plan of Treatment Upcoming Encounters Date Type Department Care Team (Late st Contact Info) Description 09/20/2023 10:40 AM EST Office Visit Family Practice [facility] [address] [place] [address] Anil Sandhu MD [address] [place] [address] 09/27/2023 2:00 PM EST Office Visit Cardiology, [facility] [address] [place] [address] Delia Gorman PA-C [address] [place] [address] 12/19/2023 2:00 PM EST Office Visit Gastroenterology, [facility] [place] [address] Zohra Isaacs CRNP [address] [place] [address] Scheduled Procedures Name Priority Associated Diagnoses Date/Ti me COLONOSCOPY FLEXIBLE PROXIMAL DIAGNOSTIC Recall Screen for colon cancer Health Maintenance Due Date Last Done Comments DISCUSS TOBACCO CESSATION (REFER TO SMARTSET #1445) 1981 Hepatitis B (1 of 3 - 3-dose series) 1981 COVID-19 Vaccine (#1) 04/14/1982 HPV/Co-Test 2011 Pneumococcal Vaccine: Pediatrics (0 to 5 Years) and At-Risk Patients (6 to 64 Years) (2 - PCV) 10/24/2018 10/24/2017 Depression Screening 10/23/2019 10/23/2018 Mammogram 2021 Cervical Cancer Screening 02/26/2023 Pap Smear 02/26/2023 02/27/2020, 11/13, 05/23/2013, Additional history exists Influenza Vaccine (FLU shot) (#1) 2023 07/28/2013, 08/13/2012, 09/24/2007 Diabetes Screening 03/27/2026 03/27/2023, 1 11/13/2021, 09/13/2022, Additional history exists Lipid Panel 08/24/2027 08/24/2022 DTaP,Tdap,and Td Vaccines (4 - Td or Tdap) 08/12/2030 08/12/2020, 07/03/2018, 11/20/2015 GARDASIL-HPV IMMUNIZATION SERIES Aged Out No longer [...] and were consensually agreed upon. Care Teams Pecan Cleaner Relationship Specialty Start Date End Date Anil Sandhu MD [address] [place] [address] PCP - General Family Medicine 08/14/22 documented as of this encounter
--- OUTSIDE RECORDS SUMMARY | 2024-03-16 21:32 | External Medical Summary | Summary of Care ---
Author Name Unknown Organization [facility] Address [address] [facility] [place] [address] Phone [phone] Care Team Providers Care Investment Banking Associate Name Role Phone Anil Sandhu MD Primary Care Provider + Encounter Details Date Type Department Care Team (Late st Contact Info) Description 10/01/2023 Telephone Gynecology/Obstetrics [facility] [address] [place] [address] Edgar Hobbs MD [address] [place] [address] Allergies Active Allergy Reactions Criticality Noted Date [...] Acute bronchitis, complicated 01/25/2012 01/23/2013 screening for heel seam rubber mosomal anomalies by amniocentesis 07/26/2011 07/26/2011 Supervision [...] Asthma in remission 06/01/2010 07/26/20 11 HBPPF [id number] HIGH-RISK PREG NOS 10/17/2007 05/11/2011 PF 09/17/2007 [...] money to get more. Never true 09/20/2023 [place] Depression Scale Answer Date Recorded [place] Depression Scale Total 8 08/24/2022 The thought [...] in scheduling appointment. Pt states she prefers [facility] location. Val Miller LPN documented in this encounter Plan of Treatment Upcoming Encounters Date Type Department Care Team (Late st Contact Info) Description 10/23/2023 11:45 AM EST Imaging Radiology [facility] 1st [facility] [address] [place] [address] 12/19/2023 2:00 PM EST Office Visit Gastroenterology, [facility] [address] [place] [address] Zohra Isaacs CRNP [address] [place] [address] Scheduled Procedures Name Priority Associated Diagnoses Date/Ti me COLONOSCOPY FLEXIBLE PROXIMAL DIAGNOSTIC Recall Screen for colon cancer Health Maintenance Due Date Last Done Comments DISCUSS TOBACCO CESSATION (REFER TO SMARTSET #2281) 1981 HPV/Co-Test 2011 Pneumococcal Vaccine: Pediatrics (0 [...] and were consensually agreed upon. Care Teams Investment Banking Associate Relationship Specialty Start Date End Date Anil Sandhu MD [address] [place] [address] PCP - General Family Medicine 08/14/22 documented as of this encounter
--- OUTSIDE RECORDS SUMMARY | 2024-03-16 21:32 | External Medical Summary | Summary of Care ---
Author Name Unknown Organization [facility] Address [address] [facility] [place] [address] Phone [phone] Care Team Providers Care Twister Doffer Name Role Phone Anil aSndhu MD Primary Care Provider + Reason for Visit * Reason Onset Date Comments Letter Requests 06/22/2023 Utility request Encounter Details Date Type Department Care Team (Late st Contact Info) Description 06/22/2023 Telephone Family Practice [facility] [address] [place] [address] Anil Sandhu MD [address] [facility] [place] [address] Letter Requests (Utility request) Allergies Active Allergy Reactions Criticality Noted Date Comments Apple Juice High 12/17/2021 Other reaction(s): Swelling of Lip/Tongue/Throat Diltiazem 03/04/2021 Hoarsness Eggs Or Egg-Derived Products High 12/17/2021 Other reaction(s): THROAT SWELLS /HARD TO BREATHE Ibuprofen Nausea/vomiting High 06/01/2010 Ibuprofen High 12/17/2021 Other reaction(s): VOMITING,BLURRED VISION, RINGING OF EARS Spinach High 12/17/2021 Other reaction(s): SHORTNESS OF BREATH documented as of this encounter (statuses as of 09/21/2023) Medications Medication Sig Dispensed Refills Start Date End Date Status Excedrin Tension Headache 500-65 MG Oral Tablet (Acetaminophen- Caffeine) Take by mouth as needed . 0 Active oxyCODONE-Aceta minophen 5-325 MG Oral Tablet (Percocet)Indic ations:Dental caries,Periapic al abscess Take by mouth 1 Tablet every 6 hours as needed for Pain, Severe. 12 Tablet 0 2 Active Lidocaine Viscous HCl 2 % Mouth/Throat [...] before bedtime. 180 Tablet 3 3 Active Omeprazole 40 MG Oral Capsule Delayed Release (PriLOSEC) Take by mouth 1 Capsule in the morning AND 1 Capsule before bedtime. 180 Capsule 3 2 09/06/20 23 Discontinued Ferrous Sulfate 325 (65 Fe) MG Oral Tablet (Feosol) 1 tab by mouth every other day 90 Tablet 3 2 06/22/20 23 Discontinued(Ref ill) Cyclobenzaprine HCl 10 MG Oral Tablet (Flexeril)Indic [...] 18 g 2 3 09/21/20 23 Discontinued documented as of this encounter (statuses as of 09/21/2023) Active Problems Problem Noted Date Diagnosed Date [...] as of this encounter (statuses as of 09/21/2023) Resolved Problems Problem Noted Date Diagnosed Date [...] Acute bronchitis, complicated 01/25/2012 01/23/2013 screening for cat and dog bather mosomal anomalies by amniocentesis 07/26/2011 07/26/2011 Supervision [...] Asthma in remission 06/01/2010 07/26/20 11 HBPPF [id number] HIGH-RISK PREG NOS 10/17/2007 05/11/2011 PF 09/17/2007 10/17/2007 SUPERVISION OF HIGH-RISK PRE GNANCY WITH HISTORY OF 09/17/2007 01/23/2013 Overview: Declines FTS documented as of this encounter (statuses as of 09/21/2023) Immunizations Name Administration Dates Next Due MMR [...] money to get more. Never true 09/20/2023 [place] Depression Scale Answer Date Recorded [place] Depression Scale Total 8 08/24/2022 The thought [...] encounter Miscellaneous Notes * Telephone Encounter - Mari Palomino MED ASSIST - 06/27/2023 12:35 PM EDT Patient made aware that she needs to call [employer] and have them fax over the form to us. Direct fax number was given. * Telephone Encounter - Anil Sandhu MD - 06/25/2023 1:19 PM EDT I can fill out a new form--patient needs to call [employer] & ask them to fax me form to [employer] fax * Telephone Encounter - Matti Gamboa MD - 06/22/2023 4:37 PM EDT Can wait for PCP * Telephone Encounter - Benjy Vilchis RN - 06/22/2023 4:18 PM EDT Provider to address: Dr. Sandhu Reason for Call: Letter Requests (Utility request) Contact: Telephone Call Contact Type: Other: Letter/form request Outcome: Please see previous message and advise. Please note patient has already had three requests- see scanning from 08/14/2022, 09/15/2022, and 03/21/2023. Total Time including non face to face (minutes): 5 * Telephone Encounter - Mai Ahuja OSA - 06/22/2023 3:53 PM EDT Advised patient: "Our providers do not typically send letters to [employer], but Im happyto send a message to him/her if you wish? " Name on the [employer] Bill: Genie Adames Account #: [id number] Type of Utility: Letsgofordinner Date Needed By: 06/25/23 Phone Number of [employer]: Fax Number of [employer]: Patient (Mobile) Patient says doctor is supposed to phone utility because she uses a nebulizer. Advised Patient: "Should your provider agree to send the letter, there is a minimum of 5 day turn around for letter requests." Advised Patient: "Should you need additional support, you can go online to apply for the LIHEAP Program through the [place] Department of Human Services website." (https://www.dhs.[place].gov/Services/Assistance/Pages/LIHEAP.aspx) documented in this encounter Plan of Treatment Upcoming Encounters Date Type Department Care Team (Late st Contact Info) Description 09/27/2023 2:00 PM EST Office Visit Cardiology, [facility] [address] [place] [address] Delia Gorman PA-C [address] [place] [address] 10/23/2023 11:45 AM EST Imaging [facility] [address] [place] [address] 12/19/2023 2:00 PM EST Office Visit Gastroenterology, [facility] [address] [place] [address] Zohra Isaacs CRNP [address] [place] [address] Scheduled Procedures Name Priority Associated Diagnoses Date/Ti me COLONOSCOPY FLEXIBLE PROXIMAL DIAGNOSTIC Recall Screen for colon cancer Health Maintenance Due Date Last Done Comments DISCUSS TOBACCO CESSATION (REFER TO SMARTSET #1206) 1981 HPV/Co-Test 2011 Pneumococcal Vaccine: Pediatrics (0 [...] and were consensually agreed upon. Care Teams Twister Doffer Relationship Specialty Start Date End Date Anil Sandhu MD [address] [facility] [place] [address] PCP - General Family Medicine 08/14/22 documented as of this encounter
--- OUTSIDE RECORDS SUMMARY | 2024-03-16 21:32 | External Medical Summary | Summary of Care ---
Author Name Unknown Organization [facility] Address [address] [facility] [address] Phone [phone] Care Team Providers Care Miller Helper Name Role Phone Anil Zamora MD Primary Care Provider + Reason for Visit * Reason Comments eRx-Medication Refill Encounter Details Date Type Department Care Team (Late st Contact Info) Description 09/20/2023 Refill Family Practice [facility] [address] [place] [address] Anil Zamora MD [address] [facility] [address] Asthma, mild persistent Allergies Active Allergy Reactions Criticality Noted Date [...] OF BREATH 54 g 1 09/21/2023 Active Albuterol Sulfate HFA 108 (90 Base) MCG/ACT Inhalation Aerosol SolutionIndicati ons:Asthma, mild persistent INHALE 2 PUFFS BY MOUTH EVERY 6 HOURS NEEDED FOR SHORTNESS OF BREATH 18 g 2 06/22/2023 09/21/20 Discontinued documented as of this encounter (statuses as of 09/21/2023) Active Problems Problem Noted Date Diagnosed Date Well adult exam 09/21/2022 Overview: 09/13/23 EGD s/p bleed [facility], 10mm distal tear. Nonbleeding. EGD WNL [...] Acute bronchitis, complicated 01/25/2012 01/23/2013 screening for monument erector mosomal anomalies by amniocentesis 07/26/2011 07/26/2011 [...] Asthma in remission 06/01/2010 07/26/20 11 HBPPF [id number] HIGH-RISK PREG NOS 10/17/2007 05/11/2011 PF 09/17/2007 [...] money to get more. Never true 08/24/2022 [place] Depression Scale Answer Date Recorded [place] Depression Scale Total 8 08/24/2022 The thought [...] encounter Miscellaneous Notes * Telephone Encounter - Maricruz Tejada [facility] - 09/21/2023 10:48 AM ESTSigned Prescriptions: Disp Refills Albuterol Sulfate HFA 108 (90 Base) MCG/AC*54 g 1 Sig: INHALE 2 PUFFS BY MOUTH EVERY 6 HOURS NEEDED FOR SHORTNESS OF BREATHAuthorizing Provider: ANIL ZAMORA User: MARICRUZ TEJADA documented in this encounter Plan of Treatment Upcoming Encounters Date Type Department Care Team (Late st Contact Info) Description 09/27/2023 2:00 PM EST Office Visit Cardiology, [facility] [address] [place] [address] Delia Gorman PA-C [address] [place] [address] 10/23/2023 11:45 AM EST Imaging Radiology [address] [place] [address] 12/19/2023 2:00 PM EST Office Visit Gastroenterology, [facility] [address] [place] [address] Zohra Isaacs CRNP [address] [place] [address] Scheduled Procedures Name Priority Associated Diagnoses Date/Ti me COLONOSCOPY FLEXIBLE PROXIMAL DIAGNOSTIC Recall Screen for colon cancer Health Maintenance Due Date Last Done Comments DISCUSS TOBACCO CESSATION (REFER TO SMARTSET #0432) 1981 HPV/Co-Test 2011 Pneumococcal Vaccine: Pediatrics (0 [...] as of this encounter Visit Diagnoses Diagnosis Asthma, mild persistent Unspecified asthma documented in this encounter Advance Directives Latest Code Status on File Code Status Date Activated Date Inactivated Comments Full Code 12/13/2021 11:56 AM 12/13/2021 7:28 PM This o rder reflects the patients wishes and were consensually agreed upon. Care Teams Miller Helper Relationship Specialty Start Date End Date Anil Zamora MD [address] [place] [address] PCP - General Family Medicine 08/14/22 documented as of this encounter
[2024-03-17 06:50] LABS: Basophils # (auto) 0.04 K/uL (0.00-0.20); Basophils % (auto) 0.7 %; Eosinophils # (auto) 0.29 K/uL (0.00-0.50); Hematocrit (blood only) 30.5 % (37.0-47.0); Hemoglobin 10.6 g/dl (12.0-16.0); Immature Granulocytes # (auto) 0.08 K/uL (0.01-0.20); Immature Granulocytes % (auto) 1.4 %; Lymphocytes # (auto) 1.39 K/uL (1.20-3.40); Lymphocytes % (auto) 24.2 %; Mean Corpuscular Hemoglobin 29.4 pg (25.0-34.0); Mean Corpuscular Hgb Conc 34.8 g/dL (32.0-36.0); Mean Corpuscular Volume 84.5 fL (80.0-100.0); Mean Platelet Volume 10.7 fL (9.4-12.4); Monocytes # (auto) 0.74 K/uL (0.11-0.59); Monocytes % (auto) 12.9 %; Neutrophils # (auto) 3.21 K/uL (1.40-6.50); Neutrophils % (auto) 55.8 %; Platelet Count 189 K/uL (130-400); RDW Coefficient of Variation 13.2 % (11.5-14.5); RDW Standard Deviation 40.5 fL (36.4-46.3); Red Blood Count 3.61 M/uL (4.20-5.40); White Blood Count 5.75 K/ul (4.8-10.8)
[2024-03-17 07:18] LABS: BUN Creatinine Ratio 10.8 (10-20); Calcium 8.3 mg/dl (8.6-10.3); Creatinine Clr Calc Pharmacy 105.4 ml/min; Est GFR (African American) 115.8 ml/min; Est GFR (Non-African American) 99.9 ml/min; Magnesium 1.9 mg/dl (1.7-2.4); Phosphorus 3.5 mg/dl (2.5-4.9)
--- NOTE | 2024-03-17 10:30 | Urology Progress Note ---
Date of Service March 17, 2024 Assessment & Plan (1) Pyelonephritis: (2) Sepsis: Plan: Follow-up of right pyelonephritis Afebrile, hemodynamically stable Subjectively continues to have right flank discomfort requiring IV and PO pain medication Labs todaycreatinine 0.74, no leukocytosis Urine culture with E. coli Blood cultures no growth x 48 hours On IV cefepime Recommend continue with antibiotics for pyelonephritis No plans for urologic intervention at this time If she continues to have flank pain or she clinically worsens, recommend repeating imaging to evaluate for possible abscess formation Repeat CT was ordered by hospital team today and shows no evidence of abscess Continue antibiotics and supportive care per hospital medicine service will sign off, please contact our service with any additional questions or concerns Admission and Anticipated Discharge Date Admission Date: March 14, 2024 Subjective Patient seen and examined at bedside She is awake and ambulating around She continues to have right flank discomfort Also some right low back discomfort No fever or chills Voiding without difficulty No nausea or vomiting Review of Systems Constitutional: as per Subjective / HPI Gastrointestinal: as per Subjective / HPI Genitourinary: as per Subjective / HPI Physical Exam Constitutional: well developed and well nourished; no acute distress Respiratory: normal respiratory effort; no respiratory distress and no labored breathing Gastrointestinal (Abdomen): Inspection/Auscultation: abdomen normal to inspection Musculoskeletal: Head/Neck/Chest: normocephalic Neurologic: moves all extremities and awake Psychiatric: Orientation: alert and oriented x 3 Genitourinary: Mild tenderness to palpation over right flank Results & Data Vital Signs (Past 12 Hours) Vital Signs Temp Pulse Pulse Resp BP Pulse Ox O2 Del Method 03/17/24 08:30 71 03/17/24 07:37 36.8 C 74 16 110/69 97 Room Air 03/17/24 03:46 36.7 C 76 18 116/71 98 Room Air 03/17/24 02:00 78 PG Care Time/CCT Total # of Minutes Spent Total Time Spent with Patient: Total time spent is greater than 50% in coordination of care (as documented) at patient's floor/unit and/or counseling patient: Coding Level of Care Code 44392 SUB INP/OBS CARE 25MIN Diagnoses Pyelonephritis N12 Sepsis A41.9
[2024-03-17] MEDS: OPTIRAY 320 100ml IV ONE (10:31)
--- NOTE | 2024-03-17 11:00 | CT Scan Report ---
CT abd pelvis IV con only CLINICAL HISTORY: persistent flank pain, r/o abscess TECHNIQUE: Helical axial images of the abdomen and pelvis were obtained and displayed. Automated dose lowering techniques and/or adjustment according to patient size were utilized for this exam. This e xam was performed with intravenous contrast. CT DOSE: 1097.43 mGy.cm COMPARISON: Comparison is made to CT abdomen pelvis 03/14/2024 FINDINGS: Lower chest: No acute abnormality. Liver: Left liver lesion measuring 18 mm is unchanged from prior exam. Gallbladder and biliary tree: A phrygian cap is incidentally noted. Gallbladder is otherwise unremark able. No intra- or extrahepatic biliary ductal dilation. Pancreas: Unremarkable, no focal lesions. Spleen: Splenule is incidentally noted. Adrenals: Unremarkable. Kidneys and ureters: Minimally inhomogeneous enhancement of the right renal parenchyma is seen. Wall thickening of the right ureter with mild enhancement and periureteral stranding is seen. No fluid col lection is seen to suggest abscess. Bladder: Limited evaluation due to underdistention. Reproductive organs: Partial visualization of a nabothian cyst. Bowel: The appendix is normal. Lymph nodes Retroperitoneal: Unremarkable. Pelvic: Unremarkable. Mesenteric: Unremarkable. Peritoneum: Normal. Vessels: Unremarkable. Abdominal wall: A fat-containing umbilical hernia is seen. Bones: Schmorl's node in the superior endplate of L3 is again seen. No acute fracture. IMPRESSION: 1. Findings are compatible with improving pyelonephritis/ureteritis with no evidence of abscess. 2. Stable hypodensity in the left lobe of the liver which is incompletely characterized but statisti ethel likely to be benign. 3. Additional findings as above. ACT 112: Negative or not required by law. Electronically signed by: Ranjit Bhandari M.D. 03/17/2024 10:57 AM
--- NOTE | 2024-03-17 14:19 | Discharge Summary ---
Discharge Summary Date of Service March 17, 2024 Notes For Next Care Provider Please ensure resolution of symptoms Please followup on hepatic lesion noted on abdominal imaging. Medication Changes From Visit Ciprofloxacin 500mg BID x 5 days oxycodone 5mg BID PRN for 5 days for SEVERE pain Admission HPI Per Admitting Provider History obtained from patient and records. Medical history significant for PSVT, GERD, eosinophilic esophagitis as per records, bronchial asthma, anxiety/mood disorder, migraine, ongoing tobacco abuse. Last confinement September 2023 for post procedure UGIB following outpatient EGD dilatation. EGD during confinement showed nonbleeding tear lower third of esophagus. Patient discharged on PPI and Carafate course. Yesterday, patient noted achy right flank pain going to her abdomen. Some nausea with bilious emesis. Denies black/bloody stools. Chronic epigastric burning discomfort attributed to possible eosinophilic esophagitis as per GI specialist as per patient. Denies hematuria symptoms. No chest pain, no SOB. IV ceftriaxone administered at the ER. 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 Admission Exam Per Admitting Provider GENERAL: uncomfortable, looks older than stated age, no respiratory distress SKIN: Normal color, warm HEENT: [place] palpebral conjunctivae, no ptosis, dry buccal mucosa NECK : Supple, no tenderness CHEST : CTA, no tenderness HEART : Tachycardic, no obvious murmurs ABDOMEN: Some distention, minimal epigastric tenderness, right flank tenderness EXTREMITIES : No LE swelling/tenderness, no other conspicuous deformities noted NEUROLOGIC : Coherent, no facial asymmetry, no other gross focality Principal Dx & Hospital Course #1 = Principal Diagnosis (1) Sepsis: (2) Pyelonephritis: (3) Iron deficiency anemia: (4) Acute pyelonephritis: Plan Pt is a 43yoF with PMhx significant for PSVT, GERD, eosinophilic esophagitis, bronchial asthma, anxiety/mood disorder, migraine, ongoing tobacco abuse who presented with right flank pain. Sepsis Pyelonephritis R flank pain Pt presented with R flank pain Tachycardic, febrile, leukocytosis with urinary infectious source UA suggestive of infection Urine Cx grew E coli lloyd sensitive Blood Cx x2 NGTD CT abd/pelvis concerning for pyelonephritis on right lactate normal Treated with Cefepime while hospitalized, transition to po ciprofloxacin 500mg BID x an additional 5 days on discharge With worsening right flank pain, consult placed to Urology for further recs in this setting. Urology recommended repeating the CT abd/pelvis to rule out abscess -repeat CT abd/pelvis noted improving pyelonephritis and NO abscess Pt discharged with antibiotics as above and short oxycodone course for pain PCP followup after discharge Hepatic Lesion Left lobe hepatic lesion noted on abdominal imaging Per radiology likely hemangioma/benign PCP followup Hx of PSVT Continue home metoprolol GERD Continue home pantoprazole, sucralfate Bronchial asthma Continue home montelukast, loratidine Tobacco Use Pt declining nicotine patch Discharge Exam General: Alert, oriented. No acute distress Skin: No noted rashes or bruises Psych: Appropriate mood and affect Neuro: No gross deficits HEENT: NC/AT Chest: Nontender to palpation. CV: RRR Resp: Breath sounds clear bilaterally, no increased effort of breathing. Abdomen: Soft, slightly tender in R flank Extremities: No edema in lower extremities bilaterally. Updated Medication List Medication Instructions Recorded Confirmed Type albuterol sulfate 90 mcg/actuation 2 puff inhalation Q6H PRN 06/28/17 03/15/24 History aerosol inhaler (Ventolin HFA) Shortness Of Breath Or Wheezing #1 inhaler khgqash-[id number]-duaarbzf 250 2 tab PO Q6H PRN Migraine Headache 01/08/19 03/15/24 History mg-250 mg-65 mg tablet (Excedrin Migraine) ferrous sulfate 325 mg (65 mg 325 mg PO Q OTHER DAY 09/12/23 03/15/24 History iron) tablet,delayed release metoprolol tartrate 100 mg tablet 100 mg PO BID 09/12/23 03/15/24 History montelukast 10 mg tablet 10 mg PO QAM 09/12/23 03/15/24 History pantoprazole 40 mg tablet,delayed 40 mg PO BID #60 tabs 09/13/23 03/15/24 Rx release (Protonix) acetaminophen 80 mg chewable 320 mg PO Q6 PRN Fever Or Pain 03/15/24 03/15/24 History tablet (Children's Acetaminophen) baclofen 10 mg tablet 10 mg PO AMHS 03/15/24 03/15/24 History epinephrine 0.3 mg/0.3 mL 0.3 mg IM DIRECTED PRN Allergic 03/15/24 03/15/24 History injection, auto-injector (EpiPen) Reaction lidocaine 5 % topical ointment 1 applic topical TID PRN Pain 03/15/24 03/15/24 History loratadine 10 mg tablet 10 mg PO QPM 03/15/24 03/15/24 History sucralfate 100 mg/mL oral 10 ml PO ACHS 03/15/24 03/15/24 History suspension ciprofloxacin HCl 500 mg tablet 500 mg PO BID #10 tabs 03/17/24 Rx oxycodone 5 mg tablet 5 mg PO BID PRN severe pain (scale 03/17/24 Rx score 7-10) #10 tabs Hospital Stay Data Consultations 03/14/24 23:30 ED Decision to Admit Stat 03/16/24 12:51 Consult Urology Routine Diagnostic Imagining Performed 03/14/24 17:55 CT abd pelvis IV con only Stat 03/17/24 09:20 CT Abd and Pelvis [CT abd pelvis IV con only] Urgent Abdomen/Pelvis CT 03/14/24 17:55 CT SCAN OF THE ABDOMEN AND PELVIS WITH IV CONTRAST CLINICAL HISTORY: Right flank pain. Vomiting. COMPARISON STUDY: Abdominal CT dated 09/12/2023. TECHNIQUE: Following the IV administration of 94 cc of Optiray 320, CT scan of the abdomen and pelvis is performed from the lung bases to the proximal femora. Images are reviewed in the axial, sagittal, and coronal planes. IV contrast was administered without complication. A dose lowering technique was utilized adhering to the principles of ALARA. CT DOSE: 870.88 mGy.cm FINDINGS: Lung bases: The heart is normal in size and without pericardial effusion. The lung bases are clear. Liver: The contrast-enhanced liver is enlarged measuring 21.5 cm in length. The liver is otherwise normal in contour and attenuation. There is no intrahepatic biliary ductal dilatation. The hepatic veins and portal veins are patent. A 1.8 cm left lobe liver lesion is unchanged in appearance. This may represent a hemangioma but is incompletely characterized. Gallbladder: Unremarkable. Spleen: The spleen is mildly enlarged measuring 13.7 cm in length. Pancreas: Unremarkable. Adrenal glands: Unremarkable. Kidneys: The contrast enhanced kidneys are normal in size and without hydronephrosis. Urothelial thickening is seen within the right renal pelvis and the right ureter with perinephric and periureteric infiltration an trace fluid. There is heterogeneous enhancement of the right kidney. The left kidney enhances homogeneously. Abdominal vasculature: The abdominal aorta is normal in course and caliber. Bowel: There is mild colonic fecal retention. No bowel obstruction is seen. The appendix is well-visualized and normal. Peritoneum: There is no intraperitoneal free air or abdominal ascites. A naval piercing is noted. Lymphadenopathy: None. Pelvic viscera: The bladder, uterus, and adnexa are normal as visualized noting bilateral ovarian follicles. There is trace free fluid in the cul-de-sac. Skeletal structures: No lytic or blastic lesions are seen. IMPRESSION: 1. Findings suggest right-sided pyelonephritis. Correlate with clinical findings and urinalysis. 2. Mild hepatosplenomegaly. 3. Normal appendix. 4. Trace free fluid in the cul-de-sac is nonspecific and likely physiologic. 5. Additional findings as above. ACT 112: Negative or not required by law. Electronically signed by: Israel Crandall M.D. 03/14/2024 10:13 PM Chest X-Ray 03/14/24 23:33 SINGLE VIEW CHEST CLINICAL HISTORY: Tachypnea FINDINGS: An AP, portable, upright chest radiograph is compared to study dated 09/12/2023. The cardiomediastinal silhouette is unremarkable. The lungs and pleural spaces are clear. No pneumothorax is seen. The bony thorax is grossly intact. IMPRESSION: No active disease in the chest. ACT 112: Negative or not required by law. Electronically signed by: Israel Crandall M.D. 03/15/2024 7:18 AM Abdomen/Pelvis CT 03/17/24 09:20 CT abd pelvis IV con only CLINICAL HISTORY: persistent flank pain, r/o abscess TECHNIQUE: Helical axial images of the abdomen and pelvis were obtained and displayed. Automated dose lowering techniques and/or adjustment according to patient size were utilized for this exam. This exam was performed with intravenous contrast. CT DOSE: 1097.43 mGy.cm COMPARISON: Comparison is made to CT abdomen pelvis 03/14/2024 FINDINGS: Lower chest: No acute abnormality. Liver: Left liver lesion measuring 18 mm is unchanged from prior exam. Gallbladder and biliary tree: A phrygian cap is incidentally noted. Gallbladder is otherwise unremarkable. No intra- or extrahepatic biliary ductal dilation. Pancreas: Unremarkable, no focal lesions. Spleen: Splenule is incidentally noted. Adrenals: Unremarkable. Kidneys and ureters: Minimally inhomogeneous enhancement of the right renal parenchyma is seen. Wall thickening of the right ureter with mild enhancement and periureteral stranding is seen. No fluid collection is seen to suggest abscess. Bladder: Limited evaluation due to underdistention. Reproductive organs: Partial visualization of a nabothian cyst. Bowel: The appendix is normal. Lymph nodes Retroperitoneal: Unremarkable. Pelvic: Unremarkable. Mesenteric: Unremarkable. Peritoneum: Normal. Vessels: Unremarkable. Abdominal wall: A fat-containing umbilical hernia is seen. Bones: Schmorl's node in the superior endplate of L3 is again seen. No acute fracture. IMPRESSION: 1. Findings are compatible with improving pyelonephritis/ureteritis with no evidence of abscess. 2. Stable hypodensity in the left lobe of the liver which is incompletely characterized but statistically likely to be benign. 3. Additional findings as above. ACT 112: Negative or not required by law. Electronically signed by: Ranjit Bhandari M.D. 03/17/2024 10:57 AM Pending Results Patient Have Any Pending Studies at Discharge: No Discharge Instructions Given to Patient (Per Discharging Provider) allyson, You had a severe infection of your right kidney. We treated you with IV antibiotics and your symptoms improved. You were seen by the Urologist. Your repeat CT scan did not show an abscess and showed an improving infection. We are discharging you home with the antibiotic ciprofloxacin 500mg to be taken twice a day for 5 more days. Also discharging you home with pain medication to take only NEEDED for the pain. Please keep close follow up with your primary care provider after discharge. Please do not hesitate to come back to the emergency room if your symptoms worsen or return. It was a pleasure taking care of you while you were here. Total Time Total Time Spent Total Time Spent (In Minutes): 75
== END 2024-03-17 18:10 | disposition home or self-care (01) | DRG 872 ==
LOC: ED 17:29 → EDINP 23:39 → 2N 03-15 15:26